=== PATIENT | male | born 1960 | race Caucasian/White ===

== ENCOUNTER 2020-02-26 01:21 | Emergency (ER) | payer OTHER, BC, SELFPAY ==
[2020-02-26 01:23] VITALS: BP 140/84; PULSE 70; RESP 16; TEMP 36.3; O2SAT 95; BMI 31.5
--- NOTE | 2020-02-26 01:26 | ED.RN ---
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
--- NOTE | 2020-02-26 01:33 | ED.DCSUM_ITS ---
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 This is sharp pain. He felt across the whole back. Hurts to bend and twist and stand up and walk. No radiation of pain into his legs. No loss of bowel or bladder function. No chronic medical problems. No home treatment. Came in for further evaluation as this is a workers comp claim. Current severity is mild. Past Medical History - Allergies and Home Meds Allergies/Adverse Reactions: Allergies No Known Allergies Allergy (Verified 02/26/20 01:26) Primary Care Physician: NOT,DEFINED [Primary Care Provider] - Prior records reviewed: Yes Past Medical History: - - Reviewed Surgical History: noncontributory Lives: With Family Smoking Status: Heavy Smoker (>10/day) Alcohol: None Drugs: None Review of Systems General: Denies: Chills, Fever, Sweats Eyes: Denies: Visual changes - bilaterally, Diplopia ENT: Denies: Rhinorrhea, Sore throat Cardiovascular: Denies: Chest pain, Palpitations Respiratory: Denies: Dyspnea, Cough, Dyspnea on exertion Gastrointestinal: Denies: Abdominal pain, Nausea, Vomiting, Diarrhea, Melena, Hematochezia Genitourinary: Denies: Dysuria, Hematuria, Frequency Musculoskeletal: Reports: Back pain. Denies: Extremity Pain Skin: Denies: Rash, Wounds Neurological: Denies: Headache, Weakness, Numbness Physical Exam Vital Signs/Narrative: Vital Signs Temp Pulse Resp BP Pulse Ox 02/26/20 01:23 97.3 F L 70 16 140/84 H 95 General: Well nourished, Well developed, No Acute Distress Head: Normocephalic, Atraumatic Eyes: Perrl, EOMI ENT: Moist mucous membranes, No rhinorrhea Neck: Supple, Nontender Cardiovascular: Regular rate, Regular rhythm, No murmurs Respiratory: No distress, CTA bilaterally, Chest nontender Abdomen: Soft, Nontender, Nondistended, Normal bowel sounds Back: Normal Inspection, - - Numbness in the right and left-sided paraspinal muscles. No midline tenderness. No swelling or deformity or bony step-off. Mild decreased range of motion secondary to pain. Extremities: Nontender, No edema Skin: Normal color, No rash Neurological: Alert, Oriented x3, Cranial nerves II-XII grossly intact, Normal Strength, Normal Sensation Psychological: Normal affect, Normal Mood Diagnostic/Tx/Re-eval - Medical Decision Making Patient given injection of Toradol. I do not feel he needs imaging. 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 Will rest and ice use anti-inflammatories and follow-up as an outpatient ED Disposition - Plan for ED Patient: Disposition: Home or Assisted Living Diagnosis: Low back strain Instructions: ED LUMBAR SPRAIN/STRAIN Referrals: [facility] [GROUP OF PHYSICIANS] -
[2020-02-26] MEDS: Ketorolac 30 MG/ML Syringe IM (01:38)
[2020-02-26 01:39] VITALS: RESP 16
--- NOTE | 2020-02-26 01:59 | ED.RN ---
PT WAS OBSERVED FOR GREATER THAN 15 MINUTES BY THIS RN, NO REACTION NOTED. PT D/C.
== END 2020-02-26 02:00 | disposition home or self-care (01) ==
LOC: ED 01:48
PROVIDERS: Emergency Provider Emergency Medicine
DX: S39.012A Strain of muscle, fascia and tendon of lower back, initial encounter (principal); X50.1XXA Overexertion from prolonged static or awkward postures, initial encounter; Y93.89 Activity, other specified; Y92.9 Unspecified place or not applicable; Y99.0 Civilian activity done for income or pay; F17.200 Nicotine dependence, unspecified, uncomplicated
CPT/HCPCS: 96372; 99282

== ENCOUNTER → 2020-02-27 13:25 | Outpatient (CLI) | payer OTHER, SELFPAY ==
[2020-02-27 13:16] VITALS: BMI 31.5
--- NOTE | 2020-02-27 13:26 | RAD_ITS ---
STUDY: X-RAY - LUMBAR SPINE REASON FOR EXAM: Male, 59 years old. Work injury, low back pain into the left leg TECHNIQUE: 5 view(s) of the lumbar spine were obtained. COMPARISON: None FINDINGS: Normal lumbar lordosis. There is no substantial scoliosis. There is a normal alignment of the vertebrae. Normal vertebral bodies and endplates. There is multi-level degenerative disc disease with multi-level disc space narrowing. There is no demonstrated fracture. There is atherosclerotic calcification of the abdominal aorta without a demonstrated aneurysm. RAD/L/S Spine Min 4 Views IMPRESSION: Degenerative changes of the spine, as detailed above. Electronically Signed: Titus Bliss MD at 13:52 EDT , Service support ,
== END ==
PROVIDERS: Referring Provider Physician Assistant Surgical; Visit Provider Physician Assistant Surgical
DX: S39.012A Strain of muscle, fascia and tendon of lower back, initial encounter (principal); X58.XXXA Exposure to other specified factors, initial encounter; Y99.0 Civilian activity done for income or pay
CPT/HCPCS: 72110

== ENCOUNTER 2021-09-15 14:11 | Outpatient (CLI) | payer BC, SELFPAY ==
--- NOTE | 2021-09-15 14:14 | RAD_ITS ---
INDICATION: PAIN EXAMINATION/TECHNIQUE: X-RAY - XR Spine Thoracic 2 Views COMPARISON: None FINDINGS: VERTEBRAE: Preserved vertebral body height. No fracture. No spondylolisthesis. Preservation of the normal thoracic kyphosis. Mild multilevel facet arthropathy. DISCS: Mild multilevel degenerative disc disease and spondylosis. INCLUDED CHEST/ABDOMEN: No acute abnormalities. RAD/Thoracic Spine 2 Views IMPRESSION: No evidence of thoracic spinal fracture or spondylolisthesis. Mild multilevel degenerative disc disease and spondylosis. Electronically Signed: Morro Ross MD at 16:56 EST ,
--- NOTE | 2021-09-15 14:14 | RAD_ITS ---
EXAM: XR BILATERAL RIBS, 3 VIEWS : 1960 CLINICAL INDICATION: PAIN TECHNIQUE: Frontal and oblique views of the bilateral ribs. This report was created using Sez[employer] report generation technology. COMPARISON: None. FINDINGS: LUNGS AND PLEURAL SPACES: There are minimal bibasilar interstitial opacities which may represent scar. No pneumothorax. No effusion. BONES/JOINTS: Unremarkable. No displaced fracture. No sclerotic or destructive changes observed. SOFT TISSUES: Unremarkable. No soft tissue swelling or gas. RAD/Ribs Bilat 3V No CXR IMPRESSION: Minimal bibasilar scarring. There are no abnormalities of the ribs. at 0209 Reported and signed by: Imtiaz Zhou MD Electronically Signed: Imtiaz Zhou MD at 2:08 EST ,
== END 2021-09-15 23:59 | disposition home or self-care (01) ==
PROVIDERS: Referring Provider Family Medicine; Visit Provider Family Medicine
DX: R07.81 Pleurodynia (principal); M51.34 Other intervertebral disc degeneration, thoracic region; M47.814 Spondylosis without myelopathy or radiculopathy, thoracic region
CPT/HCPCS: 71110; 72070

== ENCOUNTER 2021-10-16 07:44 | Outpatient (RCR) | payer BC, SELFPAY ==
--- NOTE | 2021-10-22 09:44 | HP.OTFCE_ITS ---
Floor (Occasional 1-33% of Day): 20# Floor (Frequent 34-66% of Day): 10# Floor (Constant 67-100% of Day): NA Floor PDL: Light Knee (Occasional 1-33% of Day): 20# Knee (Frequent 34-66% of Day): 10# Knee (Constant 67-100% of Day): NA Knee PDL: Light Waist (Occasional 1-33% of Day): 15# Waist (Frequent 34-66% of Day): 8# Waist (Constant 67-100% of Day): NA Waist PDL: Sedentary-Light Shoulder (Occasional 1-33% of Day): 15# Shoulder (Frequent 34-66% of Day): 8# Shoulder (Constant 67-100% of Day): NA Shoulder PDL: Sedentary-Light Overhead (Occasional 1-33% of Day): NA Overhead (Frequent 34-66% of Day): NA Overhead (Constant 67-100% of Day): NA Overhead PDL: No Ability Comments: pts pain is limiting factor with lifting. Bending: Occasional Ability (1-33% of day) Comments: with external support Squatting: Occasional Ability (1-33% of day) Comments: with external support Kneeling: Occasional Ability (1-33% of day) Comments: with external support Reaching out: Occasional Ability (1-33% of day) Reaching up: Occasional Ability (1-33% of day) Sitting: Occasional Ability (1-33% of day) Walking: Occasional Ability (1-33% of day) Standing: Occasional Ability (1-33% of day) Duration Sedentary Sedentary Light Light Light Medium Medium Medium Heavy Very Heavy Heavy Occasional (0-33% of day) Frequent (34-66% of day) Constant (67-100% of day) 10 # Negligible Negligible 15 # 8 # Negligible 20 # 10# Negli. 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 pt states he also struggles with thoracic back pain. Pt has been through physical therapy- pt states he had about 7-8 visit and it has reached a point where he was about 60% better. pt states he does not exercise on a regular basis. pt states he is doing a home program for shoulders and back -he was given from physical therapy states he is doing 3x a day Diagnoses: Back Pain. Right shoulder pain Symptoms: Back pain. right shoulder pain Pain: pt states his right back pain 01/16- pt did take tylenol this am around midnight and has not taken anything since. Venu pain questionnaire total po int . Interpretation: ? minimum pain score: 0 (would not be seen in a person with true pain). ? maximum pain score: 78. ? The higher the pain score the greater the pain. References: Sumi Romano. The Venu Pain Questionnaire: Major properties and scoring methods. Pain. 1975;. 1: 277-299. Dillan Phillips. The Greek counterpart to Venu Pain Questionnaire. Pain. 1988; 32: 251-255. Work History: Pt works for [employer] in [employer] for about 4 years. pt states his job requires him to walk,stand, stoop, crawl, reach, pushing/pulling. pt states he is unsure lifting requirement but thinks 35#-50# lift of one individual. pt state they do get help when something is to heavy to lift. pt states he was last at work 2021. Behavioral: pt cooperative and put good effort into tasks that were asked of pt. ADLS: Pt states he lives alone in one story home with two entry steps- pt does have one handrail. pt states he has a tub shower combo and stand for his shower for about 10 min[address] he [address] IND. No adaptive eq. use at this time. pt is doing his own cleaning, cooking, grocery shopping. pt does walk to laundry house to do his laundry Physical Examination: resting heart rate 99. normal kyphosis and lordosis ROM: pt demo with minimal lumbar flex loss lumbar ext min loss of motion. shoulders are rolled at sitting posture. pt demo full ROM of bilateral UE and LE. pt demo with a functional ROM. pain stopping pt with motion. Strength: RIGHT LE: HIP FLEX 4/5, HIP ABD 4/5, HIP ADD 4/5, KNEE EXT 4/5, KNEE FLEX 5/5, ANKLE DORSIFLEXION 5/5. left LE: HIP 4/5, KNEE 5/5, ANKLE DORSIFLEXION 5/5. 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 Strength Average: 51.66 Right Cnc Field Service Engineer Strength Percentile: <4% Left Cnc Field Service Engineer Strength Average: 63.33 Left Cnc Field Service Engineer Strength Percentile: 7.4% Right Lateral Pinch Average: 18.00 Right Lateral Pinch Percentile: 25% Left Lateral Pinch Average: 14.66 Left Lateral Pinch Percentile: 10% Right Tripod Pinch Average: 14.66 Right Tripod Pinch Percentile: 10% Left Tripod Pinch Average: 12.66 Left Tripod Pinch Percentile: 10% Sensation: denies Fine Motor: denies Balance: pt demo good balance during assesment- Bending: pt demo the ability to bend forward 3/3x, 10/10x, 10/10x rapidly. pt forward flexion is limited with pain- pt use external support for task. Pts heart rate 103 following. after completing bending forward rapidly pt heart rate 115. pt can bend forward on occasional ability. pt sat for 2 min after this prior to starting next task of squatting Squatting: pt demo the ability to squat 3/3x with external support. 10/10x with external support. pt reported 6/10 back pain. heart rate 118. pt complted 10/10x rapidly. pt can squat on occasional ability. heart rate 118 Kneeling: pt demo the ability to kneel 3/3x, 10/10x with external support - pt declined 10 x rapidly. pt report 7/10. heart rate 116. heart rate 122 following 10x kneeling. pt can kneel on occasional ability Reaching out/up: pt demo the ability to reach up 3/3x, 10/10x, and 10/10 rapidly. heart rate 113. pt demo the ability to reach out 3/3x, 10/10x and 10/10 rapidly. pt reported back pain 7/10. pts heart rate 120 following. pt can reach up/out on a occasional ability Walking: pt demo short antalgic reciprocal step pattern. 5 min slow pt reported back pain 7/10 during and at end of ambulation. heart rate 123. Pt can ambulate on occasional ability Standing: pt demo limited stand time for 2 min -noted discomfort shifting body weight Sitting: pt demo the ability to sit for 30 min with expressed discomfort with shifting body weight. pt sits-stands with guarded posturing Climbing Stairs: pt ascended and descended 10 steps with a reciprocal step pattern with use of handrail. pt completed safety. heart rate 136 following Floor Lift: pt demo the ability to lift 20# maximally from this level. Pt had good lifting mechanics - pain limiting pts ability. heart rate 132 following. pt reported back pain 7/10 Knee Lift: pt demo the ability to lift 20# maximally from this level. Pt had good lifting mechanics - pain limiting pts ability Waist Lift: pt demo the ability to lift 15# maximally from this level. Pt had good lifting mechanics - pain limiting pts ability Shoulder Lift: pt demo the ability to lift 15# maximally from this level. Pt had good lifting mechanics - pain limiting pts ability Overhead Lift: unable Carrying: pt demo the ability to carry 15# for 6 feet - pt stopped due to pain. pt pain 7/10 Comments: following lifting pt reported back pain 7/10. heart rate ranged form 135-123 during lifting task. No ability to push/pull. back pain limiting pts ability at this time
--- NOTE | 2021-10-22 09:44 | HP.OTFCE.D ---
FCE D/C Summary - Discharge MIGUEL RODRIGEZ was seen for a one time visit for an FCE on 10/16/21 and is discharged.
== END 2021-10-16 19:00 | disposition home or self-care (01) ==
LOC: OT 07:44
PROVIDERS: PCP Family Medicine; Referring Provider Family Medicine; Visit Provider Family Medicine
DX: M54.9 Dorsalgia, unspecified (principal)
CPT/HCPCS: 97750

== ENCOUNTER 2021-10-21 11:30 | Outpatient (RCR) | payer BC, SELFPAY ==
--- NOTE | 2021-09-19 15:46 | HP.PTEVAL_ITS ---
Patient's Visit Information MIGUEL RODRIGEZ is a 61 year old M referred to Physical Therapy by Dr. Bernardo Ruiz MD with a diagnosis of THORACIC PAIN AND DDD. Date of Evaluation: 09/19/21 Physical Therapist: Libra Hernandez PT, Cert MDT - Visit Plan Frequency: 2-3x /Week Duration: 4-6 Weeks Plan: CONSIDER US, E-STIM WITH MH OR CP, POSTURE CORRECTION/STRENGTHENING, INSTRUCTION IN APPROPRIATE BODY MECHANICS AND ACTIVITY MODIFICATIONS. DLS STARTING WITH A NEUTRAL SPINE PROGRESSING ROM TOLERATED. LYN UE AND LE ROM, STRETCHING AND STRENGTHENING. HEP INSTRUCTION. - Subjective Work/Leisure: WORKS IN [place] AT [employer]. 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 CURRENTLY OFF WORK SINCE AUG 13 2021. NO TENTATIVE RETURN TO WORK DATE. Disability: NO. Present symptoms: MID AND LOW BACK PAIN. BACK WEAKNESS. PATIENT DENIES LYN UE AND LE RADIATING PAIN, NUMBNESS OR TINGLING. Present since: APPROX AUG 07 2021. Pain Scale: WORST 9/10, LEAST 2/10. Currently: 10. Commenced as a result of: WASHING LAKE AT WORK WHEN FELT THE PAIN FOR THE FIRST BUT IT WENT AWAY AND CAME BACK. Symptoms at onset: SHARP STABBING PAIN IN BACK. Worse: STANDING UP, TRYING TO LAY DOWN IN BED, TRYING TO TAKE A SHOWER, PUTTING CLOTHES ON, WALKING, BENDING, LIFTING, TWISTING, REACHING. Better: HEATING IT AND COOLING IT. MALOXACAM. Disturbed sleep: YES. 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 WENT TO THE DOCTOR, HAD X-RAYS AND WAS DIAGNOSED WITH ARTHRITIS AND PINCHED NERVE. PAIN DOWN RIGHT LEG TOO AT ONSET. TREATED WITH PHYSICAL THERAPY AT WORK AND THE PROBLEM WENT AWAY. FULL RECOVERY. NO CHIROPRACTIC. NO BACK SURGERY. NO BACK INJECTIONS. Treatment this episode: PREDNISONE. MUSCLE RELAXER. NOW MALOXACAM. Coughing/sneezing/s training: POSITIVE. Deep Breathe: POSITIVE. Gait: ABLE TO WALK NORMAL BUT SLOWER. Difficulty initiating urination: NO. NO BOWEL OR BLADDER DYSFUNCTION. Accidents: NO. Unexplained weight loss: NO. Imaging: RECENT X-RAYS ORDERED BY DR. RUIZ. PATIENT REPORTS THE NURSE TOLD HIM THERE HAS BEEN A CHANGE IN HIS SPINE AND DR. RUIZ WANTS HIM TO DO PT. REPORTS FOLLOW UP SCHEDULED WITH DR. RUIZ PENDING 09/25/21. INDICATION: PAIN. EXAMINATION/TECHNIQUE: X-RAY - XR Spine Thoracic 2 Views. COMPARISON: None. . FINDINGS: VERTEBRAE: Preserved vertebral body height. No fracture. No. spondylolisthesis. Preservation of the normal thoracic kyphosis. Mild. multilevel facet arthropathy. DISCS: Mild multilevel degenerative disc disease and spondylosis. INCLUDED CHEST/ABDOMEN: No acute abnormalities. RAD/Thoracic Spine 2 Views. IMPRESSION: . No evidence of thoracic spinal fracture or spondylolisthesis. . Mild multilevel degenerative disc disease and spondylosis. . Electronically Signed: Morro Ross MD. at 16:56 EST. Reading Location ID and State: [address] [place] [address]. H/Recent major surgery: UNREMARKABLE - Objective Sitting/Standing Posture: NORMAL KYPHOSIS AND LORDOSIS. NO RELEVENT LATERAL SHIFT. Active Correction of posture: WORSE. Other Observations: THIS PATIENT AMBULATES INDEP'LY INTO PT WITH A SLOW ANTALGIC GAIT PATTERN. GAIT AND TRANSFERS ARE GUARDED. PATIENT IS ABLE TO TRANSFER INDEP'LY FROM SIT TO STAND WITHOUT UE ASSIST BUT WITH C/O INCREASED BACK PAIN. Motor deficit: LYN UE STRENGTH IS GROSSLY 5/5 WITH MMT'ING. I PROCEEDED VERY CAREFULLY WITH ALL TESTING TODAY INCLUDING MMT'ING. RIGHT LE: HIP FLEX 3+/5, HIP ABD 4-/5, HIP A DD 3+/5, KNEE EXT 4/5, KNEE FLEX 5/5, ANKLE DORSIFLEX 4/5 AND PATIENT IS UNABLE TO WALK ON HIS TOES. LLE: HIP 4-/5, KNEE 5/5, ANKLE DORSIFLEX 5/5. PATIENT IS ABLE TO WALK ON HIS HEELS. PATIENT C/O SHOOTING BACK PAIN WITH LIGHT TESTING OF RIGHT HIP ADD AND FLEXION. ALSO C/O BACK PAIN PREVENTING HIM FROM WALKING ON HIS TOES. Sensory deficit: LYN UE AND LE LIGHT TOUCH SENSATION GROSSLY INTACT AND SYMMETRICAL. ROM deficit: TIGHT LYN HS'S AND GASTROC-SOLEUS COMPLEX'S. LYN UE ELEVATION WFL AND PATIENT DENIES PAIN WITH TESTING. Reflexes: UNABLE TO ELICIT LYN UE AND LE DTR'S. PATIENT IS VERY GUARDED. Dural Signs: POSITIVE LYN LE'S. Thoracic mvmt loss: R Rot - MOD. L Rot - MOD. Lumbar mvmt loss: flex - MOD. ext - MOD. R SG - MOD. L SG - MIN. PATIENT C/O INCREASED BACK PAIN WITH THORACIC AND LUMBAR ROM TESTING ALL PLANES. Core strength: POOR. Palpation: INCREASED MUSCLE TONE OF LYN THORACIC AND LUMBAR PARASPINALS. PATIENT IS ESPECIALLY TENDER IN APPROX THE T8 - L2 REGIONS AND RIGHT PARASPINALS GREATER THAN LEFT. TREATMENT: NEUROMUSCULAR REEDUCATION - RETRAINING OF MVMT AND POSTURE FOR SITTING, LYING AND STANDING ACTIVITIES. - Balance/Special Test Scores Oswestry Low Back Score: 22 - Goals Goal 1:: DECREASE C/O BACK PAIN Goal Time Frame: 4-6 Weeks Goal 2:: IMPROVE PERSONAL CARE, LIFTING, WALKING, SITTING, STANDING, SLEEP, SOCIAL LIFE, TRAVEL AND WORK/HOMEMAKING FUNCTION. Goal Time Frame: 4-6 Weeks Goal 3:: INSTRUCT IN PROPHYLAXIS Goal Time Frame: 4-6 Weeks - Anticipated Interventions Patient/Client Instruction: Educate patient on: Condition, Plan of Care, Risk Factors For the Purpose of:: To improve self management Therapeutic Exercise to Include: Strength training, Body mechanics, Postural training, Neuromotor development, Dynamic Lumbar Stabilization, Scapular Strength/Stabilization For the Purpose of:: To decrease pain, To improve muscle performance and motor function, To increase tolerance to activity/condition/position, To improve ability of physical actions for home/community/work/leisure TENS: Yes IF ES: Yes Cryotherapy (ice pack, ice massage): Yes Thermo therapy (hot pack): Yes Ultrasound (thermal/non thermal): Yes For the Purpose of:: To decrease pain, To improve nutrient delivery to tissue Thank you for the opportunity to evaluate your patient. For Medicare and Medicare HMO plans, please review the plan of care and approve it. It will need to be FAXED BACK to us at [phone] for Medicare purposes. For Medicare only, by signing this I certify the plan of care. Please let me know if there are questions or concerns regarding this plan of care. Physician Signature: Date:
--- NOTE | 2021-10-21 12:23 | HP.PTDCSUM_ITS ---
It has been my pleasure to treat MIGUEL RODRIGEZ referred by Dr. Bernardo Ruiz MD, with the diagnosis of THORACIC PAIN AND DDD for a total of 9 visit(s). Discharge Date: Please see the following information for a summary of their discharge status. Subjective: PATIENT REPORTS HE WAS ABOUT 60% BETTER UNTIL HE HAD HIS [facility] TEST LAST WEEK. HE REPORTS CANCELLING HIS LAST PT OMID'T DUE TO INCREASED PAIN FROM THE TEST. PATIENT REPORTS THAT PRIOR TO THAT, WHEN HE WOULD LEAVE HIS PT OMID'TS HE COULD SIT LONGER, HE COULD STAND A LITTLE LONGER AND HE WAS GETTING BETTER AT WALKING. PATIENT REPORTS THAT HE FELT LIKE HE WAS HIT WITH A TON OF BRICKS AFTER THE TEST. SINCE THEN, HE REPORTS HE HAS BEEN IN MORE PAIN AND HASN'T BEEN ABLE TO DO MUCH OF ANYTHING. NOT BACK TO WORK. STATES HE AND WORK ARE WAITING FOR FINAL WORK RESTRICTIONS FROM THE DOCTOR. PATIENT REPORTS HE DOES NOT WANT TO CONTINUE PT BECAUSE HE DOES NOT THINK IT WILL DO ANY GOOD. HE REPORTS HE HAS FOLLOW UP WITH DR. RUIZ PENDING 11/04/21. 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 OMID'T WITH DR. EWING AT [facility] PENDING 11/03/21. R BACK PAIN Pain Intensity (Out of 10): 5 L BACK PAIN Pain Intensity (Out of 10): 4 % Improvement: 60 Objective/Function: PATIENT WAS SEEN TODAY FOR RE-ASSESSMENT OF PROGRESS TOWARD THE SET PT GOALS AND THE NEED FOR FURTHER PHYSICAL THERAPY VS READINESS FOR DISCHARGE. PATIENT IS CURRENTLY NOT IMPROVING. UPON EXAM TODAY: Sitting/Standing Posture: NORMAL KYPHOSIS AND LORDOSIS. NO RELEVENT LATERAL SHIFT. Active Correction of posture: WORSE. Other Observations: THIS PATIENT AMBULATES INDEP'LY INTO PT WITH A SLOW ANTALGIC GAIT PATTERN. GAIT AND TRANSFERS ARE GUARDED. PATIENT IS ABLE TO TRANSFER INDEP'LY FROM SIT TO STAND WITHOUT UE ASSIST BUT WITH C/O INCREASED BACK PAIN. Motor deficit: LYN UE STRENGTH IS GROSSLY 5/5 WITH MMT'ING. I PROCEEDED VERY CAREFULLY WITH ALL TESTING TODAY INCLUDING MMT'ING. RIGHT LE: HIP FLEX 4/5, HIP ABD 4/5, HIP ADD 4/5, KNEE EXT 4/5, KNEE FLEX 5/5, ANKLE DORSIFLEX 5/5. LLE: HIP 4/5, KNEE 5/5, ANKLE DORSIFLEX 5/5. PATIENT DEMO'S ABILITY TO WALK ON HIS TOES AND WALK ON HIS HEELS TODAY. Sensory deficit: LYN UE AND LE LIGHT TOUCH SENSATION GROSSLY INTACT AND SYMMETRICAL. ROM deficit: TIGHT LYN HS'S AND GASTROC-SOLEUS COMPLEX 'S. LYN UE ELEVATION WFL AND PATIENT REPORTS PAIN ELEVATING RIGHT UE UNTIL ALL THE WAY UP THEN THE PAIN GOES AWAY. Reflexes: UNABLE TO ELICIT LYN UE AND LE DTR'S. PATIENT IS VERY GUARDED. Dural Signs: POSITIVE LYN LE'S (R >L). Thoracic mvmt loss: R Rot - MOD. L Rot - MOD. Lumbar mvmt loss: flex - NIL. ext - MOD. R SG - MOD. L SG - MIN. PATIENT C/O INCREASED BACK PAIN WITH THORACIC AND LUMBAR ROM TESTING ALL PLANES. Core strength: POOR. Palpation: INCREASED MUSCLE TONE OF LYN THORACIC AND LUMBAR PARASPINALS. PATIENT IS ESPECIALLY TENDER IN APPROX THE T8 - L2 REGIONS AND RIGHT PARASPINALS GREATER THAN LEFT. OTHER: REVIEWED HEP AND PATIENT COMMUNICATED A GOOD UNDERSTANDING OF ALL INSTRUCTIONS AFTER GIVEN. Goal 1:: DECREASE C/O BACK PAIN Goal Progress: Not Progressing Goal 2:: IMPROVE PERSONAL CARE, LIFTING, WALKING, SITTING, STANDING, SLEEP, SOCIAL LIFE, TRAVEL AND WORK/HOMEMAKING FUNCTION. Goal Progress: Not Progressing Goal 3:: INSTRUCT IN PROPHYLAXIS Goal Progress: Not Progressing Plan: D/C TO PHYSICIAN FOLLOW UPS. PATIENT AGREEABLE. If there are questions or concerns regarding this patient's physical therapy, please feel free to call me at [phone]. Thank you for the referral of this patient. Sincerely, Libra Hernandez, PT, Cert MDT Balance/Gait/Functional tests - Balance/Special Test Scores Oswestry Low Back Score: 35
== END 2021-10-21 14:27 | disposition home or self-care (01) ==
LOC: PT 11:30
PROVIDERS: PCP Family Medicine; Referring Provider Family Medicine; Visit Provider Family Medicine
DX: M51.34 Other intervertebral disc degeneration, thoracic region (principal)
CPT/HCPCS: 97014; 97035; 97112; 97162; 97164; 97530; G0283

== ENCOUNTER 2021-10-25 15:26 | Emergency (ER) | payer BC, SELFPAY ==
[2021-10-25 15:26] VITALS: BP 159/91; PULSE 108; RESP 18; TEMP 36.6; O2SAT 95; BMI 25.2
--- NOTE | 2021-10-25 16:38 | ED.VIS.BACK ---
HPI History of Present Illness Chief Complaint: Back Narrative Narrative: 61-year-old male presenting with back pain.He states he had an injury in August and states he had pain since then. Patient states that he has been seen by physical therapy and had his primary care physician see him. Is previously been on prednisone. The prednisone did help but his primary care did not want to continue on prednisone long-term. He did send him to pain management and he has appointment on the of this month but states that he cannot wait because he is in pain. He states that he thinks his primary care physician did not want to put him on narcotics because he would need to give a urinalysis to get into the pain management. He believes this is why his primary care physician did not give him any narcotic pain medication. Patient states he has tried meloxicam as well this is not helped. He has tried aspirin [id number] at home as well. Denies any loss of bladder bowel control. No saddle anesthesia. Denies any new or worsening trauma. He is already had trauma. He is already had imaging. [facility] Medical History Back pain Hernia Right shoulder pain Right shoulder strain Strain of right rotator cuff capsule Home Medications hydrocodone-acetaminophen 1 tab PO Q6H PRN 3 Days #10 tab 10/25/21 [Rx Last Taken Unknown] Allergy/AdvReac Type Severity Reaction Status Date / Time No Known Allergies Allergy Verified 08/14/21 12:39 Social History Smoking Status: Former smoker alcohol intake: never ROS ROS ED Constitutional Constitutional ED: Denies chills or fever(s) Eyes Eyes: Denies blurry vision or change in vision ENT ENT ED: Denies rhinorrhea or sore throat Cardiovascular Cardiovascular: Denies chest pain or palpitations Respiratory/Chest Respiratory/Chest: Denies dyspnea or sputum Gastrointestinal Gastrointestinal: Denies abdominal pain, nausea or vomiting Genitourinary Genitourinary ED: Denies dysuria or hematuria Musculoskeletal Musculoskeletal: Reports back pain Integumentary Denies rash Neurologic Neurologic: Denies headache(s) or weakness EXAM Physical Exam Const Vital Signs: 10/25/21 15:26 Temperature 97.8 F Temperature Source Temporal Pulse Rate 108 H Respiratory Rate 18 Blood Pressure 159/91 H Blood Pressure Mean 113 Pulse Ox 95 Oxygen Delivery Method Room Air Positive well nourished General Appearance ED: NAD HEENT Reports moist mucous membranes Negative for trauma Eyes PERRL and EOMs intact bilaterally Resp normal respiratory effort and clear to auscultation bilaterally Cardio regular rate and regular rhythm Back/Spine Thoracic Spine / Upper Back: paraspinal muscle tenderness right T10, T11 and T12 Neuro oriented x3 and no sensory deficits noted Sensorium / Orientation: alert Psych mental status grossly normal Skin no rashes or lesions noted MDM MDM MDM Narrative Medical decision making narrative: After evaluating patient for his back he states that he has had a mild cough. Is not had a fever or shortness of breath. Lungs are clear. Vital signs are stable and he is afebrile. I do not believe he needs a chest x-ray. He states that his main focus is to control his back pain. I did have a long discussion with him that if the wishes of his primary care were not to give him narcotic pain medication was in fact for the purpose of getting him into pain management with a clean urinalysis and this may hinder his getting into pain management. He acknowledges understanding of this and wants to be treated for his pain. He does not have any red flag signs or symptoms of believe he can be safely discharged without further work-up. Patient was given a prescription for Holman. He is given return precautions. Impression: 1. Thoracic strain 2. Cough Discharge Plan Triage Chief Complaint: Back Other Complaint: Cough ED Provider: Adi Jiang Dx/Rx/DC Orders Instructions: ED Back Pain (Acute or Chronic) Prescriptions: New hydrocodone-acetaminophen 5-325 mg tablet 1 tab PO Q6H PRN (Reason: pain) 3 Days Qty: 10 RF: 0 Primary Care Provider: Bernardo Mensah Referrals: Bernardo Mensah MD [Primary Care Provider] - Disposition Disposition: Home, Self Care Discharge Date/Time: 10/25/21 16:42
== END 2021-10-25 16:42 | disposition home or self-care (01) ==
PROVIDERS: Emergency Provider Student in an Organized Health Care Education/Training Program; PCP Family Medicine; Visit Provider Student in an Organized Health Care Education/Training Program
DX: S29.019A Strain of muscle and tendon of unspecified wall of thorax, initial encounter (principal); X58.XXXA Exposure to other specified factors, initial encounter; R05.9 Cough, unspecified; Z87.891 Personal history of nicotine dependence
CPT/HCPCS: 99282

== ENCOUNTER 2021-10-31 08:42 | Outpatient (CLI) | payer BC, SELFPAY ==
--- NOTE | 2021-10-31 08:45 | RAD_ITS ---
STUDY: X-RAY CHEST REASON FOR EXAM: Male, 61 years old. BRONCHITIS TECHNIQUE: PA and lateral views of the chest. COMPARISON: None. FINDINGS: Blunting of the left constrained angle suggestive of a small left pleural effusion. Increased linear markings in the left perihilar region suggestive of underlying atelectasis and/or scarring. Mild increased markings at the left lung base. Normal size heart. Normal mediastinum and umm. Normal visualized pulmonary arteries. There is atherosclerotic tortuosity of the aortic arch and descending thoracic aorta. There are diffuse degenerative changes of the visualized thoracic spine. Loss of height of mid dorsal vertebrae. Normal visualized ribs, clavicles, and shoulders. There is no demonstrated abnormality of the visualized soft tissue structures of the upper abdomen. RAD/Chest PA and Lateral IMPRESSION: Small left pleural effusion with increased markings at the left lung base suggestive of atelectasis and/or early infiltrate. Increased linear markings in the right perihilar region suggestive of a scar. Electronically Signed: Alexx Fairbanks MD at 9:47 EDT ,
== END 2021-10-31 23:59 | disposition home or self-care (01) ==
LOC: MTRAD 08:44
PROVIDERS: PCP Family Medicine; Referring Provider Family Medicine; Visit Provider Family Medicine
DX: J20.9 Acute bronchitis, unspecified (principal)
CPT/HCPCS: 71046

== ENCOUNTER 2021-11-02 21:56 | Emergency (ER) | payer BC, SELFPAY ==
[2021-11-02 21:56] VITALS: BP 148/97; PULSE 105; RESP 16; TEMP 35.8; O2SAT 96; BMI 29.0
--- NOTE | 2021-11-02 22:12 | CT_ITS ---
EXAM: CT ANGIOGRAPHY CHEST, ABDOMEN AND PELVIS WITH INTRAVENOUS CONTRAST CLINICAL INDICATION: back and abd pain, leg weakness, check aorta TECHNIQUE: Helically acquired angiography images were obtained of the chest, abdomen and pelvis with intravenous contrast. This CT exam was performed using one or more of the following dose reduction techniques: automated exposure control, adjustment of the mA and/or kV according to patient size, and/or use of iterative reconstruction technique. This report was created using Smart Voicemail report generation technology. MIP reconstructed images were created and reviewed. CONTRAST: IV 100mL [id number]-[id number] COMPARISON: None. FINDINGS: VASCULATURE: AORTA: No acute findings. Normal in caliber. No dissection. PULMONARY ARTERIES: Unremarkable. Normal in caliber. No obvious central pulmonary embolism although this study was not performed with the pulmonary embolism protocol. GREAT VESSELS OF AORTIC ARCH: Unremarkable. Normal in caliber. No dissection. CELIAC TRUNK AND MESENTERIC ARTERIES: No acute findings. No occlusion or significant stenosis. No dissection. RENAL ARTERIES: No acute findings. No occlusion or significant stenosis. No dissection. ILIAC ARTERIES: No acute findings. No occlusion or significant stenosis. No dissection. CHEST: LUNGS AND PLEURAL SPACES: Unremarkable. No mass. No consolidation or edema. No pleural effusion or thickening. No pneumothorax. HEART: Unremarkable. Heart size is normal. No pericardial effusion. MEDIASTINUM: See below. THYROID: Unremarkable. No thyroid lesions. ABDOMEN: LIVER: Unremarkable. Homogeneous. No focal mass. GALLBLADDER AND BILE DUCTS: Unremarkable. No calcified gallstones. No gallbladder distention or wall edema. No intra- or extrahepatic biliary ductal dilation. PANCREAS: Unremarkable. No focal cystic or solid mass. SPLEEN: Unremarkable. Normal size without focal cystic or solid mass. ADRENALS: Unremarkable. No nodules. KIDNEYS AND URETERS: Unremarkable. Normal renal size and position. No hydronephrosis. STOMACH AND BOWEL: Mild wall thickening of the colon from the splenic flexure through the sigmoid colon suspicious for infectious or inflammatory colitis. No stomach or bowel distention. PELVIS: APPENDIX: No evidence of acute appendicitis. BLADDER: Unremarkable. REPRODUCTIVE: Unremarkable as visualized. No mass. CHEST, ABDOMEN and PELVIS: INTRAPERITONEAL SPACE: Unremarkable. No ascites or other fluid collection. No free air. BONES/JOINTS: Lucency in the T8 and T9 vertebral bodies with endplate destruction. Disc space narrowing. There is pathologic compression of the T9 vertebral body with approximately 50% loss of vertebral body height. There is abnormal pre- and paravertebral soft tissue at the T8 and T9 levels. Findings are suspicious for discitis/osteomyelitis with paravertebral abscess. SOFT TISSUES: Small fat-containing umbilical hernia. LYMPH NODES: Mild mediastinal adenopathy. Subcarinal node measures 1.7 cm in short axis. Left paratracheal node measures 1.[address] in [address] axis[address] CT/CTA Chst, Abd, Pel W and/or WO IMPRESSION: Findings suspicious for T8-9 discitis/osteomyelitis with paravertebral abscess. Consider contrast enhanced MRI of the thoracic spine, particularly to evaluate the spinal canal and exclude epidural abscess. Mild mediastinal adenopathy. N.B. : The above Results were Read Back by Sonia Antoine MD to Lencho Coffman MD, and understanding confirmed on 11/02/2021 23:53:45 (ET). Electronically Signed: Sonia Antoine MD at 23:56 EDT Reading Location ID and State: [id number] / Tel , Service support ,
[2021-11-02] MEDS: HYDROmorphone 1 MG/ML Syringe IV (22:23)
[2021-11-02] MEDS: Ondansetron 4 MG/2 ML Vial IV (22:23)
[2021-11-02 22:31] LABS: Absolute Lymphocyte Count 1.49 X10^3/uL (0.83-4.51); Absolute Neutrophil Count 8.9 X10^3/uL (2.0-7.7); Basophil# 0.02 X10^3/uL; Basophil% 0.2 % (0-1); Eosinophil# 0.03 X10^3/uL; Eosinophils% 0.3 % (0-5); Hematocrit 34.4 % (40-54); Hemoglobin 11.9 g/dL (13.0-16.5); Lymphocyte # 1.49 X10^3/ul (0.83-4.51); Mean Corp Hgb Conc 34.6 g/dL (32-36); Mean Corpuscular Hgb 27.5 pg (27.0-32.0); Mean Corpuscular Volume 79.6 fL (80-94); Mean Platelet Vol. 8.7 fl (6.2-12.0); Monocyte# 0.99 X10^3/uL; Monocyte% 8.6 % (0-10); NRBC Flagged by Analyzer 0 % (0-5); Neutrophil # 8.85 X10^3/uL (2.7-7.7); Neutrophil % 76.9 % (47-70); Platelet Count 538 K/mm3 (150-450); RBC Distribution Width CV 13.5 % (11.6-14.6); RBC Distribution Width SD 39.3 fl (35.1-43.9); Red Blood Count 4.32 M/mm3 (4.6-6.2); White Blood Count 11.5 K/mm3 (4.4-11.0)
[2021-11-02 22:54] LABS: Anion Gap 11 (5-15); BUN 25 mg/dL (7-18); BUN/Creat Ratio 30.1 RATIO (10-20); Calcium,Total 9.7 mg/dL (8.5-10.1); Chloride 92 mmol/L (98-107); Creatinine, Serum 0.83 mg/dL (0.70-1.30); EST Glomerular Filtration Rate 101 mL/min (>60); Est Glom Filt Rate - Afr Amer 122 mL/min (>60); Estimated Creatinine Clearance 89.59 ml/min; Glucose 524 mg/dL (74-106); Potassium 4.2 mmol/L (3.5-5.1); Sodium Level 128 mmol/L (136-145)
--- NOTE | 2021-11-02 22:54 | ED.RN ---
glucose of 524 received from lab aware.
[2021-11-02] MEDS: 0.9% Normal Saline 1,000 ML 1000 ML IV (23:38)
[2021-11-02 23:56] VITALS: BP 148/85; PULSE 81; RESP 15; O2SAT 97
--- NOTE | 2021-11-03 00:22 | EX.ED.DYSGE1 ---
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 He has had x-rays of his shoulder and thoracic spine and was referred to physical therapy and pain management. He presents today because he is having increasing pain. He is also having abdominal pain and he is having numbness down his legs bilaterally. These are new symptoms today. He never had these symptoms before. Prior similar symptoms: No Recent Illness/Hospitalization: No PFSH [facility] Medical History Back pain Hernia Right shoulder pain Right shoulder strain Strain of right rotator cuff capsule Home Medications hydrocodone-acetaminophen 1 tab PO Q6H PRN 3 Days #10 tab 10/25/21 [Rx Last Taken Unknown] albuterol sulfate 2 inh INHALATION Q4H PRN PRN 11/02/21 [History Last Taken Unknown] prednisone 40 mg PO DAILY 11/02/21 [History Last Taken Unknown] Allergy/AdvReac Type Severity Reaction Status Date / Time No Known Allergies Allergy Verified 11/02/21 22:00 Social History Smoking Status: Former smoker alcohol intake: never ROS ROS ED Constitutional Constitutional ED: Denies chills or fever(s) Eyes Eyes: Denies change in vision ENT ENT ED: Denies ear pain Cardiovascular Cardiovascular: Denies chest pain Respiratory/Chest Respiratory/Chest: Denies dyspnea Gastrointestinal Gastrointestinal: Reports abdominal pain Genitourinary Genitourinary ED: Denies dysuria Musculoskeletal Musculoskeletal: Reports back pain Integumentary Denies rash Neurologic Neurologic: Reports paresthesias and weakness; Denies headache(s) Psychiatric Psychiatric: Denies depression Endocrine Endocrinology: Denies polyuria Allergic/Immunologic Allergic/Immunologic ED: Denies urticaria EXAM Physical Exam Const Vital Signs: 11/02/21 21:56 11/02/21 22:05 Temperature 96.5 F L Temperature Source Temporal Pulse Rate 105 H Respiratory Rate 16 Respiratory Effort Normal Non-Labored Respiratory Pattern Normal Blood Pressure 148/97 H Blood Pressure Mean 114 Pulse Ox 96 Oxygen Delivery Method Room Air Positive well nourished and well developed General Appearance ED: well developed HEENT Negative for trauma Eyes EOMs intact bilaterally Neck supple Resp normal respiratory effort Cardio regular rate GI normal to inspection, nondistended, normoactive bowel sounds Back/Spine Thoracic Spine / Upper Back: thoracic spinal tenderness Extremity normal to inspection General Extremety ED: Negative for edema or tenderness General Extremity: Negative for edema Neuro oriented x3 Neuro Narrative: Subjective lower extremity decreased sensation, symmetric. Motor 5 out of 5 in all groups. Sensorium / Orientation: alert Psych mental status grossly normal Skin no rashes or lesions noted MDM MDM MDM Narrative Medical decision making narrative: Patient presents with thoracic pain. The pain is getting worse since a mild injury in August. It did not make sense clinically. He said he is also having abdominal pain and neurologic symptoms. I was concerned for some other etiology of his thoracic pain like aortic disease. I ordered some basic labs. His white count was 11.5. Glucose 524. Sodium is 128, secondary to his hyperglycemia. Anion gap was normal. He was treated with IV fluids. He said he has no history of diabetes but has been on prednisone. Patient required multiple doses of pain medication. His CT came back. His aorta was okay but he had osteomyelitis of T8 and T9 with paravertebral edema concerning for an early abscess. He will need MRIs and spinal surgery consultation. I added on cultures as well as vancomycin and Rocephin. I contacted [facility] for transfer. Impression #1 T8 and T9 osteomyelitis Impression #2 thoracic paravertebral abscess suspected Impression #3 hyperglycemia Disposition will be transfer. Lab Data Attestation: I reviewed the patient's lab results. Labs: Laboratory Results - last 24 hr 11/02/21 11/02/21 22:08 22:08 WBC 11.5 H RBC 4.32 L Hgb 11.9 L Hct 34.4 L MCV 79.6 L MCH 27.5 MCHC 34.6 RDW Std Deviation 39.3 RDW Coeff of Tre 13.5 Plt Count 538 H MPV 8.7 Immature Gran % (Auto) 1.000 H Neut % (Auto) 76.9 H Lymph % (Auto) 13.0 L Cook % (Auto) 8.6 Eos % (Auto) 0.3 Baso % (Auto) 0.2 Absolute Neuts (auto) 8.9 H Absolute Lymphs (auto) 1.49 Nucleated RBC % 0 Sodium 128 L Potassium 4.2 Chloride 92 L Carbon Dioxide 25.0 Anion Gap 11 BUN 25 H Creatinine 0.83 Estim Creat Clear Calc 89.59 Est GFR (MDRD) Af Amer 122 Est GFR (MDRD) Non-Af 101 BUN/Creatinine Ratio 30.1 H Glucose 524 H* Calcium 9.7 Radiography Diagnostic Testing: Clinical Impression(s) from Imaging Studies Chest/Abdomen/Pelvis CTA 11/02/21 22:12 IMPRESSION: Findings suspicious for T8-9 discitis/osteomyelitis with paravertebral abscess. Consider contrast enhanced MRI of the thoracic spine, particularly to evaluate the spinal canal and exclude epidural abscess. Mild mediastinal adenopathy. N.B. : The above Results were Read Back by Sonia Antoine MD to Lencho Coffman MD, and understanding confirmed on 11/02/2021 23:53:45 (ET). Electronically Signed: Sonia Antoine MD at 23:56 EDT Reading Location ID and State: [id number] / Tel , Service support , ADDENDUM: 11/03/21 0003 IMPRESSION: Findings suspicious for T8-9 discitis/osteomyelitis with paravertebral abscess. Consider contrast enhanced MRI of the thoracic spine, particularly to evaluate the spinal canal and exclude epidural abscess. Mild mediastinal adenopathy. N.B. : The above Results were Read Back by Sonia Antoine MD to Lencho Coffman MD, and understanding confirmed on 11/02/2021 23:53:45 (ET). Electronically Signed: Sonia Antoine MD at 23:56 EDT Reading Location ID and State: [id number] / Tel , Service support , Discharge Plan Triage Chief Complaint: Other, Pain/Inj ED Provider: Lencho Coffman Dx/Rx/DC Orders Prescriptions: No Action hydrocodone-acetaminophen 5-325 mg tablet 1 tab PO Q6H PRN (Reason: pain) 3 Days Qty: 10 RF: 0 prednisone 20 mg tablet 40 mg PO DAILY RF: 0 albuterol sulfate 90 mcg/actuation HFA aerosol inhaler 2 inh INHALATION Q4H PRN PRN (Reason: sob) RF: 0 Primary Care Provider: Bernardo Mensah
[2021-11-03] MEDS: HYDROmorphone 1 MG/ML Syringe IV ×2 (00:37→03:15)
[2021-11-03] MEDS: 0.9% Normal Saline 1,000 ML 1000 ML IV (00:41)
[2021-11-03] MEDS: Ceftriaxone 1 GM/50 ML BAG IV (00:47)
[2021-11-03 01:00] VITALS: BP 146/87; PULSE 80; RESP 15; O2SAT 97
[2021-11-03 02:57] VITALS: BP 142/79; PULSE 80; RESP 14; O2SAT 99
== END 2021-11-03 03:40 | disposition short-term general hospital (02) ==
PROVIDERS: Emergency Provider Emergency Medicine; PCP Family Medicine; Visit Provider Emergency Medicine
DX: M46.24 Osteomyelitis of vertebra, thoracic region (principal); R73.9 Hyperglycemia, unspecified; Z87.891 Personal history of nicotine dependence
CPT/HCPCS: 71275; 74174; 80048; 85025; 87040; 87811; 96361; 96365; 96367; 96375; 96376; 99285; J7030; J7040; J7050; Q9967; A4216; J2405

== ENCOUNTER 2021-12-27 10:59 | Emergency (ER) | payer BC, SELFPAY ==
[2021-12-27 11:01] VITALS: BP 103/81; PULSE 113; RESP 14; TEMP 36.6; O2SAT 95; BMI 27.1
--- NOTE | 2021-12-27 11:17 | EDS_ITS ---
HPI History of Present Illness Chief Complaint: Lower Extremity Injury Detail of Chief Complaint: Swelling of right leg Informant: patient Narrative Narrative: Patient presents to the emergency department complaint of swelling to his right leg. Patient 2 days ago was diagnosed via ultrasound with DVTs in both legs. Patient was being seen for preadmission testing and they noted that he had swelling in his legs and they sent him over for ultrasound where they noted the DVTs. Patient was ordered Eliquis however pharmacy has not filled it yet because apparently they were backed up. Patient denies chest pain or shortness of breath. He does describe increased swelling in the calf today. Patient had surgery on his back about a month ago. Patient denies any bleeding from his bowels or urine. Patient currently being treated for UTI. Prior similar symptoms: No PFSH PFSH Medical History Back pain Hernia Right shoulder pain Right shoulder strain Strain of right rotator cuff capsule Home Medications hydrocodone-acetaminophen 1 tab PO Q6H PRN 3 Days #10 tab 10/25/21 [Rx Last Taken Unknown] albuterol sulfate 2 inh INHALATION Q4H PRN PRN 11/02/21 [History Last Taken Unknown] prednisone 40 mg PO DAILY 11/02/21 [History Last Taken Unknown] apixaban [Eliquis] 5 mg PO BID #74 tab 12/27/21 [Rx Last Taken Unknown] Allergy/AdvReac Type Severity Reaction Status Date / Time No Known Allergies Allergy Verified 12/27/21 11:04 Social History Smoking Status: Former smoker alcohol intake: never ROS ROS ED Constitutional Constitutional ED: Reports systems reviewed and no addt'l complaints, except as documented; Denies body ache(s), change in weight or chills Eyes Eyes: Denies acute decrease in peripheral vision, change in vision, double vision or loss of vision ENT ENT ED: Reports none; Denies ear pain, lip swelling, loss taste/smell, neck pain, otalgia or sore throat Cardiovascular Cardiovascular: Reports none; Denies abdominal pain, chest pain with activity, leg edema, lightheadedness, palpitations, rapid heart rate or syncope Respiratory/Chest Respiratory/Chest: Reports none; Denies change in mental status, dry cough, dyspnea, hemoptysis, shortness of breath at rest or shortness of breath with exertion Gastrointestinal Gastrointestinal: Reports none; Denies abdominal pain, change in stool character, diarrhea, hematemesis, hematochezia, melena, rectal bleeding or vomiting Genitourinary Genitourinary ED: Reports none; Denies abdominal discomfort, anuria, dysuria, genital pain or polyuria Musculoskeletal Musculoskeletal: Reports none and other Details: Swelling of right leg ; Denies arthralgias, back pain, difficulty walking, extremity pain, muscle weakness or myalgias Integumentary Reports none; Denies abscess or rash Neurologic Neurologic: Reports none; Denies abnormal gait, confusion, focal weakness, fr equent falls, headache(s), loss of vision, numbness, paresthesias, radicular pain, vertigo or weakness Psychiatric Psychiatric: Reports systems reviewed and no addt'l complaints, except as documented and none; Denies behavioral changes, confusion, difficulty concentrating, hallucinations, suicidal ideation, tactile hallucinations or visual hallucinations Endocrine Endocrinology: Denies none, cold intolerance, excessive sweating, fatigue or heat intolerance Hematologic/Lymphatic Hematologic/Lymphatic: Reports none; Denies anemia, easy bleeding or easy bruising Allergic/Immunologic Allergic/Immunologic ED: Denies as per HPI, none, lip swelling, mouth swelling, throat swelling, tongue swelling or hives EXAM Physical Exam Const Vital Signs: 12/27/21 11:01 Temperature 97.8 F Temperature Source Temporal Pulse Rate 113 H Respiratory Rate 14 Blood Pressure 103/81 H Blood Pressure Mean 88 Pulse Ox 95 Oxygen Delivery Method Room Air Positive well nourished and well developed General Appearance ED: well developed and NAD HEENT Reports TM's clear and moist mucous membranes normocephalic and atraumatic; Negative for trauma or tenderness Tympanic Membrane ED: Yes TM's clear Eyes PERRL and EOMs intact bilaterally General Eye ED: Negative for pale conjunctiva or scleral icterus Neck no lymphadenopathy, supple and no JVD General: Negative for tenderness Chest Wall inspection of chest normal and palpation of chest normal Chest: Negative for tenderness Resp normal respiratory effort and clear to auscultation bilaterally Effort and Inspection: Negative for respiratory distress or pain with movement Auscultation: Negative for rhonchi, wheezes or diminished lung sounds Cardio regular rate, regular rhythm, S1 normal heart sound, S2 normal heart sound and no murmurs Peripheral Pulses: pulses 2+ throughout GI normal to inspection, nondistended, normoactive bowel sounds, soft to palpation, non-tender, non-distended and no masses Back/Spine no CVA tenderness and no thoracic nor lumbar tenderness Extremity Extremity Narrative: Patient does have edema of the right calf when compared with left calf it is larger in diameter. No ropes or cords palpated. He has normal pulses. No evidence of phlegmasia cerulea dolens. General Extremety ED: Negative for edema General Extremity: Negative for edema Neuro oriented x3, CN's II-XII intact bilaterally, no sensory deficits noted and gait normal Sensorium / Orientation: awake, alert, oriented to person, oriented to place and oriented to time Motor Exam: strength 5/5 throughout and strength abnormal Psych mental status grossly normal Skin no rashes or lesions noted and no wounds MDM MDM MDM Narrative Medical decision making narrative: Patient will be started on Eliquis and given first dose in the emergency department. Patient advised to return if chest pain, shortness of breath, or condition should worsen anyway. Patient to follow-up with his primary care physician in 3 to 5 days. Discharge Plan Triage Chief Complaint: Lower Extremity Injury ED Provider: Stefania James Dx/Rx/DC Orders Clinical Impression: DVT (deep venous thrombosis) Instructions: ED Deep Vein Thrombosis (DVT) Prescriptions: New Eliquis 5 MG tablet 5 mg PO BID Qty: 74 RF: 0 No Action hydrocodone-acetaminophen 5-325 mg tablet 1 tab PO Q6H PRN (Reason: pain) 3 Days Qty: 10 RF: 0 prednisone 20 mg tablet 40 mg PO DAILY RF: 0 albuterol sulfate 90 mcg/actuation HFA aerosol inhaler 2 inh INHALATION Q4H PRN PRN (Reason: sob) RF: 0 Primary Care Provider: Bernardo Mensah Referrals: Bernardo Mensah MD [Primary Care Provider] - 3-5 Days Disposition Disposition: Home, Self Care
[2021-12-27] MEDS: APIXABAN 5 MG TABLET 10 MG PO (11:33)
== END 2021-12-27 11:40 | disposition home or self-care (01) ==
LOC: ED 11:31
PROVIDERS: Emergency Provider Emergency Medicine; PCP Family Medicine; Visit Provider Emergency Medicine
DX: I82.403 Acute embolism and thrombosis of unspecified deep veins of lower extremity, bilateral (principal); Z79.01 Long term (current) use of anticoagulants; Z87.891 Personal history of nicotine dependence
CPT/HCPCS: 99283

== ENCOUNTER → 2022-01-02 | Outpatient (CLI) | payer BC, SELFPAY ==
[2022-01-02 17:44] LABS: Absolute Neutrophil Count 3.4 X10^3/uL (2.0-7.7); Basophil# 0.07 X10^3/uL; Eosinophil# 0.37 X10^3/uL; Eosinophils% 5.5 % (0-5); Hematocrit 41.3 % (40-54); Hemoglobin 13.2 g/dL (13.0-16.5); Lymphocyte % 31.4 % (19-41); Mean Corpuscular Hgb 26.3 pg (27.0-32.0); Mean Corpuscular Volume 82.4 fL (80-94); Monocyte# 0.69 X10^3/uL; Monocyte% 10.3 % (0-10); NRBC Flagged by Analyzer 0 % (0-5); Neutrophil # 3.43 X10^3/uL (2.7-7.7); Neutrophil % 51.5 % (47-70); Platelet Count 256 K/mm3 (150-450); RBC Distribution Width CV 16.1 % (11.6-14.6); RBC Distribution Width SD 48.4 fl (35.1-43.9); Red Blood Count 5.01 M/mm3 (4.6-6.2); White Blood Count 6.7 K/mm3 (4.4-11.0)
[2022-01-02 18:16] LABS: ALB/GLOB Ratio 0.7 RATIO (0.9-2.4); AST(SGOT) 14 U/L (15-37); Alanine Aminotransfer ALT/SGPT 16 U/L (16-61); Albumin, Serum 3.4 g/dL (3.2-5.0); Alkaline Phosphatase 83 U/L (45-117); Anion Gap 6 (5-15); BUN 21 mg/dL (7-18); BUN/Creat Ratio 29.9 RATIO (10-20); Calcium,Total 9.3 mg/dL (8.5-10.1); Chloride 102 mmol/L (98-107); Cholesterol 166 mg/dL (200); EST Glomerular Filtration Rate 122 mL/min (>60); Est Glom Filt Rate - Afr Amer 148 mL/min (>60); Globulin 4.8 g/dL (2.2-4.2); Glucose 188 mg/dL (74-106); Hemoglobin A1c 7.3 % (3.8-5.6); High Density Lipoprotein 39 mg/dL; Potassium 4.4 mmol/L (3.5-5.1); Protein, Total 8.2 g/dL (6.4-8.2); Sodium Level 134 mmol/L (136-145); Triglycerides 173 mg/dL; Very Low Density Lipoprotein 35 mg/dL (5-40)
== END | disposition home or self-care (01) ==
LOC: MFPLAB 16:05
PROVIDERS: PCP Family Medicine; Referring Provider Family Medicine; Visit Provider Family Medicine
DX: E11.9 Type 2 diabetes mellitus without complications (principal)
CPT/HCPCS: 36415; 80053; 80061; 83036; 84443; 85025

== ENCOUNTER 2022-02-14 13:45 | Emergency (ER) | payer BC, SELFPAY ==
[2022-02-14 13:46] VITALS: BP 146/97; PULSE 110; RESP 18; TEMP 36.5; O2SAT 98; BMI 29.7
--- NOTE | 2022-02-14 13:56 | EDS_ITS ---
HPI <ADRIEL Richards - Last Filed: 02/14/22 14:15> History of Present Illness Chief Complaint: Villasenor C/O Narrative Narrative: 61-year-old male said he changed his leg bag yesterday and then today his Villasenor seem clogging was draining less and last throughout the day. Is supposed to be replaced every 30 days but was last changed 60 days ago. He has abnormal growths on his penis that they are concerned of cancer and have plans to biopsy. This was delayed because he had back surgery and recently developed DVTs and had to start blood thinners. [facility] <ADRIEL Richards - Last Filed: 02/14/22 14:15> [facility] Medical History (Updated 02/14/22 @ 14:12 by ADRIEL Richards) Back pain Genital warts Hernia Right shoulder pain Right shoulder strain Strain of right rotator cuff capsule Home Medications hydrocodone-acetaminophen 5-325mg 5mg-325mg 1 tab PO Q6H PRN pain 3 days #10 tabs 10/25/21 [Rx Last Taken Unknown] albuterol sulfate 90 mcg/actuation aerosol inhaler 2 inh inhalation Q4H PRN PRN sob 11/02/21 [History Last Taken Unknown] prednisone 20 mg tablet 40 mg PO DAILY 11/02/21 [History Last Taken Unknown] apixaban 5 mg tablet (Eliquis) 5 mg PO BID #74 tabs 12/27/21 [Rx Last Taken Unknown] Allergy/AdvReac Type Severity Reaction Status Date / Time No Known Allergies Allergy Verified 12/27/21 11:04 Social History Smoking Status: Former smoker alcohol intake: never ROS <ADRIEL Richards - Last Filed: 02/14/22 14:15> ROS ED ROS Narrative CONST: Patient sitting in no acute distress. EYES: Normal inspection. ENT: Normal inspection, moist mucous membranes. NECK: Normal inspection. RESP: No respiratory distress, CTAB. CVS: Regular rate and rhythm, no murmur, no gallop. ABD: Soft with suprapubic distention and tenderness, no guarding or rebound. : Penis has large fungating mass on the shaft, normal meatus. SKIN: Color normal, no rash, warm, dry, intact. EXTREMITIES: Normal appearance, no pedal edema. NEURO: Oriented x4. PSYCH: Normal affect. EXAM <ADRIEL Richards - Last Filed: 02/14/22 14:15> Physical Exam Narrative Exam Narrative: CONST: Patient sitting in no acute distress. EYES: Normal inspection. ENT: Normal inspection, moist mucous membranes. NECK: Normal inspection. RESP: No respiratory distress, CTAB. CVS: Regular rate and rhythm, no murmur, no gallop. ABD: Soft with mild suprapubic distention and tenderness, no guarding or rebound. : Shaft of penis has large fungating mass, normal external meatus. SKIN: Color normal, no rash, warm, dry, intact. EXTREMITIES: Normal appearance, no pedal edema. NEURO: Oriented x4. PSYCH: Normal affect. Const Vital Signs: 02/14/22 13:46 02/14/22 14:16 Temperature 97.7 F L 98.9 F Temperature Source Oral Pulse Rate 110 H 91 Respiratory Rate 18 16 Blood Pressure 146/97 H 136/84 H Blood Pressure Mean 113 Pulse Ox 98 99 Oxygen Delivery Method Room Air <Dr. Lencho Oshea DO - Last Filed: 02/14/22 14:18> Physical Exam Const Vital Signs: 02/14/22 13:46 02/14/22 14:16 Temperature 97.7 F L 98.9 F Temperature Source Oral Pulse Rate 110 H 91 Respiratory Rate 18 16 Blood Pressure 146/97 H 136/84 H Blood Pressure Mean 113 Pulse Ox 98 99 Oxygen Delivery Method Room Air MDM <ADRIEL Richards - Last Filed: 02/14/22 14:15> [facility] Narrative Medical decision making narrative: Patient presents with a clogged Villasenor. He has some type of fungating mass on the shaft of his penis which heis supposed to get biopsed because they are c oncerned it is cancer. We attempted to flush the Villasenor but there was significant resistance. It was removed and replaced with a 16 [place] and patient tolerated the procedure well. Over 800 cc drained and patient was given a leg bag and Villasenor care instructions. He will follow-up with his urologist and was discharged in stable condition. Diagnosis 1. Villasenor catheter replacement <Dr. Lencho Oshea DO - Last Filed: 02/14/22 14:18> MDM MDM Narrative Medical decision making narrative: Patient presents with a clogged Villasenor. He has some type of fungating mass on the shaft of his penis which heis supposed to get biopsed because they are concerned it is cancer. We attempted to flush the Villasenor but there was significant resistance. It was removed and replaced with a 16 [place]an and patient tolerated the procedure well. Over 800 cc drained and patient was given a leg bag and Villasenor care instructions. He will follow-up with his urologist and was discharged in stable condition. Diagnosis 1. Villasenor catheter replacement I performed a history and physical examination of the patient and discussed management plan with the physician group fitness assistant department head. I reviewed the physician group fitness assistant department head's note and agree with the documented findings and plan of care. Patient with chronic indwelling Villasenor catheter notes that its not draining today. He sees urology at [facility]. He was supposed to have surgery to remove cancerous warts but he developed DVTs and so that has been put on hold. He states his catheter has been in for 60 days approximately. Catheter was changed. He was encouraged to follow-up with his urologist. Lencho Oshea DO [place] Discharge Plan Triage Chief Complaint: Villasenor C/O ED Midlevel Provider: Shweta Encinas ED Provider: Lencho Oshea Dx/Rx/DC Orders Clinical Impression: Encounter for Villasenor catheter replacement Instructions: Discharge Instructions Caring ... Prescriptions: No Action hydrocodone-acetaminophen 5-325 mg tablet 1 tab PO Q6H PRN (Reason: pain) 3 Days Qty: 10 0RF prednisone 20 mg tablet 40 mg PO DAILY Label Comments: TAKE 2 TABLETS BY MOUTH DAILY albuterol sulfate 90 mcg/actuation HFA aerosol inhaler 2 inh INHALATION Q4H PRN PRN (Reason: sob) Label Comments: 2 (TWO) PUFF(S) EVERY 4 HOURS NEEDED FOR COUGH OR WHEEZING Eliquis 5 MG tablet 5 mg PO BID Qty: 74 0RF Rx Instructions: 10 mg twice a day for the first week. Then 5 mg twice a day. Primary Care Provider: Bernardo Mensah Referrals: Bernardo Mensah MD [Primary Care Provider] - Activity Restrictions/Additional Instructions: Please follow-up with your urologist or if any further issues develop you can come back to the emergency room. Disposition Disposition: Home, Self Care
--- NOTE | 2022-02-14 14:12 | ED.RN ---
pt. states he has had melvin in for 60+ days. this am started to burn and felt distended. penis/genital area swollen with large wart masses. bladder scanned 650 in bladder. will mandel states change melvin, inserted aseptic tech. cath secure placed. melvin intact and draining 800ml out.
[2022-02-14 14:16] VITALS: BP 136/84; PULSE 91; RESP 16; TEMP 37.2; O2SAT 99
== END 2022-02-14 14:29 | disposition home or self-care (01) ==
LOC: ED 14:25
PROVIDERS: Emergency Provider Emergency Medicine; PCP Family Medicine; Visit Provider Emergency Medicine
DX: Z46.6 Encounter for fitting and adjustment of urinary device (principal); I82.409 Acute embolism and thrombosis of unspecified deep veins of unspecified lower extremity; Z87.891 Personal history of nicotine dependence; Z79.01 Long term (current) use of anticoagulants
CPT/HCPCS: 51702; 99284

== ENCOUNTER 2022-02-21 08:54 | Emergency (ER) | payer BC, SELFPAY ==
[2022-02-21 08:54] VITALS: BP 135/88; PULSE 99; RESP 16; TEMP 36.3; O2SAT 99; BMI 26.6
--- NOTE | 2022-02-21 09:03 | EDS_ITS ---
HPI <ADRIEL Richards - Last Filed: 02/21/22 10:01> History of Present Illness Chief Complaint: Melvin C/O Narrative Narrative: Patient was here 1 week ago and had his indwelling Melvin replaced. He states it was fine until this morning when he woke up it has not been draining. He has suprapubic fullness. No other complaints. He has a cancerous growth on his penis that is supposed to be surgically removed but has been delayed because he developed blood clots and is on thinners. His urologist is in [place]. PFSH <ADRIEL Richards - Last Filed: 02/21/22 10:01> [facility] Medical History Back pain Genital warts Hernia Right shoulder pain Right shoulder strain Strain of right rotator cuff capsule Home Medications albuterol sulfate 90 mcg/actuation aerosol inhaler 2 inh inhalation Q4H PRN PRN sob 11/02/21 [History Last Taken Unknown] amoxicillin 500 mg capsule 1 cap PO TID 02/21/22 [History Last Taken Unknown] insulin glargine-yfgn 100 unit/mL (3 mL) subcutaneous pen (Semglee (insulin glargine-yfgn) Pen) 35 ea subcut QHS 02/21/22 [History Last Taken Unknown] insulin lispro 100 unit/mL subcutaneous pen (Humalog KwikPen (U-100) Insulin) 9 ea subcut 3XD 02/21/22 [History Last Taken Unknown] rivaroxaban 20 mg tablet (Xarelto) 1 tab PO DAILY 02/21/22 [History Last Taken Unknown] Allergy/AdvReac Type Severity Reaction Status Date / Time No Known Allergies Allergy Verified 02/21/22 08:55 Social History Smoking Status: Former smoker alcohol intake: never ROS <ADRIEL Richards - Last Filed: 02/21/22 10:01> ROS ED ROS Narrative Constitutional: Negative for fever, chills, malaise. Eyes: Negative for visual change. ENT: Negative for sore throat, rhinorrhea. CVS: Negative for palpitations, chest pain. Respiratory: Negative for shortness of breath, cough. GI: Negative for abdominal pain, nausea, vomiting. : Negative for dysuria, hematuria or frequency. Neuro: Negative for headache, motor/sensory dysfunction. Skin: Negative for rash, abscess, or wound. Musc: Negative for joint pain, swelling, trauma. Heme: Negative for easy bruising, bleeding, lymphadenopathy. EXAM <ADRIEL Richards - Last Filed: 02/21/22 10:01> Physical Exam Narrative Exam Narrative: CONST: Patient sitting in no acute distress. EYES: Normal inspection. ENT: Normal inspection, moist mucous membranes. NECK: Normal inspection. RESP: No respiratory distress, CTAB. CVS: Regular rate and rhythm, no murmur, no gallop. ABD: Soft and nontender, no guarding or rebound, nondistended. : Chronic large cancerous mass on penile shaft, normal meatus, leg bag attached with clear yellow urine. SKIN: Color normal, no rash, warm, dry, intact. EXTREMITIES: Normal appearance, no pedal edema. NEURO: Oriented x4. PSYCH: Normal affect. Const Vital Signs: 02/21/22 08:54 02/21/22 10:25 Temperature 97.3 F L 98 F Temperature Source Temporal Pulse Rate 99 83 Respiratory Rate 16 16 Blood Pressure 135/88 H 126/96 H Blood Pressure Mean 103 Pulse Ox 99 97 Oxygen Delivery Method Room Air <Dr. Adi Jiang DO - Last Filed: 02/21/22 15:24> Physical Exam Const Vital Signs: 02/21/22 08:54 02/21/22 10:25 Temperature 97.3 F L 98 F Temperature Source Temporal Pulse Rate 99 83 Respiratory Rate 16 16 Blood Pressure 135/88 H 126/96 H Blood Pressure Mean 103 Pulse Ox 99 97 Oxygen Delivery Method Room Air MDM <ADRIEL Richards - Last Filed: 02/21/22 10:01> [facility] Narrative Medical decision making narrative: Patient indwelling Melvin stopped draining this morning. He appears well and nontoxic. Afebrile and vital signs within normal limits. Abdomen is soft, nontender with no significant distention. The Melvin is not draining but the urine in his leg bag appears normal clear yellow. He has had no hematuria or clots and no pain. Nursing staff was unable to irrigate so it was replaced with a larger 18 Romanian Melvin and he had over 800 cc output. I advised him to call his urologist for follow-up and he was discharged in stable condition. 1. Clogged indwelling Melvin?replaced <Dr. Adi Jiang, DO - Last Filed: 02/21/22 15:24> [facility] MDM Narrative Medical decision making narrative: This patient was seen with a PA/MOLD REPAIR TECHNICIAN Individually assessed they patient including history and physical. I have reviewed everything on the chart that is available and agree with the documentation provided by the PA/MOLD REPAIR TECHNICIAN including discussion about the assessment, treatment plan, discussion, and return precautions. Patient indwelling Melvin stopped draining this morning. He appears well and nontoxic. Afebrile and vital signs within normal limits. Abdomen is soft, nontender with no significant distention. The Melvin is not draining but the urine in his leg bag appears normal clear yellow. He has had no hematuria or clots and no pain. Nursing staff was unable to irrigate so it was replaced with a larger 18 Romanian Melvin and he had over 800 cc output. I advised him to call his urologist for follow-up and he was discharged in stable condition. 1. Clogged indwelling Melvin?replaced Discharge Plan Triage Chief Complaint: Melvin C/O ED Midlevel Provider: Shweta Encinas ED Provider: Dima Jiang Dx/Rx/DC Orders Clinical Impression: Encounter for Melvin catheter replacement Instructions: Discharge Instructions Caring ... Prescriptions: No Action albuterol sulfate 90 mcg/actuation HFA aerosol inhaler 2 inh INHALATION Q4H PRN PRN (Reason: sob) Label Comments: 2 (TWO) PUFF(S) EVERY 4 HOURS NEEDED FOR COUGH OR WHEEZING Xarelto 20 mg tablet 1 tab PO DAILY insulin lispro [Humalog KwikPen Insulin] 100 unit/mL insulin pen 9 ea SUBCUT 3XD amoxicillin 500 mg capsule 1 cap PO TID Label Comments: TAKE 1 CAPSULE BY MOUTH THREE TIMES A DAY insulin glargine-yfgn [Semglee(insulin glarg-yfgn)Pen] 100 unit/mL (3 mL) insulin pen 35 ea SUBCUT QHS Primary Care Provider: Bernardo Mensah Referrals: Bernardo Mensah MD [Primary Care Provider] - Activity Restrictions/Additional Instructions: Please call your urologist and tell them you have needed your melvin changed twice recently so you can schedule a follow up appointment. Disposition Disposition: Home, Self Care Discharge Date/Time: 02/21/22 10:31
[2022-02-21 10:25] VITALS: BP 126/96; PULSE 83; RESP 16; TEMP 36.6; O2SAT 97
== END 2022-02-21 10:31 | disposition home or self-care (01) ==
LOC: ED 09:51
PROVIDERS: Emergency Provider Student in an Organized Health Care Education/Training Program; PCP Family Medicine; Visit Provider Student in an Organized Health Care Education/Training Program
DX: T83.091A Other mechanical complication of indwelling urethral catheter, initial encounter (principal); X58.XXXA Exposure to other specified factors, initial encounter; Z87.891 Personal history of nicotine dependence
CPT/HCPCS: 51702; 99283

== ENCOUNTER 2022-03-02 21:08 | Emergency (ER) | payer BC, SELFPAY ==
[2022-03-02 21:09] VITALS: BP 138/92; PULSE 98; RESP 16; TEMP 35.8; O2SAT 97; BMI 26.7
--- NOTE | 2022-03-02 21:58 | EDS_ITS ---
HPI History of Present Illness Chief Complaint: Villasenor C/O Informant: patient Narrative Narrative: 61-year-old male with a chronic indwelling Villasenor presents to the emergency room stating that his Villasenor catheter is not draining. Patient is following with urology at [facility] and supposed to have surgery but cannot because he had developed DVTs and is on Xarelto. Patient had his Villasenor catheter replaced about a week ago. He notes that the urine appears very cloudy. No fevers. He takes amoxicillin 3 times daily. PFSH PFSH Medical History Back pain Genital warts Hernia Right shoulder pain Right shoulder strain Strain of right rotator cuff capsule Home Medications amoxicillin 500 mg capsule 1 cap PO TID 02/21/22 [History Last Taken Unknown] insulin glargine-yfgn 100 unit/mL (3 mL) subcutaneous pen (Semglee (insulin glargine-yfgn) Pen) 35 ea subcut QHS 02/21/22 [History Last Taken Unknown] insulin lispro 100 unit/mL subcutaneous pen (Humalog KwikPen (U-100) Insulin) 9 ea subcut 3XD 02/21/22 [History Last Taken Unknown] rivaroxaban 20 mg tablet (Xarelto) 1 tab PO DAILY 02/21/22 [History Last Taken Unknown] Allergy/AdvReac Type Severity Reaction Status Date / Time No Known Allergies Allergy Verified 03/02/22 21:10 Social History Smoking Status: Former smoker alcohol intake: never ROS ROS ED Constitutional Constitutional ED: Denies chills or weight loss Eyes Eyes: Denies change in vision or diplopia ENT ENT ED: Denies ear pain, rhinorrhea or sore throat Cardiovascular Cardiovascular: Denies chest pain, orthopnea, palpitations or racing heartbeat Respiratory/Chest Respiratory/Chest: Denies cough, dyspnea or orthopnea Gastrointestinal Gastrointestinal: Denies abdominal pain, diarrhea, nausea or vomiting Genitourinary Genitourinary ED: Reports other Details: See HPI ; Denies dysuria, hematuria or urinary frequency Musculoskeletal Musculoskeletal: Denies arthralgias or myalgias Integumentary Denies abscess or rash Neurologic Neurologic: Denies headache(s) or weakness Psychiatric Psychiatric: Denies anxiety, depression, suicidal ideation or suicidal thoughts Endocrine Endocrinology: Denies polydipsia, polyphagia or polyuria Allergic/Immunologic Allergic/Immunologic ED: Denies mouth swelling, tongue swelling or urticaria EXAM Physical Exam Const Vital Signs: 03/02/22 21:09 Temperature 96.5 F L Temperature Source Temporal Pulse Rate 98 Respiratory Rate 16 Blood Pressure 138/92 H Blood Pressure Mean 107 Pulse Ox 97 Oxygen Delivery Method Room Air Positive well nourished and well developed General Appearance ED: well developed HEENT Reports normocephalic, head/scalp atraumatic and moist mucous membranes Eyes PERRL and EOMs intact bilaterally Neck no lymphadenopathy, supple and no JVD Resp normal respiratory effort and clear to auscultation bilaterally Cardio regular rate, regular rhythm and no murmurs GI normal to inspection, nondistended, normoactive bowel sounds and non-tender Palpation: soft Narrative: There is some extremely cloudy but small amount of urine in the bag. Back/Spine no CVA tenderness and normal ROM Extremity normal to inspection General Extremety ED: Negative for edema General Extremity: Negative for edema Neuro oriented x3 and CN's II-XII intact bilaterally Sensorium / Orientation: alert Motor Exam: strength 5/5 throughout Psych mental status grossly normal Mood & Affect: Negative for depressed or tearful Skin no rashes or lesions noted and no wounds MDM MDM MDM Narrative Medical decision making narrative: Villasenor catheter was changed. Urinalysis shows 50-100 white cells 25-50 red blood cells 4+ bacteria and nitrate positive. This will be sent for culture. We will place him on Bactrim. He can hold his amoxicillin. Follow-up with urology Lab Data Attestation: I reviewed the patient's lab results. Labs: Laboratory Results - last 24 hr 03/02/22 22:20 Urine Color Yellow Urine Clarity Cloudy Urine pH 8.0 Ur Specific [place] 1.015 Urine Protein 100 H Urine Glucose (UA) 250 H Urine Ketones Negative Urine Occult Blood 250 H Urine Nitrite Positive H Urine Bilirubin Negative Urine Urobilinogen Normal Ur Leukocyte Esterase 500 H Urine RBC 25-50 SEEN Urine WBC 50-100 SEEN Ur Squamous Epith Cells 0-5 SEEN Triple Phos Crystals 3+ Urine Bacteria 4+ Urine Mucus 0 SEEN Discharge Plan Triage Chief Complaint: Villasenor C/O ED Provider: Lencho Oshea Dx/Rx/DC Orders Clinical Impression: Encounter for Villasenor catheter replacement Prescriptions: No Action Xarelto 20 mg tablet 1 tab PO DAILY insulin lispro [Humalog KwikPen Insulin] 100 unit/mL insulin pen 9 ea SUBCUT 3XD amoxicillin 500 mg capsule 1 cap PO TID Label Comments: TAKE 1 CAPSULE BY MOUTH THREE TIMES A DAY insulin glargine-yfgn [Semglee(insulin glarg-yfgn)Pen] 100 unit/mL (3 mL) insulin pen 35 ea SUBCUT QHS Primary Care Provider: Bernardo Mensah Referrals: Bernardo Mensah MD [Primary Care Provider] - As Needed Activity Restrictions/Additional Instructions: Please follow-up with your urologist. Disposition Disposition: Home, Self Care
[2022-03-02 22:31] LABS: Mucous, Urine 0 SEEN /hpf (<or=2+)
[2022-03-02 22:35] LABS: Color, Urine Yellow (Yellow); Glucose, Dipstick 250 mg/dl (Normal); Ketone-Dipstick Negative (Negative); Leukocyte Esterase-Dipstick 500 /ul (Negative); Nitrite-Dipstick Positive (Negative); Occult Blood-Urine 250 /ul (Negative); Protein-Dipstick 100 mg/dl (Negative); Specific Gravity, Urine 1.015 (1.002-1.030); Urine Bilirubin Dipstick Negative (Negative); Urine Clarity Cloudy (Clear); Urine Urobilinogen Normal (Normal)
[2022-03-02 22:50] LABS: Bacteria 4+ /hpf (None Seen); Red Blood Cells-Urine 25-50 SEEN /hpf (0-5); Squamous Epithelial Cells - UA 0-5 SEEN /hpf (0-5); White Blood Cells 50-100 SEEN /hpf (0-5)
[2022-03-02 22:51] LABS: Triple Phosphate Crystals Ur 3+ /hpf (<or=1+)
[2022-03-02] MEDS: Smz/Tmp Ds Tablet 1 TABLET PO (23:05)
== END 2022-03-02 23:11 | disposition home or self-care (01) ==
LOC: ED 22:38
PROVIDERS: Emergency Provider Emergency Medicine; PCP Family Medicine; Visit Provider Emergency Medicine
DX: T83.091A Other mechanical complication of indwelling urethral catheter, initial encounter (principal); I82.409 Acute embolism and thrombosis of unspecified deep veins of unspecified lower extremity; X58.XXXA Exposure to other specified factors, initial encounter; Z79.01 Long term (current) use of anticoagulants; Z87.891 Personal history of nicotine dependence
CPT/HCPCS: 51702; 81001; 87077; 87086; 87088; 87186; 99284

== ENCOUNTER → 2022-03-02 | Outpatient (CLI) | payer BC, SELFPAY ==
[2022-03-02 15:17] LABS: Absolute Lymphocyte Count 2.11 X10^3/uL (0.83-4.51); Absolute Neutrophil Count 4.7 X10^3/uL (2.0-7.7); Basophil# 0.06 X10^3/uL; Basophil% 0.8 % (0-1); Eosinophil# 0.27 X10^3/uL; Eosinophils% 3.5 % (0-5); Hemoglobin 14.7 g/dL (13.0-16.5); Lymphocyte # 2.11 X10^3/ul (0.83-4.51); Lymphocyte % 27.1 % (19-41); Mean Corp Hgb Conc 33.4 g/dL (32-36); Mean Corpuscular Hgb 27.9 pg (27.0-32.0); Mean Corpuscular Volume 83.5 fL (80-94); Mean Platelet Vol. 8.8 fl (6.2-12.0); Monocyte# 0.63 X10^3/uL; Monocyte% 8.1 % (0-10); NRBC Flagged by Analyzer 0 % (0-5); Neutrophil # 4.69 X10^3/uL (2.7-7.7); Neutrophil % 60.1 % (47-70); Platelet Count 305 K/mm3 (150-450); RBC Distribution Width CV 15.1 % (11.6-14.6); RBC Distribution Width SD 44.7 fl (35.1-43.9); Red Blood Count 5.27 M/mm3 (4.6-6.2); White Blood Count 7.8 K/mm3 (4.4-11.0)
[2022-03-02 15:37] LABS: Vitamin B12 473 pg/mL (211-911)
[2022-03-02 15:46] LABS: ALB/GLOB Ratio 0.8 RATIO (0.9-2.4); AST(SGOT) 14 U/L (15-37); Alanine Aminotransfer ALT/SGPT 15 U/L (16-61); Albumin, Serum 3.6 g/dL (3.2-5.0); Alkaline Phosphatase 72 U/L (45-117); Anion Gap 6 (5-15); BUN 21 mg/dL (7-18); BUN/Creat Ratio 27.3 RATIO (10-20); Calcium,Total 9.9 mg/dL (8.5-10.1); Chloride 101 mmol/L (98-107); Cholesterol 147 mg/dL (200); Creatinine, Serum 0.77 mg/dL (0.70-1.30); EST Glomerular Filtration Rate 110 mL/min (>60); Est Glom Filt Rate - Afr Amer 133 mL/min (>60); Globulin 4.7 g/dL (2.2-4.2); Glucose 147 mg/dL (74-106); Hemoglobin A1c 8.6 % (3.8-5.6); High Density Lipoprotein 45 mg/dL; Potassium 4.2 mmol/L (3.5-5.1); Protein, Total 8.3 g/dL (6.4-8.2); Sodium Level 136 mmol/L (136-145); Triglycerides 151 mg/dL; Very Low Density Lipoprotein 30 mg/dL (5-40)
[2022-03-06 19:51] LABS: VITAMIN B6 6.1 ug/L (3.4-65.2); Vitamin B1, Thiamine 164.3 nmol/L (66.5-200.0)
== END | disposition home or self-care (01) ==
PROVIDERS: PCP Family Medicine; Referring Provider Family Medicine; Visit Provider Family Medicine
DX: E11.40 Type 2 diabetes mellitus with diabetic neuropathy, unspecified (principal); I82.409 Acute embolism and thrombosis of unspecified deep veins of unspecified lower extremity
CPT/HCPCS: 36415; 80053; 80061; 82607; 83036; 84207; 84425; 85025

== ENCOUNTER → 2022-04-14 | Outpatient (CLI) | payer BC, SELFPAY ==
[2022-04-14 15:04] LABS: Absolute Neutrophil Count 6.1 X10^3/uL (2.0-7.7); Basophil# 0.07 X10^3/uL; Basophil% 0.7 % (0-1); Eosinophil# 0.27 X10^3/uL; Eosinophils% 2.8 % (0-5); Hematocrit 43.2 % (40-54); Hemoglobin 14.9 g/dL (13.0-16.5); Lymphocyte % 23.2 % (19-41); Mean Corp Hgb Conc 34.5 g/dL (32-36); Mean Corpuscular Hgb 29.4 pg (27.0-32.0); Mean Corpuscular Volume 85.2 fL (80-94); Mean Platelet Vol. 9.1 fl (6.2-12.0); Monocyte# 0.82 X10^3/uL; Monocyte% 8.6 % (0-10); NRBC Flagged by Analyzer 0 % (0-5); Neutrophil # 6.12 X10^3/uL (2.7-7.7); Neutrophil % 64.5 % (47-70); Platelet Count 276 K/mm3 (150-450); RBC Distribution Width CV 13.4 % (11.6-14.6); RBC Distribution Width SD 41.2 fl (35.1-43.9); Red Blood Count 5.07 M/mm3 (4.6-6.2); White Blood Count 9.5 K/mm3 (4.4-11.0)
[2022-04-14 15:16] LABS: ALB/GLOB Ratio 0.8 RATIO (0.9-2.4); AST(SGOT) 13 U/L (15-37); Alanine Aminotransfer ALT/SGPT 16 U/L (16-61); Albumin, Serum 3.7 g/dL (3.2-5.0); Alkaline Phosphatase 96 U/L (45-117); Anion Gap 7 (5-15); BUN 14 mg/dL (7-18); BUN/Creat Ratio 14.6 RATIO (10-20); Calcium,Total 10.4 mg/dL (8.5-10.1); Chloride 98 mmol/L (98-107); Creatinine, Serum 0.96 mg/dL (0.70-1.30); EST Glomerular Filtration Rate 85 mL/min (>60); Est Glom Filt Rate - Afr Amer 103 mL/min (>60); Globulin 4.5 g/dL (2.2-4.2); Glucose 168 mg/dL (74-106); Potassium 4.1 mmol/L (3.5-5.1); Protein, Total 8.2 g/dL (6.4-8.2); Sodium Level 135 mmol/L (136-145)
[2022-04-14 15:21] LABS: Hemoglobin A1c 8.8 % (3.8-5.6)
== END | disposition home or self-care (01) ==
LOC: MFPLAB 12:06
PROVIDERS: PCP Family Medicine; Visit Provider Family Medicine
DX: E83.52 Hypercalcemia (principal); E11.9 Type 2 diabetes mellitus without complications
CPT/HCPCS: 36415; 80053; 83036; 83970; 85025

== ENCOUNTER 2022-04-26 13:47 | Emergency (ER) | payer BC, SELFPAY ==
[2022-04-26 13:48] VITALS: BP 154/97; PULSE 68; RESP 16; TEMP 36.6; O2SAT 98; BMI 27.3
--- NOTE | 2022-04-26 15:15 | EX.ED.DYSGE1 ---
HPI <ADRIEL Richards - Last Filed: 04/26/22 16:38> History of Present Illness Chief Complaint: Complaint Narrative Narrative: Patient has a chronic indwelling Melvin due to genital warts. He states he supposed to get a biopsy to see if it is cancerous and is having surgery on May 22. The Melvin stopped draining this morning and he has suprapubic fullness. Its been in since March 02. No other complaints. PFS <ADRIEL Richards - Last Filed: 04/26/22 16:38> [facility] Medical History (Updated 04/26/22 @ 15:35 by ADRIEL Richards) Back pain Genital warts Hernia Right shoulder pain Right shoulder strain Strain of right rotator cuff capsule Urinary catheter in place Home Medications amoxicillin 500 mg capsule 1 cap PO TID 02/21/22 [History Last Taken Unknown] insulin glargine-yfgn 100 unit/mL (3 mL) subcutaneous pen (Semglee (insulin glargine-yfgn) Pen) 35 ea subcut QHS 02/21/22 [History Last Taken Unknown] insulin lispro 100 unit/mL subcutaneous pen (Humalog KwikPen (U-100) Insulin) 9 ea subcut 3XD 02/21/22 [History Last Taken Unknown] rivaroxaban 20 mg tablet (Xarelto) 1 tab PO DAILY 02/21/22 [History Last Taken Unknown] sulfamethoxazole 800 mg-trimethoprim 160 mg tablet 1 tab PO BID #20 TABLETS 03/02/22 [Rx Last Taken Unknown] Allergy/AdvReac Type Severity Reaction Status Date / Time No Known Allergies Allergy Verified 04/26/22 13:50 Social History Smoking Status: Former smoker alcohol intake: never ROS <ADRIEL Richards - Last Filed: 04/26/22 16:38> ROS ED ROS Narrative Constitutional: Negative for fever, chills, malaise. Eyes: Negative for visual change. ENT: Negative for sore throat, ear pain, rhinorrhea. CVS: Negative for palpitations, chest pain, syncope. Respiratory: Negative for shortness of breath, cough, orthopnea. GI: Negative for abdominal pain, nausea, vomiting. : Negative for hematuria. Neuro: Negative for headache, motor/sensory dysfunction. Skin: Negative for rash, abscess, or wound. Musc: Negative for joint pain, swelling, trauma. Heme: Negative for easy bruising, bleeding, lymphadenopathy. EXAM <ADRIEL Richards - Last Filed: 04/26/22 16:38> Physical Exam Narrative Exam Narrative: CONST: Patient sitting in no acute distress. EYES: Normal inspection. NECK: Normal inspection. RESP: No respiratory distress, CTAB. CVS: Regular rate and rhythm, no murmur, no gallop. ABD: Soft with suprapubic fullness and mild distention, no guarding or rebound. : Penile shaft has what appears to be a large cancerous mass, normal meatus. Indwelling Melvin is not draining. SKIN: Color normal, no rash, warm, dry, intact. EXTREMITIES: Normal appearance, no pedal edema. NEURO: Oriented x4. PSYCH: Normal affect. Const Vital Signs: 04/26/22 13:48 Temperature 97.8 F Temperature Source Temporal Pulse Rate 68 Respiratory Rate 16 Blood Pressure 154/97 H Blood Pressure Mean 116 Pulse Ox 98 Oxygen Delivery Method Room Air <Dr. Mike Stinson, - Last Filed: 04/26/22 16:37> Physical Exam Const Vital Signs: 04/26/22 13:48 Temperature 97.8 F Temperature Source Temporal Pulse Rate 68 Respiratory Rate 16 Blood Pressure 154/97 H Blood Pressure Mean 116 Pulse Ox 98 Oxygen Delivery Method Room Air MDM <ADRIEL Richards - Last Filed: 04/26/22 16:38> [facility] Narrative Medical decision making narrative: Patient's Melvin catheter has been blocked since this morning. It has not been changed in 6+ weeks so I elected to replace it. Nursing staff replaced without complication and at around 700 cc output of clear yellow urine. Patient will follow-up with his urologic surgeon as scheduled and return for new or worsening issues. <Dr. Mike Stinson, - Last Filed: 04/26/22 16:37> [facility] Treatment and Re-Evaluation Narrative: I have personally performed a face to face assessment of the patient and have reviewed the OMID Note. I performed a substantive portion of the visit including all aspects of the following. My urrutia findings include: History: Patient is a 61-year-old male with a history of chronic indwelling catheter. Patient states that his catheter became blocked today. Patient states that he has not had any urine output through his catheter visit today. Patient denies any fevers or chills. Patient denies any nausea or vomiting. Patient denies any back pain. Patient denies any other symptoms. Exam: Vital signs are stable. Patient is afebrile. Patient is in no acute distress. Oral mucosa is pink and moist. Neck is supple. Trachea is midline. There is no JVD. Heart was regular rate and rhythm. Lungs are clear and equal bilateral. Abdomen is soft. Bowel sounds are normal. There is some mild suprapubic tenderness. There is no rebound or guarding noted. Cranial nerves II through XII are intact. There are no focal motor or sensory deficits. Medical Decision Making: The Melvin catheter was changed. Patient feels better on reevaluation. Patient is currently on amoxicillin. Patient was instructed to continue this. Patient was instructed to follow-up with his primary care physician in 5 to 7 days. Patient understood and was agreeable with the plan. All questions were answered. Discharge Plan Triage Chief Complaint: Complaint ED Midlevel Provider: Shweta Encinas ED Provider: Mike Stinson Dx/Rx/DC Orders Clinical Impression: Complication, blocked Melvin catheter Instructions: ED Melvin Catheter, Care Prescriptions: No Action Xarelto 20 mg tablet 1 tab PO DAILY insulin lispro [Humalog KwikPen Insulin] 100 unit/mL insulin pen 9 ea SUBCUT 3XD amoxicillin 500 mg capsule 1 cap PO TID Label Comments: TAKE 1 CAPSULE BY MOUTH THREE TIMES A DAY insulin glargine-yfgn [Semglee(insulin glarg-yfgn)Pen] 100 unit/mL (3 mL) insulin pen 35 ea SUBCUT QHS sulfamethoxazole-trimethoprim [sulfamethoxazole-trimethoprim] 1 TABLET tablet 1 tab PO BID Qty: 20 0RF Primary Care Provider: Bernardo Mensah Referrals: Bernardo Mensah MD [Primary Care Provider] - Activity Restrictions/Additional Instructions: Follow up with your urologic surgeon in [place]. If any new issues occur with your melvin draining return to the ER. Disposition Disposition: Home, Self Care
[2022-04-26] MEDS: Lidocaine Jelly 2% 20 ML Syringe (URO-JET) 1 APPLIC TOPICAL (15:25)
== END 2022-04-26 17:01 | disposition home or self-care (01) ==
PROVIDERS: Emergency Provider Emergency Medicine; PCP Family Medicine; Visit Provider Emergency Medicine
DX: T83.091A Other mechanical complication of indwelling urethral catheter, initial encounter (principal); X58.XXXA Exposure to other specified factors, initial encounter; Z87.891 Personal history of nicotine dependence
CPT/HCPCS: 51702; 99283

== ENCOUNTER 2022-05-06 12:34 | Emergency (ER) | payer BC, SELFPAY ==
[2022-05-06 12:35] VITALS: BP 139/95; PULSE 99; RESP 18; TEMP 36.4; O2SAT 97; BMI 27.3
--- NOTE | 2022-05-06 12:54 | EX.ED.DYSGE1 ---
HPI History of Present Illness Chief Complaint: Villasenor C/O Informant: patient Onset/Context/Timing Onset: Days (10) Context: Gradual Onset Timing: Continuous Worsened by: Nothing Relieved by: Nothing Narrative Narrative: Patient presents with sediment in his Villasenor catheter tube. Patient states that he has had decreased urine output since yesterday. Patient states he has been getting more sediment in his Villasenor catheter tube. Patient denies any fevers or chills. Patient denies any nausea or vomiting. Patient denies any burning with urination. Patient admits to upper back pain but denies any lower back pain. Patient states he is on amoxicillin for possible urinary tract infection due to the Villasenor catheter. [facility] Medical History (Updated 05/06/22 @ 14:[address] Mike Stinson DO) Back pain Genital warts Hernia Right shoulder pain Right shoulder strain Strain of right rotator cuff capsule Urinary catheter in place Home Medications amoxicillin 500 mg capsule 1 cap PO TID 02/21/22 [History Last Taken Unknown] insulin glargine-yfgn 100 unit/mL (3 mL) subcutaneous pen (Semglee (insulin glargine-yfgn) Pen) 35 ea subcut QHS 02/21/22 [History Last Taken Unknown] insulin lispro 100 unit/mL subcutaneous pen (Humalog KwikPen (U-100) Insulin) 9 ea subcut 3XD 02/21/22 [History Last Taken Unknown] rivaroxaban 20 mg tablet (Xarelto) 1 tab PO DAILY 02/21/22 [History Last Taken Unknown] sulfamethoxazole 800 mg-trimethoprim 160 mg tablet 1 tab PO BID #20 TABLETS 03/02/22 [Rx Last Taken Unknown] Allergy/AdvReac Type Severity Reaction Status Date / Time No Known Allergies Allergy Verified 05/06/22 12:34 Surgical History History of fusion of thoracic spine Social History Smoking Status: Former smoker alcohol intake: never ROS ROS ED Constitutional Constitutional ED: Denies chills or fever(s) Eyes Eyes: Denies blurry vision or change in vision ENT ENT ED: Denies rhinorrhea or sore throat Cardiovascular Cardiovascular: Denies chest pain or palpitations Respiratory/Chest Respiratory/Chest: Denies cough or dyspnea Gastrointestinal Gastrointestinal: Reports constipation; Denies nausea or vomiting Genitourinary Genitourinary ED: Denies dysuria or hematuria Musculoskeletal Musculoskeletal: Reports back pain; Denies neck pain Integumentary Denies abscess or rash Neurologic Neurologic: Denies headache(s) or weakness Allergic/Immunologic Allergic/Immunologic ED: Denies mouth swelling or urticaria EXAM Physical Exam Const Vital Signs: 05/06/22 12:35 Temperature 97.5 F L Temperature Source Temporal Pulse Rate 99 Respiratory Rate 18 Blood Pressure 139/95 H Blood Pressure Mean 109 Pulse Ox 97 Oxygen Delivery Method Room Air Positive well nourished and well developed General Appearance ED: well developed and NAD HEENT Reports moist mucous membranes Neck supple and no JVD Resp normal respiratory effort and clear to auscultation bilaterally Cardio regular rate, regular rhythm and no murmurs GI normal to inspection, nondistended, normoactive bowel sounds Palpation: soft and tender suprapubic (Mild) Extremity normal to inspection General Extremety ED: Negative for edema or tenderness General Extremity: Negative for edema Neuro oriented x3, CN's II-XII intact bilaterally and no sensory deficits noted Sensorium / Orientation: alert Motor Exam: strength 5/5 throughout Psych mental status grossly normal Skin no rashes or lesions noted MDM MDM MDM Narrative Medical decision making narrative: The Villasenor catheter was replaced. Clear yellow urine was returned. Urinalysis shows a leukocyte esterases of 500 but there were only 5-10 white blood cells and no bacteria. Patient was instructed to continue his amoxicillin as prescribed. Patient was instructed to follow-up with urology in 5 to 7 days. Patient understood and was agreeable with the plan. All questions were answered. Lab Data Attestation: I reviewed the patient's lab results. Labs: Laboratory Results - last 24 hr 05/06/22 13:15 Urine Color Yellow Urine Clarity Clear Urine pH 6.0 Ur Specific [place] 1.020 Urine Protein 15 H Urine Glucose (UA) 100 H Urine Ketones Negative Urine Occult Blood 25 H Urine Nitrite Negative Urine Bilirubin Negative Urine Urobilinogen Normal Ur Leukocyte Esterase 500 H Urine RBC 0-5 SEEN Urine WBC 5-10 SEEN Ur Squamous Epith Cells 0 SEEN Urine Bacteria 0 SEEN Urine Mucus 0 SEEN Discharge Plan Triage Chief Complaint: Villasenor C/O ED Provider: Mike Stinson Dx/Rx/DC Orders Clinical Impression: Acute urinary retention Instructions: ED Villasenor Catheter, Care, ED Urinary Retention, Male Prescriptions: No Action Xarelto 20 mg tablet 1 tab PO DAILY insulin lispro [Humalog KwikPen Insulin] 100 unit/mL insulin pen 9 ea SUBCUT 3XD amoxicillin 500 mg capsule 1 cap PO TID Label Comments: TAKE 1 CAPSULE BY MOUTH THREE TIMES A DAY insulin glargine-yfgn [Semglee(insulin glarg-yfgn)Pen] 100 unit/mL (3 mL) insulin pen 35 ea SUBCUT QHS sulfamethoxazole-trimethoprim [sulfamethoxazole-trimethoprim] 1 TABLET tablet 1 tab PO BID Qty: 20 0RF Primary Care Provider: Bernardo Mensah Referrals: Mejia Farmer MD [Med Staff - Active Staff] - 5-7 Days Bernardo Mensah MD [Primary Care Provider] - 5-7 Days Disposition Disposition: Home, Self Care
[2022-05-06 13:23] LABS: Bacteria 0 SEEN /hpf (None Seen); Mucous, Urine 0 SEEN /hpf (<or=2+); Squamous Epithelial Cells - UA 0 SEEN /hpf (0-5)
[2022-05-06 13:27] LABS: Color, Urine Yellow (Yellow); Glucose, Dipstick 100 mg/dl (Normal); Ketone-Dipstick Negative (Negative); Leukocyte Esterase-Dipstick 500 /ul (Negative); Nitrite-Dipstick Negative (Negative); Occult Blood-Urine 25 /ul (Negative); Protein-Dipstick 15 mg/dl (Negative); Urine Bilirubin Dipstick Negative (Negative); Urine Clarity Clear (Clear); Urine Urobilinogen Normal (Normal)
[2022-05-06 13:36] LABS: White Blood Cells 5-10 SEEN /hpf (0-5)
[2022-05-06 13:37] LABS: Red Blood Cells-Urine 0-5 SEEN /hpf (0-5)
[2022-05-06 14:37] VITALS: BP 138/79; PULSE 82; RESP 15; O2SAT 97
== END 2022-05-06 14:38 | disposition home or self-care (01) ==
PROVIDERS: Emergency Provider Emergency Medicine; PCP Family Medicine; Visit Provider Emergency Medicine
DX: R33.9 Retention of urine, unspecified (principal); Z87.891 Personal history of nicotine dependence
CPT/HCPCS: 51702; 81001; 99283

== ENCOUNTER 2022-07-17 09:27 | Inpatient (IN) | payer MEDICAID, SELFPAY ==
[2022-07-17] VITALS (10 sets, daily range): BP systolic 105–137; BP diastolic 76–90; PULSE 87–100; RESP 16–22; TEMP 36.2–36.7; O2SAT 95–98; BMI 28.1; BMI 34.4
--- NOTE | 2022-07-17 09:53 | RAD_ITS ---
STUDY: X-RAY - ABDOMEN/PELVIS REASON FOR EXAM: Male, 61 years old. CONSTIPATION TECHNIQUE: AP supine and upright views of the abdomen and pelvis. COMPARISON: None. FINDINGS: Mild degree of basilar atelectasis. There is an abundance of fecal material throughout the colon. There is no demonstrated free abdominal air. The visualized liver, spleen and kidneys are grossly normal in size and morphology. There are calcified phleboliths in the pelvis. A linear catheter is seen overlying the lower pelvis. Normal visualized osseous structures. RAD/Abd Decub and/or Erect(Portabl IMPRESSION: Large amount of fecal material is seen in the colon. Electronically Signed: Alexx Fairbanks MD at 11:06 EST ,
--- NOTE | 2022-07-17 09:53 | RAD_ITS ---
STUDY: X-RAY CHEST REASON FOR EXAM: Male, 61 years old. Shortness of breath on exertion. TECHNIQUE: Single AP portable view of the chest. COMPARISON: Comparison is made with prior study of 10/31/2021. FINDINGS: Mild degree of lumbar increased markings at the lung bases suggestive of mild bibasilar atelectasis. There is no demonstrated pleural abnormality. Normal size heart. Normal mediastinum and umm. Normal visualized pulmonary arteries. Normal visualized aortic arch and descending thoracic aorta. Prior yonis and screw fixation of the thoracic scoliosis. Normal visualized ribs, clavicles, and shoulders. There is no demonstrated abnormality of the visualized soft tissue structures of the upper abdomen. RAD/Chest 1 View (Portable) IMPRESSION: Mild degree of increased markings at the lung bases suggestive of atelectasis. Electronically Signed: Alexx Fairbanks MD at 11:06 EST ,
[2022-07-17 10:03] LABS: Absolute Lymphocyte Count 1.26 X10^3/uL (0.83-4.51); Absolute Neutrophil Count 7.3 X10^3/uL (2.0-7.7); Basophil# 0.04 X10^3/uL; Basophil% 0.4 % (0-1); Eosinophil# 0.13 X10^3/uL; Eosinophils% 1.4 % (0-5); Hematocrit 40.2 % (40-54); Hemoglobin 13.6 g/dL (13.0-16.5); Lymphocyte # 1.26 X10^3/ul (0.83-4.51); Lymphocyte % 13.1 % (19-41); Mean Corp Hgb Conc 33.8 g/dL (32-36); Mean Corpuscular Hgb 27.9 pg (27.0-32.0); Mean Corpuscular Volume 82.5 fL (80-94); Mean Platelet Vol. 9.4 fl (6.2-12.0); Monocyte# 0.85 X10^3/uL; Monocyte% 8.9 % (0-10); NRBC Flagged by Analyzer 0 % (0-5); Neutrophil # 7.29 X10^3/uL (2.7-7.7); Neutrophil % 75.9 % (47-70); POSITIVE COUNT YES; RBC Distribution Width CV 13.8 % (11.6-14.6); RBC Distribution Width SD 41.3 fl (35.1-43.9); Red Blood Count 4.87 M/mm3 (4.6-6.2); White Blood Count 9.6 K/mm3 (4.4-11.0)
--- NOTE | 2022-07-17 10:06 | EX.ED.DYSGE1 ---
HPI History of Present Illness Chief Complaint: Shortness of Breath Informant: patient Narrative Narrative: 61-year-old male presenting to the emergency room with a chief complaint of shortness of breath. Patient states that in the spring of this year he underwent thoracic spinal fusion and developed an infection. He states he has been doing quite well. 2 days ago went to get his mail and when he took a couple steps out of the house he felt like he had this wind knocked out of him. He states that he went back inside and sat down. Feeling good and when he went back outside again the same thing happened. He notes now he has pain just below the right shoulder blade. He states that he has been constipated for about 5 days. He notes that he is having very small hard pieces of stool out but his abdomen feels like there is a belt around it which is making it harder for him to breathe. He denies any fever or cough. Patient had his thoracic back fused at [facility] in November. Postoperatively developed DVT in each leg and was started on Xarelto. He subsequently has taken that for 3 months and now stopped. He states that he was advised not to walk by himself and so he does not get much exercise walking back and forth in the apartment. [facility] Medical History Back pain Genital warts Hernia Right shoulder pain Right shoulder strain Strain of right rotator cuff capsule Urinary catheter in place Home Medications insulin glargine-yfgn 100 unit/mL (3 mL) subcutaneous pen (Semglee (insulin glargine-yfgn) Pen) 35 ea subcut QHS 02/21/22 [History Last Taken Unknown] insulin lispro 100 unit/mL subcutaneous pen (Humalog KwikPen (U-100) Insulin) 9 ea subcut 3XD 02/21/22 [History Last Taken Unknown] baclofen 10 mg tablet 10 mg PO DAILY 07/17/22 [History Last Taken Unknown] Allergy/AdvReac Type Severity Reaction Status Date / Time No Known Allergies Allergy Verified 07/17/22 09:32 Surgical History History of fusion of thoracic spine Social History Smoking Status: Former smoker alcohol intake: never ROS ROS ED Constitutional Constitutional ED: Denies chills, fever(s) or weight loss Eyes Eyes: Denies change in vision or diplopia ENT ENT ED: Denies ear pain, rhinorrhea or sore throat Cardiovascular Cardiovascular: Denies chest pain, orthopnea, palpitations or racing heartbeat Respiratory/Chest Respiratory/Chest: Reports dyspnea and dyspnea on exertion; Denies cough or orthopnea Gastrointestinal Gastrointestinal: Reports abdominal pain and constipation; Denies diarrhea, nausea or vomiting Genitourinary Genitourinary ED: Denies dysuria, hematuria or urinary frequency Musculoskeletal Musculoskeletal: Denies arthralgias or myalgias Integumentary Denies abscess or rash Neurologic Neurologic: Denies headache(s) or weakness Psychiatric Psychiatric: Denies anxiety, depression, suicidal ideation or suicidal thoughts Endocrine Endocrinology: Denies polydipsia, polyphagia or polyuria Allergic/Immunologic Allergic/Immunologic ED: Denies mouth swelling, tongue swelling or urticaria EXAM Physical Exam Const Vital Signs: 07/17/22 09:29 07/17/22 09:31 07/17/22 09:33 Temperature 97.5 F L 97.5 F L Temperature Source Temporal Temporal Pulse Rate 98 98 Respiratory Rate 16 16 Respiratory Effort Normal Non-Labored Respiratory Depth Normal Respiratory Pattern Normal Blood Pressure 125/90 H 125/90 H Blood Pressure Mean 101 101 Pulse Ox 95 95 Oxygen Delivery Method Room Air Room Air Room Air 07/17/22 10:48 07/17/22 11:01 Temperature 97.2 F L 97.2 F L Temperature Source Oral Oral Pulse Rate 94 94 Respiratory Rate 16 22 H Respiratory Effort Respiratory Depth Respiratory Pattern Blood Pressure 121/81 H 125/82 H Blood Pressure Mean 94 96 Pulse Ox 95 96 Oxygen Delivery Method Room Air Room Air Positive well nourished and well developed General Appearance ED: well developed HEENT Reports normocephalic, head/scalp atraumatic and moist mucous membranes Eyes PERRL and EOMs intact bilaterally Neck no lymphadenopathy, supple and no JVD Resp normal respiratory effort and clear to auscultation bilaterally Cardio regular rate, regular rhythm and no murmurs GI normal to inspection, nondistended, normoactive bowel sounds and non-tender Palpation: soft Back/Spine no CVA tenderness and normal ROM Extremity normal to inspection General Extremety ED: Negative for edema General Extremity: Negative for edema Neuro oriented x3 and CN's II-XII intact bilaterally Sensorium / Orientation: alert Motor Exam: strength 5/5 throughout Psych mental status grossly normal Mood & Affect: Negative for depressed or tearful Skin no rashes or lesions noted and no wounds MDM MDM MDM Narrative Medical decision making narrative: Patient has a significantly elevated D-dimer at 7.42. Troponin is also elevated at 893. Prehospital EKG appears no ACS. EKG in the department demonstrates a normal sinus rhythm with a ventricular rate of 93. He has not been requiring any supplemental oxygen. Interpretation of the chest x-ray is no acute process. Acute abdominal x-ray is high read as increased stool. No obstruction. A CTA of the chest was obtained out of concern for pulmonary embolism in demonstrates a large amount of clot burden and a saddle distribution. He has not been requiring any supplemental oxygen but given the evidence of right heart strain and the size of the clots he would be burch to admit. I will start him on a heparin drip. Lab Data Attestation: I reviewed the patient's lab results. Labs: Laboratory Results - last 24 hr 07/17/22 07/17/22 07/17/22 09:51 09:51 09:51 WBC 9.6 RBC 4.87 Hgb 13.6 Hct 40.2 MCV 82.5 MCH 27.9 MCHC 33.8 RDW Std Deviation 41.3 RDW Coeff of Tre 13.8 Plt Count TNP MPV 9.4 Immature Gran % (Auto) 0.300 Neut % (Auto) 75.9 H Lymph % (Auto) 13.1 L Slope % (Auto) 8.9 Eos % (Auto) 1.4 Baso % (Auto) 0.4 Absolute Neuts (auto) 7.3 Absolute Lymphs (auto) 1.26 Nucleated RBC % 0 Platelet Estimate SLT DEC D-Dimer Quant (PE/DVT) 7.42 H* Sodium 134 L Potassium 4.2 Chloride 99 Carbon Dioxide 28.0 Anion Gap 7 BUN 16 Creatinine 0.98 Estim Creat Clear Calc 75.88 Est GFR (MDRD) Af Amer 100 Est GFR (MDRD) Non-Af 83 BUN/Creatinine Ratio 16.3 Glucose 137 H Calcium 9.1 Troponin I High Sens 07/17/22 09:51 WBC RBC Hgb Hct MCV MCH MCHC RDW Std Deviation RDW Coeff of Tre Plt Count MPV Immature Gran % (Auto) Neut % (Auto) Lymph % (Auto) Slope % (Auto) Eos % (Auto) Baso % (Auto) Absolute Neuts (auto) Absolute Lymphs (auto) Nucleated RBC % Platelet Estimate D-Dimer Quant (PE/DVT) Sodium Potassium Chloride Carbon Dioxide Anion Gap BUN Creatinine Estim Creat Clear Calc Est GFR (MDRD) Af Amer Est GFR (MDRD) Non-Af BUN/Creatinine Ratio Glucose Calcium Troponin I High Sens 893 H* Radiography Diagnostic Testing: Clinical Impression(s) from Imaging Studies Abdomen X-Ray 07/17/22 09:53 IMPRESSION: Large amount of fecal material is seen in the colon. Electronically Signed: Alexx Fairbanks MD at 11:06 EST , Chest X-Ray 07/17/22 09:53 IMPRESSION: Mild degree of increased markings at the lung bases suggestive of atelectasis. Electronically Signed: Alexx Fairbanks MD at 11:06 EST , Discharge Plan Dx/Rx/DC Orders Clinical Impression: Acute dyspnea, Acute saddle pulmonary embolism, Elevated troponin Disposition Disposition: Acute Care Hospital [facility]
[2022-07-17 10:14] LABS: Anion Gap 7 (5-15); BUN 16 mg/dL (7-18); BUN/Creat Ratio 16.3 RATIO (10-20); Calcium,Total 9.1 mg/dL (8.5-10.1); Chloride 99 mmol/L (98-107); Creatinine, Serum 0.98 mg/dL (0.70-1.30); EST Glomerular Filtration Rate 83 mL/min (>60); Est Glom Filt Rate - Afr Amer 100 mL/min (>60); Estimated Creatinine Clearance 75.88 ml/min; Glucose 137 mg/dL (74-106); Potassium 4.2 mmol/L (3.5-5.1); Sodium Level 134 mmol/L (136-145)
[2022-07-17 10:28] LABS: Differential Indicated SCAN CRITERIA MET
[2022-07-17 10:29] LABS: Platelet Estimate SLT DEC (ADEQ)
[2022-07-17 10:31] LABS: D-Dimer Quantitative (DVT/PE) 7.42 FEU/ug/m (0.27-0.49)
[2022-07-17 10:35] LABS: Troponin-I HS 893 pg/mL (3.0-78.0)
--- NOTE | 2022-07-17 10:35 | ED.RN ---
troponin 893
--- NOTE | 2022-07-17 10:47 | CT_ITS ---
STUDY: CTA CHEST REASON FOR EXAM: Male, 61 years old. Pulmonary embolism. 2 day history of shortness of breath and back pain. RADIATION DOSAGE (If Supplied By Facility): CTDIvol = ( 29.26 ) mGy, DLP = ( 2689.47 ) mGycm TECHNIQUE: The examination was performed with the intravenous administration of IV 100mL Isovue-370. Post-processing of the angiographic images was performed, with multiplanar reformation and 3D reconstruction. Individualized dose optimization techniques were used for this CT. COMPARISON: None. FINDINGS: Benign appearing bilateral axillary lymph nodes. There is evidence of extensive bilateral pulmonary emboli involving the main right and left pulmonary arteries. Normal thoracic aorta and visualized great vessels. There is no demonstrated aortic dissection. Normal heart and pericardium. Enlarged mediastinal lymph nodes. Normal hilar regions. Normal visualized trachea and bronchi. The lungs are well expanded. Small right pleural effusion with basilar atelectasis. There is a 4.2 mm noncalcified nodule in the anterior aspect of the right middle lobe as seen on axial image #98. Normal chest wall structures. Increased kyphosis. Prior multilevel fusion of the mid dorsal spine with loss of height of mid dorsal vertebrae. Normal visualized upper abdomen. CT/CTA Chest W/WO Contrast IMPRESSION: Extensive bilateral emboli. Small right pleural effusion with right basilar atelectasis. 4.2 mm noncalcified nodule in the anterior aspect of the right middle lobe. N.B. : The above Results were Read Back by Alexx Fairbanks MD to Lencho Oshea MD, and understanding confirmed on 07/17/2022 12:14:29 (ET). Electronically Signed: Alexx Fairbanks MD at 12:17 EST ,
--- NOTE | 2022-07-17 10:47 | EKG12_ITS ---
Test Reason : Blood Pressure : / mmHG Vent. Rate : 093 BPM Atrial Rate : 093 BPM P-R Int : 166 ms QRS Dur : 084 ms QT Int : 350 ms P-R-T Axes : 055 012 022 degrees QTc Int : 435 ms Normal sinus rhythm Normal ECG Confirmed by KAILEE SINGLETON, JULIA ([id number]), photograph editor NISA LARA ([id number]) on 07/21/2022 11:02:20 AM Referred By: CHERY Confirmed By:EDITH DUGAN MD
--- NOTE | 2022-07-17 10:47 | CT_ITS ---
STUDY: CT ABDOMEN AND PELVIS WITH CONTRAST REASON FOR EXAM: Male, 61 years old. Abdominal pain. Constipation. Indwelling catheter. RADIATION DOSAGE (If Supplied By Facility): CTDIvol = ( 29.26 ) mGy, DLP = ( 2689.47 ) mGycm TECHNIQUE: Transaxial images were obtained from the dome of the diaphragm to the symphysis pubis without oral contrast. IV 100mL Isovue-370 was administered. Sagittal and coronal images were reconstructed. Individualized dose optimization techniques were used for this CT. COMPARISON: None. FINDINGS: Mild degree of increased markings at the right lung base with a tiny pleural effusion in keeping with atelectasis. Coronary artery calcification. Normal liver. Normal gallbladder and extrahepatic biliary system. Normal spleen. There is diffuse atrophy of the pancreas. Normal bilateral adrenal glands. Normal right kidney. Normal left kidney. Normal visualized stomach. Normal small intestine. There are scattered colonic diverticula consistent with diverticulosis. The appendix is visualized and appears normal. There is scattered atherosclerotic calcification of the abdominal aorta, without a demonstrated aneurysm. Normal inferior vena cava. There is borderline retroperitoneal lymphadenopathy with enlarged nodes no greater than 10mm in the short axis diameter. A FERNANDES catheter is seen within the urinary bladder. There is diffuse bladder wall thickening. Tiny stones are seen at the base of the bladder. There is a small umbilical hernia containing fat. Small bilateral inguinal hernias containing fat more prominent on the left side. Prior fusion at the T9-T10 level. Loss of height of the superior endplate of the L1 vertebrae. CT/Abdomen/Pelvis W IV Cont ONLY IMPRESSION: Small right pleural effusion with right basilar atelectasis. Atrophy of the pancreas. Umbilical hernia and bilateral inguinal hernias. Diffuse bladder wall thickening with a tiny stones at the base of the bladder. FERNANDES catheter is seen within the urinary bladder. Electronically Signed: Alexx Fairbanks MD at 12:11 EST ,
[2022-07-17] MEDS: Ketorolac 30 MG/ML Syringe IV (10:49)
[2022-07-17 12:05] LABS: Partial Thromboplast Time 24.3 Seconds (24.1-36.2); Prothrombin Time (Protime)PT. 13.2 SECONDS (11.7-14.9)
[2022-07-17] MEDS: Heparin Injection (Vial) 5,000 UNIT/ML VIAL 6000 UNIT IV (12:05)
[2022-07-17] MEDS: HEPARIN/D5w 25,000 UNITS 25,000 UNITS/250 ML IV.SOLN. 12 UNITS CONT INF (12:06)
--- NOTE | 2022-07-17 12:40 | PCM.HP.STD ---
HPI - General General Date of Admission: 07/17/22 Date of Service: 07/17/22 Chief Complaint: Dyspnea on exertion HPI Narrative MIGUEL RODRIGEZ, is a 61 M who presents with acute onset of dyspnea on exertion. Symptoms began 2 days ago when he is going to the mailbox. Just hit him suddenly. Patient has gone to his mailbox without difficulty previously. Patient, in November, had thoracic surgery for what sounds like an epidural abscess. Patient had fusion of T6-T8 and left him with saddle anesthesia, neurogenic bladder and radicular paresthesias in his lower extremities. He did develop DVTs at that time and was on rivaroxaban for 3 months. He had never had any blood clots before then. Patient was taken off after 3 months. So patient was concerned with his complaints as the symptoms were very severe and was found to have saddle embolism on CTA. Patient was started on heparin drip. Patient also had [place] troponins of 893. Patient's vital signs though remained stable. [facility] Medical History Back pain Genital warts Hernia Right shoulder pain Right shoulder strain Strain of right rotator cuff capsule Urinary catheter in place Home Medications insulin glargine-yfgn 100 unit/mL (3 mL) subcutaneous pen (Semglee (insulin glargine-yfgn) Pen) 35 ea subcut QHS 02/21/22 [History Last Taken Unknown] insulin lispro 100 unit/mL subcutaneous pen (Humalog KwikPen (U-100) Insulin) 9 ea subcut 3XD 02/21/22 [History Last Taken Unknown] baclofen 10 mg tablet 10 mg PO DAILY 07/17/22 [History Last Taken Unknown] Allergy/AdvReac Type Severity Reaction Status Date / Time No Known Allergies Allergy Verified 07/17/22 09:32 Surgical History History of fusion of thoracic spine Social History Smoking Status: Former smoker alcohol intake: never ROS ROS Owen Does have lower extremity edema that gets better when he lays down and then worse during the day but that has been ongoing for months. There is been no change with that. Denies any melena, hematochezia or any other bleeding diathesis. All review of systems were negative except as mentioned above in the history of present illness and the other review of systems. Vital Signs Vital Signs Vital Signs: 07/17/22 09:29 07/17/22 09:31 07/17/22 09:33 Temperature 36.4 C L 36.4 C L Temperature Source Temporal Temporal Pulse Rate 98 98 Respiratory Rate 16 16 Respiratory Effort Normal Non-Labored Respiratory Depth Normal Respiratory Pattern Normal Blood Pressure 125/90 H 125/90 H Blood Pressure Mean 101 101 Pulse Ox 95 95 Oxygen Delivery Method Room Air Room Air Room Air 07/17/22 10:48 07/17/22 11:01 07/17/22 12:06 Temperature 36.2 C L 36.2 C L 36.3 C L Temperature Source Oral Oral Oral Pulse Rate 94 94 100 Respiratory Rate 16 22 H 19 H Respiratory Effort Respiratory Depth Respiratory Pattern Blood Pressure 121/81 H 125/82 H 105/76 Blood Pressure Mean 94 96 85 Pulse Ox 95 96 96 Oxygen Delivery Method Room Air Room Air Room Air Weight Weight: 81.647 kg Body Mass Index (BMI) 28.1 Physical Exam Const alert and no apparent distress HEENT normocephalic and head/scalp atraumatic Neck no lymphadenopathy and no JVD Resp normal respiratory effort, no retractions and no use of accessory muscles Cardio regular rate, regular rhythm, S1 normal heart sound and S2 normal heart sound GI normal to inspection, nondistended, normoactive bowel sounds, soft to palpation, non-tender and non-distended Extremity Extremity Narrative: Nonpitting bilateral lower extremity edema. No calf tenderness. No palpable cords Skin Skin Narrative: No rashes or bruises very Neuro moves all extremities Sensorium / Orientation: awake and alert Results Lab / Micro Data Attestation: I reviewed the patient's lab results. Result Diagrams: 07/17/22 09:51 07/17/22 09:51 Labs: Laboratory Results - last 24 hr 07/17/22 09:51: WBC 9.6, RBC 4.87, Hgb 13.6, Hct 40.2, MCV 82.5, MCH 27.9, MCHC 33.8, RDW Std Deviation 41.3, RDW Coeff of Tre 13.8, Plt Count TNP, MPV 9.4, Immature Gran % (Auto) 0.300, Neut % (Auto) 75.9 H, Lymph % (Auto) 13.1 L, [place] % (Auto) 8.9, Eos % (Auto) 1.4, Baso % (Auto) 0.4, Absolute Neuts (auto) 7.3, Absolute Lymphs (auto) 1.26, Nucleated RBC % 0, Platelet Estimate SLT 07/17/22 09:51: D-Dimer Quant (PE/DVT) 7.42 H* 07/17/22 09:51: Sodium 134 L, Potassium 4.2, Chloride 99, Carbon Dioxide 28.0, Anion Gap 7, BUN 16, Creatinine 0.98, Estim Creat Clear Calc 75.88, Est GFR (MDRD) Af Amer 100, Est GFR (MDRD) Non-Af 83, BUN/Creatinine Ratio 16.3, Glucose 137 H, Calcium 9.1 07/17/22 09:51: Troponin I High Sens 893 H* 07/17/22 09:51: PT 13.2, INR 1.0, APTT 24.3 EKG Initial EKG: Attestation: I personally reviewed and interpreted this EKG as follows: Prior EKG tracings: available for review EKG Rhythm Intrepretation: Sinus Rhythm Radiology Impression Abdomen X-Ray 07/17/22 09:53 IMPRESSION: Large amount of fecal material is seen in the colon. Electronically Signed: Alexx Fairbanks MD at 11:06 EST , Chest X-Ray 07/17/22 09:53 IMPRESSION: Mild degree of increased markings at the lung bases suggestive of atelectasis. Electronically Signed: Alexx Fairbanks MD at 11:06 EST , Abdomen/Pelvis CT 07/17/22 10:47 IMPRESSION: Small right pleural effusion with right basilar atelectasis. Atrophy of the pancreas. Umbilical hernia and bilateral inguinal hernias. Diffuse bladder wall thickening with a tiny stones at the base of the bladder. FERNANDES catheter is seen within the urinary bladder. Electronically Signed: Alexx Fairbanks MD at 12:11 EST , Chest CTA 07/17/22 10:47 IMPRESSION: Extensive bilateral emboli. Small right pleural effusion with right basilar atelectasis. 4.2 mm noncalcified nodule in the anterior aspect of the right middle lobe. N.B. : The above Results were Read Back by Alexx Fairbanks MD to Lencho Oshea MD, and understanding confirmed on 07/17/2022 12:14:29 (ET). Electronically Signed: Alexx Fairbanks MD at 12:17 EST , ADDENDUM: 07/17/22 1224 IMPRESSION: Extensive bilateral emboli. Small right pleural effusion with right basilar atelectasis. 4.2 mm noncalcified nodule in the anterior aspect of the right middle lobe. N.B. : The above Results were Read Back by Alexx Fairbanks MD to Lencho Oshea MD, and understanding confirmed on 07/17/2022 12:14:29 (ET). Electronically Signed: Alexx Fairbanks MD at 12:17 EST , Assessment & Plan Assessment/Plan (1) Acute saddle pulmonary embolism: PLAN: Patient has been started on heparin drip and will continue on the floor Check 2D echocardiogram Patient hemodynamically stable and does not require thrombolytics at this time. Discussed with patient that this is likely a lifelong anticoagulation scenario. Patient will need to at least be on anticoagulation for 6 months but most likely lifelong. He may follow-up with hematology as outpatient to see if that could be potentially shortened. Check duplex. If patient can be anticoagulated no need for IVC filter (2) Elevated troponin: PLAN: Due to cardiac strain due to saddle pulmonary embolism Cycle troponins Check 2D echocardiogram PLAN: Plan Diabetes mellitus type 2: Continue with basal insulin and prandial insulin. We will add sliding scale. VTE prophylaxis: Not indicated patient is already anticoagulated. Disposition: To be determined. Patient requires inpatient hospitalization with anticoagulation and further cardiac evaluation because of high risk of . Charges/Coding Visit Charges Inpatient E&M: 05868 Init Hosp L3
--- NOTE | 2022-07-17 12:49 | ECHOCS_ITS ---
Reason For Study: PE Procedure This was a 2D Doppler, Color Flow transthoracic echocardiogram. The study was technically difficult. Contrast injection was performed. Exam performed portable in patient room. Left Ventricle Normal LV size. The estimated ejection fraction is 65 %. No evidence for diastolic dysfunction. No regional wall motion abnormalities noted. Right Ventricle Moderately dilated right ventricle. Normal systolic function. Atria Normal left atrium. Normal right atrium. No doppler evidence for ASD. Bubble contrast study negative for right to left interatrial shunt. Mitral Valve There is no mitral valve stenosis. No mitral valve insufficiency. Tricuspid Valve There is no tricuspid stenosis. Trivial tricuspid valve insufficiency. Unable to estimate RV systolic pressure due to insufficient tricuspid regurgitant envelope. Aortic Valve Trisinus/trileaflet aortic valve. There is no aortic stenosis. No aortic valve insufficiency. Pulmonic Valve There is no pulmonic valvular stenosis. Trivial pulmonic valve insufficiency. Great Vessels Normal aortic root. Pericardium/Pleural No pericardial effusion. Medication Diluted definity 2ml given slow IV push to enhance endocardial definition. Performed a rapid injection of agitated mix of 9 cc saline and 1cc air to assess for atrial septal defect. MMode/2D Measurements & Calculations LVIDd: 4.4 cm IVSd: 1.0 cm Ao root diam: 3.4 cm LVIDs: 2.4 cm LVPWd: 1.2 cm FS: 45.4 % LAV(MOD-sp4): 35.7 ml LVAd ap4: 30.8 cm2 SV(MOD-sp4): 63.8 ml LVLd ap4: 8.3 cm EDV(MOD-sp4): 94.2 ml EDV(sp4-el): 97.1 ml LVAs ap4: 15.3 cm2 LVLs ap4: 6.3 cm ESV(MOD-sp4): 30.3 ml ESV(sp4-el): 31.6 ml EF(MOD-sp4): 67.8 % EF(sp4-el): 67.4 % SV(sp4-el): 65.4 ml LA A4 area: 16.3 cm2 LA dimension(2D): 3.6 cm RA A4 area: 12.9 cm2 Time Measurements MV dec time: 0.16 sec Doppler Measurements & Calculations MV E max gomez: 58.1 cm/sec Lat Peak E' Gomez: 11.9 cm/sec Med Peak E' Gomez: 12.1 cm/sec MV A max gomez: 79.2 cm/sec E/E' lat: 4.9 E/E' med: 4.8 MV E/A: 0.73 MV V2 max: 58.1 cm/sec MV dec slope: 359.4 cm/sec2 Ao V2 max: 147.2 cm/sec MV max P.4 mmHg Ao max P.7 mmHg MV V2 mean: 39.0 cm/sec Ao V2 mean: 92.0 cm/sec MV mean P.67 mmHg Ao mean P.0 mmHg MV V2 VTI: 16.0 cm Ao V2 VTI: 23.1 cm AV (velocity ratio): 0.43 LV V1 max: 95.1 cm/sec PA V2 max: 112.2 cm/sec LV V1 max P.6 mmHg PA max PG (full): 3.1 mmHg LV V1 mean P.6 mmHg PA V2 mean: 81.0 cm/sec LV V1 mean: 57.9 cm/sec LV V1 VTI: 9.9 cm ECHO/Echo Complete W/ Contrast Interpretation Summary The estimated ejection fraction is 65 %. No evidence for diastolic dysfunction. Moderately dilated right ventricle. Ordering Physician: Mike Lang Referring Physician: Bernardo Mensah Performed By: Ivette Amaro RCS
--- NOTE | 2022-07-17 12:49 | VDLE_ITS ---
Reason For Study: Elevated D-dimer RIGHT LEFT GSV is normal. GSV is normal. Minimal pulsatile venous flow noted in the CFV is compressible, spontaneous, competent, CFV. and demonstrates pulsatile venous flow. Acute deep vein thrombosis is noted in the FV is compressible, spontaneous, competent right CFV, FV, PopV, T/P Trunk, and Janet V. and demonstrates pulsatile venous flow. PTV is compressible. POP V is compressible, spontaneous, competent Procedure and demonstrates pulsatile venous flow. This is a venous duplex using B-mode, color T/P Trunk is compressible. flow and spectral Doppler. PTV is compressible. Exam performed portable in patient room. LT PerV is compressible. A preliminary report was called and/or faxed to [facility]. VL/Venous Duplex US - Jose Manuel Extrem Interpretation Summary Acute deep venous thrombosis right common femoral, femoral, popliteal, tibioper valenzuela trunk, and peroneal veins. Visible thrombus easily identified within the right common femo ral vein. Patent and compressible right great saphenous vein No evidence for acute deep venous thrombosis left lower extremity however pulsa tile venous flow was identified consistent with proximal venous hypertension or obstruction. Clinica l correlation would be appropriate. Patent and compressible left great saphenous vein Ordering Physician: Mike Lang Referring Physician: Bernardo Mensah Performed By: Jamia Ozuna RVT
[2022-07-17] MEDS: Insulin Lispro 100 UNIT/ML INSULN.PEN 9 UNIT SC ×2 (14:13→18:02)
[2022-07-17 14:32] LABS: Troponin-I HS 1141 pg/mL (3.0-78.0)
[2022-07-17 14:35] LABS: Bedside Glucose 143 mg/dL (74-106)
--- NOTE | 2022-07-17 14:43 | CHAPLAIN ---
Type of Pastoral Visit _x__ Initial Visit ___ Follow-up Visit ___ On-call Visit ___ General Patient Visit ___ Spiritual Assessment ___ Family Conference ___ Bereavement ___ Rapid Response ___ Code Blue ___ Other (describe below) Pastoral Care Referral From _x__ Patient ___ Family ___ Nurse ___ Physician ___ Equipment Sales Specialist ___ Strike On Machine Operator ___ Other (describe below) Sacrament/Intervention _x__ Active listening ___ Anointing ___ Rastafari ___ Bereavement ___ Communion ___ Mami exploration ___ _x__ Life review _x__ Prayer ___ Reconciliation ___ Sacrament of Sick _x__ Supportive presence ___ Wedding ___ Other (describe below) Pastoral Comments patient has had several hospital admissions this year from different issues; pt states he is handling situation well and some things are just out of our hands; pt did admit that he will need to make some changes to life; offer of support and prayer
[2022-07-17 17:09] LABS: Troponin-I HS 932 pg/mL (3.0-78.0)
[2022-07-17 18:22] LABS: Partial Thromboplast Time 55.8 Seconds (24.1-36.2)
[2022-07-17 18:31] LABS: Bedside Glucose 119 mg/dL (74-106)
[2022-07-17] MEDS: Insulin Glargine-YFGN 100 UNIT/ML Pen 35 UNIT SC (21:43)
[2022-07-17 22:46] LABS: Bedside Glucose 118 mg/dL (74-106)
[2022-07-18] VITALS (14 sets, daily range): BP systolic 99–129; BP diastolic 65–79; PULSE 71–94; RESP 16–20; TEMP 36.2–37.9; O2SAT 89–98
[2022-07-18] MEDS: Heparin Injection (Vial) 5,000 UNIT/ML VIAL IV ×3 (01:05→15:39)
[2022-07-18] MEDS: 0.9% Saline Lock 10 ML Syringe IV ×2 (01:06→15:39)
[2022-07-18] MEDS: oxyCODONE 5 MG Tablet PO ×4 (01:06→21:12)
[2022-07-18 07:13] LABS: Absolute Lymphocyte Count 1.34 X10^3/uL (0.83-4.51); Absolute Neutrophil Count 5.1 X10^3/uL (2.0-7.7); Basophil# 0.03 X10^3/uL; Basophil% 0.4 % (0-1); Eosinophil# 0.16 X10^3/uL; Eosinophils% 2.1 % (0-5); Hematocrit 39.4 % (40-54); Hemoglobin 13.1 g/dL (13.0-16.5); Lymphocyte # 1.34 X10^3/ul (0.83-4.51); Lymphocyte % 17.7 % (19-41); Mean Corp Hgb Conc 33.2 g/dL (32-36); Mean Corpuscular Hgb 27.2 pg (27.0-32.0); Mean Corpuscular Volume 81.9 fL (80-94); Mean Platelet Vol. 9.3 fl (6.2-12.0); Monocyte# 0.93 X10^3/uL; Monocyte% 12.3 % (0-10); NRBC Flagged by Analyzer 0 % (0-5); Neutrophil # 5.07 X10^3/uL (2.7-7.7); Neutrophil % 67.2 % (47-70); Platelet Count 140 K/mm3 (150-450); RBC Distribution Width CV 13.7 % (11.6-14.6); RBC Distribution Width SD 40.7 fl (35.1-43.9); Red Blood Count 4.81 M/mm3 (4.6-6.2); White Blood Count 7.6 K/mm3 (4.4-11.0)
[2022-07-18] MEDS: HEPARIN/D5w 25,000 UNITS 25,000 UNITS/250 ML IV.SOLN. 13 UNITS CONT INF (07:20)
[2022-07-18 07:52] LABS: Anion Gap 5 (5-15); BUN 14 mg/dL (7-18); BUN/Creat Ratio 16.1 RATIO (10-20); Chloride 99 mmol/L (98-107); Creatinine, Serum 0.87 mg/dL (0.70-1.30); EST Glomerular Filtration Rate 95 mL/min (>60); Est Glom Filt Rate - Afr Amer 115 mL/min (>60); Estimated Creatinine Clearance 85.47 ml/min; Glucose 134 mg/dL (74-106); Potassium 3.9 mmol/L (3.5-5.1); Sodium Level 131 mmol/L (136-145)
--- NOTE | 2022-07-18 07:54 | PN.HOSP_ITS ---
Subjective Subjective Dyspnea exertion. Now with chest pain when he takes a deep breath on his right side Objective Data Objective Data Vital Signs: Vital Signs Temp Pulse Resp BP Pulse Ox O2 Del Method O2 Flow Rate 36.7 C 84 16 101/72 96 Nasal Cannula 1 07/18/22 06:30 07/18/22 07:00 07/18/22 06:30 07/18/22 06:30 07/18/22 06:30 07/18/22 06:30 07/18/22 06:30 Oxygen Flow Rate (L/min) 1 Oxygen Delivery Method Nasal Cannula Weight: 99.7 kg Body Mass Index (BMI) 34.4 Intake & Output: Intake and Output for Last 24 Hours 07/16/22 07/17/22 07/18/22 23:59 23:59 23:59 Intake Total 478.8 / 778.8 758.22 / 758.22 Output Total 450 / 1150 1200 / 1200 Balance 28.8 / -371.2 -441.78 / -441.78 Lab / Micro Data Result Diagrams: 07/18/22 07:02 07/18/22 07:02 Labs: Laboratory Results - last 24 hr 07/17/22 09:51: WBC 9.6, RBC 4.87, Hgb 13.6, Hct 40.2, MCV 82.5, MCH 27.9, MCHC 33.8, RDW Std Deviation 41.3, RDW Coeff of Tre 13.8, Plt Count TNP, MPV 9.4, Immature Gran % (Auto) 0.300, Neut % (Auto) 75.9 H, Lymph % (Auto) 13.1 L, [place] % (Auto) 8.9, Eos % (Auto) 1.4, Baso % (Auto) 0.4, Absolute Neuts (auto) 7.3, Absolute Lymphs (auto) 1.26, Nucleated RBC % 0, Platelet Estimate SLT 07/17/22 09:51: D-Dimer Quant (PE/DVT) 7.42 H* 07/17/22 09:51: Sodium 134 L, Potassium 4.2, Chloride 99, Carbon Dioxide 28.0, Anion Gap 7, BUN 16, Creatinine 0.98, Estim Creat Clear Calc 75.88, Est GFR (MDRD) Af Amer 100, Est GFR (MDRD) Non-Af 83, BUN/Creatinine Ratio 16.3, Glucose 137 H, Calcium 9.1 07/17/22 09:51: Troponin I High Sens 893 H* 07/17/22 09:51: PT 13.2, INR 1.0, APTT 24.3 07/17/22 13:30: Troponin I High Sens 1141 H* 07/17/22 14:08: POC Glucose 143 H 07/17/22 16:21: Troponin I High Sens 932 H* 07/17/22 18:00: APTT 55.8 H 07/17/22 18:01: POC Glucose 119 H 07/17/22 21:42: POC Glucose 118 H 07/18/22 00:03: APTT 45.0 H 07/18/22 07:02: WBC 7.6, RBC 4.81, Hgb 13.1, Hct 39.4 L, MCV 81.9, MCH 27.2, MCHC 33.2, RDW Std Deviation 40.7, RDW Coeff of Tre 13.7, Plt Count 140 L, MPV 9.3, Immature Gran % (Auto) 0.300, Neut % (Auto) 67.2, Lymph % (Auto) 17.7 L, [place] % (Auto) 12.3 H, Eos % (Auto) 2.1, Baso % (Auto) 0.4, Absolute Neuts (auto) 5.1, Absolute Lymphs (auto) 1.34, Nucleated RBC % 0 07/18/22 07:02: Sodium 131 L, Potassium 3.9, Chloride 99, Carbon Dioxide 27.0, Anion Gap 5, BUN 14, Creatinine 0.87, Estim Creat Clear Calc 85.47, Est GFR (MDRD) Af Amer 115, Est GFR (MDRD) Non-Af 95, BUN/Creatinine Ratio 16.1, Glucose 134 H, Calcium 9.0 Radiography Diagnostic Testing: Radiology Impression Abdomen X-Ray 07/17/22 09:53 IMPRESSION: Large amount of fecal material is seen in the colon. Electronically Signed: Alexx Fairbanks MD at 11:06 EST , Chest X-Ray 07/17/22 09:53 IMPRESSION: Mild degree of increased markings at the lung bases suggestive of atelectasis. Electronically Signed: Alexx Fairbanks MD at 11:06 EST , Abdomen/Pelvis CT 07/17/22 10:47 IMPRESSION: Small right pleural effusion with right basilar atelectasis. Atrophy of the pancreas. Umbilical hernia and bilateral inguinal hernias. Diffuse bladder wall thickening with a tiny stones at the base of the bladder. FERNANDES catheter is seen within the urinary bladder. Electronically Signed: Alexx Fairbanks MD at 12:11 EST , Chest CTA 07/17/22 10:47 IMPRESSION: Extensive bilateral emboli. Small right pleural effusion with right basilar atelectasis. 4.2 mm noncalcified nodule in the anterior aspect of the right middle lobe. N.B. : The above Results were Read Back by Alexx Fairbanks MD to Lencho Oshea MD, and understanding confirmed on 07/17/2022 12:14:29 (ET). Electronically Signed: Alexx Fairbanks MD at 12:17 EST , ADDENDUM: 07/17/22 1224 IMPRESSION: Extensive bilateral emboli. Small right pleural effusion with right basilar atelectasis. 4.2 mm noncalcified nodule in the anterior aspect of the right middle lobe. N.B. : The above Results were Read Back by Alexx Fairbanks MD to Lencho Oshea MD, and understanding confirmed on 07/17/2022 12:14:29 (ET). Electronically Signed: Alexx Fairbanks MD at 12:17 EST , Echocardiogram 07/17/22 12:49 Interpretation Summary The estimated ejection fraction is 65 %. No evidence for diastolic dysfunction. Moderately dilated right ventricle. Ordering Physician: Mike Lang Referring Physician: Bernardo Mensah Performed By: Ivette Amaro RCS Venous Doppler Study 07/17/22 12:49 Interpretation Summary Acute deep venous thrombosis right common femoral, femoral, popliteal, tibiop eroneal trunk, and peroneal veins. Visible thrombus easily identified within the right common femoral vein. Patent and compressible right great saphenous vein No evidence for acute deep venous thrombosis left lower extremity however pulsatile venous flow was identified consistent with proximal venous hypertension or obstruction. Clinical correlation would be appropriate. Patent and compressible left great saphenous vein Ordering Physician: Mike Lang Referring Physician: Bernardo Mensah Performed By: Jamia Ozuna RVT Physical Exam Const alert and no apparent distress Constitutional Narrative: No respiratory distress. No conversational dyspnea HEENT head/scalp atraumatic and moist oral mucous membranes Resp normal respiratory effort, no retractions, no use of accessory muscles and clear to auscultation bilaterally Cardio regular rate, regular rhythm, S1 normal heart sound and S2 normal heart sound GI normal to inspection, nondistended, normoactive bowel sounds and soft to palpation Extremity normal to inspection Assessment & Plan Assessment/Plan (1) Acute saddle pulmonary embolism: PLAN: Patient has been started on heparin drip and will continue on the floor Patient hemodynamically stable and does not require thrombolytics at this time. Discussed with patient that this is likely a lifelong anticoagulation scenario. Patient will need to at least be on anticoagulation for 6 months but most likely lifelong. He may follow-up with hematology as outpatient to see if that could be potentially shortened. If patient cannot be anticoagulated no need for IVC filter 2D echocardiogram showed EF of 65% with no diastolic dysfunction and moderately dilated right ventricle 07/18: Patient complaining of chest pain today. He did not have that yesterday. States it hurts when he takes a deep breath. Explained him that he may have further embolization of the saddle embolism that he does have that may be bring up going next to his pleura. Told him also could be pulmonary infarcts as well. Treatment will be still the same. He is on oxygen now. Prior to his being discharged, he will need to have an ambulatory pulse ox to see if he would require that upon discharge. (2) Elevated troponin: PLAN: Due to cardiac strain due to saddle pulmonary embolism. Type II non-STEMI secondary to pulmonary embolism. Cycle troponins Check 2D echocardiogram (3) DVT (deep venous thrombosis): QUALIFIERS: DVT location: lower extremity Affected thrombotic vein of extremity: femoral Chronicity: acute Laterality: right Qualified Code(s): I82.411 - Acute embolism and thrombosis of right femoral vein PLAN: Acute DVT in the right common femoral, femoral, popliteal, tibial peroneal trunk and peroneal veins. Patient to continue with anticoagulation and therefore no IVC filter needed at this time. (4) Neurogenic bladder: PLAN: Patient has a chronic Fernandes catheter Patient was concerned about a suture being left in the catheter. Reviewed with the patient that that is just a line on the catheter tubing itself but not an actual suture. Patient did have genital warts surgery around his meatus so we will continue with the Fernandes catheter patient will follow-up with his urologist about removal. Unclear if, given his neurogenic bladder and saddle anesthesia if he would be a candidate for self catheterizations or maintaining Fernandes catheter. Potential issues regards to self catheterizations as potential injury and with his saddle anesthesia he may not recognize at right away. We will defer further management to his urologist. PLAN: Plan Diabetes mellitus type 2: Continue with basal insulin and prandial insulin. We will add sliding scale. VTE prophylaxis: Not indicated patient is already anticoagulated. Disposition: To be determined. Patient requires inpatient hospitalization with anticoagulation and further cardiac evaluation because of high risk of . Explained patient does stable but given his saddle embolism, right heart strain and type II non-STEMI, would recommend stay in the hospital another 24 hours to be monitored to ensure that there is no other further complications. Charges/Coding Visit Charges Inpatient E&M: 76769 Subs Hosp L3
[2022-07-18] MEDS: Baclofen 10 MG Tablet PO (08:07)
[2022-07-18] MEDS: FLU VACC QS2022-23(6MOS UP)/PF 60 MCG/0.5 ML SYRINGE IM (08:07)
[2022-07-18] MEDS: Insulin Lispro 100 UNIT/ML INSULN.PEN 9 UNIT SC (08:10)
[2022-07-18 08:21] LABS: Partial Thromboplast Time 48.6 Seconds (24.1-36.2)
[2022-07-18 08:55] LABS: Bedside Glucose 114 mg/dL (74-106)
[2022-07-18] MEDS: Acetaminophen 325 MG Tablet 650 MG PO ×2 (09:34→17:12)
--- NOTE | 2022-07-18 10:35 | CASEMGMT ---
Addendum entered by Linh Duarte 07/18/22 11:49: Pt chose HHC 1. [facility] 2. [facility] 3. [facility]. Pt chooses [facility] for oxygen if needed. Reviewed homegoing process for this. Referral sent to [facility] via careport. Original Note: TEODORA OMER Assessment: Face to Face with pt for initial transition planning/care coordination assessment. TEODORA OMER introduced self and role at [facility], pt voices understanding and consents to assessment. Pt is A/O x4 and answers all questions appropriately at this time. Pt sitting up in bed with oxygen on in no distress. Care providers, pharmacy, and demographics verified/updated. Admitting Dx: saddle pulmonary embolism, R heart strain PCP:Rodrick Specialists:ignacio Garcia OR; shayy Law Preferred Pharmacy: Insurance: [place] Prescription Benefit: no, pt states he will have coverage on the again. There was a mishap with the insurance. LNOK: Mo Whiting, brother Living Arrangements: Pt lives alone in a ground level apt with 3 steps to enter with a rail. Pt reports he is I in ADL's but the last couple of mos it has been getting more difficult. Pt denies concerns at home. Transportation: Pt does not drive. Pt brother or a friend provides transportation. DME/HHC/SNF: Pt has a FWW and w/c at home as well as a grab bar in the bath tub. Pt has had HHC in the past but does not know the name of the agency. Pt has been to [facility]. Pt states he had back surgery on Nov.07. He states he has had a catheter since the surgery. Pt is interested in HHC SN and PT. Patient was provided a list of HHC providers including quality and resource use data and consistent with the patient?s preferred geographic region, medical needs, and insurance network were provided from the [employer] Guide. Pt was also provided a verbal local in network DME list for oxygen in case pt qualifies. TEODORA OMER to check back on choices. Provided pt with an [employer] savings card after discussing with hospitalist the med he will be dc'd on. Pt states no further concerns/needs. CM to follow. Advised pt to ask CM if any further question/concerns/needs arise, voices understanding. Pt Goal: Home with HHC Plan: Home with HHC, pt will need to see PCP before he will sign for the HHC. Pt aware.
[2022-07-18 12:31] LABS: Bedside Glucose 102 mg/dL (74-106)
[2022-07-18 15:03] LABS: Partial Thromboplast Time 48.2 Seconds (24.1-36.2)
[2022-07-18 17:10] LABS: Bedside Glucose 109 mg/dL (74-106)
[2022-07-18 21:56] LABS: Partial Thromboplast Time 64.8 Seconds (24.1-36.2)
[2022-07-18] MEDS: Insulin Glargine-YFGN 100 UNIT/ML Pen 35 UNIT SC (22:16)
[2022-07-18 23:00] LABS: Bedside Glucose 152 mg/dL (74-106)
[2022-07-19] VITALS (8 sets, daily range): BP systolic 99–122; BP diastolic 65–77; PULSE 72–88; RESP 16–17; TEMP 36.8–36.9; O2SAT 88–94
--- NOTE | 2022-07-19 00:20 | ED.RN ---
Patient put on 2L of O2 d/t desat at 87-88%, resting comfortably at 94%
[2022-07-19] MEDS: HEPARIN/D5w 25,000 UNITS 25,000 UNITS/250 ML IV.SOLN. 15 UNITS CONT INF (00:54)
[2022-07-19] MEDS: Acetaminophen 325 MG Tablet 650 MG PO ×2 (01:05→07:24)
[2022-07-19 03:34] LABS: Absolute Lymphocyte Count 1.08 X10^3/uL (0.83-4.51); Absolute Neutrophil Count 5.7 X10^3/uL (2.0-7.7); Basophil# 0.03 X10^3/uL; Basophil% 0.4 % (0-1); Eosinophil# 0.18 X10^3/uL; Eosinophils% 2.3 % (0-5); Hematocrit 35.2 % (40-54); Hemoglobin 11.5 g/dL (13.0-16.5); Lymphocyte # 1.08 X10^3/ul (0.83-4.51); Lymphocyte % 13.7 % (19-41); Mean Corp Hgb Conc 32.7 g/dL (32-36); Mean Corpuscular Hgb 27.1 pg (27.0-32.0); Mean Corpuscular Volume 82.8 fL (80-94); Mean Platelet Vol. 9.8 fl (6.2-12.0); Monocyte% 11.4 % (0-10); NRBC Flagged by Analyzer 0 % (0-5); Neutrophil # 5.65 X10^3/uL (2.7-7.7); Neutrophil % 71.8 % (47-70); Platelet Count 149 K/mm3 (150-450); RBC Distribution Width CV 13.8 % (11.6-14.6); RBC Distribution Width SD 41.1 fl (35.1-43.9); Red Blood Count 4.25 M/mm3 (4.6-6.2); White Blood Count 7.9 K/mm3 (4.4-11.0)
[2022-07-19 03:56] LABS: Anion Gap 6 (5-15); BUN 16 mg/dL (7-18); BUN/Creat Ratio 18.2 RATIO (10-20); Calcium,Total 8.7 mg/dL (8.5-10.1); Chloride 98 mmol/L (98-107); Creatinine, Serum 0.88 mg/dL (0.70-1.30); EST Glomerular Filtration Rate 94 mL/min (>60); Est Glom Filt Rate - Afr Amer 114 mL/min (>60); Glucose 111 mg/dL (74-106); Sodium Level 130 mmol/L (136-145)
[2022-07-19 04:19] LABS: Partial Thromboplast Time 64.4 Seconds (24.1-36.2)
[2022-07-19] MEDS: oxyCODONE 5 MG Tablet PO (07:24)
--- NOTE | 2022-07-19 07:47 | PCM.PN.HOSP ---
Subjective Subjective Chest pain improved. Was concerned about a low blood sugar of 90 today. Objective Data Objective Data Vital Signs: Vital Signs Temp Pulse Resp BP Pulse Ox O2 Del Method O2 Flow Rate 36.8 C 76 17 122/77 H 94 Nasal Cannula 2 07/19/22 04:49 07/19/22 07:05 07/19/22 04:49 07/19/22 04:49 07/19/22 04:49 07/19/22 04:51 07/19/22 04:51 Oxygen Flow Rate (L/min) 2 Oxygen Delivery Method Nasal Cannula Weight: 99.7 kg Body Mass Index (BMI) 34.4 Intake & Output: Intake and Output for Last 24 Hours 07/17/22 07/18/22 07/19/22 23:59 23:59 23:59 Intake Total 478.8 / 778.8 1623.00 / 1623.00 135.22 / 135.22 Output Total 450 / 1150 2350 / 2350 125 / 125 Balance 28.8 / -371.2 -727.00 / -727.00 05.30 Lab / Micro Data Result Diagrams: 07/19/22 03:20 07/19/22 03:20 Labs: Laboratory Results - last 24 hr 07/18/22 07:02: Sodium 131 L, Potassium 3.9, Chloride 99, Carbon Dioxide 27.0, Anion Gap 5, BUN 14, Creatinine 0.87, Estim Creat Clear Calc 85.47, Est GFR (MDRD) Af Amer 115, Est GFR (MDRD) Non-Af 95, BUN/Creatinine Ratio 16.1, Glucose 134 H, Calcium 9.0 07/18/22 07:02: APTT 48.6 H 07/18/22 08:00: POC Glucose 114 H 07/18/22 12:02: POC Glucose 102 07/18/22 14:45: APTT 48.2 H 07/18/22 16:49: POC Glucose 109 H 07/18/22 21:30: APTT 64.8 H 07/18/22 22:16: POC Glucose 152 H 07/19/22 03:20: WBC 7.9, RBC 4.25 L, Hgb 11.5 L, Hct 35.2 L, MCV 82.8, MCH 27.1, MCHC 32.7, RDW Std Deviation 41.1, RDW Coeff of Tre 13.8, Plt Count 149 L, MPV 9.8, Immature Gran % (Auto) 0.400, Neut % (Auto) 71.8 H, Lymph % (Auto) 13.7 L, [place] % (Auto) 11.4 H, Eos % (Auto) 2.3, Baso % (Auto) 0.4, Absolute Neuts (auto) 5.7, Absolute Lymphs (auto) 1.08, Nucleated RBC % 0 07/19/22 03:20: Sodium 130 L, Potassium 4.0, Chloride 98, Carbon Dioxide 26.0, Anion Gap 6, BUN 16, Creatinine 0.88, Estim Creat Clear Calc 84.50, Est GFR (MDRD) Af Amer 114, Est GFR (MDRD) Non-Af 94, BUN/Creatinine Ratio 18.2, Glucose 111 H, Calcium 8.7 07/19/22 03:20: APTT Cancelled 07/19/22 04:00: APTT 64.4 H Physical Exam Const alert and no apparent distress Resp normal respiratory effort, no retractions, no use of accessory muscles and clear to auscultation bilaterally Cardio regular rate, regular rhythm, S1 normal heart sound and S2 normal heart sound GI normal to inspection, nondistended, normoactive bowel sounds, soft to palpation and non-tender Extremity normal to inspection Neuro oriented x3 and CN's II-XII intact bilaterally Assessment & Plan Assessment/Plan (1) Acute saddle pulmonary embolism: PLAN: Patient has been started on heparin drip and will continue on the floor Patient hemodynamically stable and does not require thrombolytics at this time. Discussed with patient that this is likely a lifelong anticoagulation scenario. Patient will need to at least be on anticoagulation for 6 months but most likely lifelong. He may follow-up with hematology as outpatient to see if that could be potentially shortened. If patient cannot be anticoagulated no need for IVC filter 2D echocardiogram showed EF of 65% with no diastolic dysfunction and moderately dilated right ventricle 07/18: Patient complaining of chest pain today. He did not have that yesterday. States it hurts when he takes a deep breath. Explained him that he may have further embolization of the saddle embolism that he does have that may be bring up going next to his pleura. Told him also could be pulmonary infarcts as well. Treatment will be still the same. He is on oxygen now. Prior to his being discharged, he will need to have an ambulatory pulse ox to see if he would require that upon discharge. 07/19: voice over announcer to Xarelto. Patient to be on it 15 mg twice daily for 3 weeks and then 20 mg daily thereafter. (2) Elevated troponin: PLAN: Due to cardiac strain due to saddle pulmonary embolism. Type II non-STEMI secondary to pulmonary embolism. Cycle troponins Check 2D echocardiogram (3) DVT (deep venous thrombosis): QUALIFIERS: Affected thrombotic vein of extremity: femoral Chronicity: acute DVT location: lower extremity Laterality: right Qualified Code(s): I82.411 - Acute embolism and thrombosis of right femoral vein PLAN: Acute DVT in the right common femoral, femoral, popliteal, tibial peroneal trunk and peroneal veins. Patient to continue with anticoagulation and therefore no IVC filter needed at this time. (4) Neurogenic bladder: PLAN: Patient has a chronic Villasenor catheter Patient was concerned about a suture being left in the catheter. Reviewed with the patient that that is just a line on the catheter tubing itself but not an actual suture. Patient did have genital warts surgery around his meatus so we will continue with the Villasenor catheter patient will follow-up with his urologist about removal. Unclear if, given his neurogenic bladder and saddle anesthesia if he would be a candidate for self catheterizations or maintaining Villasenor catheter. Potential issues regards to self catheterizations as potential injury and with his saddle anesthesia he may not recognize at right away. We will defer further management to his urologist. PLAN: Plan Diabetes mellitus type 2: Continue with basal insulin and prandial insulin. We will add sliding scale. VTE prophylaxis: Not indicated patient is already anticoagulated. Patient requiring 2 L of oxygen with activity.
[2022-07-19] MEDS: Baclofen 10 MG Tablet PO (08:42)
[2022-07-19] MEDS: Insulin Lispro 100 UNIT/ML INSULN.PEN 9 UNIT SC (08:43)
[2022-07-19 09:46] LABS: Bedside Glucose 110 mg/dL (74-106)
[2022-07-19 10:11] LABS: Bedside Glucose 90 mg/dL (74-106)
--- NOTE | 2022-07-19 11:25 | DCINST_ITS ---
Discharge Instructions Diet Discharge Diet: 2000 Calorie Control Diet Dressing / Incision Call your doctor if you observe: Shortness of breath and Chest pain Follow Up Care Test Results: Test results from this visit will be discussed in further detail at your follow- up appointment, if applicable. Discharge Plan Admission Admit Date/Time: 07/17/22 12:37 Primary Reason for Your Visit: Pulmonary embolism Attending Provider: Mike Lang Primary Care Provider: Bernardo Mensah Discharge Orders/Prescriptions Prescriptions: New oxycodone 5 mg Tablet 2.5 - 5 mg PO Q4H PRN PRN (Reason: Pain Score 4-10) 3 Days Qty: 18 0RF rivaroxaban 15 mg (42)- 20 mg (9) tablets,dose pack See Rx Instructions .ROUTE .COMPLEX Qty: 51 0RF Rx Instructions: take one-15 mg tablet twice daily for 21 days, then one-20 mg tablet once daily; must take with meal/food acetaminophen 500 mg capsule 1,000 mg PO Q8H PRN PRN (Reason: fever or pain) Qty: 30 0RF Continued insulin lispro [Humalog KwikPen Insulin] 100 unit/mL insulin pen 9 ea SUBCUT 3XD insulin glargine-yfgn [Semglee(insulin glarg-yfgn)Pen] 100 unit/mL (3 mL) insulin pen 35 ea SUBCUT QHS baclofen 10 mg tablet 10 mg PO DAILY Label Comments: TAKE 1 TABLET BY MOUTH TWICE A DAY Referrals / Follow Up: Bernardo Mensah MD [Primary Care Provider] - Within 2 Weeks Disposition Disposition (needs filled in before D/C Order can be placed): Home, Self Care
[2022-07-19] MEDS: Rivaroxaban 15 MG Tablet PO (11:26)
--- NOTE | 2022-07-19 11:36 | PCM.DC.SUM ---
Providers Date of Admission: 07/17/22 Primary Care Physician: Dr. Bernardo Mensah MD Reason For Visit: SADDLE PULMONARY EMBOLISM RIGHT HEART STRAIN Diagnosis Discharge Diagnosis (1) Acute saddle pulmonary embolism: Status: Acute Code(s): I26.92 - Saddle embolus of pulmonary artery without acute cor pulmonale Plan: Patient has been started on heparin drip and will continue on the floor Patient hemodynamically stable and does not require thrombolytics at this time. Discussed with patient that this is likely a lifelong anticoagulation scenario. Patient will need to at least be on anticoagulation for 6 months but most likely lifelong. He may follow-up with hematology as outpatient to see if that could be potentially shortened. If patient cannot be anticoagulated no need for IVC filter 2D echocardiogram showed EF of 65% with no diastolic dysfunction and moderately dilated right ventricle 07/18: Patient complaining of chest pain today. He did not have that yesterday. States it hurts when he takes a deep breath. Explained him that he may have further embolization of the saddle embolism that he does have that may be bring up going next to his pleura. Told him also could be pulmonary infarcts as well. Treatment will be still the same. He is on oxygen now. Prior to his being discharged, he will need to have an ambulatory pulse ox to see if he would require that upon discharge. 07/19: cover stripper to Xarelto. Patient to be on it 15 mg twice daily for 3 weeks and then 20 mg daily thereafter. (2) Elevated troponin: Status: Acute Code(s): R77.8 - Other specified abnormalities of plasma proteins Plan: Due to cardiac strain due to saddle pulmonary embolism. Type II non-STEMI secondary to pulmonary embolism. Cycle troponins Check 2D echocardiogram (3) DVT (deep venous thrombosis): Status: Acute Code(s): I82.409 - Acute embolism and thrombosis of unspecified deep veins of unspecified lower extremity Qualifiers: DVT location: lower extremity Affected thrombotic vein of extremity: femoral Chronicity: acute Laterality: right Qualified Code(s): I82.411 - Acute embolism and thrombosis of right femoral vein Plan: Acute DVT in the right common femoral, femoral, popliteal, tibial peroneal trunk and peroneal veins. Patient to continue with anticoagulation and therefore no IVC filter needed at this time. (4) Neurogenic bladder: Status: Acute Code(s): N31.9 - Neuromuscular dysfunction of bladder, unspecified Plan: Patient has a chronic Villasenor catheter Patient was concerned about a suture being left in the catheter. Reviewed with the patient that that is just a line on the catheter tubing itself but not an actual suture. Patient did have genital warts surgery around his meatus so we will continue with the Villasenor catheter patient will follow-up with his urologist about removal. Unclear if, given his neurogenic bladder and saddle anesthesia if he would be a candidate for self catheterizations or maintaining Villasenor catheter. Potential issues regards to self catheterizations as potential injury and with his saddle anesthesia he may not recognize at right away. We will defer further management to his urologist. Plan Diabetes mellitus type 2: Continue with basal insulin and prandial insulin. We will add sliding scale. VTE prophylaxis: Not indicated patient is already anticoagulated. Patient requiring 2 L of oxygen with activity. Medications at Discharge Home Medications insulin glargine-yfgn 100 unit/mL (3 mL) subcutaneous pen (Semglee (insulin glargine-yfgn) Pen) 35 ea subcut QHS 02/21/22 insulin lispro 100 unit/mL subcutaneous pen (Humalog KwikPen (U-100) Insulin) 9 ea subcut 3XD 02/21/22 baclofen 10 mg tablet 10 mg PO DAILY 07/17/22 acetaminophen 500 mg capsule 1,000 mg PO Q8H PRN PRN fever or pain #30 caps 07/19/22 oxycodone 5 mg tablet 2.5 - 5 mg PO Q4H PRN PRN Pain Score 4-10 3 days #18 tabs 07/19/22 rivaroxaban 15 mg (42)-20 mg (9) tablets in a starter pack See Rx Instructions PO .COMPLEX #51 tabs 07/19/22 Hospital Course Operations None Procedures 2-D Echocardiogram Summary of Care Provided Minutes Spent on Discharge: 35 Hospital Course: 61-year-old male presents with shortness of breath and chest pain. Patient was found to have a right saddle pulmonary embolism. Patient started on a heparin drip. Patient had evidence of cardiac strain with elevated troponins. 2D echocardiogram showed dilated RV. Patient had no arrhythmias. Patient was checked for oxygen and does require 2 L nasal cannula with activity. Duplex showed a right lower extremity DVT. Patient be transitioned over to rivaroxaban and the plan is for him to continue that lifelong given that this is a second VTE and this was unprovoked and a saddle pulmonary embolism. Patient did follow his primary care physician for further monitoring. Additionally, patient has a chronic catheter due to neurogenic bladder due to prior spine surgery and what sounds like an epidural abscess. Patient may follow-up urology to see if he can keep that out permanently or if he would require straight catheterizations or if he just needs to stay in permanently. Weight / BMI Weight Weight: 99.7 kg Body Mass Index (BMI) 34.4 ABG / Lab / Microbiology Data Result Diagrams: 07/19/22 03:20 07/19/22 03:20 Laboratory: Laboratory Results - last 24 hr 07/18/22 12:02: POC Glucose 102 07/18/22 14:45: APTT 48.2 H 07/18/22 16:49: POC Glucose 109 H 07/18/22 21:30: APTT 64.8 H 07/18/22 22:16: POC Glucose 152 H 07/19/22 03:20: WBC 7.9, RBC 4.25 L, Hgb 11.5 L, Hct 35.2 L, MCV 82.8, MCH 27.1, MCHC 32.7, RDW Std Deviation 41.1, RDW Coeff of Tre 13.8, Plt Count 149 L, MPV 9.8, Immature Gran % (Auto) 0.400, Neut % (Auto) 71.8 H, Lymph % (Auto) 13.7 L, [place] % (Auto) 11.4 H, Eos % (Auto) 2.3, Baso % (Auto) 0.4, Absolute Neuts (auto) 5.7, Absolute Lymphs (auto) 1.08, Nucleated RBC % 0 07/19/22 03:20: Sodium 130 L, Potassium 4.0, Chloride 98, Carbon Dioxide 26.0, Anion Gap 6, BUN 16, Creatinine 0.88, Estim Creat Clear Calc 84.50, Est GFR (MDRD) Af Amer 114, Est GFR (MDRD) Non-Af 94, BUN/Creatinine Ratio 18.2, Glucose 111 H, Calcium 8.7 07/19/22 03:20: APTT Cancelled 07/19/22 04:00: APTT 64.4 H 07/19/22 08:38: POC Glucose 110 H 07/19/22 09:49: POC Glucose 90 D/C Instructions Discharge Diet: 1999 Calorie Control Diet Call your doctor if you observe: Shortness of breath and Chest pain Meaningful Use Info Meaningful Use Diagnoses (Choose all that apply): VTE VTE Anticoag overlap given w/in hospital stay or rx'd at dc?: No Reason overlap not ordered, prescribed, or given for 5 days: Treatment Not Indicated Discharge Plan Admission Admit Date/Time: 07/17/22 12:37 Primary Reason for Your Visit: Pulmonary embolism Attending Provider: Mike Lang Primary Care Provider: Bernardo Mensah Discharge Orders/Prescriptions Prescriptions: New oxycodone 5 mg Tablet 2.5 - 5 mg PO Q4H PRN PRN (Reason: Pain Score 4-10) 3 Days Qty: 18 0RF rivaroxaban 15 mg (42)- 20 mg (9) tablets,dose pack See Rx Instructions .ROUTE .COMPLEX Qty: 51 0RF Rx Instructions: take one-15 mg tablet twice daily for 21 days, then one-20 mg tablet once daily; must take with meal/food acetaminophen 500 mg capsule 1,000 mg PO Q8H PRN PRN (Reason: fever or pain) Qty: 30 0RF Continued insulin lispro [Humalog KwikPen Insulin] 100 unit/mL insulin pen 9 ea SUBCUT 3XD insulin glargine-yfgn [Semglee(insulin glarg-yfgn)Pen] 100 unit/mL (3 mL) insulin pen 35 ea SUBCUT QHS baclofen 10 mg tablet 10 mg PO DAILY Label Comments: TAKE 1 TABLET BY MOUTH TWICE A DAY Referrals / Follow Up: Bernardo Mensah MD [Primary Care Provider] - Within 2 Weeks Disposition Disposition (needs filled in before D/C Order can be placed): Home, Self Care Charges/Coding Visit Charges Inpatient E&M: 32189 Disch Hosp
[2022-07-19 12:45] LABS: Bedside Glucose 92 mg/dL (74-106)
--- NOTE | 2022-07-20 12:51 | CASEMGMT ---
Received notification from Libra at [facility], they are able to accept pt for services after pt has follow up appt with Dr. Mensah. Pt had previously been aware of this.
== END 2022-07-19 13:34 | disposition home or self-care (01) | DRG 175 ==
LOC: ED 11:44 → PCU 12:52
PROVIDERS: Emergency Provider Emergency Medicine; PCP Family Medicine
DX: I26.92 Saddle embolus of pulmonary artery without acute cor pulmonale (principal); I21.A1 Myocardial infarction type 2; I82.411 Acute embolism and thrombosis of right femoral vein; J98.11 Atelectasis; Z79.4 Long term (current) use of insulin; E11.9 Type 2 diabetes mellitus without complications; N31.9 Neuromuscular dysfunction of bladder, unspecified; Z87.891 Personal history of nicotine dependence; Z79.01 Long term (current) use of anticoagulants; R77.8 Other specified abnormalities of plasma proteins
CPT/HCPCS: 36415; 71045; 71275; 74019; 74177; 80048; 82962; 84484; 85025; 85379; 85610; 85730; 93005; 93306; 93970; 97802; 99285; Q9957; Q9967; 90686; A4216; C8929

== ENCOUNTER 2022-09-06 02:19 | Emergency (ER) | payer MEDICAID, SELFPAY ==
[2022-09-06 02:20] VITALS: BP 172/103; PULSE 89; RESP 18; TEMP 36.3; O2SAT 97; BMI 35.3
[2022-09-06 02:28] VITALS: BP 172/103; PULSE 83; RESP 18; TEMP 36.3; O2SAT 97
--- NOTE | 2022-09-06 02:36 | EX.ED.GUMALE ---
HPI History of Present Illness Chief Complaint: Male Pain/Injury Informant: patient and EMS Narrative Narrative: Brought in by EMS from home increasing Villasenor catheter pain an hour prior to arrival. He states Villasenor catheter has been in since genital wart surgery June 15, [address] Rosas urology [facility]. He follow-up 30 days later, he states the plan was for 60 days and plan for bladder functioning testing prior to removal. He states that in 2 days. Denies fevers or back pain. States around 6 PM 8 hours ago may have thought it may have tugged. He states he last emptied the 7 hours ago. He has had a Villasenor catheter in the past from back surgery. However currently on Xarelto for history of PE diagnosed last month. He feels suprapubic discomfort. No back pain. No fevers. No nausea or vomiting. [facility] Medical History Back pain Genital warts Hernia Neurogenic bladder Right shoulder pain Right shoulder strain Strain of right rotator cuff capsule Urinary catheter in place Home Medications insulin glargine-yfgn 100 unit/mL (3 mL) subcutaneous pen (Semglee (insulin glargine-yfgn) Pen) 35 ea subcut QHS 02/21/22 [History Last Taken Unknown] insulin lispro 100 unit/mL subcutaneous pen (Humalog KwikPen (U-100) Insulin) 9 ea subcut 3XD 02/21/22 [History Last Taken Unknown] baclofen 10 mg tablet 10 mg PO DAILY 07/17/22 [History Last Taken Unknown] acetaminophen 500 mg capsule 1,000 mg PO Q8H PRN PRN fever or pain #30 caps 07/19/22 [Rx Last Taken Unknown] oxycodone 5 mg tablet 2.5 - 5 mg PO Q4H PRN PRN Pain Score 4-10 3 days #18 tabs 07/19/22 [Rx Last Taken Unknown] rivaroxaban 15 mg (42)-20 mg (9) tablets in a starter pack See Rx Instructions PO .COMPLEX #51 tabs 07/19/22 [Rx Last Taken Unknown] cefuroxime axetil 500 mg tablet 500 mg PO Q12H #13 tabs 09/06/22 [Rx Last Taken Unknown] phenazopyridine 200 mg tablet (Pyridium) 200 mg PO TID 6 doses #6 tabs 09/06/22 [Rx Last Taken Unknown] Allergy/AdvReac Type Severity Reaction Status Date / Time No Known Allergies Allergy Verified 09/06/22 02:32 Surgical History History of fusion of thoracic spine Social History Smoking Status: Former smoker alcohol intake: never ROS ROS ED Constitutional Constitutional ED: Denies chills, fever(s) or sweats Eyes Eyes: Denies change in vision ENT ENT ED: Denies dysphagia or sore throat Cardiovascular Cardiovascular: Denies chest pain, leg edema, palpitations or racing heartbeat Respiratory/Chest Respiratory/Chest: Denies cough, dyspnea or dyspnea on exertion Gastrointestinal Gastrointestinal: Denies abdominal pain, diarrhea, nausea or vomiting Genitourinary Genitourinary ED: Reports other Details: Villasenor catheter pain. ; Denies dysuria, hematuria or urinary frequency Musculoskeletal Musculoskeletal: Denies back pain, extremity pain or neck pain Integumentary Denies rash or wounds Neurologic Neurologic: Denies headache(s), paresthesias or weakness EXAM Physical Exam Const Vital Signs: 09/06/22 02:20 09/06/22 02:28 09/06/22 04:00 Temperature 97.3 F L 97.3 F L 97.3 F L Temperature Source Oral Oral Oral Pulse Rate 89 83 72 Respiratory Rate 18 18 18 Blood Pressure 172/103 H 172/103 H 128/83 H Blood Pressure Mean 126 126 98 Pulse Ox 97 97 96 Oxygen Delivery Method Room Air Room Air Room Air 09/06/22 04:00 Temperature 97.3 F L Temperature Source Oral Pulse Rate 72 Respiratory Rate 18 Blood Pressure 128/83 H Blood Pressure Mean 98 Pulse Ox 96 Oxygen Delivery Method Room Air Positive well nourished and well developed General Appearance ED: well developed and NAD HEENT Reports moist mucous membranes normocephalic and atraumatic Eyes PERRL, EOMs intact bilaterally and conjunctivae normal General Eye ED: Yes normal appearance of both eyes Neck no lymphadenopathy and supple General: Negative for tenderness Chest Wall Chest: Negative for tenderness Resp normal respiratory effort and normal air movement Effort and Inspection: symmetric chest movement; Negative for respiratory distress Cardio regular rate, regular rhythm and no murmurs Peripheral Pulses: pulses 2+ throughout GI normal to inspection, nondistended, normoactive bowel sounds and non-tender Palpation: Negative for guarding or rebound tenderness present Narrative: Villasenor catheter is intact, there is tenderness with movement Villasenor in his urethra there is no blood no drainage. Villasenor itself had gross sediments throughout the tubing and into the bag. Back/Spine no CVA tenderness and no thoracic nor lumbar tenderness Extremity normal to inspection General Extremety ED: Negative for edema or tenderness General Extremity: Negative for edema Neuro oriented x3 and no sensory deficits noted Sensorium / Orientation: awake and alert Skin no rashes or lesions noted and no wounds MDM MDM MDM Narrative Medical decision making narrative: Villasenor catheter pain. Differential Villasenor catheter dysfunction with obstruction versus breaking due to length of time. Possible UTI or cystitis. Bladder scan was performed myself there is no distended bladder therefore less likely obstruction. We will remove Villasenor catheter and replace due to. History of neurogenic bladder. He had back surgery in the past and confirms this. We will plan on turning urine to rule out infection from the fresh Villasenor catheter. There is no difficulty placing Villasenor by nursing. Symptoms are improved with new Villasenor catheter. Yellow urine nonbloody. Urine sent noted signs of infection with slight blood. Culture sent. He started on antibiotics for 7 days for complicated UTI. He started on Pyridium. He will follow-up with his urologist. All questions were answered. Lab Data Attestation: I reviewed the patient's lab results. Labs: Laboratory Results - last 24 hr 09/06/22 03:15 Urine Color Yellow Urine Clarity Sl. Cloudy Urine pH 5.0 Ur Specific [place] 1.025 Urine Protein 100 H Urine Glucose (UA) 1000 H Urine Ketones Negative Urine Occult Blood 250 H Urine Nitrite Negative Urine Bilirubin Negative Urine Urobilinogen Normal Ur Leukocyte Esterase 500 H Urine RBC 25-50 SEEN Urine WBC >100 SEEN Ur Squamous Epith Cells 0 SEEN Urine Bacteria 3+ Urine Mucus 0 SEEN Discharge Plan Triage Chief Complaint: Male Pain/Injury ED Provider: Eusebio Mcnair Dx/Rx/DC Orders Clinical Impression: Complicated UTI (urinary tract infection), Cystitis, Villasenor catheter problem, Neurogenic bladder, NOS Instructions: Urinary Tract Infections in Men, ED Villasenor Catheter, Care Prescriptions: New cefuroxime axetil 500 mg tablet 500 mg PO Q12H Qty: 13 0RF phenazopyridine [Pyridium] 200 mg tablet 200 mg PO TID Qty: 6 0RF No Action insulin lispro [Humalog KwikPen Insulin] 100 unit/mL insulin pen 9 ea SUBCUT 3XD insulin glargine-yfgn [Semglee(insulin glarg-yfgn)Pen] 100 unit/mL (3 mL) insulin pen 35 ea SUBCUT QHS baclofen 10 mg tablet 10 mg PO DAILY Label Comments: TAKE 1 TABLET BY MOUTH TWICE A DAY oxycodone 5 mg Tablet 2.5 - 5 mg PO Q4H PRN PRN (Reason: Pain Score 4-10) 3 Days Qty: 18 0RF rivaroxaban 15 mg (42)- 20 mg (9) tablets,dose pack See Rx Instructions .ROUTE .COMPLEX Qty: 51 0RF Rx Instructions: take one-15 mg tablet twice daily for 21 days, then one-20 mg tablet once daily; must take with meal/food acetaminophen 500 mg capsule 1,000 mg PO Q8H PRN PRN (Reason: fever or pain) Qty: 30 0RF Primary Care Provider: Bernardo Mensah Referrals: Bernardo Mensah MD [Primary Care Provider] - 1 Week Activity Restrictions/Additional Instructions: Villasenor catheter replaced. Take antibiotic and meds as prescribed. Keep your planned follow-up with urology along with testing as an outpatient. Disposition Disposition: Home, Self Care Discharge Date/Time: 09/06/22 06:35
[2022-09-06] MEDS: Lidocaine Jelly 2% 20 ML Syringe (URO-JET) 1 APPLIC TOPICAL (02:53)
[2022-09-06 03:23] LABS: Mucous, Urine 0 SEEN /hpf (<or=2+); Squamous Epithelial Cells - UA 0 SEEN /hpf (0-5)
[2022-09-06 03:24] LABS: Color, Urine Yellow (Yellow); Glucose, Dipstick 1000 mg/dl (Normal); Ketone-Dipstick Negative (Negative); Leukocyte Esterase-Dipstick 500 /ul (Negative); Nitrite-Dipstick Negative (Negative); Occult Blood-Urine 250 /ul (Negative); Protein-Dipstick 100 mg/dl (Negative); Specific Gravity, Urine 1.025 (1.002-1.030); Urine Bilirubin Dipstick Negative (Negative); Urine Clarity Sl. Cloudy (Clear); Urine Urobilinogen Normal (Normal)
[2022-09-06 03:47] LABS: Bacteria 3+ /hpf (None Seen); Red Blood Cells-Urine 25-50 SEEN /hpf (0-5); White Blood Cells >100 SEEN /hpf (0-5)
[2022-09-06] MEDS: Phenazopyridine 95 MG Tablet 190 MG PO (03:50)
[2022-09-06 04:00] VITALS: BP 128/83; PULSE 72; RESP 18; TEMP 36.3; O2SAT 96
--- NOTE | 2022-09-06 04:13 | NURSING ---
CALLED [facility] FOR TRANSPORT- ETA WAS 2.5-3 HRS- [id number]
== END 2022-09-06 06:35 | disposition home or self-care (01) ==
PROVIDERS: Emergency Provider Emergency Medicine; PCP Family Medicine; Visit Provider Emergency Medicine
DX: N30.90 Cystitis, unspecified without hematuria (principal); T83.84XA Pain due to genitourinary prosthetic devices, implants and grafts, initial encounter; N31.9 Neuromuscular dysfunction of bladder, unspecified; Z79.01 Long term (current) use of anticoagulants; Z86.711 Personal history of pulmonary embolism; Z87.891 Personal history of nicotine dependence; X58.XXXA Exposure to other specified factors, initial encounter
CPT/HCPCS: 51702; 81001; 87077; 87086; 87088; 87186; 99285

== ENCOUNTER → 2022-09-18 | Outpatient (CLI) | payer BC, MEDICAID, SELFPAY ==
[2022-09-18 15:06] LABS: Absolute Lymphocyte Count 1.48 X10^3/uL (0.83-4.51); Absolute Neutrophil Count 4.9 X10^3/uL (2.0-7.7); Basophil# 0.05 X10^3/uL; Basophil% 0.7 % (0-1); Eosinophils% 2.8 % (0-5); Hematocrit 46.3 % (40-54); Hemoglobin 15.4 g/dL (13.0-16.5); Lymphocyte # 1.48 X10^3/ul (0.83-4.51); Lymphocyte % 20.4 % (19-41); Mean Corp Hgb Conc 33.3 g/dL (32-36); Mean Corpuscular Hgb 27.2 pg (27.0-32.0); Mean Corpuscular Volume 81.8 fL (80-94); Mean Platelet Vol. 9.5 fl (6.2-12.0); Monocyte# 0.61 X10^3/uL; Monocyte% 8.4 % (0-10); NRBC Flagged by Analyzer 0 % (0-5); Neutrophil # 4.89 X10^3/uL (2.7-7.7); Neutrophil % 67.4 % (47-70); Platelet Count 247 K/mm3 (150-450); RBC Distribution Width CV 15.5 % (11.6-14.6); RBC Distribution Width SD 45.6 fl (35.1-43.9); Red Blood Count 5.66 M/mm3 (4.6-6.2); White Blood Count 7.3 K/mm3 (4.4-11.0)
[2022-09-18 15:32] LABS: Microalbumin:Creatinine Ratio 97.6 mg/g CRE (<30 mg/g CRE)
[2022-09-18 15:40] LABS: Hemoglobin A1c 8.3 % (3.8-5.6)
[2022-09-18 15:44] LABS: ALB/GLOB Ratio 0.8 RATIO (0.9-2.4); AST(SGOT) 15 U/L (15-37); Alanine Aminotransfer ALT/SGPT 16 U/L (16-61); Albumin, Serum 3.8 g/dL (3.2-5.0); Alkaline Phosphatase 85 U/L (45-117); Anion Gap 7 (5-15); BUN 21 mg/dL (7-18); BUN/Creat Ratio 21.3 RATIO (10-20); Calcium,Total 9.7 mg/dL (8.5-10.1); Chloride 101 mmol/L (98-107); Cholesterol 156 mg/dL (200); Creatinine, Serum 0.98 mg/dL (0.70-1.30); EST Glomerular Filtration Rate 83 mL/min (>60); Est Glom Filt Rate - Afr Amer 100 mL/min (>60); Glucose 186 mg/dL (74-106); High Density Lipoprotein 42 mg/dL; Potassium 4.3 mmol/L (3.5-5.1); Protein, Total 8.8 g/dL (6.4-8.2); Sodium Level 136 mmol/L (136-145); Thyroid Stim Hormone (TSH) 4.48 uIU/mL (0.358-3.74); Triglycerides 171 mg/dL; Very Low Density Lipoprotein 34 mg/dL (5-40)
[2022-09-21 11:58] LABS: T4 Free Direct 1.07 ng/dL (0.76-1.46)
== END | disposition home or self-care (01) ==
LOC: MTLAB 12:45
PROVIDERS: PCP Family Medicine; Referring Provider Family Medicine; Visit Provider Family Medicine
DX: R94.6 Abnormal results of thyroid function studies (principal); E11.9 Type 2 diabetes mellitus without complications
CPT/HCPCS: 36415; 80053; 80061; 82043; 82570; 83036; 84439; 84443; 85025

== ENCOUNTER → 2022-09-29 | Outpatient (CLI) | payer OTHER, MEDICAID, SELFPAY ==
[2022-09-30 20:27] LABS: Thyroid Peroxidase AB 11 IU/mL (0-34)
== END | disposition home or self-care (01) ==
LOC: MTLAB 10:24
PROVIDERS: PCP Family Medicine; Referring Provider Family Medicine; Visit Provider Family Medicine
DX: E11.9 Type 2 diabetes mellitus without complications (principal)
CPT/HCPCS: 36415; 86376

== ENCOUNTER → 2022-11-24 | Outpatient (CLI) | payer OTHER, MEDICAID, SELFPAY ==
[2022-11-24 10:20] LABS: Absolute Lymphocyte Count 1.54 X10^3/uL (0.83-4.51); Basophil# 0.05 X10^3/uL; Basophil% 0.8 % (0-1); Eosinophil# 0.24 X10^3/uL; Eosinophils% 3.6 % (0-5); Hematocrit 44.9 % (40-54); Hemoglobin 15.2 g/dL (13.0-16.5); Lymphocyte # 1.54 X10^3/ul (0.83-4.51); Lymphocyte % 23.3 % (19-41); Mean Corp Hgb Conc 33.9 g/dL (32-36); Mean Corpuscular Hgb 28.7 pg (27.0-32.0); Mean Corpuscular Volume 84.7 fL (80-94); Mean Platelet Vol. 9.8 fl (6.2-12.0); Monocyte% 12.1 % (0-10); NRBC Flagged by Analyzer 0 % (0-5); Neutrophil # 3.98 X10^3/uL (2.7-7.7); Platelet Count 230 K/mm3 (150-450); RBC Distribution Width CV 14.6 % (11.6-14.6); White Blood Count 6.6 K/mm3 (4.4-11.0)
[2022-11-24 10:47] LABS: Vitamin D,25 Hydroxy 16.9 ng/mL
[2022-11-24 10:52] LABS: Hemoglobin A1c 8.1 % (3.8-5.6)
[2022-11-24 11:02] LABS: ALB/GLOB Ratio 0.9 RATIO (0.9-2.4); AST(SGOT) 15 U/L (15-37); Alanine Aminotransfer ALT/SGPT 21 U/L (16-61); Albumin, Serum 3.7 g/dL (3.2-5.0); Alkaline Phosphatase 84 U/L (45-117); Anion Gap 4 (5-15); BUN 14 mg/dL (7-18); BUN/Creat Ratio 14.7 RATIO (10-20); Calcium,Total 9.4 mg/dL (8.5-10.1); Chloride 103 mmol/L (98-107); Cholesterol 140 mg/dL (200); Creatinine, Serum 0.95 mg/dL (0.70-1.30); EST Glomerular Filtration Rate 86 mL/min (>60); Est Glom Filt Rate - Afr Amer 103 mL/min (>60); Globulin 4.2 g/dL (2.2-4.2); Glucose 155 mg/dL (74-106); High Density Lipoprotein 40 mg/dL; Potassium 4.4 mmol/L (3.5-5.1); Protein, Total 7.9 g/dL (6.4-8.2); Sodium Level 135 mmol/L (136-145); T4 Free Direct 1.02 ng/dL (0.76-1.46); Thyroid Stim Hormone (TSH) 4.18 uIU/mL (0.358-3.74); Triglycerides 162 mg/dL; Very Low Density Lipoprotein 32 mg/dL (5-40)
== END | disposition home or self-care (01) ==
LOC: MFPLAB 08:28
PROVIDERS: PCP Family Medicine; Visit Provider Family Medicine
DX: E11.69 Type 2 diabetes mellitus with other specified complication (principal); M86.9 Osteomyelitis, unspecified; R79.89 Other specified abnormal findings of blood chemistry
CPT/HCPCS: 36415; 80053; 80061; 82306; 83036; 84439; 84443; 85025

== ENCOUNTER 2022-12-02 14:41 | Outpatient (RCR) | payer OTHER, SELFPAY ==
--- NOTE | 2022-12-02 15:49 | HP.OTEVAL ---
Patient's Visit Information MIGUEL RODRIGEZ is a 62 year old M, referred to Occupational Therapy by Dr. Bernardo Mensah MD, with a diagnosis of lymphedema. Date of Evaluation: 12/02/22 Occupational Therapist: Hortencia Yost, GERMANIAR/Romy, CHT - Subjective This 62 year old male was seen for OT eval with dx of LE lymphedema. Pt states he was dx with DVT in bilateral LE ( 2 in left LE and 1 in right LE) pt states legs were swelling but not now just read and itchy. pt states right leg has been this way for a long time ( about 2 years and left leg last 6 months). pt states he does use lotion on his leg and this helps with the itching, but he can feel bumps on his legs. pt states he use to wear compression socks 10-20mmHg as the higher compression were to difficulty to get on. ( brand kamille fit (to tight) and another brand) pt states he is glad swelling went down but wants to know what he can do to mtg. - ADLs Comments: pt states he lives alone in his apt. one entry in and out of apt but 3 to get to sidewalk. pt does not drive. pt states he does sit in recliner for about 2 hours at a time. or at computer gamming in his w/c. pt reports he is CARMINE with all ADLs and IADls. gets help for going to apts. and grocery shopping. - Lymphedema (Circumferential Measure) Mid-foot: right 22cm left 22.5cm Ankle: right 24cm left 25cm Lower calf: right 24cm left 24cm Largest calf: right 37cm left 37cm Below knee: right 38cm left 38cm - Lower Limb Functional Index Lower Extremity Functional Score: 39 - Goals Demonstrate adequate knowledge skin care/prec by 2nd week: Yes Demonstrate adequate knowledge therapeutic exercises by d/c: Yes Select approp compression garment w/donning/care/wear by d/c: Yes Voice need to replace compression garment every 4-6mo by dc: Yes - Rehabilitation General Assessment: pt arrives with mild swelling in bilateral LE. 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 pt states he has compression socks but stopped using them about two days ago and feels his swelling is maintained. Pt demo need for skilled OT services to ed. pt on life long mtg of LE lymphedema to assist pt in mtg of his LE swelling. Today therapist ed. pt to get up and walk around every 45 min to increase circulation and lymph stimulation ex. pt demo understanding. Therapist ed. pt on skin care and why compression socks are necessary. pt demo understanding. pt was given information on purchasing medical grade compression socks and sizing. pt demo understanding and agree to buy new medical grade compression socks. pt was instructed in HEP and declined further apts. Rehabilitation Potential: Good - Anticipated Interventions Education re assistive Equipment, Education re Diagnosis, Education re Life-long lymphedema Management, Education re Self-Bandaging Techniques, Education re Skin Care and Precautions, Education re Self Massage Techniques, Education re Correct Donning Tech,Care&Wearing Sched Comp Garments, Caregiver Training, Home Program - Visit Plan General Plan: pt choice of HEP to mtg his LE swelling- pt to call with questions or concerns. TEXT: Thank you for the opportunity to evaluate your patient. For Medicare and Medicare HMO plans, please review the plan of care and approve it. It will need to be FAXED BACK to us at [phone] for Medicare purposes. Please let me know if there are questions or concerns regarding this plan of care. Physician Signature: Date:
--- NOTE | 2023-03-12 09:52 | HP.OTDCNRP_ITS ---
Patient Information Patient Information: MIGUEL RODRIGEZ was seen in my office for initial evaluation on 12/02/22. The following Plan of Care was established for this patient: Anticipated Interventions Anticipated Interventions: Education re assistive Equipment, Education re Diagnosis, Education re Life-long lymphedema Management, Education re Self- Bandaging Techniques, Education re Skin Care and Precautions, Education re Self Massage Techniques, Education re Correct Donning Tech,Care&Wearing Sched Comp Garments, Caregiver Training and Home Program Last Seen Last Seen: This patient was last seen in our office 12/02/22. Pertinent comments regarding their Occupational therapy will appear below: Pt was seen for OT eval only. Pt has not scheduled further apts. and is d/c at this time. At this point I will be discontinuing this patient from occupational therapy. I would be happy to see this patient again in the future if found appropriate by the physician. Thank you! Hortencia Yost, OTR/L, CHT
== END 2022-12-02 19:00 | disposition home or self-care (01) ==
LOC: OT 14:41
PROVIDERS: PCP Family Medicine; Referring Provider Family Medicine; Visit Provider Family Medicine
DX: I89.0 Lymphedema, not elsewhere classified (principal)
CPT/HCPCS: 97166

== ENCOUNTER → 2023-03-15 | Outpatient (CLI) | payer MEDICAID, SELFPAY ==
--- NOTE | 2023-03-15 13:03 | RAD_ITS ---
EXAM: XR LEFT KNEE, 3 VIEWS CLINICAL INDICATION: KNEE,PAIN BILATERAL KNEE,PAIN BILATERAL TECHNIQUE: Three views of the left knee. COMPARISON: No relevant prior studies available. FINDINGS: BONES/JOINTS: There is mild osteophyte formation arising from the patella. No acute fracture. No subluxation. Normal alignment. Preservation of the joint space. No sclerotic or destructive changes observed. SOFT TISSUES: Unremarkable. No soft tissue swelling or gas. No radiopaque foreign body. RAD/Knee 3 Views IMPRESSION: Very mild degenerative changes. No demonstrated fracture, dislocation, or destructive osseous lesion. Electronically Signed: Rikki Michaels MD at 5:31 EDT ,
--- NOTE | 2023-03-15 13:05 | RAD_ITS ---
EXAM: XR RIGHT KNEE, 3 VIEWS CLINICAL INDICATION: PAIN PAIN TECHNIQUE: Three views of the right knee. COMPARISON: X-ray left knee. FINDINGS: BONES/JOINTS: There are small osteophytes arising from the patella. No acute fracture. No subluxation. Normal alignment. Preservation of the joint space. No sclerotic or destructive changes observed. SOFT TISSUES: Unremarkable. No soft tissue swelling or gas. No radiopaque foreign body. RAD/Knee 3 Views IMPRESSION: Very mild degenerative changes. No demonstrated fracture, dislocation, or destructive osseous lesion. Electronically Signed: Rikki Michaels MD at 5:36 EDT ,
--- NOTE | 2023-03-15 13:13 | RAD_ITS ---
EXAM: XR RIGHT SHOULDER COMPLETE, 2 OR MORE VIEWS CLINICAL INDICATION: IMPINGEMENT SYNDROM OF SHOULDER IMPINGEMENT SYNDROM OF SHOULDER TECHNIQUE: Two or more views of the right shoulder. COMPARISON: No relevant prior studies available. FINDINGS: BONES/JOINTS: Unremarkable. No acute fracture. No subluxation. Normal alignment. Preservation of the joint space. No sclerotic or destructive changes observed. SOFT TISSUES: Unremarkable. No soft tissue swelling or gas. No radiopaque foreign body. RAD/Shoulder min 2 Views IMPRESSION: Negative right shoulder x-rays. Electronically Signed: Rikki Michaels MD at 6:31 EDT Reading Location ID and State: [facility] / [place] , Service support ,
== END | disposition home or self-care (01) ==
PROVIDERS: PCP Family Medicine; Referring Provider Family Medicine; Visit Provider Family Medicine
DX: M75.40 Impingement syndrome of unspecified shoulder (principal); M25.561 Pain in right knee; M25.562 Pain in left knee
CPT/HCPCS: 73030; 73562

== ENCOUNTER → 2023-03-30 | Outpatient (CLI) | payer MEDICAID, SELFPAY ==
[2023-03-30 15:20] LABS: Absolute Lymphocyte Count 1.85 X10^3/uL (0.83-4.51); Absolute Neutrophil Count 4.5 X10^3/uL (2.0-7.7); Basophil# 0.05 X10^3/uL; Basophil% 0.7 % (0-1); Eosinophil# 0.18 X10^3/uL; Eosinophils% 2.5 % (0-5); Hematocrit 45.3 % (40-54); Hemoglobin 15.2 g/dL (13.0-16.5); Lymphocyte # 1.85 X10^3/ul (0.83-4.51); Lymphocyte % 25.2 % (19-41); Mean Corp Hgb Conc 33.6 g/dL (32-36); Mean Corpuscular Hgb 28.6 pg (27.0-32.0); Mean Corpuscular Volume 85.3 fL (80-94); Mean Platelet Vol. 10.3 fl (6.2-12.0); Monocyte# 0.73 X10^3/uL; Monocyte% 9.9 % (0-10); NRBC Flagged by Analyzer 0 % (0-5); Neutrophil % 61.3 % (47-70); Platelet Count 220 K/mm3 (150-450); RBC Distribution Width CV 13.9 % (11.6-14.6); RBC Distribution Width SD 43.1 fl (35.1-43.9); Red Blood Count 5.31 M/mm3 (4.6-6.2); White Blood Count 7.3 K/mm3 (4.4-11.0)
[2023-03-30 16:07] LABS: Vitamin D,25 Hydroxy 44.5 ng/mL
[2023-03-30 16:14] LABS: ALB/GLOB Ratio 0.9 RATIO (0.9-2.4); AST(SGOT) 10 U/L (15-37); Alanine Aminotransfer ALT/SGPT 17 U/L (16-61); Albumin, Serum 3.7 g/dL (3.2-5.0); Alkaline Phosphatase 82 U/L (45-117); Anion Gap 7 (5-15); BUN 10 mg/dL (7-18); BUN/Creat Ratio 10.4 RATIO (10-20); Calcium,Total 9.3 mg/dL (8.5-10.1); Chloride 104 mmol/L (98-107); Cholesterol 148 mg/dL (200); Creatinine, Serum 0.96 mg/dL (0.70-1.30); EST Glomerular Filtration Rate 85 mL/min (>60); Est Glom Filt Rate - Afr Amer 103 mL/min (>60); Globulin 4.3 g/dL (2.2-4.2); Glucose 169 mg/dL (74-106); High Density Lipoprotein 45 mg/dL; Sodium Level 137 mmol/L (136-145); T4 Free Direct 0.99 ng/dL (0.76-1.46); Thyroid Stim Hormone (TSH) 3.86 uIU/mL (0.358-3.74); Triglycerides 113 mg/dL; Very Low Density Lipoprotein 23 mg/dL (5-40)
== END | disposition home or self-care (01) ==
LOC: MFPLAB 11:28
PROVIDERS: PCP Family Medicine; Visit Provider Family Medicine
DX: E11.9 Type 2 diabetes mellitus without complications (principal); E03.8 Other specified hypothyroidism; E55.9 Vitamin D deficiency, unspecified
CPT/HCPCS: 36415; 80053; 80061; 82306; 83036; 84439; 84443; 85025

== ENCOUNTER → 2023-06-01 | Outpatient (CLI) | payer MEDICAID, SELFPAY ==
[2023-06-01 17:57] LABS: Absolute Neutrophil Count 4.8 X10^3/uL (2.0-7.7); Basophil# 0.05 X10^3/uL; Basophil% 0.7 % (0-1); Eosinophil# 0.17 X10^3/uL; Eosinophils% 2.3 % (0-5); Hematocrit 47.6 % (40-54); Hemoglobin 15.7 g/dL (13.0-16.5); Lymphocyte % 21.6 % (19-41); Mean Corpuscular Hgb 28.6 pg (27.0-32.0); Mean Corpuscular Volume 86.9 fL (80-94); Mean Platelet Vol. 9.9 fl (6.2-12.0); Monocyte# 0.77 X10^3/uL; Monocyte% 10.4 % (0-10); NRBC Flagged by Analyzer 0 % (0-5); Neutrophil # 4.79 X10^3/uL (2.7-7.7); Neutrophil % 64.7 % (47-70); Platelet Count 241 K/mm3 (150-450); RBC Distribution Width CV 13.6 % (11.6-14.6); RBC Distribution Width SD 43.2 fl (35.1-43.9); Red Blood Count 5.48 M/mm3 (4.6-6.2); White Blood Count 7.4 K/mm3 (4.4-11.0)
[2023-06-01 18:25] LABS: Hemoglobin A1c 6.2 % (3.8-5.6)
[2023-06-01 18:27] LABS: ALB/GLOB Ratio 0.9 RATIO (0.9-2.4); AST(SGOT) 15 U/L (15-37); Alanine Aminotransfer ALT/SGPT 22 U/L (16-61); Albumin, Serum 3.9 g/dL (3.2-5.0); Alkaline Phosphatase 76 U/L (45-117); Anion Gap 5 (5-15); BUN 17 mg/dL (7-18); BUN/Creat Ratio 16.8 RATIO (10-20); Calcium,Total 9.5 mg/dL (8.5-10.1); Chloride 104 mmol/L (98-107); Cholesterol 142 mg/dL (200); Creatinine, Serum 1.01 mg/dL (0.70-1.30); EST Glomerular Filtration Rate 80 mL/min (>60); Est Glom Filt Rate - Afr Amer 97 mL/min (>60); Globulin 4.5 g/dL (2.2-4.2); Glucose 127 mg/dL (74-106); High Density Lipoprotein 45 mg/dL; Potassium 4.1 mmol/L (3.5-5.1); Protein, Total 8.4 g/dL (6.4-8.2); Sodium Level 136 mmol/L (136-145); T4 Free Direct 1.01 ng/dL (0.76-1.46); Thyroid Stim Hormone (TSH) 5.56 uIU/mL (0.358-3.74); Triglycerides 130 mg/dL; Very Low Density Lipoprotein 26 mg/dL (5-40); Vitamin D,25 Hydroxy 48.2 ng/mL
[2023-06-01 18:45] LABS: Microalbumin,Random Urine 21.8 mg/L (NO RANGE EST.); Microalbumin:Creatinine Ratio 15.7 mg/g CRE (<30 mg/g CRE)
== END | disposition home or self-care (01) ==
LOC: MTLAB 14:32
PROVIDERS: PCP Family Medicine; Referring Provider Family Medicine; Visit Provider Family Medicine
DX: E11.9 Type 2 diabetes mellitus without complications (principal); E55.9 Vitamin D deficiency, unspecified; E03.8 Other specified hypothyroidism
CPT/HCPCS: 36415; 80053; 80061; 82043; 82306; 82570; 83036; 84439; 84443; 85025

== ENCOUNTER → 2023-07-07 | Outpatient (CLI) | payer MEDICAID, SELFPAY ==
--- NOTE | 2023-07-07 13:56 | ART_ITS ---
Reason For Study: Decreased Pedal Pulses Procedure A bilateral lower extremity continuous wave Doppler with analog waveform analysis,segmental pressures,and ankle brachial indexes with exercise. Left Segmental Pressures Left brachial= 153mmHg. Left posterior tibial artery = 146mmHg. Left dorsalis pedis artery = 168mmHg. Left digit = 147 mmHg. The left posterior tibial artery waveforms are triphasic. The left dorsalis pedis waveforms are triphasic. Right Segmental Pressures Right brachial= 154mmHg. Right posterior tibial artery = 143mmHg. Right dorsalis pedis artery = 167mmHg. Right digit = 137 mmHg. The right posterior tibial artery waveforms are triphasic. The right dorsalis pedis waveforms are triphasic. Indices The right ankle brachial index by the posterior tibial artery is 0.93.. The right ankle brachial index by the dorsalis pedis is 1.08. The right digital-brachial index is 0.89. The right ankle brachial index by the dorsalis pedis post exercise is 1.02. The left ankle brachial index by the posterior tibial artery is 0.95. The left ankle brachial index by the dorsalis pedis is 1.09. The left digital-brachial index is 0.95. The left dorsalis pedis index post exercise is 1.21. VL/Lower Ext Art Exam w/ Exercise Interpretation Summary Normal right lower extremity posterior tibial and dorsalis pedis ankle-brachial indices of rest at 0.93 and 1.08 respectively with normal right digital brachial index of 0.89. The Doppler waveforms of the posterior tibialis and dorsalis pedis are normal a nd triphasic. With exercise the right NOY goes from 1.08 to after exercise at 1.02 which tech nically is normal Left lower extremity posterior tibialis and dorsalis pedis ankle-brachial indic es at rest are normal at 0.95 and 1.09 with normal left digital brachial index of 0.95. The Doppler waveforms for the left posterior tibialis and dorsalis pedis are no rmal and triphasic With exercise the left ankle-brachial index goes from 1.09 to immediately after exercise at 1.21 which is normal Ordering Physician: Bernardo Mensah Referring Physician: Bernardo Mensah Performed By: Nikunj Sterling RVT
== END | disposition home or self-care (01) ==
LOC: CVS 13:55
PROVIDERS: PCP Family Medicine; Referring Provider Family Medicine; Visit Provider Family Medicine
DX: R09.89 Other specified symptoms and signs involving the circulatory and respiratory systems (principal)
CPT/HCPCS: 93924

== ENCOUNTER → 2023-09-02 | Outpatient (CLI) | payer MEDICAID, SELFPAY ==
--- OUTSIDE RECORDS SUMMARY | 2023-09-02 14:38 | XMS RPT_ITS | CCD ---
Author Name Unknown Address [address] [place] [address] Organization [facility] Care Team Providers Care Land Manager Name Role Phone Roya Ruiz Primary Care Provider RAE POLK MD Admitting Unavailable RAE POLK MD Attending Unavailable RAE POLK MD Primary Care Unavailable Roya Ruiz Christine Primary Care Provider Roya Ruiz Christine Primary Care Provider Roya Ruiz Christine Primary Care Provider YUE MCCOY Referring Unavailable [facility] Primary Care Unavailabl e DARIUS, JAYRAM Referring Unavailable [facility] Primary Care Unavailabl e DARIUS, BRENDONYRAM Attending Unavailable [facility] Primary Care Unavailabl e DARIUS, BRENDONYRAM Attending Unavailable [facility] Referring [facility]availabl [facility] [place] Primary Care Unavailabl e [facility] Primary Care Unavailabl e [facility] [place] Primary Care Unavailabl e [facility] Primary Care Unavailabl e DARIUS, JAYRAM Attending Unavailable DARIUS, BRENDONYRAM Referring Unavailable [facility] Primary Care UnavailMARIA ESTHER Henley Referring Unavailable [facility] Primary Care Unavailabl e DARIUS, JAYRAM Referring Unavailable [facility] Primary Care Unavailabl e [facility] Primary Care Unavailabl e DARIUS, JAYRAM Referring Unavailable [facility] Primary Care UnavailMARIA ESTHER Henley Attending Unavailable MARIA ESTHER FORREST Referring Unavailable [facility] Primary Care Unavailabl e DARIUS, JAYRAM Referring Unavailable SCHINNER, [facility] Unavailashleigh RUIZ, [facility] Referring UnavailMARIA ESTHER Henley Attending Unavailable RODRICK [facility] UnavailMARIA ESTHER Henley Referring Unavailable [facility] Unavailabl e RODRICK, [facility] Referring UnavailMARIA ESTHER Henley Attending Unavailable DARIUS, JAYRAM Referring Unavailable [facility] Unavailabl e DARIUS, JAYRAM Admitting Unavailable DARIUS, JAYRAM Attending Unavailable RODRICK [facility] Unavailabl e DARIUS, JAYRAM Referring Unavailable LALA, CARLEY Referring Unavailable [facility], [facility] Unavailashleigh e FIDELIA ERNST Attending Unavailable Rodrick SINGLETON, Roya [facility] Provider Medications Current Medications Medication Drug Class(es) Dates Sig (Normalized) Sig (Original) acetaminophen 325 mg / oxyCODONE hydrochloride 5 mg oral tablet (20 sources) Opioid Agonist Start: 05-15-2022 End: 05-23-2022 take 1 tablet by mouth every six hours as needed oxyCODONE-acetami nophen (PERCOCET) 5-325 mg tablet Indications: Penile mass Take 1 tablet by mouth every 6 hours as needed for up to 4 days. 16 tablet 0 05/19/2022 05/23/2022 Active Completed/Discontinued Medications Medication Drug Class(es) Dates Sig (Normalized) Sig (Original) acetaminophen 325 mg oral tablet (20 sources) Start: 11-17-2021 End: 11-28-2021 take 2 tablets by mouth every six hours as needed acetaminophen (TYLENOL) 325 mg tablet Take 2 tablets by mouth every 6 hours as needed for pain. 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 (3 sources) Malignant tumor of penis; Translations: [Malignant neoplasm of penis, unspecified] Onset: 06-26-2022 Chronic Diabetes mellitus without complication (5 sources) Type 2 diabetes mellitus without complication; Translations: [Type 2 diabetes mellitus without complications] Onset: 11-18-2021 Chronic Genitourinary symptoms and ill-defined conditions (7 sources) Retention of urine; Translations: [Retention of urine, unspecified] Onset: 05-08-2022 Episodic Infective arthritis and osteomyelitis (except that caused by tuberculosis or sexually transmitted disease) (20 sources) Osteomyelitis of vertebra; Translations: [Osteomyelitis of vertebra, thoracic region] Onset: 11-03-2021 11-03-2021 Chronic Other aftercare (3 sources) Patient encounter status; Translations: [manager terminal (current) use of antibiotics] Episodic Other OUTBOUND SALES SPECIALIST infection and poliomyelitis (13 sources) Abscess in epidural space of thoracic spine; Translations: [Intraspinal abscess and granuloma] Onset: 12-22-2021 Episodic Other connective tissue disease (1 source) Swelling of right lower limb; Translations: [Other specified soft tissue disorders] Episodic Other male genital disorders (2 sources) Mass of penis; Translations: [Other specified disorders of penis] Chronic Other male genital disorders (1 source) Lesion of penis; Translations: [Disorder of penis, unspecified] Chronic Other male genital disorders (2 sources) Other specified disorders of penis; Translations: [Other specified disorders of penis] Onset: 11-18-2021 Chronic Other male genital disorders (1 source) Disorder of penis, unspecified; Translations: [Penile lesion] Onset: 12-25-2021 Chronic Residual codes; unclassified (1 source) History of operative procedure on lumbar spinal structure; Translations: [Other specified postprocedural states] Episodic Spondylosis; intervertebral disc disorders; other back problems (1 source) Thoracic discitis; Translations: [Discitis, unspecified, thoracic region] Chronic Unclassified (1 source) APPOINTMENT CANCELLED Unclassified (1 source) Established Patient Onset: 06-12-2022 Viral infection (6 sources) Penile warts; Translations: [Anogenital (venereal) warts] Onset: 05-08-2022 Episodic Past or Other Problems Problem Classification Problem Date Documented Da te Episodic/Chronic Diabetes mellitus without complication (20 sources) Hyperglycemia; Translations: [Hyperglycemia, unspecified] Onset: 11-03-2021 11-03-2021 Episodic Encephalitis (except that caused by tuberculosis or sexually transmitted disease) (3 sources) Myelitis; Translations: [Myelitis, unspecified] Onset: 12-17-2021 Episodic Fluid and electrolyte disorders (1 source) Hypo-osmolality and hyponatremia; Translations: [Hypo-osmolality and hyponatremia] Onset: 11-18-2021 Episodic Immunizations and screening for infectious disease (1 source) Carrier of other infectious diseases; Translations: [Fungal colonization of urinary tract] Onset: 12-25-2021 Episodic Other aftercare (1 source) Other buttermaker continuous churn (current) drug therapy; Translations: [Other correction (current) drug therapy] Onset: 11-18-2021 Episodic Other aftercare (1 source) manager terminal (current) use of insulin; Translations: [Type 2 diabetes mellitus without complication, with long-term current use of insulin (HCC)] Onset: 05-08-2022 Episodic Other connective tissue disease (1 source) Other specified soft tissue disorders; Translations: [Right leg swelling] Onset: 12-25-2021 Episodic Other fractures (20 sources) Fracture of ninth thoracic vertebra; Translations: [Unspecified fracture of T9-T10 vertebra, initial encounter for closed fracture] Onset: 11-03-2021 11-03-2021 Episodic Other lower respiratory disease (1 source) Hemoptysis; Translations: [Hemoptysis] Onset: 11-18-2021 Episodic Other nervous system disorders (20 sources) Numbness of lower limb ; Translations: [Anesthesia of skin] Onset: 11-03-2021 11-03-2021 Episodic Phlebitis; thrombophlebitis and thromboembolism (4 sources) Thromboembolism of vein; Translations: [Acute embolism and thrombosis of unspecified deep veins of lower extremity, bilateral] Onset: 12-25-2021 Episodic Spondylosis; intervertebral disc disorders; other back problems (20 sources) Thoracic back pain; Translations: [Pain in thoracic spine] Onset: 11-03-2021 11-03-2021 Episodic Results Test Name Value Interpretation Reference Range Facil ity Vital Signs Date Time Vital Sign Value Performing Clinician Faci lit 11-13-2022 10:52-0400 Body height 170.2 cm Maria Esther Forrest MD, PhD Work Phone: [facility] 11-13-2022 10:52-0400 Body weight 101.4 kg Maria Esther Forrest MD, PhD Work Phone: [facility] 11-13-2022 10:52-0400 Diastolic blood pressure 95 mm[Hg] Maria Esther Forrest MD, PhD Work Phone: [facility] 11-13-2022 10:52-0400 Heart rate 69 /min Maria Esther Forrest MD, PhD Work Phone: [facility] 11-13-2022 10:52-0400 SaO2% (BldA) [Mass fraction] 97 % Maria Esther Forrest MD, PhD Work Phone: [facility] 11-13-2022 10:52-0400 Systolic blood pressure 154 mm[Hg] Maria Esther Forrest MD, PhD Work Phone: [facility] 06-12-2022 10:15-0400 Body height 170.2 cm Maria Esther Forrest MD, PhD Work Phone: [facility] 06-12-2022 10:15-0400 Body weight 81.65 kg Maria Esther Forrest MD, PhD Work Phone: [facility] 06-12-2022 10:15-0400 Diastolic blood pressure 84 mm[Hg] Maria Esther Forrest MD, PhD Work Phone: [facility] 06-12-2022 10:15-0400 Heart rate 91 /min Maria Esther Forrest MD, PhD Work Phone: [facility] 06-12-2022 10:15-0400 Respiratory rate 16 /min Maria Esther Forrest MD, PhD Work Phone: [facility] 06-12-2022 10:15-0400 SaO2% (BldA) [Mass fraction] 98 % Maria Esther Forrest MD, PhD Work Phone: [facility] 06-12-2022 10:15-0400 Systolic blood pressure 127 mm[Hg] Maria Esther Forrest MD, PhD Work Phone: [facility] 06-04-2022 14:41-0400 Body height 170.2 cm Yue Mccoy DO Work Phone: [facility] 06-04-2022 14:41-0400 Body weight 81.65 kg Yue Mccoy DO Work Phone: [facility] 12-25-2021 14:21-0400 Body height 170.2 cm Pst 1 [facility] 12-25-2021 14:21-0400 Body temperature 97.9 [degF] Pst 1 [facility] 12-25-2021 14:210400 Body weight 76.2 kg Pst 1 [facility] 12-25-2021 14:21-0400 Diastolic blood pressure 85 mm[Hg] Pst 1 [facility] 12-25-2021 14:21-0400 Heart rate 109 /min Pst 1 [facility] 12-25-2021 14:21-0400 Respiratory rate 16 /min Pst 1 [facility] 12-25-2021 14:21-0400 SaO2% (BldA) [Mass fraction] 97 % Pst 1 [facility] 12-25-2021 14:21-0400 Systolic blood pressure 115 mm[Hg] Pst 1 [facility] 12-22-2021 13:05-0400 Body height 170.2 cm Maria Esther Forrest MD, PhD Work Phone: [facility] 12-22-2021 13:05-0400 Body temperature 97.81 [degF] Maria Esther Forrest MD, PhD Work Phone: [facility] 12-22-2021 13:05-0400 Body weight 76.2 kg Maria Esther Forrest MD, PhD Work Phone: [facility] 12-22-2021 13:05-0400 Diastolic blood pressure 79 mm[Hg] Maria Esther Forrest MD, PhD Work Phone: [facility] 12-22-2021 13:05-0400 Heart rate 90 /min Maria Esther Forrest MD, PhD Work Phone: [facility] 12-22-2021 13:05-0400 SaO2% (BldA) [Mass fraction] 97 % Maria Esther Forrest MD, PhD Work Phone: [facility] 12-22-2021 13:05-0400 Systolic blood pressure 125 mm[Hg] Maria Estehr Forrest MD, PhD Work Phone: [facility] 12-19-2021 09:12-0400 Body temperature 97.5 [degF] Carley Lala RN Work Phone: [facility] 12-19-2021 09:12-0400 Diastolic blood pressure 73 mm[Hg] Carley Lala RN Work Phone: [facility] 12-19-2021 09:12-0400 Heart rate 94 /min Carley Lala RN Work Phone: [facility] 12-19-2021 09:12-0400 Respiratory rate 16 /min Carleytatiana Mendenhallstar RN Work Phone: [facility] 12-19-2021 09:12-0400 SaO2% (BldA) [Mass fraction] 98 % Carley Maldonadoar RN Work Phone: [facility] 12-19-2021 09:12-0400 Systolic blood pressure 108 mm[Hg] Carleytatiana Mendenhallstar RN Work Phone: [facility] 12-04-2021 12:05-0400 Body weight 76.2 kg Yue Mccoy DO Work Phone: [facility] 11-28-2021 13:32-0400 Body height 170.2 cm Maria Esther Forrest MD, PhD Work Phone: [facility] 11-28-2021 13:32-0400 Body weight 77.11 kg Maria Esther Forrest MD, PhD Work Phone: [facility] 11-28-2021 13:32-0400 Diastolic blood pressure 82 mm[Hg] Maria Esther Forrest MD, PhD Work Phone: [facility] 11-28-2021 13:32-0400 Heart rate 98 /min Maria Esther Forrest MD, PhD Work Phone: [facility] 11-28-2021 13:32-0400 Respiratory rate 18 /min Maria Esther Forrest MD, PhD Work Phone: [facility] 11-28-2021 13:32-0400 SaO2% (BldA) [Mass fraction] 98 % Maria Esther Forrest MD, PhD Work Phone: [facility] 11-28-2021 13:32-0400 Systolic blood pressure 118 mm[Hg] Maria Esther Forrest MD, PhD Work Phone: [facility] Encounters Encounter Date Encounter Type Care Provider Facility Start: 11-13-2022 End: 11-13-2022 ambulatory ROYA RUIZ Facility:[facility] Start: 11-13-2022 End: 11-13-2022 Subsequent hospital visit by physician [facility] [employer] [employer] SAL[employer] Procedures Date Procedure Procedure Detail Performing Clinician Start: 11-13-2022 Radex spine thoracic 2 views Maria Esther Forrest MD, PhD Work Phone: Start: 06-26-2022 Ct abdomen & pelvis w/contrast material Jayram Darius DO Work Phone: Start: 06-26-2022 Ct thorax w/contrast material Jesseam Darius DO Work Phone: Start: 06-23-2022 Mri spinal canal thoracic w/o & w/contr matrl Maria Esther Forrest MD, PhD Work Phone: Start: 12-17-2021 Mri spinal canal thoracic w/o & w/contr matrl Carley Reeves APRN.TOLL LINEMAN Work Phone: Start: 11-28-2021 Radex spine thoracic 2 views Shankar Oneail PA-C Work Phone: Plan of Treatment Date Care Activity Detail Author Start: 05-08-2025 DIABETES SCREEN DIABETES SCREEN [facility] Start: 05-08-2025 Diabetes Screening Diabetes Screening [facility] Start: 12-25-2024 DIABETES SCREEN DIABETES SCREEN [facility] Start: 11-18-2024 DIABETES SCREEN DIABETES SCREEN [facility] Start: 11-08-2024 DIABETES SCREEN DIABETES SCREEN [facility] Start: 04-09-2023 Covid-19 Vaccine ( season) Covid-19 Vaccine () [facility] Start: 04-09-2023 Influenza vaccination Influenza Vaccine (#1) [facility] Start: 2022 RSV Vaccine (1 - 1-dose 60+ series) RSV Vaccine (1 - 1-dose 60+ series) [facility] Start: 08-09-2022 DEPRESSION ASSESSMENT DEPRESSION ASSESSMENT [facility] Start: 04-09-2022 Influenza vaccination [facility] Start: 01-02-2022 End: 03-04-2022 C reactive protein [Mass/volume] in Serum or Plasma C-REACTIVE PROTEIN (CRP) Lab Routine Osteomyelitis of thoracic spine (HCC) Spinal abscess (HCC) Encounter for long-term (current) use of antibiotics Expected: 01/02/2022 (Approximate), Expires: 03/04/2022 [facility] Work Phone: Immunizations Immunization Date Immunization Notes Care Provider Fa cili 07-18-2022 influenza virus vacc ine, unspecified formulation Ct (I-Stat) Work Phone: [facility] Payers Date Payer Category Payer Unknown [id number] 2020 Unknown [employer] PPO OOS [id number] 2020-Present [phone] [address] [place] [address] PPO [id number] 2020 Unknown [id number] 2020 Unknown [id number] Social History Date Type Detail Facility Start: 11-03-2021 End: 05-08-2022 Tobacco smoking status NHIS Ex-smoker [facility] Work Phone: End: 08-09-1995 History of tobacco use Current smoker [facility] Work Phone: End: 08-09-1995 History of tobacco use Cigarette Smoker [facility] Work Phone: Start: 11-03-2021 End: 12-26-2021 Cigarettes smoked current (pack per day) - Reported 1 [facility] Start: 11-03-2021 End: 05-08-2022 Tobacco use and exposure Smokeless tobacco non-user [facility] Work Phone: Start: 11-07-2021 End: 06-12-2022 Alcohol intake Ex-drinker (finding) [facility] Start: 11-03-2021 History SDOH Alcohol Comment 1996 quit [facility] Start: 1960 Sex Assigned At Not on file C [facility] Start: 10-24-2021 End: 06-12-2022 Exposure to SARS-CoV-2 (event) Not sure [facility] Start: 12-25-2021 History SDOH Alcohol Comment none since 2004 [facility] Tobacco smoking status No Smokin g Status Entered [facility] Sex Assigned At Male [facility] Start: 12-26-2021 End: 06-12-2022 Tobacco use panel [facility] National Score (1-10 0), lower number is lower risk 73 [facility] Medical Equipment Procedure Code Equipment Code Equipment Origin al Text Equipment Identifier Dates Screw Nannette 3 Serr haja 4.5mm 35mm Bone Polyaxial Nonsterile Spine [id number] Start: 11-07-2021 Screw Nannette 3 Serr haja 4.5mm 40mm Bone Polyaxial Nonsterile Spine [id number] Start: 11-07-2021 Screw Nannette 3 Ailyn nium Set Claude Spine - [id number] Start: 11-07-2021 Dick Nannette 3 6mm 48 0mm Spinal - [id number] Start: 11-07-2021 Screw Nannette 3 Serr haja 5.5mm 40mm Bone Polyaxial Nonsterile Spine - [id number] Start: 11-07-2021 Screw Nannette 3 Serr haja 6.5mm 40mm Bone Polyaxial Nonsterile Spine - [id number] Start: 11-07-2021 Functional Status Date Assessment Result Facility 09-08-2022 Functional Status Standard Safet y Safety level maintained, Non-Slip footwear [facility] Clinical Notes 11-07-2021 to 11-13-2022 Maria Esther Forrest MD, PhD - 11/13/2022 11:00 AM Brian Castillo RN - 09/24/2022 10:49 AM ESTPatient InstructionsTelephone Encounter - Regina Molina RN - 07/20/2022 1:45 PM ESTPatient Instructions Note Date & Type Note Facility 11-13-2022 Note HNO ID: [id number] Author: Maria Esther Forrest MD, PhD Service: ? Author Type: Physician Type: Progress Notes Filed: 11/30/2022 11:54 AM Note Text: NEUROSURGERY FOLLOW UP OFFICE NOTE Maria Esther Forrest MD Date of visit: November 13, 2022 Patient Name: Mr.Gail Norman Rodrigez Date of : 1960 Current Age: [age] year old Sex: male MRN/E# [id number] Last Office Visit: 07/20/2022 Chief Complaint: Patient presents with: Established Patient SUBJECTIVE: Miguel Rodrigez is a 62 year old, right handed male who presents to the office today for a follow up visit, to review xray's for his 1 year post operative date. The patietn was last evaluated in the office on 06/12/2022 for his 6 month post operative visit following a T6-11 posterior instrumented fusion and T8-9 laminectomy for an epidural abscess on 11/07/2021. He noted he had been doing well. He noted minimal back pain at night. He noted spasms that were bothersome. He noted leg stiffness at times. He continued with his walker for assistance. He was prescribed baclofen for his muscle spasms. He was to obtain compression stockings for his swelling. He was to follow up in 1 year with repeat imaging, prompting his visit today. Today he states he has been doing well. He denies any back pain at this time. He notes he is using a can for assistance with ambulation, but has use of a walker at today's visit. He notes the spasms are still present to his bilateral legs, but notes a great improvement. He notes inflammation to his bilateral knees and difficulties with bending his knees at times. He notes he is able to feel his bilateral heels, but continues with numbness to his toes bilaterally. He denies taking baclofen at this time and only taking Tylenol at times. Overall, he feels great and is pleased with his progress. He is here for evaluation and plan of care. Symptoms: leg numbness, and weakness PREVIOUS CONSERVATIVE TREATMENTS: Percocet Tylenol PREVIOUS SURGERY: T6-T11 posterior instrumented arthrodesisT8-9 laminectomy and transpedicular approach to ventral phlegmon- 11/07/2021 PAIN EVALUATION 11/13/2022 1050 Pain Level: 0 PAST MEDICAL HISTORY Diagnosis Date Diabetes mellitus (HCC) DVT (deep venous thrombosis) (HCC) 12/2021 Penile lesion Penile venereal warts PONV (postoperative nausea and vomiting) Vertebral osteomyelitis (HCC) 12/19/2021 thoracic spine PAST SURGICAL HISTORY Procedure Laterality Date BACK SURGERY HX 11/07/2021 T6-11 Laminectomy INGUINAL HERNIA REPAIR HX Left 2017 FAMILY HISTORY Problem Relation Age of Onset other (chf) Mother COPD Sister Diabetes Brother ALLERGIES No Known Allergies Current Outpatient Medications Medication Sig Dispense Refill XARELTO 20 mg tablet TAKE ONE TABLET BY MOUTH ONCE DAILY WITH THE LARGEST MEAL OF THE DAY SEMGLEE,INSULIN GLARG-YFGN,PEN 100 unit/mL (3 mL) insulin pen Inject 35 Units subcutaneously once daily. acetaminophen (TYLENOL) 325 mg tablet Take 650 mg by mouth every 6 hours as needed for pain or fever (specify). insulin lispro (HUMALOG KWIKPEN) 100 unit/mL Inject 12 Units subcutaneously w MEALS. (Patient taking differently: Inject 9 Units subcutaneously w MEALS.) No current facility-administered medications for this visit. REVIEW OF SYSTEMS Review of Systems Constitutional: Negative for diaphoresis, fatigue and fever. HENT: Negative for congestion, sinus pressure and sore throat. Eyes: Negative for discharge and itching. Respiratory: Negative for cough, chest tightness and shortness of breath. Cardiovascular: Negative for chest pain, palpitations and leg swelling. Gastrointestinal: Negative for constipation, diarrhea, nausea and vomiting. Endocrine: Negative for cold intolerance and heat intolerance. Genitourinary: Negative for difficulty urinating, frequency and urgency. Musculoskeletal: Negative for back pain, gait problem, neck pain and neck stiffness. Skin: Negative for rash and wound. Allergic/Immunologic: Negative for environmental allergies and food allergies. Neurological: Positive for weakness and numbness. Negative for dizziness, light-headedness and headaches. Hematological: Does not bruise/bleed easily. Psychiatric/Behavioral: Negative for agitation. The patient is not nervous/anxious. OBJECTIVE: BP 154/95 Pulse 69 Ht 5' 7 (1.70m) Wt 223 lb 8.7 oz (101.4kg) SpO2 97% BMI 35.00 kg/(m2). Physical Exam Eyes: General: Lids are normal. Extraocular Movements: Extraocular movements intact. Pupils: Pupils are equal, round, and reactive to light. Neurological Exam Mental Status Awake, alert and oriented to person, place and time. Cranial Nerves CN II: Visual acuity is normal. Visual elder full to confrontation. CN III, IV, : Extraocular movements intact bilaterally. Normal lids and orbits bilaterally. Pupils equal round and reactive to light bilaterally. CN V: Facial sensation is normal. CN (more content not included)... [facility] 11-13-2022 History of Presen t illness Narrative NEUROSURGERY FOLLOW UP OFFICE NOTE Maria Esther Forrest MD Date of visit: November 13, 2022 Patient Name: Mr.Gail Norman Rodrigez Date of : 1960 Current Age: [age] year old Sex: male MRN/E# [id number] Last Office Visit: 07/20/2022 Chief Complaint: Patient presents with: Established Patient SUBJECTIVE: Miguel Rodrigez is a 62 year old, right handed male who presents to the office today for a follow up visit, to review xray's for his 1 year post operative date. The patietn was last evaluated in the office on 06/12/2022 for his 6 month post operative visit following a T6-11 posterior instrumented fusion and T8-9 laminectomy for an epidural abscess on 11/07/2021. He noted he had been doing well. He noted minimal back pain at night. He noted spasms that were bothersome. He noted leg stiffness at times. He continued with his walker for assistance. He was prescribed baclofen for his muscle spasms. He was to obtain compression stockings for his swelling. He was to follow up in 1 year with repeat imaging, prompting his visit today. Today he states he has been doing well. He denies any back pain at this time. He notes he is using a can for assistance with ambulation, but has use of a walker at today's visit. He notes the spasms are still present to his bilateral legs, but notes a great improvement. He notes inflammation to his bilateral knees and difficulties with bending his knees at times. He notes he is able to feel his bilateral heels, but continues with numbness to his toes bilaterally. He denies taking baclofen at this time and only taking Tylenol at times. Overall, he feels great and is pleased with his progress. He is here for evaluation and plan of care. Symptoms: leg numbness, and weakness PREVIOUS CONSERVATIVE TREATMENTS: Percocet Tylenol PREVIOUS SURGERY: T6-T11 posterior instrumented arthrodesisT8-9 laminectomy and transpedicular approach to ventral phlegmon- 11/07/2021 PAIN EVALUATION 11/13/2022 1050 Pain Level: 0 PAST MEDICAL HISTORY Diagnosis Date Diabetes mellitus (HCC) DVT (deep venous thrombosis) ([facility]) 12/2021 Penile lesion Penile venereal warts PONV (postoperative nausea and vomiting) Vertebral osteomyelitis ([facility]) 12/19/2021 thoracic spine PAST SURGICAL HISTORY Procedure Laterality Date BACK SURGERY HX 11/07/2021 T6-11 Laminectomy INGUINAL HERNIA REPAIR HX Left 2017 FAMILY HISTORY Problem Relation Age of Onset other (chf) Mother COPD Sister Diabetes Brother ALLERGIES No Known Allergies Current Outpatient Medications Medication Sig Dispense Refill XARELTO 20 mg tablet TAKE ONE TABLET BY MOUTH ONCE DAILY WITH THE LARGEST MEAL OF THE DAY SEMGLEE,INSULIN GLARG-YFGN,PEN 100 unit/mL (3 mL) insulin pen Inject 35 Units subcutaneously once daily. acetaminophen (TYLENOL) 325 mg tablet Take 650 mg by mouth every 6 hours as needed for pain or fever (specify). insulin lispro (HUMALOG KWIKPEN) 100 unit/mL Inject 12 Units subcutaneously w MEALS. (Patient taking differently: Inject 9 Units subcutaneously w MEALS.) No current facility-administered medications for this visit. REVIEW OF SYSTEMS Review of Systems Constitutional: Negative for diaphoresis, fatigue and fever. HENT: Negative for congestion, sinus pressure and sore throat. Eyes: Negative for discharge and itching. Respiratory: Negative for cough, chest tightness and shortness of breath. Cardiovascular: Negative for chest pain, palpitations and leg swelling. Gastrointestinal: Negative for constipation, diarrhea, nausea and vomiting. Endocrine: Negative for cold intolerance and heat intolerance. Genitourinary: Negative for difficulty urinating, frequency and urgency. Musculoskeletal: Negative for back pain, gait problem, neck pain and neck stiffness. Skin: Negative for rash and wound. Allergic/Immunologic: Negative for environmental allergies and food allergies. Neurological: Positive for weakness and numbness. Negative for dizziness, light-headedness and headaches. Hematological: Does not bruise/bleed easily. Psychiatric/Behavioral: Negative for agitation. The patient is not nervous/anxious. OBJECTIVE: BP 154/95 Pulse 69 Ht 5' 7 (1.70m) Wt 223 lb 8.7 oz (101.4kg) SpO2 97% BMI 35.00 kg/(m^2). Physical Exam Eyes: General: Lids are normal. Extraocular Movements: Extraocular movements intact. Pupils: Pupils are equal, round, and reactive to light. Neurological Exam Mental Status Awake, alert and oriented to person, place and time. Cranial Nerves CN II: Visual acuity is normal. Visual elder full to confrontation. CN III, IV, : Extraocular movements intact bilaterally. Normal lids and orbits bilaterally. Pupils equal round and reactive to light bilaterally. CN V: Facial sensation is normal. CN VII: Full and symmetric facial movement. CN VIII: Hearing is normal. CN IX, X: Palate elevates symmetrically. Normal gag reflex. CN XI: Shoulder shrug strength is normal. CN XII: Tongue midline without atrophy or fasciculations. Motor Right Left Hip flexion 5 5 Knee flexion 5 5 Knee extension 5 5 Plantarflexion 5 5 Dorsiflexion 5 5 Gait Ambulates with walker without difficulty. Data Review IMAGING STUDIES: Imaging reviewed on November 13, 2022 XR Thoracic 11/13/2022: POSTERIOR FUSION WITH LAMINECTOMY AT T7/T8 LOSS OF DISC SPACES AND VERTEBRAL BODY VOLUME AT T7/T8 VERTEBRAL BODIES UNCHANGED COMPARED TO THE PREVIOUS EXAM. MRI Thoracic Spine 06/23/2022: IMPRESSION: Sequela of prior discitis/osteomyelitis at T7-T8, with improving marrow signal abnormality. No abnormal epidural enhancement. Contour abnormality at the posterior thoracic spinal cord at T7 level raises concern for the presence of an arachnoid adhesion. No acute cord signal abnormality or abnormal intradural enhancement. Interval compression fracture of the superior endplate of L1-2 since 12/17/2021 however appears chronic. Stable superior endplate compression deformity of T12 Personal review of medical records: I reviewed with the patient, history, physical exam, the images and the chart. Assessment & Plan: The patient is now a year following a T6-11 instrumented fusion with T7-8 laminectomy. He continues to improve and is now near symmetric strength. His sensory changes continue to improve. He is overall doing well with minimal back pain. His hardware is intact on x-ray. He may follow up in clinic as necessary. The following portions of the patient's history were reviewed, confirmed, and updated as necessary: allergies, current medications, past family history, past medical history, past social history, past surgical history, problem list, HPI, and ROS obtained by others. Some elements may be copied from a previous office note and have been reviewed/updated where appropriate. All portions reflect current medical decision making from today. The clinical and radiographic findings as well as the risks, benefits and alternatives of treatment have been reviewed in detail with the patient. Advised to call the office if symptoms worsen or new symptoms develop. Patient expressed understanding and is in agreement with plan. Maria Esther Forrest MD, PhD November 30, 2022 documented in this encounter [facility] 10-29-2022 Note HNO ID: [id number] Author: Yue Mccoy, DO Service: ? Author Type: Physician Type: Progress Notes Filed: 10/29/2022 9:49 AM Note Text: [facility] [place] [facility] LOCATION: [address] [place] [address] ESTABLISHED PATIENT PATIENT INFO: Miguel Rodrigez 62 year old Chief Complaint: Penile Cancer HPI S/p excision of large penile lesions on 05/15/[address] well. Melvin in place. Had urodynamics 1-Duration: 2021 2-Location: penis 3-Severity: N/A 4-Quality: Not applicable 5-Context: N/A 6-Timing: N/A 7-Modifying factors: No treatment prior to referral 8-Associated signs AND symptoms: no additional symptoms PATHOLOGY: FINAL DIAGNOSIS A. 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 - The surgical resection margins are uninvolved by carcinoma (closest margin: deep, 4.5 mm). - The tumor invades the dermis. LAB: WBC (k/uL) Date Value 05/08/2022 8.35 RBC (m/uL) Date Value 05/08/2022 5.07 Hemoglobin (g/dL) Date Value 05/08/2022 14.6 Hematocrit (%) Date Value 05/08/2022 42.9 MCV (fL) Date Value 05/08/2022 84.6 MCH (pg) Date Value 05/08/2022 28.8 MCHC (g/dL) Date Value 05/08/2022 34.0 RDW-CV (%) Date Value 05/08/2022 13.0 Platelet Count (k/uL) Date Value 05/08/2022 233 MPV (fL) Date Value 05/08/2022 9.0 Neutrophils % (%) Date Value 12/25/2021 64.8 Lymphocytes % (%) Date Value 12/25/2021 20.7 Monocytes % (%) Date Value 12/25/2021 9.4 Basophils % (%) Date Value 12/25/2021 0.5 Abs Neut (k/uL) Date Value 12/25/2021 4.88 Abs Cannon (k/uL) Date Value 12/25/2021 0.71 Abs Eosin (k/uL) Date Value 12/25/2021 0.35 Abs Baso (k/uL) Date Value 12/25/2021 0.04 Creatinine Date Value Ref Range Status 05/08/2022 0.80 0.73 - 1.22 mg/dL Final 12/25/2021 0.53 (L) 0.67 - 1.17 mg/dL Final 11/15/2021 0.56 (L) 0.73 - 1.22 mg/dL Final 11/14/2021 0.59 (L) 0.73 - 1.22 mg/dL Final No results found for: PSA, PSAPER URINE POC No results found for this basename: uglucpoc,ubilipoc,uketonpoc,usgp oc,uhbpoc,uphpoc,upropoc,uuropoc ,unitpoc,uw bcpoc,ucolpoc,uclarpoc IMAGING: None No imaging to review. ALLERGIES: ALLERGIES No Known Allergies MEDICATIONS: XARELTO 20 mg tablet TAKE ONE TABLET BY MOUTH ONCE DAILY WITH THE LARGEST MEAL OF THE DAY SEMGLEE,INSULIN GLARG-YFGN,PEN 100 unit/mL (3 mL) insulin pen Inject 35 Units subcutaneously once daily. acetaminophen (TYLENOL) 325 mg tablet Take 650 mg by mouth every 6 hours as needed for pain or fever (specify). insulin lispro (HUMALOG KWIKPEN) 100 unit/mL Inject 12 Units subcutaneously w MEALS. (Patient taking differently: Inject 9 Units subcutaneously w MEALS.) Does the patient take any herbal medications?: No HISTORIES PAST MEDICAL HISTORY Diagnosis Date Diabetes mellitus (HCC) DVT (deep venous thrombosis) (HCC) 12/2021 Penile lesion Penile venereal warts PONV (postoperative nausea and vomiting) Vertebral osteomyelitis (HCC) 12/19/2021 thoracic spine Smoking Status Reviewed: Yes REVIEW OF SYSTEMS GENERAL: No fever, chills, weight loss, or fatigue. HEAD AND NECK: No blurred vision or Sjogren's syndrome CARDIOVASCULAR: NO CHEST PAIN, PALPITATIONS, ANKLE EDEMA RESPIRATORY: No chronic cough, wheezing, dyspnea, hemoptysis. MUSCULOSKELETAL: NO CHRONIC BACK PAIN, ARTHRITIS, CHRONIC NECK PAIN SKIN: NO VARICOSE VEINS, RASH, ABNORMAL ITCHING BLOOD/LYMPHATIC: No easy bleeding, easy bruising, transfusion Hx NEUROLOGICAL: NO HEADACHES, NUMBNESS, SEIZURES, STROKE PSYCHIATRIC: No depression or inordinate anxiety The remainder of the ROS was negative. PHYSICAL EXAMINATION Ht 170.2 cm (5' 7 ) Wt 98.4 kg (217 lb) BMI 33.99 kg/m? General appearance: Well appearing, alert, in no acute distress, and well-hydrated, well nourished Skin: Skin color, texture, turgor normal, no suspicious rashes or lesions Head: Normocephalic, no masses, lesions, tenderness or abnormalities Abdomen: Normal abdominal exam, Abdomen soft, non-tender. Bowel sounds normal. No masses, organomegaly Genitourinary: MALE EXAM: healed anterior penile area - no redness. No palpable inguinal adenopathy. Melvin in place. PVR: NA Urodynamic Results Uroflow not interpreted PVR Flow CMG First sensation 61 Max volume 118 Uninhibited bladder contractions yes Leakage no EMG nl Nl compliance UPP not interpreted Leakage MUCP Pressure Flow PVR 5 Flow 21 EMG nl High pressure Summary SAMSON DI Low capacity IMPRESSION/PLAN: Multiple large penile lesions, now c/w penile cancer Margins negative. Original condyloma CT C/A/P- 06/2023 - negative. Needs restaging now. Urodynamics with SAMSON, DI and small capacity. Fill and pull voiding trial done today. He has (more content not included)... [facility] 09-24-2022 Note HNO ID: [id number] Author: Ashtyn Castillo RN Service: ? Author Type: ? Type: Progress Notes Filed: 10/01/2022 2:19 PM Note Text: Miguel Rodrigez [id number] 1960 September 24, 2022 Diagnoses: Urinary Retention UA done: No Procedure Performed: Multichannel urodynamic testing including multichannel cystometrogram, pressure voiding study, and EMG. Was a uroflow done at some point during the study: Yes Was a cystometrogram performed: Yes Was a UPP done: No Was an EMG done: Yes Was an intraabdominal pressure recorded: Yes Where were pressure catheters placed: Bladder and Rectal Procedure: The patient verified medications and allergies. The procedure was explained to the patient. Immediately prior to the test the patient was given Keflex 500 mg #1 by mouth and Lidocaine 2% jelly 11 ml to urethra per order. UNIVERSAL PROTOCOL / SAFETY CHECKLIST A moment to CARE: Completed Procedure to be performed: Urodynamics Sign in Communication: Completed Time Out: Team Confirms the Correct Patient, Correct Procedure, Correct Site and Site Marking, Correct Position (if applicable), Prep and Dry Time (if applicable). Time: 1000 Affirmation of Time Out: YES Sign Out Discussion: Completed Urodynamic Findings: Uroflow : Patient arrived with a melvin catheter- Yes, Specify 16 F coude catheter. 10 ml balloon deflated and catheter removed for test. Cystometrogram: The patient had a cystometrogram EMG: Yes First Sensation 61 ml First desire 82 ml Strong Desire 92 ml Capacity 118 ml The patient did not leak with cough. detrusor contractions beginning at 50 ml Instability associated with urge: Yes Instability associated with leakage: No Pressure-Flow Voiding Study: EMG: Yes Void 6.3 ml + large amount on the floor missed the graduate; Curve: Intermittent Post void residual: 5 ml Maximum detrusor pressure 108.8 Cm H20 Maximum flow rate: 21.8 ml/sec Average flow rate: 0.1 ml/sec UDS notes: Melvin catheter replaced. 10 ml balloon inflated. With first catheter attempt patient c/o pain/pressure inside lower abdomen when filling the balloon. Stopped replacement, and then replaced catheter with another one. Plan: Patient will follow up with provider to discuss plan of care and results. Patient tolerated the procedure well. Home going instructions given. Patient able to repeat back understanding of instructions. Ashtyn Castillo RN cc: Yue Mccoy DO Urodynamic Results Uroflow not interpreted PVR Flow CMG First sensation 61 Max volume 118 Uninhibited bladder contractions yes Leakage no EMG nl Nl compliance UPP not interpreted Leakage MUCP Pressure Flow PVR 5 Flow 21 EMG nl High pressure Summary SAMSON DI Low capacity Luis Hamilton Jr, MD [facility] 09-24-2022 History of Presen t illness Narrative Miguel Rodrigez [id number] 1960 September 24, 2022 Diagnoses: Urinary Retention UA done: No Procedure Performed: Multichannel urodynamic testing including multichannel cystometrogram, pressure voiding study, and EMG. Was a uroflow done at some point during the study: Yes Was a cystometrogram performed: Yes Was a UPP done: No Was an EMG done: Yes Was an intraabdominal pressure recorded: Yes Where were pressure catheters placed: Bladder and Rectal Procedure: The patient verified medications and allergies. The procedure was explained to the patient. Immediately prior to the test the patient was given Keflex 500 mg #1 by mouth and Lidocaine 2% jelly 11 ml to urethra per order. UNIVERSAL PROTOCOL / SAFETY CHECKLIST A moment to CARE: Completed Procedure to be performed: Urodynamics Sign in Communication: Completed Time Out: Team Confirms the Correct Patient, Correct Procedure, Correct Site and Site Marking, Correct Position (if applicable), Prep and Dry Time (if applicable). Time: 1000 Affirmation of Time Out: YES Sign Out Discussion: Completed Urodynamic Findings: Uroflow : Patient arrived with a melvin catheter- Yes, Specify 16 F coude catheter. 10 ml balloon deflated and catheter removed for test. Cystometrogram: The patient had a cystometrogram EMG: Yes First Sensation 61 ml First desire 82 ml Strong Desire 92 ml Capacity 118 ml The patient did not leak with cough. detrusor contractions beginning at 50 ml Instability associated with urge: Yes Instability associated with leakage: No Pressure-Flow Voiding Study: EMG: Yes Void 6.3 ml + large amount on the floor missed the graduate; Curve: Intermittent Post void residual: 5 ml Maximum detrusor pressure 108.8 Cm H20 Maximum flow rate: 21.8 ml/sec Average flow rate: 0.1 ml/sec UDS notes: Melvin catheter replaced. 10 ml balloon inflated. With first catheter attempt patient c/o pain/pressure inside lower abdomen when filling the balloon. Stopped replacement, and then replaced catheter with another one. Plan: Patient will follow up with provider to discuss plan of care and results. Patient tolerated the procedure well. Home going instructions given. Patient able to repeat back understanding of instructions. Ashtyn Castillo RN cc: Yue Mccoy DO documented in this encounter [facility] 09-24-2022 Instructions Ashtyn Castillo RN - 09/24/2022 10:45 AM EST POST PROCEDURE INSTRUCTIONS Miguel Rodrigez September 24, 2022 Increase your fluid intake. WHEN TO CALL THE DOCTOR: If you develop fever (over 101 degrees) or chills. If you cannot urinate or empty your bladder. If you develop symptoms of a urinary tract infection such as burning or pain with urination, increased frequency of urination or foul smelling urine If you have any other questions or problems. Office phone number; [phone] documented in this encounter [facility] 07-20-2022 Miscellaneous Notes Patient called in to update us that he was admitted to [facility] over the weekend was diagnosed with PEs, started on oral anticoagulant. He just wanted to Dr. Forrest to be aware, let him know I would update her. He said he had been doing well overall, he is checking his pulse ox, has not dropped below 92%. Advised him to follow up with his PCP for management of PE. He understands & will call them to schedule a follow up. Regina Molina RN documented in this encounter [facility] 07-01-2022 Miscellaneous Notes Advised patient of message below. Patient verbalize understanding. Elana [place] RN Patient contacted the office back. Instructed on Dr. Mccoy's message below. Patient verbalize understanding. Patient would like to schedule with oncology. Contacted Madelin Vazquez who states she will send a call to [facility] will contact the patient to schedule the appointment. Call was disconnected. Attempted to call back. No answer. Left VM. Elana [place] RN Left message for patient to return call to office. Ana Pearce Cma No cancer seen in Chest Abdomen or Pelvis I still recommend an oncology evaluation Please set up appt with oncology I called and spoke with patient and he just wants to make sure that you got all the cancer. Please Advise. Thanks. Please Advise, and next step. Patient called he is wondering if Dr. Salguero can give him a call and go over his CT scans that he completed on 06/26/[address] [address] chest/abd/pelvis. documented in this encounter [facility] 07-01-2022 Miscellaneous Notes Patient said Jose will re-send over the forms. They had the wrong fax #. Jose fax # [phone]. Regina Arroyo RN Patient called in asking about a request form from jose (?) I let him know I didn't see anything in our documentation. I looked in scanned documents and didn't see anything. I let him know if they can re fax the information to us or I can fax them Dr Oneill last office notes. Regina Arroyo RN documented in this encounter [facility] 06-26-2022 Note HNO ID: [id number] Author: RT Abdullahi(R) Service: ? Author Type: Bow Tacker Type: Progress Notes Filed: 06/26/2022 1:18 PM Note Text: Radiology Service Progress Note DATE OF SERVICE: June 26, 2022 TIME: 1:18 PM PATIENT IDENTITY VERIFICATION COMPLETED USING TWO (2) STANDARD IDENTIFIERS: Name and Date of confirmed by patient verbally. FALL SCREENING: Has the patient had 2 falls in the last year or 1 fall with injury or currently using an Ambulatory Assistive Device (Walker, Cane, Wheelchair, Crutches, etc.)? No PATIENT GENDER DATA: Male PATIENT RELEVANT IMPLANT DATA REVIEWED: Yes ALLERGIES: Reviewed and unchanged CONTRAST ALLERGY: NO. EXAM: CT -CONTRAST INDUCED NEPHROPATHY RISK FACTORS: Not applicable CREATININE: Creatinine Date Value Ref Range Status 05/08/2022 0.80 0.73 - 1.22 mg/dL Final 12/25/2021 0.53 (L) 0.67 - 1.17 mg/dL Final 11/15/2021 0.56 (L) 0.73 - 1.22 mg/dL Final Estimated Glomerular Filtration Rate Date Value Ref Range Status 05/08/2022 102 >=60 mL/min/1.73m? Final Comment: Estimated Glomerular Filtration Rate (eGFR) is calculated using the 2020 CKD-EPI creatinine equation. This equation utilizes serum creatinine, sex, and age as parameters. The creatinine assay has traceable calibration to isotope dilution-mass spectrometry. Refer to KDIGO guidelines for clinical interpretation. In patients with unstable renal function, e.g. those with acute kidney injury, the eGFR may not accurately reflect actual GFR. P.O.C.T. RESULTS: POC done: Yes, See Lab Tab June 26, 2022 TREATMENT: N/A PERIPHERAL IV DATA: Ambulatory: A peripheral IV was started in the Left hand with a Angio cath: 22 gauge. RADIOLOGY DEPARTMENT: CT; Exam(s) Completed: Chest Abdomen Pelvis SIGNATURE: RT Melia(R) PATIENT NAME: Miguel Rodrigez DATE: June 26, 2022 TIME: 1:18 PM [facility] 06-26-2022 History of Presen t illness Narrative Radiology Service Progress Note DATE OF SERVICE: June 26, 2022 TIME: 1:18 PM PATIENT IDENTITY VERIFICATION COMPLETED USING TWO (2) STANDARD IDENTIFIERS: Name and Date of confirmed by patient verbally. FALL SCREENING: Has the patient had 2 falls in the last year or 1 fall with injury or currently using an Ambulatory Assistive Device (Walker, Cane, Wheelchair, Crutches, etc.)? No PATIENT GENDER DATA: Male PATIENT RELEVANT IMPLANT DATA REVIEWED: Yes ALLERGIES: Reviewed and unchanged CONTRAST ALLERGY: NO. EXAM: CT -CONTRAST INDUCED NEPHROPATHY RISK FACTORS: Not applicable CREATININE: Creatinine Date Value Ref Range Status 05/08/2022 0.80 0.73 - 1.22 mg/dL Final 12/25/2021 0.53 (L) 0.67 - 1.17 mg/dL Final 11/15/2021 0.56 (L) 0.73 - 1.22 mg/dL Final Estimated Glomerular Filtration Rate Date Value Ref Range Status 05/08/2022 102 >=60 mL/min/1.73m Final Comment: Estimated Glomerular Filtration Rate (eGFR) is calculated using the 2020 CKD-EPI creatinine equation. This equation utilizes serum creatinine, sex, and age as parameters. The creatinine assay has traceable calibration to isotope dilution-mass spectrometry. Refer to KDIGO guidelines for clinical interpretation. In patients with unstable renal function, e.g. those with acute kidney injury, the eGFR may not accurately reflect actual GFR. P.O.C.T. RESULTS: POC done: Yes, See Lab Tab June 26, 2022 TREATMENT: N/A PERIPHERAL IV DATA: Ambulatory: A peripheral IV was started in the Left hand with a Angio cath: 22 gauge. RADIOLOGY DEPARTMENT: CT; Exam(s) Completed: Chest Abdomen Pelvis SIGNATURE: Izabela RT Geneva(R) PATIENT NAME: Miguel Rodrigez DATE: June 26, 2022 TIME: 1:18 PM documented in this encounter [facility] 06-25-2022 Miscellaneous Notes Spoke with patient & confirmed that he knew about the baclofen three times daily, he was aware. Regina Arroyo RN Left VM returning patients call, left phone # and ext to return call. Regina Arroyo RN documented in this encounter [facility] 06-24-2022 Miscellaneous Notes Called patient per Dr. Forrest's request regarding his MRI results. Patient noted he was still experiencing cramping to his low back, but noted this was much improved. Notified Dr. Forrest and stated we could increase his baclofen. Left voice mail with change of baclofen frequency. Left call back number and extension for further questions. Mendy Patterson RN documented in this encounter [facility] 06-23-2022 Note HNO ID: [id number] Author: RT Fanny(R) Service: ? Author Type: Technologist Type: Progress Notes Filed: 06/23/2022 1:39 PM Note Text: Radiology Service Progress Note DATE OF SERVICE: June 23, 2022 TIME: 1:33 PM PATIENT IDENTITY VERIFICATION COMPLETED USING TWO (2) STANDARD IDENTIFIERS: Name and Date of confirmed by patient verbally. FALL SCREENING: Has the patient had 2 falls in the last year or 1 fall with injury or currently using an Ambulatory Assistive Device (Walker, Cane, Wheelchair, Crutches, etc.)? No PATIENT GENDER DATA: Male PATIENT RELEVANT IMPLANT DATA REVIEWED: Yes ALLERGIES: Reviewed and unchanged CONTRAST ALLERGY: NO. EXAM: MRI - CONTRAST TYPE: GROUP II PERIPHERAL IV DATA: Ambulatory: A peripheral IV was started in the Right antecubital site with a Angio cath: 22 gauge. RADIOLOGY DEPARTMENT: MR; Exam(s) Completed: Spine: Thoracic spine SIGNATURE: RT Fanny(R) PATIENT NAME: Miguel Rodrigez DATE: June 23, 2022 TIME: 1:33 PM [facility] 06-23-2022 Miscellaneous Notes Called and left voicemail with call back number and extension to update him per Dr. Forrest. Mendy Patterson RN documented in this encounter [facility] 06-23-2022 History of Presen t illness Narrative Radiology Service Progress Note DATE OF SERVICE: June 23, 2022 TIME: 1:33 PM PATIENT IDENTITY VERIFICATION COMPLETED USING TWO (2) STANDARD IDENTIFIERS: Name and Date of confirmed by patient verbally. FALL SCREENING: Has the patient had 2 falls in the last year or 1 fall with injury or currently using an Ambulatory Assistive Device (Walker, Cane, Wheelchair, Crutches, etc.)? No PATIENT GENDER DATA: Male PATIENT RELEVANT IMPLANT DATA REVIEWED: Yes ALLERGIES: Reviewed and unchanged CONTRAST ALLERGY: NO. EXAM: MRI - CONTRAST TYPE: GROUP II PERIPHERAL IV DATA: Ambulatory: A peripheral IV was started in the Right antecubital site with a Angio cath: 22 gauge. RADIOLOGY DEPARTMENT: MR; Exam(s) Completed: Spine: Thoracic spine SIGNATURE: RT Fanny(R) PATIENT NAME: Miguel Rodrigez DATE: June 23, 2022 TIME: 1:33 PM documented in this encounter [facility] 06-12-2022 Miscellaneous Notes Called patient and informed him an xray order was placed along with the CT and MRI. Informed him he can go to any [facility] location as a walk in and obtain the xray. He was thankful for the call and stated he would get it done same day as his MRI. No further questions at this time. Veronica Downs RN documented in this encounter [facility] 06-12-2022 Note HNO ID: [id number] Author: Maria Esther Forrest MD, PhD Service: ? Author Type: Physician Type: Progress Notes Filed: 06/12/2022 11:25 AM Note Text: NEUROSURGERY FOLLOW UP OFFICE NOTE Maria Esther Forrest MD Date of visit: June 12, 2022 Patient Name: Mr.Gail Norman Rodrigez Date of : 1960 Current Age: [age] year old Sex: male MRN/E# [id number] Last Office Visit: 05/12/2022 Chief Complaint: Patient presents with: Established Patient SUBJECTIVE: Miguel Rodrigez is a 61 year old, right handed male who presents to the office today for a follow up visit, for his 6 month post operative evaluation. At his last visit on 12/22/2021 he presented for his 7 week post operative visit. He noted improvement from his pre surgical symptoms. He continued with numbness to his spine and sides, but noted improvement. He continued with right lower extremity numbness and heaviness. He also noted numbness to his left leg. He noted he was using a walker and wheelchair for ambulation assistance. Overall, he was pleased with surgery. It was recommended that he follow up in 6 months with repeat MRI thoracic spine, prompting his visit today. Today he states overall he has been doing well since his spine surgery. He notes his back pain is very minimal and if any is present at night. He notes his spasms are still bothersome to him. He denies taking his muscle relaxant at this time. He notes when he does experience spasms, the pain will radiate to his lumbar spine. He notes some leg stiffness at times. He continues with use of walker for assistance, but denies any falls. Overall, he is very pleased with his progress post operatively. He is here for evaluation and plan of care. Symptoms: back pain, leg numbness, and weakness PREVIOUS CONSERVATIVE TREATMENTS: Percocet PREVIOUS SURGERY: T6-T11 posterior instrumented arthrodesisT8-9 laminectomy and transpedicular approach to ventral phlegmon- 11/07/2021 PAIN EVALUATION 06/12/2022 1012 Pain Level: 2 Pain Location: Back Description: Spasm Duration Units: Unknown Frequency: Intermittent Comments: back is improving, but having worsening spasms in edwina legs PAST MEDICAL HISTORY Diagnosis Date Diabetes mellitus (HCC) DVT (deep venous thrombosis) ([facility]) 12/2021 Penile lesion Penile venereal warts PONV (postoperative nausea and vomiting) Vertebral osteomyelitis ([facility]) 12/19/2021 thoracic spine PAST SURGICAL HISTORY Procedure Laterality Date BACK SURGERY HX 11/07/2021 T6-11 Laminectomy INGUINAL HERNIA REPAIR HX Left 2017 FAMILY HISTORY Problem Relation Age of Onset other (chf) Mother COPD Sister Diabetes Brother ALLERGIES No Known Allergies Current Outpatient Medications Medication Sig Dispense Refill SEMGLEE,INSULIN GLARG-YFGN,PEN 100 unit/mL (3 mL) insulin pen Inject 35 Units subcutaneously once daily. acetaminophen (TYLENOL) 325 mg tablet Take 650 mg by mouth every 6 hours as needed for pain or fever (specify). insulin lispro (HUMALOG KWIKPEN) 100 unit/mL Inject 12 Units subcutaneously w MEALS. (Patient taking differently: Inject 9 Units subcutaneously w MEALS.) No current facility-administered medications for this visit. REVIEW OF SYSTEMS Review of Systems Constitutional: Negative for diaphoresis, fatigue and fever. HENT: Negative for congestion, sinus pressure and sore throat. Eyes: Negative for discharge and itching. Respiratory: Negative for cough, chest tightness and shortness of breath. Cardiovascular: Negative for chest pain, palpitations and leg swelling. Gastrointestinal: Negative for constipation, diarrhea, nausea and vomiting. Endocrine: Negative for cold intolerance and heat intolerance. Genitourinary: Negative for difficulty urinating, frequency and urgency. Melvin Musculoskeletal: Positive for gait problem. Negative for back pain, neck pain and neck stiffness. Skin: Negative for rash and wound. Allergic/Immunologic: Negative for environmental allergies and food allergies. Neurological: Positive for weakness. Negative for dizziness, light-headedness, numbness and headaches. Hematological: Does not bruise/bleed easily. Psychiatric/Behavioral: Negative for agitation. The patient is not nervous/anxious. OBJECTIVE: BP 127/84 Pulse 91 Resp 16 Ht 5' 7 (1.70m) Wt 180 lb (81.6kg) SpO2 98% BMI 28.19 kg/(m2). Physical Exam Eyes: General: Lids are normal. Extraocular Movements: Extraocular movements intact. Pupils: Pupils are equal, round, and reactive to light. Musculoskeletal: Comments: Mild swelling in RLE below the knee Neurological Exam Mental Status Awake, alert and oriented to person, place and time. Cranial Nerves CN II: Visual acuity is normal. Visual elder full to confrontation. CN III, IV, : Extraocular movements intact bilaterally. Normal lids and orbits bilaterally. Pupils equal round and reactive to light bilaterally. CN V: Facial sensation is normal. (more content not included)... [facility] 06-12-2022 History of Presen t illness Narrative NEUROSURGERY FOLLOW UP OFFICE NOTE Maria Esther Forrest MD Date of visit: June 12, 2022 Patient Name: Mr.Gail Norman Rodrigez Date of : 1960 Current Age: [age] year old Sex: male MRN/E# [id number] Last Office Visit: 05/12/2022 Chief Complaint: Patient presents with: Established Patient SUBJECTIVE: Miguel Rodrigez is a 61 year old, right handed male who presents to the office today for a follow up visit, for his 6 month post operative evaluation. At his last visit on 12/22/2021 he presented for his 7 week post operative visit. He noted improvement from his pre surgical symptoms. He continued with numbness to his spine and sides, but noted improvement. He continued with right lower extremity numbness and heaviness. He also noted numbness to his left leg. He noted he was using a walker and wheelchair for ambulation assistance. Overall, he was pleased with surgery. It was recommended that he follow up in 6 months with repeat MRI thoracic spine, prompting his visit today. Today he states overall he has been doing well since his spine surgery. He notes his back pain is very minimal and if any is present at night. He notes his spasms are still bothersome to him. He denies taking his muscle relaxant at this time. He notes when he does experience spasms, the pain will radiate to his lumbar spine. He notes some leg stiffness at times. He continues with use of walker for assistance, but denies any falls. Overall, he is very pleased with his progress post operatively. He is here for evaluation and plan of care. Symptoms: back pain, leg numbness, and weakness PREVIOUS CONSERVATIVE TREATMENTS: Percocet PREVIOUS SURGERY: T6-T11 posterior instrumented arthrodesisT8-9 laminectomy and transpedicular approach to ventral phlegmon- 11/07/2021 PAIN EVALUATION 06/12/2022 1012 Pain Level: 2 Pain Location: Back Description: Spasm Duration Units: Unknown Frequency: Intermittent Comments: back is improving, but having worsening spasms in edwina legs PAST MEDICAL HISTORY Diagnosis Date Diabetes mellitus (HCC) DVT (deep venous thrombosis) ([facility]) 12/2021 Penile lesion Penile venereal warts PONV (postoperative nausea and vomiting) Vertebral osteomyelitis ([facility]) 12/19/2021 thoracic spine PAST SURGICAL HISTORY Procedure Laterality Date BACK SURGERY HX 11/07/2021 T6-11 Laminectomy INGUINAL HERNIA REPAIR HX Left 2017 FAMILY HISTORY Problem Relation Age of Onset other (chf) Mother COPD Sister Diabetes Brother ALLERGIES No Known Allergies Current Outpatient Medications Medication Sig Dispense Refill SEMGLEE,INSULIN GLARG-YFGN,PEN 100 unit/mL (3 mL) insulin pen Inject 35 Units subcutaneously once daily. acetaminophen (TYLENOL) 325 mg tablet Take 650 mg by mouth every 6 hours as needed for pain or fever (specify). insulin lispro (HUMALOG KWIKPEN) 100 unit/mL Inject 12 Units subcutaneously w MEALS. (Patient taking differently: Inject 9 Units subcutaneously w MEALS.) No current facility-administered medications for this visit. REVIEW OF SYSTEMS Review of Systems Constitutional: Negative for diaphoresis, fatigue and fever. HENT: Negative for congestion, sinus pressure and sore throat. Eyes: Negative for discharge and itching. Respiratory: Negative for cough, chest tightness and shortness of breath. Cardiovascular: Negative for chest pain, palpitations and leg swelling. Gastrointestinal: Negative for constipation, diarrhea, nausea and vomiting. Endocrine: Negative for cold intolerance and heat intolerance. Genitourinary: Negative for difficulty urinating, frequency and urgency. Melvin Musculoskeletal: Positive for gait problem. Negative for back pain, neck pain and neck stiffness. Skin: Negative for rash and wound. Allergic/Immunologic: Negative for environmental allergies and food allergies. Neurological: Positive for weakness. Negative for dizziness, light-headedness, numbness and headaches. Hematological: Does not bruise/bleed easily. Psychiatric/Behavioral: Negative for agitation. The patient is not nervous/anxious. OBJECTIVE: BP 127/84 Pulse 91 Resp 16 Ht 5' 7 (1.70m) Wt 180 lb (81.6kg) SpO2 98% BMI 28.19 kg/(m^2). Physical Exam Eyes: General: Lids are normal. Extraocular Movements: Extraocular movements intact. Pupils: Pupils are equal, round, and reactive to light. Musculoskeletal: Comments: Mild swelling in RLE below the knee Neurological Exam Mental Status Awake, alert and oriented to person, place and time. Cranial Nerves CN II: Visual acuity is normal. Visual elder full to confrontation. CN III, IV, : Extraocular movements intact bilaterally. Normal lids and orbits bilaterally. Pupils equal round and reactive to light bilaterally. CN V: Facial sensation is normal. CN VII: Full and symmetric facial movement. CN VIII: Hearing is normal. CN IX, X: Palate elevates symmetrically. Normal gag reflex. CN XI: Shoulder shrug strength is normal. CN XII: Tongue midline without atrophy or fasciculations. Motor Right Left Hip flexion 5 5 Knee flexion 5 5 Knee extension 5 5 Plantarflexion 5 5 Dorsiflexion 5 5 Sensory Reduced sensation in bilateral feet. Gait Uses walker for ambulation. Data Review IMAGING STUDIES: Imaging reviewed on June 12, 2022 MRI Thoracic Spine: not obtained today. Will be rescheduled. Personal review of medical records: I reviewed with the patient, history, physical exam, the images and the chart. Assessment & Plan: The patient is now 7 months following a T6-11 posterior instrumented fusion and T8-9 laminectomy for an epidural abscess. He has completed his antibiotic regimen. He is overall doing well. His strength has returned to normal. He continues to have difficulty with muscle spasms and sensation loss in his feet. I have prescribed baclofen 10 mg BID to see if this improves his symptoms. We can increase the dose if necessary. I have also recommended he obtain some compression stockings to see if this improves his swelling. I will plan to see the patient back 1 year after surgery to monitor his progress with repeat films. The following portions of the patient's history were reviewed, confirmed, and updated as necessary: allergies, current medications, past family history, past medical history, past social history, past surgical history, problem list, HPI, and ROS obtained by others. Some elements may be copied from a previous office note and have been reviewed/updated where appropriate. All portions reflect current medical decision making from today. The clinical and radiographic findings as well as the risks, benefits and alternatives of treatment have been reviewed in detail with the patient. Advised to call the office if symptoms worsen or new symptoms develop. Patient expressed understanding and is in agreement with plan. Maria Esther Forrest MD, PhD June 12, 2022 documented in this encounter [facility] 06-04-2022 Note HNO ID: [id number] Author: Jessemarissa Darius, DO Service: ? Author Type: Physician Type: Progress Notes Filed: 06/04/2022 3:14 PM Note Text: [facility] LOCATION: [address] [place] [address] ESTABLISHED PATIENT PATIENT INFO: Miguel Rodrigez 61 year old Chief Complaint: Penile Cancer HPI S/p excision of large penile lesions on 05/15/[address] well[address] Melvin in place. 1-Duration: 2021 2-Location: penis 3-Severity: N/A 4-Quality: Not applicable 5-Context: N/A 6-Timing: N/A 7-Modifying factors: No treatment prior to referral 8-Associated signs AND symptoms: no additional symptoms PATHOLOGY: FINAL DIAGNOSIS A. 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 - The surgical resection margins are uninvolved by carcinoma (closest margin: deep, 4.5 mm). - The tumor invades the dermis. LAB: WBC (k/uL) Date Value 05/08/2022 8.35 RBC (m/uL) Date Value 05/08/2022 5.07 Hemoglobin (g/dL) Date Value 05/08/2022 14.6 Hematocrit (%) Date Value 05/08/2022 42.9 MCV (fL) Date Value 05/08/2022 84.6 MCH (pg) Date Value 05/08/2022 28.8 MCHC (g/dL) Date Value 05/08/2022 34.0 RDW-CV (%) Date Value 05/08/2022 13.0 Platelet Count (k/uL) Date Value 05/08/2022 233 MPV (fL) Date Value 05/08/2022 9.0 Neut% (%) Date Value 12/25/2021 64.8 Lymph% (%) Date Value 12/25/2021 20.7 Cannon% (%) Date Value 12/25/2021 9.4 Baso% (%) Date Value 12/25/2021 0.5 Abs Neut (k/uL) Date Value 12/25/2021 4.88 Abs Cannon (k/uL) Date Value 12/25/2021 0.71 Abs Eosin (k/uL) Date Value 12/25/2021 0.35 Abs Baso (k/uL) Date Value 12/25/2021 0.04 Creatinine Date Value Ref Range Status 05/08/2022 0.80 0.73 - 1.22 mg/dL Final 12/25/2021 0.53 (L) 0.67 - 1.17 mg/dL Final 11/15/2021 0.56 (L) 0.73 - 1.22 mg/dL Final 11/14/2021 0.59 (L) 0.73 - 1.22 mg/dL Final No results found for: PSA, PSAPER URINE POC No results found for this basename: uglucpoc,ubilipoc,uketonpoc,usgp oc,uhbpoc,uphpoc,upropoc,uuropoc ,unitpoc,uw bcpoc,ucolpoc,uclarpoc IMAGING: None No imaging to review. ALLERGIES: ALLERGIES No Known Allergies MEDICATIONS: SEMGLEE,INSULIN GLARG-YFGN,PEN 100 unit/mL (3 mL) insulin pen Inject 35 Units subcutaneously once daily. acetaminophen (TYLENOL) 325 mg tablet Take 650 mg by mouth every 6 hours as needed for pain or fever (specify). insulin lispro (HUMALOG KWIKPEN) 100 unit/mL Inject 12 Units subcutaneously w MEALS. (Patient taking differently: Inject 9 Units subcutaneously w MEALS.) XARELTO 20 mg tablet Take by mouth once daily. (Patient not taking: Reported on 06/04/2022) amoxicillin (POLYMOX, AMOXIL) 500 mg capsule Take 1 capsule by mouth three times daily. (Patient not taking: Reported on 06/04/2022) Does the patient take any herbal medications?: No HISTORIES PAST MEDICAL HISTORY Diagnosis Date Diabetes mellitus (HCC) DVT (deep venous thrombosis) ([facility]) 12/2021 Penile lesion Penile venereal warts PONV (postoperative nausea and vomiting) Vertebral osteomyelitis ([facility]) 12/19/2021 thoracic spine Smoking Status Reviewed: Yes REVIEW OF SYSTEMS GENERAL: No fever, chills, weight loss, or fatigue. HEAD AND NECK: No blurred vision or Sjogren's syndrome CARDIOVASCULAR: NO CHEST PAIN, PALPITATIONS, ANKLE EDEMA RESPIRATORY: No chronic cough, wheezing, dyspnea, hemoptysis. MUSCULOSKELETAL: NO CHRONIC BACK PAIN, ARTHRITIS, CHRONIC NECK PAIN SKIN: NO VARICOSE VEINS, RASH, ABNORMAL ITCHING BLOOD/LYMPHATIC: No easy bleeding, easy bruising, transfusion Hx NEUROLOGICAL: NO HEADACHES, NUMBNESS, SEIZURES, STROKE PSYCHIATRIC: No depression or inordinate anxiety The remainder of the ROS was negative. PHYSICAL EXAMINATION Ht 170.2 cm (5' 7 ) Wt 81.6 kg (180 lb) BMI 28.19 kg/m? General appearance: Well appearing, alert, in no acute distress, and well-hydrated, well nourished Skin: Skin color, texture, turgor normal, no suspicious rashes or lesions Head: Normocephalic, no masses, lesions, tenderness or abnormalities Abdomen: Normal abdominal exam, Abdomen soft, non-tender. Bowel sounds normal. No masses, organomegaly Genitourinary: MALE EXAM: healing penile area - no redness. Melvin in place. PVR: NA IMPRESSION/PLAN: Multiple large penile lesions, now c/w penile cancer Margins negative. Original condyloma Needs CT C/A/P Also needs urodynamics and future voiding trial. May need cysto/TRUS/TURP I spent 30 minutes in the visit, with more than 50% of the total aabg-nl-fuaz time of the visit in counseling / coordination of care. Yue Mccoy DO MBA [facility] 06-04-2022 History of Presen t illness Narrative Images from the original note were not included. [facility] LOCATION: [address] [place] [address] ESTABLISHED PATIENT PATIENT INFO: Miguel Rodrigez 61 year old Chief Complaint: Penile Cancer HPI S/p excision of large penile lesions on 05/15/[address] Doing well. Melvin in place. 1-Duration: 2021 2-Location: penis 3-Severity: N/A 4-Quality: Not applicable 5-Context: N/A 6-Timing: N/A 7-Modifying factors: No treatment prior to referral 8-Associated signs & symptoms: no additional symptoms PATHOLOGY: FINAL DIAGNOSIS A. 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 - The surgical resection margins are uninvolved by carcinoma (closest margin: deep, 4.5 mm). - The tumor invades the dermis. LAB: WBC (k/uL) Date Value 05/08/2022 8.35 RBC (m/uL) Date Value 05/08/2022 5.07 Hemoglobin (g/dL) Date Value 05/08/2022 14.6 Hematocrit (%) Date Value 05/08/2022 42.9 MCV (fL) Date Value 05/08/2022 84.6 MCH (pg) Date Value 05/08/2022 28.8 MCHC (g/dL) Date Value 05/08/2022 34.0 RDW-CV (%) Date Value 05/08/2022 13.0 Platelet Count (k/uL) Date Value 05/08/2022 233 MPV (fL) Date Value 05/08/2022 9.0 Neut% (%) Date Value 12/25/2021 64.8 Lymph% (%) Date Value 12/25/2021 20.7 Cannon% (%) Date Value 12/25/2021 9.4 Baso% (%) Date Value 12/25/2021 0.5 Abs Neut (k/uL) Date Value 12/25/2021 4.88 Abs Cannon (k/uL) Date Value 12/25/2021 0.71 Abs Eosin (k/uL) Date Value 12/25/2021 0.35 Abs Baso (k/uL) Date Value 12/25/2021 0.04 Creatinine Date Value Ref Range Status 05/08/2022 0.80 0.73 - 1.22 mg/dL Final 12/25/2021 0.53 (L) 0.67 - 1.17 mg/dL Final 11/15/2021 0.56 (L) 0.73 - 1.22 mg/dL Final 11/14/2021 0.59 (L) 0.73 - 1.22 mg/dL Final No results found for: PSA, PSAPER URINE POC No results found for this basename: uglucpoc,ubilipoc,uketonpoc,usgp oc,uhbpoc,uphpoc,upropoc,uuropoc ,unitpoc,uwbcpoc,ucolpoc,uclarpo c IMAGING: None No imaging to review. ALLERGIES: ALLERGIES No Known Allergies MEDICATIONS: SEMGLEE,INSULIN GLARG-YFGN,PEN 100 unit/mL (3 mL) insulin pen Inject 35 Units subcutaneously once daily. acetaminophen (TYLENOL) 325 mg tablet Take 650 mg by mouth every 6 hours as needed for pain or fever (specify). insulin lispro (HUMALOG KWIKPEN) 100 unit/mL Inject 12 Units subcutaneously w MEALS. (Patient taking differently: Inject 9 Units subcutaneously w MEALS.) XARELTO 20 mg tablet Take by mouth once daily. (Patient not taking: Reported on 06/04/2022) amoxicillin (POLYMOX, AMOXIL) 500 mg capsule Take 1 capsule by mouth three times daily. (Patient not taking: Reported on 06/04/2022) Does the patient take any herbal medications?: No HISTORIES PAST MEDICAL HISTORY Diagnosis Date Diabetes mellitus ([facility]) DVT (deep venous thrombosis) ([facility]) 12/2021 Penile lesion Penile venereal warts PONV (postoperative nausea and vomiting) Vertebral osteomyelitis ([facility]) 12/19/2021 thoracic spine Smoking Status Reviewed: Yes REVIEW OF SYSTEMS GENERAL: No fever, chills, weight loss, or fatigue. HEAD & NECK: No blurred vision or Sjogren's syndrome CARDIOVASCULAR: NO CHEST PAIN, PALPITATIONS, ANKLE EDEMA RESPIRATORY: No chronic cough, wheezing, dyspnea, hemoptysis. MUSCULOSKELETAL: NO CHRONIC BACK PAIN, ARTHRITIS, CHRONIC NECK PAIN SKIN: NO VARICOSE VEINS, RASH, ABNORMAL ITCHING BLOOD/LYMPHATIC: No easy bleeding, easy bruising, transfusion Hx NEUROLOGICAL: NO HEADACHES, NUMBNESS, SEIZURES, STROKE PSYCHIATRIC: No depression or inordinate anxiety The remainder of the ROS was negative. PHYSICAL EXAMINATION Ht 170.2 cm (5' 7 ) Wt 81.6 kg (180 lb) BMI 28.19 kg/m General appearance: Well appearing, alert, in no acute distress, and well-hydrated, well nourished Skin: Skin color, texture, turgor normal, no suspicious rashes or lesions Head: Normocephalic, no masses, lesions, tenderness or abnormalities Abdomen: Normal abdominal exam, Abdomen soft, non-tender. Bowel sounds normal. No masses, organomegaly Genitourinary: MALE EXAM: healing penile area - no redness. Melvin in place. PVR: NA IMPRESSION/PLAN: Multiple large penile lesions, now c/w penile cancer Margins negative. Original condyloma Needs CT C/A/P Also needs urodynamics and future voiding trial. May need cysto/TRUS/TURP I spent 30 minutes in the visit, with more than 50% of the total kowe-ml-fhmy time of the visit in counseling / coordination of care. Yue Mccoy DO MBA documented in this encounter [facility] 06-01-2022 Miscellaneous Notes Patient gave verbal permission in chart to leave a detailed message on designated line previously in demographics. Gave complete Detailed message to patient on voicemail, and instructed if any questions or concerns with message to call the office back at [phone] and ask for a Nurse. That sounds like a suture - that is ok - I will see it on 06/04 Patient calling as he is seeing a blue string now coming out of the side of the catheter over the last few days. Catheter draining, but he feels that it does burning off and on with urinating. He is stretching the Cipro to get through til OV on 06-04-2022. Is he good to just monitor site? I advised to do the Bacitracin that was sent home with him and to just keep in eye on the string that is there. documented in this encounter [facility] 05-20-2022 Miscellaneous Notes Called patient and left message on his voicemail that no more antibiotics were needed at this time per Dr Mccoy. No more abx needed Patient calls stating he ran out of the bactrim that was prescribed for 7 days. He was wondering if that needed to be refilled. Attempted to contact patient to enquire whether he was having signs of infection and got no answer. Will attempt a call later on in afternoon. documented in this encounter [facility] 05-19-2022 Miscellaneous Notes Patient gave verbal permission in chart to leave a detailed message on designated line previously in demographics. Gave complete Detailed message to patient on voicemail, and instructed if any questions or concerns with message to call the office back at [phone] and ask for a Nurse. Please OA Pool ut patient on for 06-04-2022 at 2 pm for Post Op follow up. Percocet ordered. Ok to see me 06/04 in [place] Patient states that he only has 2 pills left of Percocet. He states that the only people that can drive him are working that day apparently. He states that the dressing doesn't have any blood on it, but was going to remove but a little stuck, and he said he was going to try and soak to remove. I advised to not remove anything right now. Please advise if he can remove, and can he has more Percocet? Roxana, Patient called back and can't make this as he has no ride or car and doesn't drive himself. He's also in a LOT of pain he said and wants to know if anything can be prescribed? Please call him (he's asking if you do, to leave a detailed message). Thanks, Robe Called and left a message with Miguel on the voicemail about 2 pm on 05-21-2022 in [place] for post op follow up. OA pool please add to this spot, thanks. Advised to call back if cannot do this or problems. Post op with me this in [place] documented in this encounter [facility] 05-15-2022 Note HNO ID: [id number] Author: Raina Person RN Service: ? Author Type: Registered Nurse Type: Nursing Progress Note Filed: 05/15/2022 4:46 PM Note Text: Pt states he ihas had chronic catheter and knows how to care for it [facility] 05-15-2022 Note HNO ID: [id number] Author: Carol Cruz APRN.FULL TIME Service: Anesthesiology Author Type: Nurse Line Installer Type: Anesthesia Procedure Notes Filed: 05/15/2022 3:25 PM Note Text: ANESTHESIOLOGY PROCEDURE NOTE Airway General Information Procedure Start Time/Medication Administration: 05/15/2022 2:58 PM Patient location during procedure: OR Staffing FULL TIME: Carol Cruz APRN.FULL TIME Performed by: anesthesiologist Indications and Patient Condition Indications for airway management: anesthesia and airway protection Preoxygenated: yes anesthesia circuit Patient position: sniffing Method: asleep Final Airway Details Final airway type: endotracheal airway Final Endotracheal Airway: ETT Cuffed: yes Successful intubation technique: direct laryngoscopy Endotracheal tube insertion site: oral Blade: Emile Blade size: #4 ETT size (mm): 8.0 Measured from: lips Measurement (cm): 22 Placement verified by: chest auscultation and capnometry Cormack-Lehane Classification: grade I - full view of glottis Number of attempts at approach: 1 Comments Attempt to seat #5 I-gel and #4 cuffed LMA unsuccessful related to air leaks. SIGNATURE: Carol cruz APRN.CRNA PATIENT NAME: Miguel Rodrigez DATE: May 15, 2022 TIME: 3:22 PM CSN: [id number] [facility] 05-12-2022 Miscellaneous Notes Start Bactrim for UTI today documented in this encounter [facility] 05-12-2022 Miscellaneous Notes Patient called asking if there was anything he could do to relieve his leg cramping/spasms that he is experiencing at night. He stated he stopped taking his muscle relaxant because he was becoming constipated. Encouraged patient to try taking the muscle relaxant at night and to purchase over the counter miralax or stool softener with it. Educated him if he starts to experience loose stools to cut back on the miralax. Encouraged him to increased water intake and fiber. Also educated on pumping ankles, stretching or elevating legs. Informed a warm bath may also help relax his muscles. Patient thankful and understanding of this information. Offered him to be evaluated this Wednesday, but he has a scheduled surgery. Encouraged him to update us with any changes as we could arrange a visit with a FRUIT TESTER or PA in out office patient thankful and understanding. Mendy Patterson RN documented in this encounter [facility] 04-28-2022 Miscellaneous Notes Patient calling to see how long he should be off his Eliquis for surgery. Called back and advised that he should discuss with PCP if can be off safely without needing anything else. Also discuss with PAT on Wednesday. Called back if any questions. documented in this encounter [facility] 04-17-[address] Mccoy would you like to see again? Reschedule with clearance? Patient's surgery was cancelled due to finding blood clots in his legs. He wants to reschedule surgery, but this was all back in January of this year. Does Dr. Mccoy need to see him again before surgery or can they go ahead and schedule surgery? Thanks, Robe documented in this encounter [facility] 03-31-2022 Miscellaneous Notes Patient called in stating his muscle spasms in his legs were worsening. He is not within post operative period to be able to prescribe any medications at this time. I offered the patient to schedule an appointment to be re-evaluated and suggested he speak with his PCP regarding medications. He stated he sees them next week and if they would not prescribe something for him he would call us back for a follow up visit. Patient thankful. Encouraged to call with any further questions or concerns. Mendy Gong RN documented in this encounter [facility] 02-27-2022 Note HNO ID: [id number] Author: Shankar Cabello Service: ? Author Type: ? Type: Progress Notes Filed: 02/27/2022 12:31 PM Note Text: Encounter closed per email 02/24/22 [facility] 02-27-2022 History of Presen t illness Narrative Encounter closed per email 02/24/22 documented in this encounter [facility] 01-23-2022 Note HNO ID: [id number] Author: Carley Reeves APRN.CNP Service: ? Author Type: Nurse Practitioner Type: Progress Notes Filed: 01/23/2022 11:12 PM Note Text: Date of Service: 01/23/22 AMBULATORY TELEPHONE VISIT Miguel Rodrigez has consented to this telephone encounter, and acknowledges it's potential limitations (not being able to perform physical exam). Persons Present: patient Some documentation from previous visit of 12/19/21 was copied and pasted, documentation has been reviewed and edited as necessary for today's visit. CHIEF COMPLAINT: Follow up for vertebral osteomyelitis. ASSESSMENT/PLAN: 1. Osteomyelitis of thoracic spine (HCC) 2. Spinal abscess (HCC) 3. Encounter for long-term (current) use of antibiotics Vertebral osteomyelitis w/ epidural phlegmon s/p T6-T11 decompression and fusion on 11/07/21. Tissue culture collected 11/04 and wound culture collected 11/07 both grew Group C beta hemolytic streptococci. Wound culture collected 11/07 also grew Cutibacterium (Propionibacterium) acnes. Clinical Progress: Stable/Improving - denies constitutional symptoms. Pt states he is doing well. Having minimal pain to back just every now and then, goes away quickly. States it is just a pinprick then gone. This is a significant improvement from last OV on 12/19/21 when pain was as high as 8/10. Still has some mild bilateral lower extremity weakness but this is improving. The numbness and tingling he was having to his back and abdomen is much improved and nearly resolved. States the numbness/tingling to his bilateral legs is about the same. Also notes improving swelling to his right leg, stating that it is barely noticeable now, although it is worse toward end of day. States his incision is well healed. Plan developed in collaboration with Dr. Gaitan. Discussed the numbness/tingling to bilateral legs w/ Dr Gaitan, as well as the improving swelling to right leg. This could be r/t the recently diagnosed bilateral leg DVTs. The numbness/tingling could also be r/t the back infection/surgery. Patient seems to be doing well overall though. Will assess CRP, ESR and other labs. -Continue Amoxicillin 500mg orally 3x/day for a total of 6 months (started on 12/21/21). -Probiotic. -Labs on Wednesday at PCP office (previously ordered), then monthly. -Follow up appt w/ me in 2 months -Follow up w/ neurosurgery Dr. Forrest as directed. - amoxicillin (POLYMOX, AMOXIL) 500 mg capsule; Take 1 capsule by mouth three times daily. Dispense: 90 capsule; Refill: 4 4. Leg DVT (deep venous thromboembolism), acute, bilateral (HCC) 12/25/21 - This study is positive for deep venous thrombosis involving the bilateral external iliac veins and left common femoral vein with partial thrombus. ? Partial thrombus in the right popliteal vein. Started on Eliquis. -Continue to take Eliquis as directed. -Patient has follow up appt w/ PCP Dr Ruiz on Wednesday01/26/22 for this. He mentioned to me that he is having trouble getting his insurance to cover Eliquis and I advised him to discuss this w/ Dr Ruiz. Subjective SUBJECTIVE: HPI: Miguel Rodrigez is a 61 year old year old male here today via telephone for ID consult follow up for Vertebral osteomyelitis w/ epidural phlegmon s/p T6-T11 decompression and fusion on 11/07/21. Tissue culture collected 11/04 and wound culture collected 11/07 both grew Group C beta hemolytic streptococci. Wound culture collected 11/07 also grew Cutibacterium (Propionibacterium) acnes. Admitted to [facility] 11/03-11/17/21. Last ID OV was w/ myself on 12/19/21. PMH also significant for Type 2 DM, penile lesion. PCP is Dr. Ruiz. Diagnosis: Vertebral osteomyelitis w/ epidural phlegmon s/p T6-T11 decompression and fusion on 11/07/21. Organism: Group C beta hemolytic streptococci AND Cutibacterium (Propionibacterium) acnes. Antibiotics: Amoxicillin 1gm orally 3x/day x2 weeks. Then Amoxicillin 500mg PO TID x6 months. Was on Ceftriaxone 2gm IV q24h x6 weeks (thru 12/20/21). Labs: 12/25/21 - CBC w/ improving anemia HANDH 12.1/36.6. LFTs unremarkable. Estimated Creatinine Clearance: 140.3 mL/min (A) (based on SCr of 0.53 mg/dL (L)). 12/15/21 - CRP WNL at 0.2. ESR elevated at 85 (was 44 on 12/08). Adverse Effects of Antibiotics: Denies rash. Denies nausea, vomiting, diarrhea, other GI upset. 11/03/21 MRI Thoracic Spine IMPRESSION: 1. Abnormal marrow signal involving T7 and T8 vertebral body extending into bilateral pedicles and posterior elements. ?Extensive abnormal soft tissue finding within paravertebral region bilaterally, right greater than left. ?The right paravertebral soft tissue measures 4.8 x 1.9 cm at T7 vertebral level. Mild vertebral body height loss involving T7 and T8 vertebral bodies. Fluid signal within T7-T8 intervertebral disc. 2. Solidly enhancing epidural lesion extending from inferior aspect of T6 vertebral body down to T9-T10 intervertebral disc space, centered at T7 and T8 (more content not included)... [facility] 01-23-2022 Miscellaneous Notes Sent to [place] pharmacy. Thanks. Carley Reeves APRN, JUANCARLOS-C [facility] due to no [facility]. [facility] [place]? I [facility] to his [facility]. Thank you Maria Del Rosario Alex documented in this encounter [facility] 01-23-2022 Instructions Carley Reeves APRN.NISHA - 01/23/2022 11:04 AM EDT -Continue Amoxicillin 500mg orally 3x/day for a total of 6 months (started on 12/21/21). -Probiotic. -Labs on Wednesday at PCP office (previously ordered), then monthly. -Follow up appt w/ me in 2 months. Patient will call to schedule. -Follow up w/ neurosurgery Dr. Forrest as directed. Bilateral leg DVTs- -Continue to take Eliquis as directed. -Patient has follow up appt w/ PCP Dr Ruiz on Wednesday01/26/22 for this. He mentioned to me that he is having trouble getting his insurance to cover Eliquis and I advised him to discuss this w/ Dr Ruiz. documented in this encounter [facility] 01-23-2022 History of Presen t illness Narrative Date of Service: 01/23/22 AMBULATORY TELEPHONE VISIT Miguel Rodrigez has consented to this telephone encounter, and acknowledges it's potential limitations (not being able to perform physical exam). Persons Present: patient Some documentation from previous visit of 12/19/21 was copied and pasted, documentation has been reviewed and edited as necessary for today's visit. CHIEF COMPLAINT: Follow up for vertebral osteomyelitis. ASSESSMENT/PLAN: 1. Osteomyelitis of thoracic spine (HCC) 2. Spinal abscess (HCC) 3. Encounter for long-term (current) use of antibiotics Vertebral osteomyelitis w/ epidural phlegmon s/p T6-T11 decompression and fusion on 11/07/21. Tissue culture collected 11/04 and wound culture collected 11/07 both grew Group C beta hemolytic streptococci. Wound culture collected 11/07 also grew Cutibacterium (Propionibacterium) acnes. Clinical Progress: Stable/Improving - denies constitutional symptoms. Pt states he is doing well. Having minimal pain to back just every now and then, goes away quickly. States it is just a pinprick then gone. This is a significant improvement from last OV on 12/19/21 when pain was as high as 8/10. Still has some mild bilateral lower extremity weakness but this is improving. The numbness and tingling he was having to his back and abdomen is much improved and nearly resolved. States the numbness/tingling to his bilateral legs is about the same. Also notes improving swelling to his right leg, stating that it is barely noticeable now, although it is worse toward end of day. States his incision is well healed. Plan developed in collaboration with Dr. Gaitan. Discussed the numbness/tingling to bilateral legs w/ Dr Gaitan, as well as the improving swelling to right leg. This could be r/t the recently diagnosed bilateral leg DVTs. The numbness/tingling could also be r/t the back infection/surgery. Patient seems to be doing well overall though. Will assess CRP, ESR and other labs. -Continue Amoxicillin 500mg orally 3x/day for a total of 6 months (started on 12/21/21). -Probiotic. -Labs on Wednesday at PCP office (previously ordered), then monthly. -Follow up appt w/ me in 2 months -Follow up w/ neurosurgery Dr. Forrest as directed. - amoxicillin (POLYMOX, AMOXIL) 500 mg capsule; Take 1 capsule by mouth three times daily. Dispense: 90 capsule; Refill: 4 4. Leg DVT (deep venous thromboembolism), acute, bilateral (HCC) 12/25/21 - This study is positive for deep venous thrombosis involving the bilateral external iliac veins and left common femoral vein with partial thrombus. Partial thrombus in the right popliteal vein. Started on Eliquis. -Continue to take Eliquis as directed. -Patient has follow up appt w/ PCP Dr Ruiz on Wednesday01/26/22 for this. He mentioned to me that he is having trouble getting his insurance to cover Eliquis and I advised him to discuss this w/ Dr Ruiz. Subjective SUBJECTIVE: HPI: Miguel Rodrigez is a 61 year old year old male here today via telephone for ID consult follow up for Vertebral osteomyelitis w/ epidural phlegmon s/p T6-T11 decompression and fusion on 11/07/21. Tissue culture collected 11/04 and wound culture collected 11/07 both grew Group C beta hemolytic streptococci. Wound culture collected 11/07 also grew Cutibacterium (Propionibacterium) acnes. Admitted to [facility] 11/03-11/17/21. Last ID OV was w/ myself on 12/19/21. PMH also significant for Type 2 DM, penile lesion. PCP is Dr. Ruiz. Diagnosis: Vertebral osteomyelitis w/ epidural phlegmon s/p T6-T11 decompression and fusion on 11/07/21. Organism: Group C beta hemolytic streptococci & Cutibacterium (Propionibacterium) acnes. Antibiotics: Amoxicillin 1gm orally 3x/day x2 weeks. Then Amoxicillin 500mg PO TID x6 months. Was on Ceftriaxone 2gm IV q24h x6 weeks (thru 12/20/21). Labs: 12/25/21 - CBC w/ improving anemia H&H 12.1/36.6. LFTs unremarkable. Estimated Creatinine Clearance: 140.3 mL/min (A) (based on SCr of 0.53 mg/dL (L)). 12/15/21 - CRP WNL at 0.2. ESR elevated at 85 (was 44 on 12/08). Adverse Effects of Antibiotics: Denies rash. Denies nausea, vomiting, diarrhea, other GI upset. 11/03/21 MRI Thoracic Spine IMPRESSION: 1. Abnormal marrow signal involving T7 and T8 vertebral body extending into bilateral pedicles and posterior elements. Extensive abnormal soft tissue finding within paravertebral region bilaterally, right greater than left. The right paravertebral soft tissue measures 4.8 x 1.9 cm at T7 vertebral level. Mild vertebral body height loss involving T7 and T8 vertebral bodies. Fluid signal within T7-T8 intervertebral disc. 2. Solidly enhancing epidural lesion extending from inferior aspect of T6 vertebral body down to T9-T10 intervertebral disc space, centered at T7 and T8 vertebral bodies. Spinal cord compression at T7 and T8 vertebral level with abnormal T2 hyperintense spinal cord signal. 3. While above described changes may be secondary to discitis osteomyelitis with extensive phlegmon, possibility of destructive infiltrating mass with epidural extension should be strongly considered given predominantly solid enhancement. Recommend tissue sampling. 4. Edema and enhancement involving inferior endplate of the T6 vertebral body. Edema and enhancement involving the left posterior T9 vertebral body extending into left pedicle and left posterior elements. While this may be reactive or infectious, continued attention follow-up examination is recommended to exclude neoplastic lesion. 12/17/21 - MRI Thoracic Spine IMPRESSION: T7-T8 discitis/osteomyelitis status post decompression and posterior fusion. Focal kyphosis deforms the ventral thoracic cord at T7-T8 level. No definite abnormal cord signal or enhancement. Thecal sac and epidural infectious/inflammatory changes without epidural abscess. Prevertebral infectious/inflammatory changes centered without soft tissue abscess. Anatomic Thoracic/Lumbar Variant: None. L4-5 is considered the level of the iliac crest and assume there are 5 lumbar-type vertebrae. 12/19/21 - Last ID OV w/ myself. Denies constitutional symptoms. Still has pain, his condition overall is significantly improved. Pain from middle of back down, currently 8/10 d/t he was just transported here and that aggravated pain. At rest at [facility], pain is 6-7/10, sometimes lower. Still has bilateral lower extremity weakness but notes that he is definitely getting stronger. Still endorses some numbness, tingling to abdomen, back, bilateral legs (right worse than left). Denies incontinence of urine or stool. States incision is well healed. No open areas, drainage, or redness. Plan-honor COPAT end date; start Amoxicillin 1gm TID x2 wks, then 500mg TID x6 months; probiotic; labs in 2 weeks; follow up in 4 weeks. 12/22/21 - Last OV w/ neurosurgery (Dr Forrest). Pt feels surgery has imprvoed pre-surg symptoms. Note numbness to spine & sides, slightly improved. RLE numb w/ heaviness. Numbness to left leg. Plan-follow up in 6 months w/ repeat MRI thoracic spine. 12/25/21 US DVT Lower Bilat IMPRESSION: This study is positive for deep venous thrombosis involving the bilateral external iliac veins and left common femoral vein with partial thrombus. Partial thrombus in the right popliteal vein. 01/23/22 - Patient states that he is doing well. Having minimal pain to back just every now and then, goes away quickly. States it is just a pinprick then gone. This is a significant improvement from last OV on 12/19/21 when pain was as high as 8/10. Still has some mild bilateral lower extremity weakness but this is improving. He is no longer working w/ PT and is able to ambulate around his home. His PCP advised that he start walking more outside of home as well to gain back his strength. The numbness and tingling he was having to his back and abdomen is much improved and nearly resolved. States the numbness/tingling to his bilateral legs is about the same. Also notes improving swelling to his right leg, stating that it is barely noticeable now, although it is worse toward end of day. States his incision is well healed. Still has melvin catheter. He asked me who needs to change it, as it has been in for approx 40 days now. I advised him to contact urologist office to ask them. He denies incontinence of stool. Recently diagnosed on 12/25/21 w/ Bilateral lower extremity DVT-on Eliquis. They also treated him for yeast in his urine w/ Fluconazole x14 days (thru 01/08/22). 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 PAST SURGICAL HISTORY Procedure Laterality Date BACK SURGERY HX 11/07/2021 T6-11 Laminectomy INGUINAL HERNIA REPAIR HX Left 2017 Social History Tobacco Use Smoking status: Former Smoker Packs/day: 1.00 Years: 25.00 Pack years: 25.00 Types: Cigarettes Quit date: 1995 Years since quittin.4 Smokeless tobacco: Never Used Substance Use Topics Alcohol use: Not Currently Comment: none since 2004 Drug use: Not Currently FAMILY HISTORY Problem Relation Age of Onset other (chf) Mother COPD Sister Diabetes Brother There are no active hospital problems to display for this patient. ALLERGIES No Known Allergies Current Outpatient Medications Medication Sig apixaban (ELIQUIS DVT-PE TREAT 30D START) 5 mg (74 tabs) Take 2 tablets (10 mg) by mouth twice daily for 7 days. Then take 1 tablet (5 mg) by mouth twice daily for 23 days [START ON 01/24/2022] apixaban (ELIQUIS) 5 mg tab(s) Take 1 tablet by mouth twice daily. albuterol HFA (PROVENTIL HFA, VENTOLIN HFA) 90 mcg/actuation inhaler Inhale as instructed. HYDROcodone-acetaminophen (NORCO) 5-325 mg per tablet Take by mouth. predniSONE (DELTASONE) 20 mg tablet Take 40 mg by mouth once daily. acetaminophen (TYLENOL) 325 mg tablet Take 650 mg by mouth every 6 hours as needed for pain or fever (specify). melatonin 3 mg tablet Take 3 mg by mouth once daily as needed for for insomnia. amoxicillin (POLYMOX, AMOXIL) 500 mg capsule Take 2 capsules by mouth three times daily for 14 days, THEN 1 capsule three times daily for 14 days. cyclobenzaprine (FLEXERIL) 10 mg tablet Take 1 tablet by mouth three times daily as needed for muscle spasm. insulin glargine (LANTUS SOLOSTAR, BASAGLAR KWIKPEN) 100 unit/mL (3 mL) Inject 35 Units subcutaneously daily at bedtime. insulin lispro (HUMALOG KWIKPEN) 100 unit/mL Inject 12 Units subcutaneously w MEALS. insulin lispro (HUMALOG KWIKPEN) 100 unit/mL Facility based sliding scale lidocaine (SALONPAS) 4 % patch Apply 1 Patch as directed once daily. oxyCODONE-acetaminophen (PERCOCET) 5-325 mg tablet Take 1 tablet by mouth every 6 hours as needed for pain. senna-docusate (SENNA-S) 8.6-50 mg per tablet Take 1 tablet by mouth twice daily. No current facility-administered medications for this visit. REVIEW OF SYSTEMS: GENERAL: Negative for fatigue, malaise, weakness, fevers, chills, night sweats. Appetite good. RESPIRATORY: Negative for cough, shortness of breath. CARDIOVASCULAR: Negative for chest pain. See HPI re: leg swelling. GI: No nausea, vomiting, or diarrhea MUSCULOSKELETAL: See HPI. SKIN: Negative for lesions, rash. See HPI re: healed incision to thoracic spine. HEMATOLOGY/LYMPHOLOGY: See HPI re: bilateral lower extremity DVT. NEURO: No history of syncope, seizures. See HPI: re: numbness, tingling, weakness. Objective OBJECTIVE: There were no vitals taken for this visit. - d/t this being a telephone visit. PHYSICAL EXAM: - very limited d/t this being a telephone visit. General: Alert and oriented. Answers questions appropriately. Voice is clear and strong. Pleasant affect. Lungs: Patient does not sound as if he is in any apparent distress or short of breath. Able to speak in complete sentences. No cough heard during this phone call. All recent pertinent lab results reviewed, as well as last ID OV note, last OV note from Dr Forrest on 12/22/21, ER note from 12/25 (as well as US DVT results). I spent a total of 28 minutes on the date of the service which included preparing to see the patient, [id number] patient care, completing clinical documentation, obtaining and/or reviewing separately obtained history, performing a medically appropriate examination, counseling and educating the patient/family/caregiver, ordering medications, tests, or procedures, independently interpreting results (not separately reported) and communicating results to the patient/family/caregiver. Carley Reeves, MSN, FORM CARPENTER, MARINE ELECTRICIAN APPRENTICE-C Infectious Disease Respiratory [place] January 23, 2022 documented in this encounter [facility] 01-21-2022 Miscellaneous Notes Telephone visit scheduled for 10am. I attempted to call patient at the number in Linkage x4 (confirmed by Nilsa yesterday as correct number). The final time I called, I was able to leave a VM requesting that the patient call back. Carley Reeves APRN, MARINE ELECTRICIAN APPRENTICE-C documented in this encounter [facility] 12-26-2021 Miscellaneous Notes Hold surgery until cleared by medicine and or hematology to hold eliquis. Usually is 3-6 months December 26, 2021 1:15 PM Will wait to see what Dr. Mccoy advises [place] Pt called states he has a upcoming surgery and was just diagnosed with DVT OF LOWER EXTREMITIES and UTI pt is now on eliquise per ER report documented in this encounter [facility] 12-25-2021 Miscellaneous Notes Returned call & left for patient after receiving his voicemail message about his legs feeling swollen. Upon chart review when I called him he was at [facility] ED. Let him know to call back if needed and let the ED do a workup for the leg swelling. Regina Arroyo RN documented in this encounter [facility] 12-25-2021 Instructions Lucila Ocasio PA-C - 12/25/2021 2:26 PM EDT PATIENT PREOPERATIVE INSTRUCTIONS Yue Mccoy DO has scheduled you for your procedure at this surgery center: [address] [address] Surgery Date: 01-08-2022 Arrival Time: 0800 Surgery Time: 1000AM Please read below carefully for your personalized instructions. Dietary Restrictions: - Nothing to eat or drink after midnight except for a sip of water with approved medications. Medications: Approved medications to take the morning of surgery with a sip of water: Percocet if needed If you start any new medications after today's visit, please contact the surgeon's office. Diabetic Patients: - Check your blood sugar the morning of surgery. - Bring your glucometer on the day of surgery. - Call your PCP or multimedia engineer for insulin instructions for the day before surgery and the day of surgery. -If you are taking the following medications for Type 2 diabetes: Canagliflozin (INVOKANA), dapagliflozin (FARXIGA), and empagliflozin (JARDIANCE) should each be discontinued at least 3 days before scheduled surgery. Ertugliflozin (STEGLATRO) should be discontinued at least four days before scheduled surgery. Blood Thinning Medications: - Stop NSAIDS (Ibuprofen, Advil, Aleve, Motrin, Celebrex, Mobic, Voltaren, Diclofenac, etc.) 7 days before surgery, as directed by your surgeon. You may continue to use your Percocet if needed for pain IF YOU TAKE ANY OF THE FOLLOWING BLOOD THINNERS, PLEASE CONTACT YOUR SURGEON AND THE PHYSICIAN WHO PRESCRIBES IT FOR YOU IN ORDER TO GET PERIOPERATIVE INSTRUCTIONS SOON POSSIBLE. BLOOD THINNERS: Aspirin , Coumadin, Plavix, Eliquis, Pradaxa, Xarelto, Lovenox, Brilinta, Effient, Savaysa, Arixtra, Pletal, etc - Stop Vitamin E, fish oil, multivitamins, Marijuana, CBD oil and other over the counter herbals and dietary supplements 7 days before surgery. Important Reminders: - If you use CPAP/BIPAP, bring the machine with you to the hospital. - If you are prescribed inhalers for breathing, continue using them. - Candy, mints, gum and tobacco products are NOT permitted the morning of surgery. - Hearing aids, dentures and glasses may be worn the morning of surgery. - NO jewelry, body piercings, makeup, hairpins or contacts are to be worn the day of surgery. - If you will require crutches or a walker following your procedure, please bring these items with you on the day of surgery. If you are unsure if you will require walking assistance please call your surgeon's office. - Leave all valuables and money at home or with family members. -If you are undergoing an outpatient procedure you must have someone drive you home and stay with you for 24 hours. Your surgery may be cancelled if you do not have someone to drive you home or take care of you for 24 hours. If you develop symptoms such as a fever, cold, or flu, or have other changes to your health within TWO DAYS of scheduled surgery or the morning of surgery, please contact the surgery center above. Please be aware that emergency situations arise, which may delay or change your surgical time. If this happens, we will notify you as soon as possible and regret any inconvenience. Lucila Ocasio PA-C documented in this encounter [facility] 12-25-2021 History and physical note HISTORY AND PHYSICAL EXAMINATION SERVICE DATE: 12/25/2021 SERVICE TIME: 1:40 PM PRIMARY CARE PHYSICIAN: Roya Ruiz MD REASON FOR VISIT: Miguel Rodrigez is a 61 year old male who is scheduled for Procedure(s): EXCISION MASS PENIS (N/A) CYSTOSCOPY (N/A) AMPUTATION OF PENIS; COMPLETE (N/A) at the request of Dr. Yue Mccoy DO for routine H&P. My final recommendation will be communicated back to the requesting physician by way of shared medical record or letter. Subjective The patient has the following: COVID-19 Immunization Status Overdue - COVID-19 VACCINE (3 - Booster for Pfizer series) Overdue since 06/22/2021 01/20/2021 Imm Admin: COVID-19 vaccine, age 12+ yr (PFIZER-BIONTECH - PURPLE TOP) 12/30/2020 Imm Admin: COVID-19 vaccine, age 12+ yr (PFIZER-BIONTECH - PURPLE TOP) CHIEF COMPLAINT: I am here for surgery HPI: 61 year old male presents to [facility] in preparation for a cytoscopy, excision of penile masses, and amputation of penis. The patient was transferred from [facility] in November after presenting with back and leg pain, and possible T8-9 osteomyelitis. He underwent a laminectomy on 12-03 and while attempting to place a Melvin catheter, he was found to have extensive penile lesion with multiple scattered satellite lesions on the scrotum. Urology was consulted and patient was scheduled for surgical resection. He has discussed the planned surgical procedure with his surgeon and has agree to proceed. REVIEW OF SYSTEMS: General: Negative for: unintentional weight change, malaise and fever. Neurological: Negative for: dementia, headaches, multiple sclerosis, Parkinson's disease, seizures, TIA and strokes. Respiratory: Negative for: asthma, COPD, current cough, dyspnea, pneumonia within 6 weeks and obstructive sleep apnea. Cardiovascular: Negative for: arrhythmia, CAD, chest pain, CHF, DVT/PE, hyperlipidemia, hypertension and murmur/valvular heart disease. GI: Negative for: abdominal pain, dysphagia, GERD, liver disease, nausea and vomiting. : See HPI Endocrine: Patient newly diagnosed with diabetes during recent hospitalization in November; initial A1c on 11-04 was 14.8; patient started on insulin, A1c dropped to 11.5 on 11-18. Positive for: diabetes mellitus. Patient's diabetes mellitus is controlled by insulin. Negative for: hyperthyroidism and hypothyroidism. Hematology: Negative for: anemia, bruises/bleeds easily, factor V Leiden, thrombocytopenia, von Willebrand disease and chronic anti-coagulation/platelet meds. Psych: Negative for: anxiety and depression. Musculoskeletal: Positive for: back pain. Negative for: swelling and rheumatoid arthritis. Skin: Negative for: lesions, itching and rash. 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 PAST SURGICAL HISTORY Procedure Laterality Date BACK SURGERY HX 11/07/2021 T6-11 Laminectomy INGUINAL HERNIA REPAIR HX Left 2017 FAMILY HISTORY Problem Relation Age of Onset other (chf) Mother COPD Sister Diabetes Brother Social History Tobacco Use Smoking status: Former Smoker Packs/day: 1.00 Years: 25.00 Pack years: 25.00 Types: Cigarettes Quit date: 1995 Years since quittin.3 Smokeless tobacco: Never Used Substance Use Topics Alcohol use: Not Currently Comment: none since 2004 Drug use: Not Currently Prior to Admission medications as of 12/25/21 9567 Medication Sig Last Dose Taking amoxicillin (POLYMOX, AMOXIL) 500 mg capsule Take 2 capsules by mouth three times daily for 14 days, THEN 1 capsule three times daily for 14 days. Yes cyclobenzaprine (FLEXERIL) 10 mg tablet Take 1 tablet by mouth three times daily as needed for muscle spasm. Yes insulin glargine (LANTUS SOLOSTAR, BASAGLAR KWIKPEN) 100 unit/mL (3 mL) Inject 35 Units subcutaneously daily at bedtime. Yes insulin lispro (HUMALOG KWIKPEN) 100 unit/mL Inject 12 Units subcutaneously w MEALS. Yes oxyCODONE-acetaminophen (PERCOCET) 5-325 mg tablet Take 1 tablet by mouth every 6 hours as needed for pain. Yes albuterol HFA (PROVENTIL HFA, VENTOLIN HFA) 90 mcg/actuation inhaler Inhale as instructed. HYDROcodone-acetaminophen (NORCO) 5-325 mg per tablet Take by mouth. predniSONE (DELTASONE) 20 mg tablet Take 40 mg by mouth once daily. acetaminophen (TYLENOL) 325 mg tablet Take 650 mg by mouth every 6 hours as needed for pain or fever (specify). melatonin 3 mg tablet Take 3 mg by mouth once daily as needed for for insomnia. enoxaparin (LOVENOX) 40 mg/0.4 mL Inject 0.4 mL subcutaneously q 24 HR. insulin lispro (HUMALOG KWIKPEN) 100 unit/mL Facility based sliding scale lidocaine (SALONPAS) 4 % patch Apply 1 Patch as directed once daily. senna-docusate (SENNA-S) 8.6-50 mg per tablet Take 1 tablet by mouth twice daily. No medication comments found. ALLERGIES No Known Allergies Objective PHYSICAL EXAM: General: alert and oriented and healthy appearance. Pertinent negatives noted - not distressed. Patient arrived in wheelchair, wearing back brace. Skin: normal color, no rash or lesions. HEENT: EOM intact. Pertinent negatives noted - no carotid bruit. Neck supple with FROM, no masses or tenderness, Pharynx clear. Cardiovascular: Tachycardic at 100-110, regular, no murmurs or rubs noted. Respiratory: normal breath sounds, no wheezes or crackles. No chest wall deformity or tenderness. Abdomen: bowel sounds present and soft. Pertinent negatives noted - not tender. Extremities: no deformity, no edema or tenderness, no joint swelling or clubbing. Neurological: normal cognition and motor skills. Patient in wheelchair; gait not assessed. PAIN ASSESSMENT: VITALS: BP 115/85 Pulse 109 Temp (Src) 97.9 (Temporal) Resp 16 Ht 5' 7 (1.70m) Wt 168 lb (76.2kg) SpO2 97% BMI 26.31 kg/(m^2). Diagnostic tests reviewed for today's visit: Lab Value Units Date High Low HB 12.1 g/dL 12/25/2021 17.0 13.0 HCT 36.6 % 12/25/2021 51.0 39.0 WBC 7.54 k/uL 12/25/2021 11.00 3.70 PLT 210 k/uL 12/25/2021 400 150 NA 134 mmol/L 12/25/2021 145 136 K 4.5 mmol/L 12/25/2021 5.1 3.5 GLUC 395 mg/dL 12/25/2021 99 70 BUN 21 mg/dL 12/25/2021 18 7 CREAT 0.53 mg/dL 12/25/2021 1.17 0.67 PTSEC 11.0 sec 11/06/2021 13.0 9.7 INR 1.0 no uni* 11/06/2021 1.3 0.9 APTT 29.3 sec 11/06/2021 32.4 23.0 ALT <5 U/L 11/03/2021 54 10 AST 11 U/L 11/03/2021 40 14 TBILI 0.2 mg/dL 11/03/2021 1.3 0.2 TSH No results within date range. Lab Value Units Date High Low HCGQT No results within date range. UHCG No results within date range. HCG, BODY* No results within date range. Lab Value Units Date High Low ABORHD No results within date range. ABSCREEN No results within date range. Hemoglobin A1C (%) Date Value 11/18/2021 11.5 11/04/2021 14.8 Recent Results (from the past 98685 hour(s)) ECHO Collection Time: 11/05/21 11:48 AM Impression CONCLUSIONS: - Exam indication: Chest Pain - The left ventricle is normal in size. There is no left ventricular hypertrophy. Left ventricular systolic function is normal. EF = 67 5% (2D biplane) Normal left ventricular diastolic function. - The right ventricle is normal in size. Right ventricular systolic function is normal. - No significant valve disease. - The patient has not had a prior CC echocardiographic exam for comparison. * * * Final * * * Assessment METS: Climb a flight of stairs or walk up a hill (5.50 METs) DASI Score: 5.5; Patient denies any chest pain or undue shortness of breath with the above physical activity. ANESTHESIA FINDINGS: Intubation History: No history of difficult intubation Significant Anesthesia Considerations: Airway History: No history of difficult airway I - PHYSICAL EVALUATION II - ANESTHESIA PLAN Anesthetic Plan: general Prepared for Surgery: CONSULTS: The Following Tests/Procedures Have Been Initiated: No orders of the defined types were placed in this encounter. Planned Anesthetic: general ANESTHESIA FINDINGS: FAMILY HIISTORY OF ANESTHESIA: No known issues Implantable Devices: hardware in back CONSULTS: Patient does not require consults for optimization at this time. The Following Tests/Procedures Have Been Initiated: Urine culture, BMP, and CBC; urine sample sent to ED with patient; labs not drawn in PST, but were drawn in the ED Patient has the following medical conditions: Diabetes - Recent diagnosis; pt currently on insulin; last A1c was 11.5 on 11-18-21, down from 14.8 on 11-04-21; pt will see new PCP on 01-02 to further evaluate diabetic control Melvin issues: Patient came with Melvin catheter in place but with drainage bag wrapped in grocery bags; states bag had been leaking since yesterday, grocery bag filled with urine; requesting new bag; obtained new drainage bag from [facility] and changed bag, urine noted to be very cloudy with increased sediment, no hematuria; pt denies any pain or discomfort, denies fever; urinalysis and culture sent RLE edema: Patient states he began having RLE swelling over the past 3 days, denies any calf pain, no erythema, palpable cords, or tenderness; pt had extensive back surgery in November, states he has been using wheelchair at home along with his walker; pt tachycardic on exam, BP stable, denies SOB, pt does not have PCP at present; pt sent to ED for further evaluation to rule out DVT and UTI Assessment/Plan PLAN Planned Procedure: Procedure(s): EXCISION MASS PENIS (N/A) CYSTOSCOPY (N/A) AMPUTATION OF PENIS; COMPLETE (N/A) Instructions Given to Patient: Instructions located in the after visit summary. Patient given verbal and written preop instructions and voices comprehension and compliance. SIGNATURE: Lucila Ocasio PA-C PATIENT NAME: Miguel Rodrigez DATE: December 11, 2021 TIME: 1:45 PM PAGER/CONTACT #: documented in this encounter [facility] 12-22-2021 Note HNO ID: [id number] Author: Maria Esther Forrest MD, PhD Service: ? Author Type: Physician Type: Progress Notes Filed: 12/22/2021 2:06 PM Note Text: NEUROSURGERY POST-OP NOTE Maria Esther Forrest MD Date of visit: December 22, 2021 Patient Name: Mr.Gail Rodrigez Date of : 1960 Current Age: [age] year old Sex: male MRN/E# [id number] Last Office Visit: 11/28/2021 SURGERY: T6-T11 posterior instrumented arthrodesis T8-9 laminectomy and transpedicular approach to ventral phlegmon Intraoperative use of neuronavigation Intraoperative use of spinal monitoring Pre-Surgical Symptoms: back pain, leg numbness, and weakness Patient is having their 7 week post operative visit. Patient feels that surgery has improved his pre surgical symptoms. He notes he has numbness to his spine and sides, but notes this has slightly improved. He also reports his right lower extremity is numb and he has heaviness. He notes numbness to his left leg. He reports he is walking with a walker,but also uses a wheelchair. He notes taking percocet and flexeril when needed. Overall, he is pleased with surgery. Incision: Healed Current Outpatient Medications Medication Sig Dispense Refill - acetaminophen (TYLENOL) 325 mg tablet Take 650 mg by mouth every 6 hours as needed for pain or fever (specify). - melatonin 3 mg tablet Take 3 mg by mouth once daily as needed for for insomnia. - enoxaparin (LOVENOX) 40 mg/0.4 mL Inject 0.4 mL subcutaneously q 24 HR. - insulin glargine (LANTUS SOLOSTAR, BASAGLAR KWIKPEN) 100 unit/mL (3 mL) Inject 35 Units subcutaneously daily at bedtime. - insulin lispro (HUMALOG KWIKPEN) 100 unit/mL Facility based sliding scale - lidocaine (SALONPAS) 4 % patch Apply 1 Patch as directed once daily. - oxyCODONE-acetaminophen (PERCOCET) 5-325 mg tablet Take 1 tablet by mouth every 6 hours as needed for pain. 3 tablet 0 - senna-docusate (SENNA-S) 8.6-50 mg per tablet Take 1 tablet by mouth twice daily. - amoxicillin (POLYMOX, AMOXIL) 500 mg capsule Take 2 capsules by mouth three times daily for 14 days, THEN 1 capsule three times daily for 14 days. (Patient not taking: Reported on 12/22/2021) 126 capsule 0 - bisacodyl EC (DULCOLAX) 5 mg EC tablet Take 2 tablets by mouth once daily. (Patient not taking: Reported on 12/22/2021 ) - cyclobenzaprine (FLEXERIL) 10 mg tablet Take 1 tablet by mouth three times daily as needed for muscle spasm. (Patient not taking: Reported on 12/22/2021 ) - insulin lispro (HUMALOG KWIKPEN) 100 unit/mL Inject 12 Units subcutaneously w MEALS. (Patient not taking: Reported on 12/22/2021 ) - polyethylene glycol 3350 (MIRALAX, GLYCOLAX) 17 gram packet Take 1 Packet by mouth once daily. Dissolve dose in 4 - 8 ounces of liquid and take as directed. (Patient not taking: Reported on 12/22/2021 ) No current facility-administered medications for this visit. Objective Review of Systems Constitutional: Negative for diaphoresis, fatigue and fever. HENT: Negative for congestion, sinus pressure and sore throat. Eyes: Negative for discharge and itching. Respiratory: Negative for cough, chest tightness and shortness of breath. Cardiovascular: Negative for chest pain, palpitations and leg swelling. Gastrointestinal: Negative for constipation, diarrhea, nausea and vomiting. Endocrine: Negative for cold intolerance and heat intolerance. Genitourinary: Negative for difficulty urinating, frequency and urgency. Chronic melvin Musculoskeletal: Positive for back pain and gait problem. Negative for neck pain and neck stiffness. Skin: Negative for rash and wound. Allergic/Immunologic: Negative for environmental allergies and food allergies. Neurological: Positive for weakness. Negative for dizziness, light-headedness, numbness and headaches. Hematological: Does not bruise/bleed easily. Psychiatric/Behavioral: Negative for agitation. The patient is not nervous/anxious. Neurological Exam Mental Status Awake, alert and oriented to person, place and time. Cranial Nerves CN II: Visual acuity is normal. Visual elder full to confrontation. CN III, IV, : Extraocular movements intact bilaterally. Normal lids and orbits bilaterally. Pupils equal round and reactive to light bilaterally. CN V: Facial sensation is normal. CN VII: Full and symmetric facial movement. CN VIII: Hearing is normal. CN IX, X: Palate elevates symmetrically. Normal gag reflex. CN XI: Shoulder shrug strength is normal. CN XII: Tongue midline without atrophy or fasciculations. Motor Right Left Hip flexion 5 5 Knee flexion 5 5 Knee extension 4+ 5 Plantarflexion 5 5 Dorsiflexion 5 5 Sensory Reduced throughout the left leg from the knee down. WOUND ASSESSMENT: Well approximated incision PAIN EVALUATION 12/22/2021 1301 Pain Level: 4 Pain Location: Back-Lower Description: Numbness Duration Units: Weeks Frequency: Continuous Intervention/Comfort measure: Medication;Therapeuti (more content not included)... [facility] 12-22-2021 History of Presen t illness Narrative NEUROSURGERY POST-OP NOTE Maria Esther Forrest MD Date of visit: December 22, 2021 Patient Name: Mr.Gail Rodrigez Date of : 1960 Current Age: [age] year old Sex: male MRN/E# [id number] Last Office Visit: 11/28/2021 SURGERY: T6-T11 posterior instrumented arthrodesis T8-9 laminectomy and transpedicular approach to ventral phlegmon Intraoperative use of neuronavigation Intraoperative use of spinal monitoring Pre-Surgical Symptoms: back pain, leg numbness, and weakness Patient is having their 7 week post operative visit. Patient feels that surgery has improved his pre surgical symptoms. He notes he has numbness to his spine and sides, but notes this has slightly improved. He also reports his right lower extremity is numb and he has heaviness. He notes numbness to his left leg. He reports he is walking with a walker,but also uses a wheelchair. He notes taking percocet and flexeril when needed. Overall, he is pleased with surgery. Incision: Healed Current Outpatient Medications Medication Sig Dispense Refill acetaminophen (TYLENOL) 325 mg tablet Take 650 mg by mouth every 6 hours as needed for pain or fever (specify). melatonin 3 mg tablet Take 3 mg by mouth once daily as needed for for insomnia. enoxaparin (LOVENOX) 40 mg/0.4 mL Inject 0.4 mL subcutaneously q 24 HR. insulin glargine (LANTUS SOLOSTAR, BASAGLAR KWIKPEN) 100 unit/mL (3 mL) Inject 35 Units subcutaneously daily at bedtime. insulin lispro (HUMALOG KWIKPEN) 100 unit/mL Facility based sliding scale lidocaine (SALONPAS) 4 % patch Apply 1 Patch as directed once daily. oxyCODONE-acetaminophen (PERCOCET) 5-325 mg tablet Take 1 tablet by mouth every 6 hours as needed for pain. 3 tablet 0 senna-docusate (SENNA-S) 8.6-50 mg per tablet Take 1 tablet by mouth twice daily. amoxicillin (POLYMOX, AMOXIL) 500 mg capsule Take 2 capsules by mouth three times daily for 14 days, THEN 1 capsule three times daily for 14 days. (Patient not taking: Reported on 12/22/2021) 126 capsule 0 bisacodyl EC (DULCOLAX) 5 mg EC tablet Take 2 tablets by mouth once daily. (Patient not taking: Reported on 12/22/2021 ) cyclobenzaprine (FLEXERIL) 10 mg tablet Take 1 tablet by mouth three times daily as needed for muscle spasm. (Patient not taking: Reported on 12/22/2021 ) insulin lispro (HUMALOG KWIKPEN) 100 unit/mL Inject 12 Units subcutaneously w MEALS. (Patient not taking: Reported on 12/22/2021 ) polyethylene glycol 3350 (MIRALAX, GLYCOLAX) 17 gram packet Take 1 Packet by mouth once daily. Dissolve dose in 4 - 8 ounces of liquid and take as directed. (Patient not taking: Reported on 12/22/2021 ) No current facility-administered medications for this visit. Objective Review of Systems Constitutional: Negative for diaphoresis, fatigue and fever. HENT: Negative for congestion, sinus pressure and sore throat. Eyes: Negative for discharge and itching. Respiratory: Negative for cough, chest tightness and shortness of breath. Cardiovascular: Negative for chest pain, palpitations and leg swelling. Gastrointestinal: Negative for constipation, diarrhea, nausea and vomiting. Endocrine: Negative for cold intolerance and heat intolerance. Genitourinary: Negative for difficulty urinating, frequency and urgency. Chronic melvin Musculoskeletal: Positive for back pain and gait problem. Negative for neck pain and neck stiffness. Skin: Negative for rash and wound. Allergic/Immunologic: Negative for environmental allergies and food allergies. Neurological: Positive for weakness. Negative for dizziness, light-headedness, numbness and headaches. Hematological: Does not bruise/bleed easily. Psychiatric/Behavioral: Negative for agitation. The patient is not nervous/anxious. Neurological Exam Mental Status Awake, alert and oriented to person, place and time. Cranial Nerves CN II: Visual acuity is normal. Visual elder full to confrontation. CN III, IV, : Extraocular movements intact bilaterally. Normal lids and orbits bilaterally. Pupils equal round and reactive to light bilaterally. CN V: Facial sensation is normal. CN VII: Full and symmetric facial movement. CN VIII: Hearing is normal. CN IX, X: Palate elevates symmetrically. Normal gag reflex. CN XI: Shoulder shrug strength is normal. CN XII: Tongue midline without atrophy or fasciculations. Motor Right Left Hip flexion 5 5 Knee flexion 5 5 Knee extension 4+ 5 Plantarflexion 5 5 Dorsiflexion 5 5 Sensory Reduced throughout the left leg from the knee down. WOUND ASSESSMENT: Well approximated incision PAIN EVALUATION 12/22/2021 1301 Pain Level: 4 Pain Location: Back-Lower Description: Numbness Duration Units: Weeks Frequency: Continuous Intervention/Comfort measure: Medication;Therapeutic techniques-CPRP Assessment & Plan: The patient presents for his 6-week follow up appointment. He had a recent MRI completed without evidence of ongoing cord compression and overall stable alignment of the thoracic spine. He has progressed to using a walker to ambulate at home and feels he is getting stronger. He still struggles with numbness of the right leg. He completed IV antibiotics and is now going to begin oral antiobiotics. He was unaware of the plan so I encouraged him to black pickler the prescription from [facility] to start the medication. I will plan to see the patient back in 6 months with a repeat MRI T spine with and without contrast to monitor his progression. I encouraged him to reach out if he has any worsening symptoms. He has an upcoming surgery with urology for concerns of penile cancer. He had questions concerning the melvin that I communicated would be addressed at his surgery if they will be able to remove the melvin or not. He also relayed he does not have any diabetic testing supplies or syringes for his insulin. I encouraged him to call his PCP today to get the prescription. I will also send a MyChart as well. The following portions of the patient's history were reviewed, confirmed, and updated as necessary: allergies, current medications, past family history, past medical history, past social history, past surgical history, problem list, HPI, and ROS obtained by others. Some elements may be copied from a previous office note and have been reviewed/updated where appropriate. All portions reflect current medical decision making from today. The clinical and radiographic findings as well as the risks, benefits and alternatives of treatment have been reviewed in detail with the patient. Advised to call the office if symptoms worsen or new symptoms develop. Patient expressed understanding and is in agreement with plan. Maria Esther Forrest MD, PhD December 22, 2021 documented in this encounter [facility] 12-19-2021 Miscellaneous Notes Noted. Thanks. Prescription sent to [facility] in [place]. Thanks. Carley Reeves APRN, MARINE ELECTRICIAN APPRENTICE-C Spoke with nurse at [facility] to notify of copat stop date and order to remove PICC after last dose on 12-20-21. Detailed voicemail left for patient regarding plan. Patient did confirm that he uses [facility] in [place] for prescriptions. Thank you, Nilsa Zapata RN Please contact patient to tell him that Dr Gaitan and I reviewed his MRI results and it shows improvement. We are honoring COPAT end date of 12/20. PICC line can be removed by RN at SNF after final dose. He is to start Amoxicillin 1gm 3x/day x14 days (after finishing IV Ceftriaxone). Then 500mg 3x/day, which will likely be for 6 months but we will discuss at his follow up appt. Recommend probiotic. Labs in 2 weeks. Please ask him where he would like me to send the prescription, as he told me he is being discharged from the SNF tomorrow. Thanks. Carley Reeves APRN, MARINE ELECTRICIAN APPRENTICE-C documented in this encounter [facility] 12-19-2021 Note HNO ID: [id number] Author: Carley Reeves APRN.TOLL LINEMAN Service: ? Author Type: Nurse Practitioner Type: Progress Notes Filed: 12/21/2021 10:42 AM Note Text: Date of Service: 12/19/21 CHIEF COMPLAINT: Follow up for vertebral osteomyelitis. ASSESSMENT/PLAN: 1. Osteomyelitis of thoracic spine (HCC) 2. Spinal abscess (HCC) 3. Encounter for long-term (current) use of antibiotics Vertebral osteomyelitis w/ epidural phlegmon s/p T6-T11 decompression and fusion on 11/07/21. Tissue culture collected 11/04 and wound culture collected 11/07 both grew Group C beta hemolytic streptococci. Wound culture collected 11/07 also grew Cutibacterium (Propionibacterium) acnes. Clinical Progress: Stable/Improving - Denies constitutional symptoms. States that although he still has pain, his condition overall is significantly improved. Pain from middle of back down, currently 8/10 d/t he was just transported here and that aggravated pain. At rest at [facility], pain is 6-7/10, sometimes lower. Still has bilateral lower extremity weakness but notes that he is definitely getting stronger. Working w/ PT and notes that he is now able to stand by himself for longer periods of time, ambulating w/ walker, working on stairs w/ PT. Does still endorse some numbness, tingling to abdomen, back, bilateral legs (right worse than left). Denies incontinence of urine or stool. States incision is well healed. No open areas, drainage, or redness. See physical exam as documented below. 12/15/21 - CRP WNL at 0.2. ESR elevated at 85 (was 44 on 12/08). Plan developed in collaboration with Dr. Gaitan. Discussed Thoracic MRI results w/ Dr Gaitan (it resulted after patient OV today). Patient updated on plan of care after OV (see telephone encounter). -[place] COPAT end date for IV Ceftriaxone of 12/20. PICC line can be removed by RN at [facility] after final dose. -Start Amoxicillin 1gm orally 3x/day x2 weeks. Then Amoxicillin 500mg PO TID x6 months. -Probiotic. -Labs in 2 weeks. -Follow up in 4 weeks. -Follow up w/ neurosurgery Dr. Forrest as directed. - amoxicillin (POLYMOX, AMOXIL) 500 mg capsule; Take 2 capsules by mouth three times daily for 14 days, THEN 1 capsule three times daily for 14 days. Dispense: 126 capsule; Refill: 0 - CBC + DIFF; Future - CREATININE BLD; Future - HEPATIC FUNCTION PNL; Future - SED RATE WESTERGREN; Future - C-REACTIVE PROTEIN (CRP); Future Subjective SUBJECTIVE: HPI: Miguel Rodrigez is a 61 year old year old male here today for ID consult post hospital follow up for Vertebral osteomyelitis w/ epidural phlegmon s/p T6-T11 decompression and fusion on 11/07/21. Tissue culture collected 11/04 and wound culture collected 11/07 both grew Group C beta hemolytic streptococci. Wound culture collected 11/07 also grew Cutibacterium (Propionibacterium) acnes. Admitted to [facility] 11/03-11/17/21. PMH also significant for Type 2 DM, penile lesion. PCP is Dr. Ruiz. Diagnosis: Vertebral osteomyelitis w/ epidural phlegmon s/p T6-T11 decompression and fusion on 11/07/21. Organism: Group C beta hemolytic streptococci AND Cutibacterium (Propionibacterium) acnes. Antibiotics: Ceftriaxone 2gm IV q24h x6 weeks (thru 12/20; may extend x8 weeks if indicated). Labs: 12/15/21 - CBC w/ WBC WNL (mono % elevated some at 13.6%, abs mono WNL; eos % elevated some at 10.7%, abs eos WNL); stable anemia w/ HANDH 10.7/32.5; platelets WNL. CRP WNL at 0.2. ESR elevated at 85 (was 44 on 12/08). Creatinine 0.61, estimated CrCl 140ml/min. Adverse Effects of Antibiotics: Denies rash. Denies nausea, vomiting, diarrhea, other GI upset. 11/03/21 MRI Thoracic Spine IMPRESSION: 1. Abnormal marrow signal involving T7 and T8 vertebral body extending into bilateral pedicles and posterior elements. ?Extensive abnormal soft tissue finding within paravertebral region bilaterally, right greater than left. ?The right paravertebral soft tissue measures 4.8 x 1.9 cm at T7 vertebral level. Mild vertebral body height loss involving T7 and T8 vertebral bodies. Fluid signal within T7-T8 intervertebral disc. 2. Solidly enhancing epidural lesion extending from inferior aspect of T6 vertebral body down to T9-T10 intervertebral disc space, centered at T7 and T8 vertebral bodies. ? ?Spinal cord compression at T7 and T8 vertebral level with abnormal T2 hyperintense spinal cord signal. 3. While above described changes may be secondary to discitis osteomyelitis with extensive phlegmon, possibility of destructive infiltrating mass with epidural extension should be strongly considered given predominantly solid enhancement. Recommend tissue sampling. 4. Edema and enhancement involving inferior endplate of the T6 vertebral body. ?Edema and enhancement involving the left posterior T9 vertebral body extending into left pedicle and left posterior elements. ?While this may be reactive or infectious, continued attention follow-up examination is recommended to exclude neopla (more content not included)... [facility] 12-19-2021 Instructions Carley Reeves APRN.CNP - 12/19/2021 9:44 AM EDT -MRI results are still in process. I will have Dr Gaitan call the radiologist to get a reading. -We will let you know later today if we need to extend IV antibiotics. -Follow up appt in 4 weeks. -Follow up w/ neurosurgery Dr. Forrest as directed. documented in this encounter [facility] 12-19-2021 History of Presen t illness Narrative Date of Service: 12/19/21 CHIEF COMPLAINT: Follow up for vertebral osteomyelitis. ASSESSMENT/PLAN: 1. Osteomyelitis of thoracic spine (HCC) 2. Spinal abscess (HCC) 3. Encounter for long-term (current) use of antibiotics Vertebral osteomyelitis w/ epidural phlegmon s/p T6-T11 decompression and fusion on 11/07/21. Tissue culture collected 11/04 and wound culture collected 11/07 both grew Group C beta hemolytic streptococci. Wound culture collected 11/07 also grew Cutibacterium (Propionibacterium) acnes. Clinical Progress: Stable/Improving - Denies constitutional symptoms. States that although he still has pain, his condition overall is significantly improved. Pain from middle of back down, currently 8/10 d/t he was just transported here and that aggravated pain. At rest at [facility], pain is 6-7/10, sometimes lower. Still has bilateral lower extremity weakness but notes that he is definitely getting stronger. Working w/ PT and notes that he is now able to stand by himself for longer periods of time, ambulating w/ walker, working on stairs w/ PT. Does still endorse some numbness, tingling to abdomen, back, bilateral legs (right worse than left). Denies incontinence of urine or stool. States incision is well healed. No open areas, drainage, or redness. See physical exam as documented below. 12/15/21 - CRP WNL at 0.2. ESR elevated at 85 (was 44 on 12/08). Plan developed in collaboration with Dr. Gaitan. Discussed Thoracic MRI results w/ Dr Gaitan (it resulted after patient OV today). Patient updated on plan of care after OV (see telephone encounter). -[place] COPAT end date for IV Ceftriaxone of 12/20. PICC line can be removed by RN at [facility] after final dose. -Start Amoxicillin 1gm orally 3x/day x2 weeks. Then Amoxicillin 500mg PO TID x6 months. -Probiotic. -Labs in 2 weeks. -Follow up in 4 weeks. -Follow up w/ neurosurgery Dr. Forrest as directed. - amoxicillin (POLYMOX, AMOXIL) 500 mg capsule; Take 2 capsules by mouth three times daily for 14 days, THEN 1 capsule three times daily for 14 days. Dispense: 126 capsule; Refill: 0 - CBC + DIFF; Future - CREATININE BLD; Future - HEPATIC FUNCTION PNL; Future - SED RATE WESTERGREN; Future - C-REACTIVE PROTEIN (CRP); Future Subjective SUBJECTIVE: HPI: Miguel Rodrigez is a 61 year old year old male here today for ID consult post hospital follow up for Vertebral osteomyelitis w/ epidural phlegmon s/p T6-T11 decompression and fusion on 11/07/21. Tissue culture collected 11/04 and wound culture collected 11/07 both grew Group C beta hemolytic streptococci. Wound culture collected 11/07 also grew Cutibacterium (Propionibacterium) acnes. Admitted to [facility] 11/03-11/17/21. PMH also significant for Type 2 DM, penile lesion. PCP is Dr. Ruiz. Diagnosis: Vertebral osteomyelitis w/ epidural phlegmon s/p T6-T11 decompression and fusion on 11/07/21. Organism: Group C beta hemolytic streptococci & Cutibacterium (Propionibacterium) acnes. Antibiotics: Ceftriaxone 2gm IV q24h x6 weeks (thru 12/20; may extend x8 weeks if indicated). Labs: 12/15/21 - CBC w/ WBC WNL (mono % elevated some at 13.6%, abs mono WNL; eos % elevated some at 10.7%, abs eos WNL); stable anemia w/ H&H 10.7/32.5; platelets WNL. CRP WNL at 0.2. ESR elevated at 85 (was 44 on 12/08). Creatinine 0.61, estimated CrCl 140ml/min. Adverse Effects of Antibiotics: Denies rash. Denies nausea, vomiting, diarrhea, other GI upset. 11/03/21 MRI Thoracic Spine IMPRESSION: 1. Abnormal marrow signal involving T7 and T8 vertebral body extending into bilateral pedicles and posterior elements. Extensive abnormal soft tissue finding within paravertebral region bilaterally, right greater than left. The right paravertebral soft tissue measures 4.8 x 1.9 cm at T7 vertebral level. Mild vertebral body height loss involving T7 and T8 vertebral bodies. Fluid signal within T7-T8 intervertebral disc. 2. Solidly enhancing epidural lesion extending from inferior aspect of T6 vertebral body down to T9-T10 intervertebral disc space, centered at T7 and T8 vertebral bodies. Spinal cord compression at T7 and T8 vertebral level with abnormal T2 hyperintense spinal cord signal. 3. While above described changes may be secondary to discitis osteomyelitis with extensive phlegmon, possibility of destructive infiltrating mass with epidural extension should be strongly considered given predominantly solid enhancement. Recommend tissue sampling. 4. Edema and enhancement involving inferior endplate of the T6 vertebral body. Edema and enhancement involving the left posterior T9 vertebral body extending into left pedicle and left posterior elements. While this may be reactive or infectious, continued attention follow-up examination is recommended to exclude neoplastic lesion. 11/28/21 - Last OV w/ neurosurgery Dr. Forrest. Pt c/o bilateral lower extremities are still very weak and feels like he has no control over his right lower extremity. He reports numbness and tingling from his knees down bilaterally. He is not ambulating at this time. Reports abdomen and back numbness. PE-incision dry & intact, well-approximated, without redness. Plan-sutures removed; follow up in 4 weeks. 12/17/21 - MRI Thoracic Spine IMPRESSION: T7-T8 discitis/osteomyelitis status post decompression and posterior fusion. Focal kyphosis deforms the ventral thoracic cord at T7-T8 level. No definite abnormal cord signal or enhancement. Thecal sac and epidural infectious/inflammatory changes without epidural abscess. Prevertebral infectious/inflammatory changes centered without soft tissue abscess. Anatomic Thoracic/Lumbar Variant: None. L4-5 is considered the level of the iliac crest and assume there are 5 lumbar-type vertebrae. 12/19/21 - Patient here for OV today accompanied by his niece. He states that although he still has pain, his condition overall is significantly improved. He states that he still has pain from middle of back down, currently 8/10 d/t he was just transported here and that aggravated pain. States that when he is at rest at SNF, pain is 6-7/10, sometimes lower than that. Lying down to rest and pain meds help relieve pain. Still has bilateral lower extremity weakness but notes that he is definitely getting stronger. Working w/ PT and notes that he is now able to stand by himself for longer periods of time, ambulating w/ walker, working on stairs w/ PT. Does still endorse some numbness, tingling to abdomen, back, bilateral legs (right worse than left). Denies incontinence of urine or stool. States incision is well healed. No open areas, drainage, or redness. PAST MEDICAL HISTORY Diagnosis Date Diabetes mellitus (HCC) Penile lesion PONV (postoperative nausea and vomiting) Vertebral osteomyelitis (HCC) 12/19/2021 PAST SURGICAL HISTORY Procedure Laterality Date INGUINAL HERNIA REPAIR HX Left 2017 Social History Tobacco Use Smoking status: Former Smoker Packs/day: 1.00 Years: 25.00 Pack years: 25.00 Types: Cigarettes Quit date: 1995 Years since quittin.3 Smokeless tobacco: Never Used Substance Use Topics Alcohol use: Not Currently Comment: 1995 quit Drug use: Not Currently FAMILY HISTORY Problem Relation Age of Onset other (chf) Mother COPD Sister Diabetes Brother There are no active hospital problems to display for this patient. ALLERGIES No Known Allergies Current Outpatient Medications Medication Sig acetaminophen (TYLENOL) 325 mg tablet Take 650 mg by mouth every 6 hours as needed for pain or fever (specify). melatonin 3 mg tablet Take 3 mg by mouth once daily as needed for for insomnia. bisacodyl EC (DULCOLAX) 5 mg EC tablet Take 2 tablets by mouth once daily. cefTRIAXone (ROCEPHIN) 2 gram/50 mL in dextrose (iso-osmotic) Inject 50 mL intravenously every 24 hours for 33 doses. cyclobenzaprine (FLEXERIL) 10 mg tablet Take 1 tablet by mouth three times daily as needed for muscle spasm. enoxaparin (LOVENOX) 40 mg/0.4 mL Inject 0.4 mL subcutaneously q 24 HR. insulin glargine (LANTUS SOLOSTAR, BASAGLAR KWIKPEN) 100 unit/mL (3 mL) Inject 35 Units subcutaneously daily at bedtime. insulin lispro (HUMALOG KWIKPEN) 100 unit/mL Inject 12 Units subcutaneously w MEALS. insulin lispro (HUMALOG KWIKPEN) 100 unit/mL Facility based sliding scale lidocaine (SALONPAS) 4 % patch Apply 1 Patch as directed once daily. oxyCODONE-acetaminophen (PERCOCET) 5-325 mg tablet Take 1 tablet by mouth every 6 hours as needed for pain. polyethylene glycol 3350 (MIRALAX, GLYCOLAX) 17 gram packet Take 1 Packet by mouth once daily. Dissolve dose in 4 - 8 ounces of liquid and take as directed. senna-docusate (SENNA-S) 8.6-50 mg per tablet Take 1 tablet by mouth twice daily. No current facility-administered medications for this visit. REVIEW OF SYSTEMS: GENERAL: Negative for fatigue, malaise, weakness, fevers, chills, night sweats and weight loss. States he is not sleeping well d/t having trouble getting comfortable some nights. Appetite good. HEENT: Negative for frequent or significant headaches NECK: Negative for lumps, pain or significant neck swelling RESPIRATORY: Negative for cough, shortness of breath. CARDIOVASCULAR: Negative for chest pain, leg swelling. GI: No nausea, vomiting, or diarrhea MUSCULOSKELETAL: See HPI. SKIN: Negative for lesions, rash. See HPI re: healed incision to thoracic spine. HEMATOLOGY/LYMPHOLOGY: Negative for prolonged bleeding, bruising easily NEURO: No history of syncope, seizures. See HPI re: numbness, tingling. Also weakness to legs. Objective OBJECTIVE: BP 108/73 Pulse 94 Temp 97.5 Resp 16 Wt 0 lb (0.0kg) SpO2 98% PHYSICAL EXAM: General appearance: Well appearing, alert, in no acute distress, well-hydrated, well nourished male sitting in wheelchair. Pleasant and answers questions appropriately. Has back brace on. Skin: Skin color, texture, turgor normal, no suspicious rashes or lesions to exposed areas of skin. Well approximated, well healed incision to thoracic spine. No open areas or drainage. No surrounding erythema or edema. Skin is not hot to touch. Head: Normocephalic, no masses, lesions, tenderness or abnormalities Eyes: Anicteric sclera. Oropharynx: Lips, mucosa, and tongue normal, teeth and gums normal, oropharynx normal. No thrush. Neck: Supple Back: No pain on palpation of cervical to lumbosacral spine. Patient does note numbness on palpation of thoracic spine and thoracic paraspinal muscles bilaterally. Lungs: Lungs clear to auscultation. No wheezing, rhonchi, rales. Heart: RRR without murmur, gallop, or rubs. No ectopy Abdomen: Normal abdominal exam, Abdomen soft, non-tender. Bowel sounds normal. No masses, organomegaly Extremities: No pedal edema bilaterally. Neuro: Gait not assessed-in wheelchair. PICC Line present to right upper extremity. Dressing dry and intact. unable to view insertion site d/t it is covered w/ occlusive dressing that is CDI. All recent pertinent lab results reviewed, as well as inpatient ID notes, results of MRI thoracic spine 11/03 and 12/17, last OV note from neurosurgery Dr. Forrest on 11/28. I spent a total of 50 minutes on the date of the service which included preparing to see the patient, [id number] patient care, completing clinical documentation, obtaining and/or reviewing separately obtained history, performing a medically appropriate examination, counseling and educating the patient/family/caregiver, communicating with other HCPs (not separately reported), independently interpreting results (not separately reported) and communicating results to the patient/family/caregiver. Carley Reeves MSN, FORM CARPENTER, MARINE ELECTRICIAN APPRENTICE-C Infectious Disease Respiratory [place] December 19, 2021 documented in this encounter [facility] 12-17-2021 Miscellaneous Notes Cop[place] stop date : 12/20/2021 Ceftriaxone Streptococci Beta Hemolytic groupC Office appt 12/19/2021 [place] stop date? Pull PICC? Thank you Maria Del Rosario Alex documented in this encounter [facility] 12-08-2021 Miscellaneous Notes Thank you so kindly. Liv ARAIZA verbalized understanding of the information. Closing. December 08, 2021 12:37 PM Re faxed surgery information to [facility]. [place] Spoke with Liv she did get the information and then I also gave her Dr. Mccoy's message and faxed that for their order records. Faxed that to [phone], fax confirmation. [place] she states that the [place] to your surgery instructions is really fuzzy and can't read, anyway you can refax the stuff again? Im so sorry. [facility] said they can change melvin Surgery is for the biopsy December 08, 2021 10:16 AM Spoke to [facility], all surgery info given and faxed to [phone] [place] Progress Note that came back with patient states that he needs to have melvin changed prior to December 12 Biopsy appt? Based on these results will then proceed if getting the penile mass removed in January? Liv is his Nurse today #[phone] (Mohit Neumann) [facility] Fax :#[phone]. I don't see anything about December 12, we doing it? documented in this encounter [facility] 12-08-2021 Note HNO ID: [id number] Author: [place] Pham Service: ? Author Type: ? Type: Progress Notes Filed: 12/08/2021 10:18 AM Note Text: December 08, 2021 10:17 AM Patient is scheduled for surgery at [facility] with Dr. Mccoy on 01/08/2022 at 10:00am. PAT in [place] on 12/25/2021 at 1:40 pm. Patient is aware of date, time, location, and pre op instructions. Patient had no further questions at this time. Booklet has been faxed to [facility] at [phone]. Post op on 01/20/2022 at 10:45 am in [place] [facility] 12-05-2021 Note HNO ID: [id number] Author: [place] Pham Service: ? Author Type: ? Type: Progress Notes Filed: 12/05/2021 10:55 AM Note Text: December 05, 2021 10:55 AM Called and left patient a voicemail to call me back to schedule. [place] [facility] 12-04-2021 Note HNO ID: [id number] Author: Yue Mccoy, DO Service: ? Author Type: Physician Type: Progress Notes Filed: 12/04/2021 4:15 PM Note Text: ?? [facility] [place] [facility] LOCATION: [address] [place] [address] NEW CONSULT VISIT PATIENT INFO: Miguel Rodrigez 61 year old PCP: Roya Ruiz MD Consultation requested by Roya Ruiz MD and my final recommendations will be communicated back to the requesting physician by way of shared medical record or letter via US mail. Chief Complaint: Penile lesions and urinary retention HPI Hospital follow up. Here from facility. Hospital notes: The patient is a 61 year old male who presented with T8-T9 osteomyelitis with concern for associated abscess on CT scan. Transferred to [facility] for neurosurgery evaluation. Taken to the OR yesterday for laminectomy. When placing Melvin for surgery, patient was noted to have a penile mass, so Urology was called to inspect it. Patient already asleep, unable to obtain history or ROS at thhis time. ? PAST MEDICAL HISTORY: PAST MEDICAL HISTORY PAST MEDICAL HISTORY Diagnosis Date - PONV (postoperative nausea and vomiting) ? ? ? PAST SURGICAL HISTORY: PAST SURGICAL HISTORY PAST SURGICAL HISTORY Procedure Laterality Date - INGUINAL HERNIA REPAIR HX Left 2017 ? ? ALLERGIES: ALLERGIES ALLERGIES No Known Allergies ? ? HOME MEDICATIONS: Prescriptions Prior to Admission No medications prior to admission. ? ? FAMILY HISTORY: Family History Family History Problem Relation Age of Onset - other (chf) Mother ? - COPD Sister ? - Diabetes Brother ? ? ? Social History: Tobacco Use: 1 packs/day, for 25 years. Quit 08/09/1995. Types: Cigarettes ? Alcohol Use: Not Currently (1995 quit) ? ? ? ROS: Unable to assess - intubated/sedated ? ? PHYSICAL EXAM: ? VITALS: Vitals ? 11/07/21 1830 11/07/21 2004 11/08/21 0033 11/08/21 0446 BP: 162/91 156/93 149/87 137/79 Pulse: 92 98 105 99 Resp: 18 17 18 17 Temp: ? 37 ?C (98.6 ?F) 37 ?C (98.6 ?F) 37 ?C (98.6 ?F) TempSrc: ? Oral Oral Oral SpO2: 94% 96% 97% 96% Weight: ? Height: ? General: Intubated/sedated Head: Normocephalic, atraumatic Neck: supple, trachea is midline, no obvious masses Respiratory: intubated Cardiovascular: regular pulse and no cyanosis Musculoskeletal: Unable to assess at this time Skin: warm and dry Psych: normal mood and affect, oriented Abdomen: s/nt/nd : Large wart-like growth completely covering dorsal aspect of the penile shaft and base, with some satellite lesions on the scrotum. Glans normal. Melvin with yellow urine. Pictures uploaded in Linkage. No evidence of lymphadenopathy ? ? ? DATA: ? LABS: BMP: . Glucose (mg/dL) Date Value 11/05/2021 269 ? Potassium (mmol/L) Date Value 11/05/2021 3.7 ? Sodium (mmol/L) Date Value 11/05/2021 132 ? Chloride (mmol/L) Date Value 11/05/2021 99 ? CO2 (mmol/L) Date Value 11/05/2021 26 ? Creatinine (mg/dL) Date Value 11/05/2021 0.54 ? BUN (mg/dL) Date Value 11/05/2021 17 ? Anion Gap (mmol/L) Date Value 11/05/2021 7 ? Calcium, Total (mg/dL) Date Value 11/05/2021 8.4 ? ? CBC: Hemoglobin (g/dL) Date Value 11/05/2021 11.5 ? Hematocrit (%) Date Value 11/05/2021 34.9 ? WBC (k/uL) Date Value 11/05/2021 6.61 ? Platelet Count (k/uL) Date Value 11/05/2021 366 ? Urinalysis: No results found for: PH, SPGR, UGLUC, UBILI, UKET, UHB, UPROT, UROBIL, NITRITES, UWBC, SSA ? Urine Culture: No results found for: URCUL ? RADIOLOGY: CT scans reviewed ? ? ASSESSMENT/PLAN: ? 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 No inpatient interventions DC Melvin catheter per primary Outpatient follow up with Dr. Mccoy, call placed in [facility] for appointment Urology will sign off, please call on-call resident with questions 1-Duration: 2021 2-Location: penis 3-Severity: N/A 4-Quality: Not applicable 5-Context: N/A 6-Timing: N/A 7-Modifying factors: No treatment prior to referral 8-Associated signs AND symptoms: no additional symptoms No question data found. PATHOLOGY: N/A LAB: WBC (k/uL) Date Value 11/15/2021 5.73 RBC (m/uL) Date Value 11/15/2021 3.23 (L) Hemoglobin (g/dL) Date Value 11/15/2021 8.7 (L) Hematocrit (%) Date Value 11/15/2021 27.0 (L) MCV (fL) Date Value 11/15/2021 83.6 MCH (pg) Date Value 11/15/2021 26.9 MCHC (g/dL) Date Value 11/15/2021 32.2 RDW-CV (%) Date Value 11/15/2021 15.1 (H) Platelet Count (k/uL) Date Value 11/15/2021 268 MPV (fL) Date Value 11/15/2021 8.3 (L) Neut% (%) Date Value 11/15/2021 60.8 Lymph% (%) Date Value 11/15/2021 24.6 Cannon% (%) Date Value 11/15/2021 9.8 Baso% (%) Date V (more content not included)... [facility] 12-04-2021 History of Presen t illness Narrative Images from the original note were not included. [facility] [place] [facility] LOCATION: [address] [place] [address] NEW CONSULT VISIT PATIENT INFO: Miguel Rodrigez 61 year old PCP: Roya Ruiz MD Consultation requested by Roya Ruiz MD and my final recommendations will be communicated back to the requesting physician by way of shared medical record or letter via US mail. Chief Complaint: Penile lesions and urinary retention HPI Hospital follow up. Here from facility. Hospital notes: The patient is a 61 year old male who presented with T8-T9 osteomyelitis with concern for associated abscess on CT scan. Transferred to [facility] for neurosurgery evaluation. Taken to the OR yesterday for laminectomy. When placing Melvin for surgery, patient was noted to have a penile mass, so Urology was called to inspect it. Patient already asleep, unable to obtain history or ROS at his time. PAST MEDICAL HISTORY: PAST MEDICAL HISTORY PAST MEDICAL HISTORY Diagnosis Date PONV (postoperative nausea and vomiting) PAST SURGICAL HISTORY: PAST SURGICAL HISTORY PAST SURGICAL HISTORY Procedure Laterality Date INGUINAL HERNIA REPAIR HX Left 2017 ALLERGIES: ALLERGIES ALLERGIES No Known Allergies HOME MEDICATIONS: Prescriptions Prior to Admission No medications prior to admission. FAMILY HISTORY: Family History Family History Problem Relation Age of Onset other (chf) Mother COPD Sister Diabetes Brother Social History: Tobacco Use: 1 packs/day, for 25 years. Quit 08/09/1995. Types: Cigarettes Alcohol Use: Not Currently (1995 quit) ROS: Unable to assess - intubated/sedated PHYSICAL EXAM: VITALS: Vitals 11/07/21 1830 11/07/21 2004 11/08/21 0033 11/08/21 0446 BP: 162/91 156/93 149/87 137/79 Pulse: 92 98 105 99 Resp: 18 17 18 17 Temp: 37 C (98.6 F) 37 C (98.6 F) 37 C (98.6 F) TempSrc: Oral Oral Oral SpO2: 94% 96% 97% 96% Weight: Height: General: Intubated/sedated Head: Normocephalic, atraumatic Neck: supple, trachea is midline, no obvious masses Respiratory: intubated Cardiovascular: regular pulse and no cyanosis Musculoskeletal: Unable to assess at this time Skin: warm and dry Psych: normal mood and affect, oriented Abdomen: s/nt/nd : Large wart-like growth completely covering dorsal aspect of the penile shaft and base, with some satellite lesions on the scrotum. Glans normal. Melvin with yellow urine. Pictures uploaded in [facility]. No evidence of lymphadenopathy DATA: LABS: BMP: . Glucose (mg/dL) Date Value 11/05/2021 269 Potassium (mmol/L) Date Value 11/05/2021 3.7 Sodium (mmol/L) Date Value 11/05/2021 132 Chloride (mmol/L) Date Value 11/05/2021 99 CO2 (mmol/L) Date Value 11/05/2021 26 Creatinine (mg/dL) Date Value 11/05/2021 0.54 BUN (mg/dL) Date Value 11/05/2021 17 Anion Gap (mmol/L) Date Value 11/05/2021 7 Calcium, Total (mg/dL) Date Value 11/05/2021 8.4 CBC: Hemoglobin (g/dL) Date Value 11/05/2021 11.5 Hematocrit (%) Date Value 11/05/2021 34.9 WBC (k/uL) Date Value 11/05/2021 6.61 Platelet Count (k/uL) Date Value 11/05/2021 366 Urinalysis: No results found for: PH, SPGR, UGLUC, UBILI, UKET, UHB, UPROT, UROBIL, NITRITES, UWBC, SSA Urine Culture: No results found for: URCUL RADIOLOGY: CT scans reviewed ASSESSMENT/PLAN: 61 year old male with 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 Mccoy, call placed in [facility] for appointment Urology will sign off, please call on-call resident with questions 1-Duration: 2021 2-Location: penis 3-Severity: N/A 4-Quality: Not applicable 5-Context: N/A 6-Timing: N/A 7-Modifying factors: No treatment prior to referral 8-Associated signs & symptoms: no additional symptoms No question data found. PATHOLOGY: N/A LAB: WBC (k/uL) Date Value 11/15/2021 5.73 RBC (m/uL) Date Value 11/15/2021 3.23 (L) Hemoglobin (g/dL) Date Value 11/15/2021 8.7 (L) Hematocrit (%) Date Value 11/15/2021 27.0 (L) MCV (fL) Date Value 11/15/2021 83.6 MCH (pg) Date Value 11/15/2021 26.9 MCHC (g/dL) Date Value 11/15/2021 32.2 RDW-CV (%) Date Value 11/15/2021 15.1 (H) Platelet Count (k/uL) Date Value 11/15/2021 268 MPV (fL) Date Value 11/15/2021 8.3 (L) Neut% (%) Date Value 11/15/2021 60.8 Lymph% (%) Date Value 11/15/2021 24.6 Cannon% (%) Date Value 11/15/2021 9.8 Baso% (%) Date Value 11/15/2021 0.3 Abs Neut (k/uL) Date Value 11/15/2021 3.48 Abs Cannon (k/uL) Date Value 11/15/2021 0.56 Abs Eosin (k/uL) Date Value 11/15/2021 0.23 Abs Baso (k/uL) Date Value 11/15/2021 <0.03 Creatinine Date Value Ref Range Status 11/15/2021 0.56 (L) 0.73 - 1.22 mg/dL Final 11/14/2021 0.59 (L) 0.73 - 1.22 mg/dL Final 11/13/2021 0.55 (L) 0.73 - 1.22 mg/dL Final 11/12/2021 0.58 (L) 0.73 - 1.22 mg/dL Final No results found for: PSA, PSAPER URINE POC No results found for this basename: uglucpoc,ubilipoc,uketonpoc,usgp oc,uhbpoc,uphpoc,upropoc,uuropoc ,unitpoc,uwbcpoc,ucolpoc,uclarpo c IMAGING: None No imaging to review. ALLERGIES: ALLERGIES No Known Allergies MEDICATIONS: bisacodyl EC (DULCOLAX) 5 mg EC tablet Take 2 tablets by mouth once daily. cefTRIAXone (ROCEPHIN) 2 gram/50 mL in dextrose (iso-osmotic) Inject 50 mL intravenously every 24 hours for 33 doses. cyclobenzaprine (FLEXERIL) 10 mg tablet Take 1 tablet by mouth three times daily as needed for muscle spasm. enoxaparin (LOVENOX) 40 mg/0.4 mL Inject 0.4 mL subcutaneously q 24 HR. insulin glargine (LANTUS SOLOSTAR, BASAGLAR KWIKPEN) 100 unit/mL (3 mL) Inject 35 Units subcutaneously daily at bedtime. insulin lispro (HUMALOG KWIKPEN) 100 unit/mL Inject 12 Units subcutaneously w MEALS. insulin lispro (HUMALOG KWIKPEN) 100 unit/mL Facility based sliding scale lidocaine (SALONPAS) 4 % patch Apply 1 Patch as directed once daily. oxyCODONE-acetaminophen (PERCOCET) 5-325 mg tablet Take 1 tablet by mouth every 6 hours as needed for pain. polyethylene glycol 3350 (MIRALAX, GLYCOLAX) 17 gram packet Take 1 Packet by mouth once daily. Dissolve dose in 4 - 8 ounces of liquid and take as directed. senna-docusate (SENNA-S) 8.6-50 mg per tablet Take 1 tablet by mouth twice daily. Does the patient take any herbal medications?: No Medication list reviewed and reconciled with patient: Yes HISTORIES PAST MEDICAL HISTORY Diagnosis Date PONV (postoperative nausea and vomiting) PAST SURGICAL HISTORY Procedure Laterality Date INGUINAL HERNIA REPAIR HX Left 2017 FAMILY HISTORY Problem Relation Age of Onset other (chf) Mother COPD Sister Diabetes Brother Negative family history: No SOCIAL HISTORY Social History Tobacco Use Smoking status: Former Smoker Packs/day: 1.00 Years: 25.00 Pack years: 25.00 Types: Cigarettes Quit date: 1995 Years since quittin.3 Smokeless tobacco: Never Used Substance Use Topics Alcohol use: Not Currently Comment: 1995 quit Drug use: Not Currently Smoking Status Reviewed: Yes REVIEW OF SYSTEMS: GENERAL: No fever, chills, weight loss, or fatigue. HEAD & NECK: No blurred vision or Sjogren's syndrome CARDIOVASCULAR: NO CHEST PAIN, PALPITATIONS, ANKLE EDEMA RESPIRATORY: No chronic cough, wheezing, dyspnea, hemoptysis. MUSCULOSKELETAL: NO CHRONIC BACK PAIN, ARTHRITIS, CHRONIC NECK PAIN SKIN: NO VARICOSE VEINS, RASH, ABNORMAL ITCHING BLOOD/LYMPHATIC: No easy bleeding, easy bruising, transfusion Hx NEUROLOGICAL: NO HEADACHES, NUMBNESS, SEIZURES, STROKE PSYCHIATRIC: No depression or inordinate anxiety The remainder of the ROS was negative. PHYSICAL EXAMINATION Wt 76.2 kg (168 lb) BMI 26.31 kg/m General appearance: Well appearing, alert, in no acute distress and well-hydrated, well nourished Skin: Skin color, texture, turgor normal, no suspicious rashes or lesions Head: Normocephalic, no masses, lesions, tenderness or abnormalities Neck: Supple, no adenopathy; thyroid symmetric, normal size, no bruits Lungs: Clear to auscultation no wheezing or rhonchi Heart: RRR without murmur, gallop, or rubs. No ectopy Abdomen: Normal abdominal exam, Abdomen soft, non-tender. Bowel sounds normal. No masses, organomegaly Extremities: Extremities normal. No deformities, edema, or skin discoloration. Good capillary refill. Genitourinary: Exam multiple large warty, papillary tumors on the penis, shaft and scrotum. PVR: NA IMPRESSION/PLAN: Multiple warty penile masses, very high volume. [place] Cecy Tumors or penile cancer. Recent neurosurgery with melvin catheter and urinary retention. He has failed multiple voiding trials. Melvin is in place. He will need surgical removal of penile masses with possible penectomy. We discussed this in detail. He will also need a cystoscopy. He would like to proceed once he is stronger - likely in Early January. Risks, benefits, alternatives and personnel discussed with patient who consents to proceed. I spent 45 minutes in the visit, with more than 50% of the total [id number] time of the visit in counseling / coordination of care. Yue Mccoy DO HARINDER Letter to: Roya Ruiz MD documented in this encounter [facility] 12-01-[address] Blair Gaitan to review. He has taken over CoPAT. Michael Lewis MD Received 12/01/2021 weekly [facility]PAT lab results Placed in folder for review documented in this encounter [facility] 11-28-2021 History of Presen t illness Narrative NEUROSURGERY POST-OP NOTE Maria Esther Forrest MD Date of visit: November 28, 2021 Patient Name: Mr.Gail Rodrigez Date of : 1960 Current Age: [age] year old Sex: male MRN/E# [id number] Last Office Visit: Visit date not found SURGERY: T6-T11 posterior instrumented arthrodesis T8-9 laminectomy and transpedicular approach to ventral phlegmon Intraoperative use of neuronavigation Intraoperative use of spinal monitoring Pre-Surgical Symptoms: back pain, leg numbness, and weakness Patient is having their 2 week post operative visit. Patient feels that he has been doing well since surgery. He notes his bilateral lower extremities are still very weak and feels like he has no control over his right lower extremity. He reports numbness and tingling from his knees down bilaterally. He is not ambulating at this time and is in a wheelchair at today's visit. He notes he is standing and pivoting with therapy. He reports abdomen and back numbness. He continues with antibiotics and rehab. Incision: Dry and intact, without redness. Sutures removed at today's visit. Patient tolerated well. Current Outpatient Medications Medication Sig Dispense Refill bisacodyl EC (DULCOLAX) 5 mg EC tablet Take 2 tablets by mouth once daily. cefTRIAXone (ROCEPHIN) 2 gram/50 mL in dextrose (iso-osmotic) Inject 50 mL intravenously every 24 hours for 33 doses. 1500 mL 1 cyclobenzaprine (FLEXERIL) 10 mg tablet Take 1 tablet by mouth three times daily as needed for muscle spasm. enoxaparin (LOVENOX) 40 mg/0.4 mL Inject 0.4 mL subcutaneously q 24 HR. insulin glargine (LANTUS SOLOSTAR, BASAGLAR KWIKPEN) 100 unit/mL (3 mL) Inject 35 Units subcutaneously daily at bedtime. insulin lispro (HUMALOG KWIKPEN) 100 unit/mL Inject 12 Units subcutaneously w MEALS. insulin lispro (HUMALOG KWIKPEN) 100 unit/mL Facility based sliding scale oxyCODONE-acetaminophen (PERCOCET) 5-325 mg tablet Take 1 tablet by mouth every 6 hours as needed for pain. 3 tablet 0 polyethylene glycol 3350 (MIRALAX, GLYCOLAX) 17 gram packet Take 1 Packet by mouth once daily. Dissolve dose in 4 - 8 ounces of liquid and take as directed. senna-docusate (SENNA-S) 8.6-50 mg per tablet Take 1 tablet by mouth twice daily. lidocaine (SALONPAS) 4 % patch Apply 1 Patch as directed once daily. No current facility-administered medications for this visit. Objective Review of Systems Constitutional: Negative for diaphoresis, fatigue and fever. HENT: Negative for congestion, sinus pressure and sore throat. Eyes: Negative for discharge and itching. Respiratory: Negative for cough, chest tightness and shortness of breath. Cardiovascular: Negative for chest pain, palpitations and leg swelling. Gastrointestinal: Positive for constipation. Negative for diarrhea, nausea and vomiting. Endocrine: Negative for cold intolerance and heat intolerance. Genitourinary: Negative for difficulty urinating, frequency and urgency. Musculoskeletal: Positive for back pain and gait problem. Negative for neck pain and neck stiffness. Skin: Negative for rash and wound. Allergic/Immunologic: Negative for environmental allergies and food allergies. Neurological: Positive for weakness. Negative for dizziness and numbness. Hematological: Does not bruise/bleed easily. Psychiatric/Behavioral: Negative for agitation. The patient is not nervous/anxious. Neurological Exam Mental Status Awake, alert and oriented to person, place and time. Cranial Nerves CN II: Visual acuity is normal. Visual elder full to confrontation. CN III, IV, : Extraocular movements intact bilaterally. Normal lids and orbits bilaterally. Pupils equal round and reactive to light bilaterally. CN V: Facial sensation is normal. CN VII: Full and symmetric facial movement. CN VIII: Hearing is normal. CN IX, X: Palate elevates symmetrically. Normal gag reflex. CN XI: Shoulder shrug strength is normal. CN XII: Tongue midline without atrophy or fasciculations. Motor Right Left Hip flexion 5 5 Knee flexion 5 5 Knee extension 4- 5 Plantarflexion 4+ 5 Dorsiflexion 4+ 5 Sensory Reduced sensation to light touch over abdomen and bilateral legs from knees down. WOUND ASSESSMENT: Incision healing, Well approximated incision PAIN EVALUATION 11/28/2021 1331 Pain Level: 8 Pain Location: Back-Middle Description: Aching;Sore Frequency: Continuous Assessment & Plan: The patient presents approximately 2 weeks after undergoing a T6-11 instrumentation with T8-9 laminectomy for epidural abscess. He has some improvement in his strength in the right lower extremity since his hospitalization. His films were reviewed and all hardware is stable. He has follow up with urology and infectious disease. I will plan to see the patient back in 4 weeks to monitor his progress and review the MRI T-spine that is ordered for the beginning of December. The following portions of the patient's history were reviewed, confirmed, and updated as necessary: allergies, current medications, past family history, past medical history, past social history, past surgical history, problem list, HPI, and ROS obtained by others. Some elements may be copied from a previous office note and have been reviewed/updated where appropriate. All portions reflect current medical decision making from today. The clinical and radiographic findings as well as the risks, benefits and alternatives of treatment have been reviewed in detail with the patient. Advised to call the office if symptoms worsen or new symptoms develop. Patient expressed understanding and is in agreement with plan. Maria Esther Forrest MD, PhD November 28, 2021 documented in this encounter [facility] 11-19-2021 Miscellaneous Notes Noted. Thanks. Carley Reeves APRN, FNP-C MRI is scheduled 12/17/2021 @1200 [address] [facility] has been advised Faxed MRI information to [phone] MRI thoracic spine ordered, to be done around 12/15 so that we have results back prior to follow up appt on 12/19/21. Please schedule. Thanks. Carley Reeves APRN, FNP-C For My Documentation: Estimated Creatinine Clearance: 132.8 mL/min (A) (based on SCr of 0.56 mg/dL (L)). documented in this encounter [facility] 11-11-2021 Miscellaneous Notes Please schedule pt for follow up appt w/ me on 12/19/21. Of note, she is still currently inpatient. I will place orders for repeat Lumbar MRI once patient is discharged and will let you know when to schedule. Thanks. Carley Reeves APRN, FNP-C BRIEF SUMMARY: 61 year old male remote tobacco abuse and prior inguinal hernia repair 2017 presented [facility] 11/[facility]/2021 from [facility] at the recommendation of his PCP. Patient has had worsening back pain which has worsened. Patient has increased numbness and weakness in bilateral lower extremities with difficulty walking. CT/CTA CHEST/abd/PELVIS showed findings concerning for T8-T9 discitis/osteomyelitis with paravertebral abscess. Mild mediastinal adenopathy, and mild wall thickening of the colon from splenic flexure thru sigmoid colon. Blood cultures obtained given vanco and recephin X1 and transferred to [facility] for eval by neruosx. Patient afebrile, WBC count 9.25, glucose 334. 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 By early to mid August that shoulder pain improved and then it was spine pain which became so bad he could not work. At some point he developed numbness in his legs and eventually weakness with difficulty walking. He has not had a bowel movement in 3 days but has not had incontinence and no urinary difficulties. Just leg problems and spine pain. No fevers, chills, myalgias. ID diagnosis: Vertebral OM Microbiology: Streptococci group C Other Melo Results: Bilateral lower ext weakness. Source control Procedures:T6-T11 decompression and fusion 11/07 Antibiotic:ceftriaxone Total duration:6-8 weeks Stop date: December 20 Office visit timin weeks Follow up studies: MRI thoracic spine, CRP, ESR. Check for clinical improvement. documented in this encounter [facility] 11-07-2021 Miscellaneous Notes Received 11/24/2021 weekly [facility] lab results Placed in folder for review documented in this encounter [facility] 11-07-2021 Miscellaneous Notes Spoke with TEODORA [place] at [facility], to request weekly lab results. States she will fax them over documented in this encounter [facility] 11-07-2021 Miscellaneous Notes Received 12/15/2021 weekly [facility] lab results Placed in folder for review documented in this encounter [facility] 11-07-2021 Miscellaneous Notes Penile mass noted during catheter placement for spinal fusion. Pictures in chart. Will need outpatient follow up with Dr. Mccoy. documented in this encounter [facility] Evaluation + Plan note No data available for this section [employer] [facility] Diagnosis Abscess in epidural space of thoracic spine- [facility] Status post lumbar spine operation Other postprocedural status [facility] Penile mass- Primary Unspecified disorder of penis Penile venereal warts Condyloma acuminatum Retention, urine Retention of urine, unspecified [facility] Diagnosis Myelitis (HCC) Unspecified cause of encephalitis, myelitis, and encephalomyelitis Penile mass Unspecified disorder of penis Penile wart Other specified viral warts Urine retention Retention of urine, unspecified [facility] Diagnosis Osteomyelitis of thoracic spine (HCC)- Primary Unspecified osteomyelitis, other specified site Spinal abscess (HCC) Acute osteomyelitis, other specified site Encounter for long-term (current) use of antibiotics Penile mass Unspecified disorder of penis Penile wart Other specified viral warts Urine retention Retention of urine, unspecified [facility] Diagnosis Abscess in epidural space of thoracic spine- Primary Intraspinal abscess and granuloma Intraspinal abscess Penile mass Unspecified disorder of penis Penile wart Other specified viral warts Urine retention Retention of urine, unspecified [facility] Diagnosis Pre-op exam- Primary Preoperative examination, unspecified Right leg swelling Swelling of limb Penile lesion Other specified disorder of penis Type 2 diabetes mellitus without complication, with long-term current use of insulin (HCC) Osteomyelitis of other site, unspecified type (HCC) Penile mass Unspecified disorder of penis Penile wart Other specified viral warts Urine retention Retention of urine, unspecified [facility] Diagnosis Osteomyelitis of thoracic spine (HCC) Unspecified osteomyelitis, other specified site Spinal abscess (HCC) Acute osteomyelitis, other specified site Encounter for long-term (current) use of antibiotics [facility] Diagnosis Osteomyelitis of thoracic spine (HCC)- Primary Unspecified osteomyelitis, other specified site Spinal abscess (HCC) Acute osteomyelitis, other specified site Encounter for long-term (current) use of antibiotics Leg DVT (deep venous thromboembolism), acute, bilateral (HCC) [facility] Diagnosis APPOINTMENT CANCELLED- Primary [facility] Diagnosis Penile mass Unspecified disorder of penis [facility] Diagnosis Retention, urine- Primary Retention of urine, unspecified Penile venereal warts Condyloma acuminatum Penile cancer (HCC) Malignant neoplasm of penis, part unspecified [facility] Diagnosis Epidural abscess- Primary Intracranial and intraspinal abscess of unspecified site [facility] Diagnosis Abscess in epidural space of thoracic spine [facility] Diagnosis Retention, urine- Primary Retention of urine, unspecified [facility] Diagnosis Retention, urine- Primary Retention of urine, unspecified [facility] Diagnosis Epidural abscess Intracranial and intraspinal abscess of unspecified site [facility] Diagnosis Discitis of thoracic region- Primary Other and unspecified disc disorder of thoracic region [facility] Diagnosis Penile venereal warts Condyloma acuminatum Penile cancer (HCC) Malignant neoplasm of penis, part unspecified [facility] Diagnosis 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 abscess and granuloma Intraspinal abscess documented in this encounter [facility] Discharge instructions No data available for this section [facility] Progress note No data available for this section [facility] Reason for referral (narrative)* Diagnostic Procedure Only (Routine) - Closed Specialty Diagnoses / Procedures Referred By Contac t Referred To Contact XR IMAGING Diagnoses Status post lumbar spine operation Procedures XR THORACIC LIMITED 2V AP/LAT RADEX SPINE THORACIC 2 VIEWS Ak Provider Adult [address] [place] [address] Xr Imaging Referral ID Status Reason Start Date Expiration Date V isits Requested Visits Authorized [id number] Closed Auto-Generate d Referral 11/25/2021 12/11/2022 1 1 [facility] for referral (narrative)* Outpatient Procedure (Routine) - Pending Review Specialty Diagnoses / Procedures Referred By Contac t Referred To Contact [facility] Diagnoses Penile venereal warts Penile cancer (HCC) Procedures URODYNAMICS ANA ROSA POST-VOIDING RESIDUAL URINE&/BLADDER CAP Yue Mccoy DO [address] [place] [address] [facility] [address] [place] [address] Referral ID Status Reason Start Date Expiration Date Visits Requested Visits Authorized [id number] Pending Review Auto-Generat ed Referral 2 06/04/2023 1 1 * MRI/CT (Routine) - Additional Clinical Info Needed Specialty Diagnoses / Procedures Referred By Contac t Referred To Contact CT IMAGING Diagnoses Penile venereal warts Penile cancer (HCC) Procedures CT CHEST W IVCON DIAGNOSTIC COMPUTED TOMOGRAPHY THORAX W/CONTRAST Yue Mccoy DO [address] [place] [address] Ct Imaging Referral ID Status Reason Start Date Expiration Date Visits Requested Visits Authorized [id number] Additional Clinical Info Needed Auto-Generat ed Referral 2 07/04/2023 1 1 * MRI/CT (Routine) - Additional Clinical Info Needed Specialty Diagnoses / Procedures Referred By Contac t Referred To Contact CT IMAGING Diagnoses Penile venereal warts Penile cancer (HCC) Procedures CT ABD/PEL W IVCON CT ABD & PELVIS W/CONTRAST Yue Mccoy DO [address] [place] [address] Ct Imaging Referral ID Status Reason Start Date Expiration Date Visits Requested Visits Authorized [id number] Additional Clinical Info Needed Auto-Generat ed Referral 2 07/04/2023 1 1 [facility] for referral (narrative)* Diagnostic Procedure Only (Routine) - Pending Review Specialty Diagnoses / Procedures Referred By Contac t Referred To Contact XR IMAGING Diagnoses Epidural abscess Procedures XR THORACIC LIMITED 2V AP/LAT RADEX SPINE THORACIC 2 VIEWS Maria Esther Forrest MD, PhD [address] [place] [address] Xr Imaging Referral ID Status Reason Start Date Expiration Date Visits Requested Visits Authorized [id number] Pending Review Auto-Generat ed Referral 06/12/2022 07/12/2023 1 1 [facility] for referral (narrative)* Diagnostic Procedure Only (Routine) - Closed Specialty Diagnoses / Procedures Referred By Contac t Referred To Contact XR IMAGING Diagnoses Epidural abscess Procedures XR THORACIC LIMITED 2V AP/LAT RADEX SPINE THORACIC 2 VIEWS Maria Esther Forrest MD, PhD [address] [place] [address] Xr Imaging Referral ID Status Reason Start Date Expiration Date V isits Requested Visits Authorized [id number] Closed Auto-Generate d Referral 06/12/2022 07/12/2023 1 1 [facility] for visit Narrative* Diagnostic Procedure Only (Routine) - Closed Specialty Diagnoses / Procedures Referred By Contac t Referred To Contact XR IMAGING Diagnoses Status post lumbar spine operation Procedures XR THORACIC LIMITED 2V AP/LAT RADEX SPINE THORACIC 2 VIEWS Ak Provider Adult [address] [place] [address] Xr Imaging Referral ID Status Reason Start Date Expiration Date V isits Requested Visits Authorized [id number] Closed Auto-Generate d Referral 11/25/2021 12/11/2022 1 1 [facility] for visit Narrative* Diagnostic Procedure Only (Routine) - Closed Specialty Diagnoses / Procedures Referred By Contac t Referred To Contact XR IMAGING Diagnoses Epidural abscess Procedures XR THORACIC LIMITED 2V AP/LAT RADEX SPINE THORACIC 2 VIEWS Maria Esther Forrest MD, PhD [address] [place] [address] Xr Imaging Referral ID Status Reason Start Date Expiration Date V isits Requested Visits Authorized [id number] Closed Auto-Generate d Referral 06/12/2022 07/12/2023 1 1 [facility] Advance Directives Documents on File Type Date Recorded Patient Drama Therapist Expl anation Advance Directive(s) 11/04/2021 10:27 AM Latest Code Status on File Code Status Date Activated Date Inactivated Comments Full Code 11/03/2021 8:14 AM Full Code Order Discussed With: Patient Documents on File Type Date Recorded Patient Drama Therapist Expl anation Advance Directive(s) 11/04/2021 10:27 AM Latest Code Status on File Code Status Date Activated Date Inactivated Comments Full Code 11/03/2021 8:14 AM 11/17/2021 9:20 PM Latest Code Status on File Code Status Date Activated Date Inactivated Comments Full Code 11/03/2021 8:14 AM 11/17/2021 9:20 PM Documents on File Type Date Recorded Patient Drama Therapist Expl anation Advance Directive(s) 12/25/2021 3:36 PM Advance Directive(s) 11/04/2021 10:27 AM Latest Code Status on File Code Status Date Activated Date Inactivated Comments Full Code 11/03/2021 8:14 AM 11/17/2021 9:20 PM Question Answer Comments Full Code Order Discussed With: Patient Reason for Referral Specialty Diagnoses / Procedures Referred By Contac t Referred To Contact MR IMAGING Diagnoses Myelitis (HCC) Procedures MRI THORACIC SPINE WO/W IVCON MRI SPINAL CANAL THORACIC W/O & W/CONTR MATRL Carley Reeves APRN.TOLL LINEMAN [address] [place] [address] Mr Imaging Referral ID Status Reason Start Date Expiration Date Visits Requested Visits Authorized [id number] Additional Clinical Info Needed Auto-Generat ed Referral 12/15/2021 12/19/2022 1 1 Referral ID Status Reason Start Date Expiration Date V isits Requested Visits Authorized [id number] Closed Auto-Generate d Referral 11/20/2021 12/19/2021 1 1 Specialty Diagnoses / Procedures Referred By Contac t Referred To Contact MR IMAGING Diagnoses 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 abscess and granuloma Procedures MRI THORACIC SPINE WO/W IVCON MRI SPINAL CANAL THORACIC W/O & W/CONTR KYLEL Maria Esther Forrest MD, PhD [address] [place] [address] Mr Imaging Referral ID Status Reason Start Date Expiration Date Visits Requested Visits Authorized [id number] Pending Review Auto-Generat ed Referral 12/22/2021 01/21/2023 1 1 Specialty Diagnoses / Procedures Referred By Contac t Referred To Contact Diagnoses Penile mass DariusYue smith, DO [address] [place] [address] Referral ID Status Reason Start Date Expiration Date Visits Re quested Visits Authorized [id number] Closed 1 1 Specialty Diagnoses / Procedures Referred By Contac t Referred To Contact CT IMAGING Diagnoses Penile venereal warts Penile cancer (HCC) Procedures CT CHEST W IVCON DIAGNOSTIC COMPUTED TOMOGRAPHY THORAX W/CONTRAST DariusYue, [address] [place] [address] [place] [id number] Referral ID Status Reason Start Date Expiration Date V isits Requested Visits Authorized [id number] Closed Auto-Generate d Referral 06/06/2022 07/05/2022 2 2 Specialty Diagnoses / Procedures Referred By Contac t Referred To Contact CT IMAGING Diagnoses Penile venereal warts Penile cancer (HCC) Procedures CT ABD/PEL W IVCON CT ABD & PELVIS W/CONTRAST Yue Mccoy DO [address] [place] [address] Ct Imaging [id number] Referral ID Status Reason Start Date Expiration Date V isits Requested Visits Authorized [id number] Closed Auto-Generate d Referral 06/06/2022 07/05/2022 1 1 Specialty Diagnoses / Procedures Referred By Contac t Referred To Contact MR IMAGING Diagnoses 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 abscess and granuloma Procedures MRI THORACIC SPINE WO/W IVCON MRI SPINAL CANAL THORACIC W/O & W/CONTR Maria Esther Menendez MD, PhD [address] [place] [address] Mr Imaging [place] [id number] Referral ID Status Reason Start Date Expiration Date V isits Requested Visits Authorized [id number] Closed Auto-Generate d Referral 12/22/2021 06/26/2022 1 1 Summary Purpose Family History No Family History Records FoundNo Family History Records FoundNo Family History Records Found Medications Administered Section Inactive Administered Medications - up to 3 most recent administrations Medication Order MAR Action Action Date Dose Rate Site cephALEXin 500 mg cap(s) (KEFLEX) 500 mg, ORAL, ONCE (UP TO 30 DAYS AMB), 1 dose, On Wed08/28/22 at 1630, Please document the antimicrobial indication: Prophylaxis Given 09/24/2022 10:00 AM EST 500 mg lidocaine urojet 2 % 11 mL topical gel (XYLOCAINE, GLYDO) 11 mL, URETHRAL, ONCE (UP TO 30 DAYS AMB), 1 dose, On Wed08/28/22 at 1630, Prior to UDS procedure Given 09/24/2022 10:00 AM EST 11 mL Additional Source Comments Source Comments (unrecognize d section and content) In the event this informatio n is protected by the Federal Confidentiality of Alcohol and Drug Abuse Patient Records regulations: The Federal rules restrict any use of the information to criminally investigate or prosecute any alcohol or drug abuse patient.[facility] the event this information is protected by the Federal Confidentiality of Alcohol and Drug Abuse Patient Records regulations: The Federal rules restrict any use of the information to criminally investigate or prosecute any alcohol or drug abuse patient.[facility]In the event this information is protected by the Federal Confidentiality of Alcohol and Drug Abuse Patient Records regulations: The Federal rules restrict any use of the information to criminally investigate or prosecute any alcohol or drug abuse patient.[facility] SystemIn the event this information is protected by the Federal Confidentiality of Alcohol and Drug Abuse Patient Records regulations: The Federal rules restrict any use of the information to criminally investigate or prosecute any alcohol or drug abuse patient.[facility] SystemIn the event this information is protected by the Federal Confidentiality of Alcohol and Drug Abuse Patient Records regulations: The Federal rules restrict any use of the information to criminally investigate or prosecute any alcohol or drug abuse patient.[facility]In the event this information is protected by the Federal Confidentiality of Alcohol and Drug Abuse Patient Records regulations: The Federal rules restrict any use of the information to criminally investigate or prosecute any alcohol or drug abuse patient.[facility] SystemIn the event this information is protected by the Federal Confidentiality of Alcohol and Drug Abuse Patient Records regulations: The Federal rules restrict any use of the information to criminally investigate or prosecute any alcohol or drug abuse patient.[facility] SystemIn the event this information is protected by the Federal Confidentiality of Alcohol and Drug Abuse Patient Records regulations: The Federal rules restrict any use of the information to criminally investigate or prosecute any alcohol or drug abuse patient.[facility]In the event this information is protected by the Federal Confidentiality of Alcohol and Drug Abuse Patient Records regulations: The Federal rules restrict any use of the information to criminally investigate or prosecute any alcohol or drug abuse patient.[facility] SystemIn the event this information is protected by the Federal Confidentiality of Alcohol and Drug Abuse Patient Records regulations: The Federal rules restrict any use of the information to criminally investigate or prosecute any alcohol or drug abuse patient.[facility]In the event this information is protected by the Federal Confidentiality of Alcohol and Drug Abuse Patient Records regulations: The Federal rules restrict any use of the information to criminally investigate or prosecute any alcohol or drug abuse patient.[facility] SystemIn the event this information is protected by the Federal Confidentiality of Alcohol and Drug Abuse Patient Records regulations: The Federal rules restrict any use of the information to criminally investigate or prosecute any alcohol or drug abuse patient.[facility] SystemIn the event this information is protected by the Federal Confidentiality of Alcohol and Drug Abuse Patient Records regulations: The Federal rules restrict any use of the information to criminally investigate or prosecute any alcohol or drug abuse patient.[facility] SystemIn the event this information is protected by the Federal Confidentiality of Alcohol and Drug Abuse Patient Records regulations: The Federal rules restrict any use of the information to criminally investigate or prosecute any alcohol or drug abuse patient.[facility] SystemIn the event this information is protected by the Federal Confidentiality of Alcohol and Drug Abuse Patient Records regulations: The Federal rules restrict any use of the information to criminally investigate or prosecute any alcohol or drug abuse patient.[facility] SystemIn the event this information is protected by the Federal Confidentiality of Alcohol and Drug Abuse Patient Records regulations: The Federal rules restrict any use of the information to criminally investigate or prosecute any alcohol or drug abuse patient.[facility] SystemIn the event this information is protected by the Federal Confidentiality of Alcohol and Drug Abuse Patient Records regulations: The Federal rules restrict any use of the information to criminally investigate or prosecute any alcohol or drug abuse patient.[facility] SystemIn the event this information is protected by the Federal Confidentiality of Alcohol and Drug Abuse Patient Records regulations: The Federal rules restrict any use of the information to criminally investigate or prosecute any alcohol or drug abuse patient.[facility] SystemIn the event this information is protected by the Federal Confidentiality of Alcohol and Drug Abuse Patient Records regulations: The Federal rules restrict any use of the information to criminally investigate or prosecute any alcohol or drug abuse patient.[facility] SystemIn the event this information is protected by the Federal Confidentiality of Alcohol and Drug Abuse Patient Records regulations: The Federal rules restrict any use of the information to criminally investigate or prosecute any alcohol or drug abuse patient.[facility] SystemIn the event this information is protected by the Federal Confidentiality of Alcohol and Drug Abuse Patient Records regulations: The Federal rules restrict any use of the information to criminally investigate or prosecute any alcohol or drug abuse patient.[facility] SystemIn the event this information is protected by the Federal Confidentiality of Alcohol and Drug Abuse Patient Records regulations: The Federal rules restrict any use of the information to criminally investigate or prosecute any alcohol or drug abuse patient.[facility] SystemIn the event this information is protected by the Federal Confidentiality of Alcohol and Drug Abuse Patient Records regulations: The Federal rules restrict any use of the information to criminally investigate or prosecute any alcohol or drug abuse patient.[facility] SystemIn the event this information is protected by the Federal Confidentiality of Alcohol and Drug Abuse Patient Records regulations: The Federal rules restrict any use of the information to criminally investigate or prosecute any alcohol or drug abuse patient.[facility] SystemIn the event this information is protected by the Federal Confidentiality of Alcohol and Drug Abuse Patient Records regulations: The Federal rules restrict any use of the information to criminally investigate or prosecute any alcohol or drug abuse patient.[facility] SystemIn the event this information is protected by the Federal Confidentiality of Alcohol and Drug Abuse Patient Records regulations: The Federal rules restrict any use of the information to criminally investigate or prosecute any alcohol or drug abuse patient.[facility] SystemIn the event this information is protected by the Federal Confidentiality of Alcohol and Drug Abuse Patient Records regulations: The Federal rules restrict any use of the information to criminally investigate or prosecute any alcohol or drug abuse patient.[facility] SystemIn the event this information is protected by the Federal Confidentiality of Alcohol and Drug Abuse Patient Records regulations: The Federal rules restrict any use of the information to criminally investigate or prosecute any alcohol or drug abuse patient.[facility] SystemIn the event this information is protected by the Federal Confidentiality of Alcohol and Drug Abuse Patient Records regulations: The Federal rules restrict any use of the information to criminally investigate or prosecute any alcohol or drug abuse patient.[facility] SystemIn the event this information is protected by the Federal Confidentiality of Alcohol and Drug Abuse Patient Records regulations: The Federal rules restrict any use of the information to criminally investigate or prosecute any alcohol or drug abuse patient.[facility] SystemIn the event this information is protected by the Federal Confidentiality of Alcohol and Drug Abuse Patient Records regulations: The Federal rules restrict any use of the information to criminally investigate or prosecute any alcohol or drug abuse patient.[facility] SystemIn the event this information is protected by the Federal Confidentiality of Alcohol and Drug Abuse Patient Records regulations: The Federal rules restrict any use of the information to criminally investigate or prosecute any alcohol or drug abuse patient.[facility] SystemIn the event this information is protected by the Federal Confidentiality of Alcohol and Drug Abuse Patient Records regulations: The Federal rules restrict any use of the information to criminally investigate or prosecute any alcohol or drug abuse patient.[facility] SystemIn the event this information is protected by the Federal Confidentiality of Alcohol and Drug Abuse Patient Records regulations: The Federal rules restrict any use of the information to criminally investigate or prosecute any alcohol or drug abuse patient.[facility] SystemIn the event this information is protected by the Federal Confidentiality of Alcohol and Drug Abuse Patient Records regulations: The Federal rules restrict any use of the information to criminally investigate or prosecute any alcohol or drug abuse patient.[facility] SystemIn the event this information is protected by the Federal Confidentiality of Alcohol and Drug Abuse Patient Records regulations: The Federal rules restrict any use of the information to criminally investigate or prosecute any alcohol or drug abuse patient.[facility] SystemIn the event this information is protected by the Federal Confidentiality of Alcohol and Drug Abuse Patient Records regulations: The Federal rules restrict any use of the information to criminally investigate or prosecute any alcohol or drug abuse patient.[facility] SystemIn the event this information is protected by the Federal Confidentiality of Alcohol and Drug Abuse Patient Records regulations: The Federal rules restrict any use of the information to criminally investigate or prosecute any alcohol or drug abuse patient.[facility] SystemIn the event this information is protected by the Federal Confidentiality of Alcohol and Drug Abuse Patient Records regulations: The Federal rules restrict any use of the information to criminally investigate or prosecute any alcohol or drug abuse patient.[facility] SystemIn the event this information is protected by the Federal Confidentiality of Alcohol and Drug Abuse Patient Records regulations: The Federal rules restrict any use of the information to criminally investigate or prosecute any alcohol or drug abuse patient.[facility] SystemIn the event this information is protected by the Federal Confidentiality of Alcohol and Drug Abuse Patient Records regulations: The Federal rules restrict any use of the information to criminally investigate or prosecute any alcohol or drug abuse patient.[facility] SystemIn the event this information is protected by the Federal Confidentiality of Alcohol and Drug Abuse Patient Records regulations: The Federal rules restrict any use of the information to criminally investigate or prosecute any alcohol or drug abuse patient.[facility] SystemIn the event this information is protected by the Federal Confidentiality of Alcohol and Drug Abuse Patient Records regulations: The Federal rules restrict any use of the information to criminally investigate or prosecute any alcohol or drug abuse patient.[facility] SystemIn the event this information is protected by the Federal Confidentiality of Alcohol and Drug Abuse Patient Records regulations: The Federal rules restrict any use of the information to criminally investigate or prosecute any alcohol or drug abuse patient.[facility] SystemIn the event this information is protected by the Federal Confidentiality of Alcohol and Drug Abuse Patient Records regulations: The Federal rules restrict any use of the information to criminally investigate or prosecute any alcohol or drug abuse patient.[facility] SystemIn the event this information is protected by the Federal Confidentiality of Alcohol and Drug Abuse Patient Records regulations: The Federal rules restrict any use of the information to criminally investigate or prosecute any alcohol or drug abuse patient.[facility] SystemIn the event this information is protected by the Federal Confidentiality of Alcohol and Drug Abuse Patient Records regulations: The Federal rules restrict any use of the information to criminally investigate or prosecute any alcohol or drug abuse patient.[facility] SystemIn the event this information is protected by the Federal Confidentiality of Alcohol and Drug Abuse Patient Records regulations: The Federal rules restrict any use of the information to criminally investigate or prosecute any alcohol or drug abuse patient.[facility] Reason for Visit (unrecogniz ed section and content) Reason Comments CoPat Start Reason Onset Date Comments Appointment 11/11/2021 Reason Comments Orders MRI thoracic spine Reason Comments Results, Lab CoPat Management Reason Comments Established Patient Reason Comments Consult Reason Comments Surgery Questions Reason Comments Results CoPat Management Specialty Diagnoses / Procedures Referred By Silvio t Referred To Contact MR IMAGING Diagnoses Myelitis (HCC) Procedures MRI THORACIC SPINE WO/W IVCON MRI SPINAL CANAL THORACIC W/O & W/CONTR Carley Hartley APRN.TOLL LINEMAN [address] [facility] [address] [place] [address] Mr Imaging Referral ID Status Reason Start Date Expiration Date V isits Requested Visits Authorized [id number] Closed Auto-Generate d Referral 11/20/2021 12/19/2021 1 1 Reason Comments Results Reason Comments Infection Follow Up osteomyelitis Reason Comments Post-Op Visit Reason Comments CoPat Management Reason Comments Patient Update Patient Question Reason Comments Patient Update Reason Comments Other Reason Comments Medication Problem Reason Comments Osteomyelitis Reason Comments Appointment Cancelled Reason Comments Patient Question Reason Comments Reschedule Surgery? Surgery Questions Reason Comments Blood thinner question Reason Comments Surgical Followup Reason Comments Post Op Symptom update Reason Comments Post-Op Visit Reason Comments Established Patient Reason Comments Return Call Request Reason Comments Results - Ct Reason Comments Med Change Request Reason Comments Urinary Retention Urodynamics Specialty Diagnoses / Procedures Referred By Silvio t Referred To Contact [facility] Diagnoses Retention, urine Procedures URODYNAMICS ANA ROSA POST-VOIDING RESIDUAL URINE&/BLADDER CAP Darius, Jayram, DO [address] [place] [address] [address] Referral ID Status Reason Start Date Expiration Date Visits Requested Visits Authorized [id number] Pending Review Auto-Genera edward Referral Clearance Not Met - Pt Rescheduled /Cancelled/ Chose Not to Proceed 08/18/2022 08/18/2023 [address] Specialty Diagnoses / Procedures Referred By Contac t Referred To Contact CT IMAGING Diagnoses Penile venereal warts Penile cancer (HCC) Procedures CT CHEST W IVCON DIAGNOSTIC COMPUTED TOMOGRAPHY THORAX W/CONTRAST Yue Mccoy DO [address] [place] [address] Ct Imaging [place] [address] Referral ID Status Reason Start Date Expiration Date V isits Requested Visits Authorized [id number] Closed Auto-Generate d Referral 06/06/2022 07/05/2022 2 2 Specialty Diagnoses / Procedures Referred By Contac t Referred To Contact MR IMAGING Diagnoses 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 abscess and granuloma Procedures MRI THORACIC SPINE WO/W IVCON MRI SPINAL CANAL THORACIC W/O & W/CONTR Maria Esther Menendez MD, PhD [facility] [place] [address] Mr Imaging [place] [address] Referral ID Status Reason Start Date Expiration Date V isits Requested Visits Authorized [id number] Closed Auto-Generate d Referral 12/22/2021 06/26/2022 1 1 Care Teams (unrecognized sec tion and content) Land Manager Relationship Specialty Start Date End Date Roya Ruiz [address] [place], [place] [id number] PCP - General Family Practice 11/06/21 Land Manager Relationship Specialty Start Date End Date Roya Ruiz [address] [place], [place] [id number] PCP - General Family Practice 11/06/21 Land Manager Relationship Specialty Start Date End Date Wadejessicaesha Roya Snell [address] [place] [address] PCP - General Family Practice 11/06/21 Land Manager Relationship Specialty Start Date End Date Wadekristal Roya Snell [address] [place] [address] PCP - General Family Practice 11/06/21 Land Manager Relationship Specialty Start Date End Date Rodrick Roya Snell [address] [place] [address] PCP - General Family Practice 11/06/21 Land Manager Relationship Specialty Start Date End Date Roya Ruiz Ednagi [address] [place] [address] PCP - General Family Practice 11/06/21 Land Manager Relationship Specialty Start Date End Date Rodrick Roya Codynagi [address] [place] [address] PCP - General Family Practice 11/06/21 Land Manager Relationship Specialty Start Date End Date Wadekristal Roya Channing [address] [place] [address] PCP - General Family Practice 11/06/21 Land Manager Relationship Specialty Start Date End Date Roya Ruiz [address] [place] [address] PCP - General Family Practice 11/06/21 Land Manager Relationship Specialty Start Date End Date Roya Ruiz Ednagi [address] [place] [address] PCP - General Family Practice 11/06/21 Land Manager Relationship Specialty Start Date End Date Roya Ruiz [address] [place] [address] PCP - General Family Practice 11/06/21 Land Manager Relationship Specialty Start Date End Date Wadekristal Roya Snell [address] [place] [address] PCP - General Family Practice 11/06/21 Land Manager Relationship Specialty Start Date End Date Roya Ruiz Ednagi [address] [place] [address] PCP - General Family Practice 11/06/21 Land Manager Relationship Specialty Start Date End Date Roya Ruiz [address] [place] [address] PCP - General Family Practice 11/06/21 Land Manager Relationship Specialty Start Date End Date Roya Ruiz [address] [place] [address] PCP - General Family Practice 11/06/21 Land Manager Relationship Specialty Start Date End Date Roya Ruiz [address] [place] [address] PCP - General Family Practice 11/06/21 Land Manager Relationship Specialty Start Date End Date Roya Ruiz [address] [place] [address] PCP - General Family Practice 11/06/21 Land Manager Relationship Specialty Start Date End Date Roya Ruiz [address] [place] [address] PCP - General Family Medicine 11/06/21 Land Manager Relationship Specialty Start Date End Date Roya Ruiz [address] [place] [address] PCP - General Family Medicine 11/06/21 Land Manager Relationship Specialty Start Date End Date Roya Ruiz [address] [place] [address] PCP - General Family Medicine 11/06/21 Land Manager Relationship Specialty Start Date End Date Roya Ruiz [address] [place] [address] PCP - General Family Medicine 11/06/21 Land Manager Relationship Specialty Start Date End Date Roya Ruiz [address] [place] [address] PCP - General Family Medicine 11/06/21 Land Manager Relationship Specialty Start Date End Date Roya Ruiz [address] [place] [address] PCP - General Family Medicine 11/06/21 Land Manager Relationship Specialty Start Date End Date Roya Ruiz [address] [place] [address] PCP - General Family Medicine 11/06/21 Land Manager Relationship Specialty Start Date End Date Roya Ruiz [address] [place] [address] PCP - General Family Medicine 11/06/21 Land Manager Relationship Specialty Start Date End Date Roya Ruiz [address] [place] [address] PCP - General Family Medicine 11/06/21 Land Manager Relationship Specialty Start Date End Date Roya Ruiz [address] [place] [address] PCP - General Family Medicine 11/06/21 Land Manager Relationship Specialty Start Date End Date Wadejessicaesha Roya Snell [address] [place] [address] PCP - General Family Medicine 11/06/21 Land Manager Relationship Specialty Start Date End Date Wadekristal Roya Snell [address] [place] [address] PCP - General Family Medicine 11/06/21 Land Manager Relationship Specialty Start Date End Date Rodrick Roya Snell [address] [place] [address] PCP - General Family Medicine 11/06/21 Land Manager Relationship Specialty Start Date End Date Roya Ruiz Channing [address] [place] [address] PCP - General Family Medicine 11/06/21 Land Manager Relationship Specialty Start Date End Date Roya Ruiz [address] [place] [address] PCP - General Family Medicine 11/06/21 Land Manager Relationship Specialty Start Date End Date Roya Ruiz [address] [place] [address] PCP - General Family Medicine 11/06/21 Land Manager Relationship Specialty Start Date End Date Roya Ruiz MD [address] [place] [address] PCP - General Family Medicine 11/06/21 Land Manager Relationship Specialty Start Date End Date Roya Ruiz MD [address] [place] [address] PCP - General Family Medicine 11/06/21 (unrecognized sect ion and content) No Status Records FoundNo Status Records FoundNo Status Records Found INFORMATION SOURCE (unrecogn ized section and content) DATE CREATED AUTHOR AUTHOR'S CAPRI DAVIS 10/29/2022 [facility] DATE CREATED AUTHOR AUTHOR'S CAPRI ATION 12/01/2022 [facility] FOR RECORDS PERTAINING TO PATIENTS WHO ARE OR HAVE BEEN ENROLLED IN A CHEMICAL DEPENDENCY/SUBSTANCEABUSE PROGRAM, SOME INFORMATION MAY BE OMITTED. This clinical summary was aggregated from multiple sources. Caution should be exercised in using it in the provision of clinical care. This summary normalizes information from multiple sources, and as a consequence, information in this document may materially change the coding, format and clinical context of patient data. In addition, data may be omitted in some cases. CLINICAL DECISIONS SHOULD BE BASED ON THE PRIMARY CLINICAL RECORDS. [facility]. provides no warranty or guarantee of the accuracy or completeness of information in this document.
[2023-09-02 15:31] LABS: Absolute Lymphocyte Count 1.31 X10^3/uL (0.83-4.51); Absolute Neutrophil Count 5.4 X10^3/uL (2.0-7.7); Basophil# 0.04 X10^3/uL; Basophil% 0.5 % (0-1); Eosinophil# 0.15 X10^3/uL; Hematocrit 43.2 % (40-54); Hemoglobin 14.3 g/dL (13.0-16.5); Lymphocyte # 1.31 X10^3/ul (0.83-4.51); Lymphocyte % 17.3 % (19-41); Mean Corp Hgb Conc 33.1 g/dL (32-36); Mean Corpuscular Hgb 28.4 pg (27.0-32.0); Mean Corpuscular Volume 85.7 fL (80-94); Mean Platelet Vol. 9.8 fl (6.2-12.0); Monocyte# 0.64 X10^3/uL; Monocyte% 8.5 % (0-10); NRBC Flagged by Analyzer 0 % (0-5); Neutrophil % 71.3 % (47-70); Platelet Count 226 K/mm3 (150-450); RBC Distribution Width CV 13.5 % (11.6-14.6); RBC Distribution Width SD 42.1 fl (35.1-43.9); Red Blood Count 5.04 M/mm3 (4.6-6.2); White Blood Count 7.6 K/mm3 (4.4-11.0)
[2023-09-02 16:22] LABS: Vitamin D,25 Hydroxy 52.6 ng/mL
[2023-09-02 16:29] LABS: Hemoglobin A1c 6.6 % (3.8-5.6)
[2023-09-02 16:40] LABS: ALB/GLOB Ratio 0.9 RATIO (0.9-2.4); AST(SGOT) 19 U/L (15-37); Alanine Aminotransfer ALT/SGPT 22 U/L (16-61); Albumin, Serum 3.7 g/dL (3.2-5.0); Alkaline Phosphatase 77 U/L (45-117); Anion Gap 4 (5-15); BUN 16 mg/dL (7-18); BUN/Creat Ratio 15.8 RATIO (10-20); Calcium,Total 9.4 mg/dL (8.5-10.1); Chloride 103 mmol/L (98-107); Cholesterol 125 mg/dL (200); Creatinine, Serum 1.01 mg/dL (0.70-1.30); EST Glomerular Filtration Rate 80 mL/min (>60); Est Glom Filt Rate - Afr Amer 97 mL/min (>60); Glucose 150 mg/dL (74-106); High Density Lipoprotein 36 mg/dL; Potassium 4.5 mmol/L (3.5-5.1); Protein, Total 7.7 g/dL (6.4-8.2); Sodium Level 134 mmol/L (136-145); T4 Free Direct 1.08 ng/dL (0.76-1.46); Thyroid Stim Hormone (TSH) 4.62 uIU/mL (0.358-3.74); Triglycerides 176 mg/dL; Very Low Density Lipoprotein 35 mg/dL (5-40)
== END | disposition home or self-care (01) ==
LOC: MFPLAB 14:06
PROVIDERS: PCP Family Medicine; Visit Provider Family Medicine
DX: E11.9 Type 2 diabetes mellitus without complications (principal); E55.9 Vitamin D deficiency, unspecified; E03.8 Other specified hypothyroidism
CPT/HCPCS: 36415; 80053; 80061; 82306; 83036; 84439; 84443; 85025

== ENCOUNTER 2023-10-06 15:57 | Inpatient (IN) | payer MEDICAID, SELFPAY ==
[2023-10-06] VITALS (12 sets, daily range): BP systolic 124–182; BP diastolic 83–103; PULSE 65–86; RESP 10–23; TEMP 36.4–36.6; O2SAT 93–98; BMI 37.0
--- NOTE | 2023-10-06 15:59 | EKG12_ITS ---
Test Reason : chest pain Blood Pressure : / mmHG Vent. Rate : 063 BPM Atrial Rate : 063 BPM P-R Int : 176 ms QRS Dur : 088 ms QT Int : 378 ms P-R-T Axes : 041 009 022 degrees QTc Int : 386 ms Sinus rhythm with occasional Premature ventricular complexes Nonspecific T wave abnormality Abnormal ECG When compared with ECG of 17-JUL-2022 10:54, Premature ventricular complexes are now Present Confirmed by KAILEE SINGLETON, JULIA ([id number]), scientific publications editor NISA LARA ([id number]) on 10/11/2023 2:03:28 PM Referred By: Zeeshan Horan Confirmed By:EDITH DUGAN MD
--- NOTE | 2023-10-06 16:01 | EDS_ITS ---
HPI History of Present Illness Chief Complaint: Chest Pain Informant: patient Onset/Context/Timing Onset: Today Narrative Narrative: Patient presents secondary to anterior chest pain. EMS EKG indicated anterolateral STEMI and STEMI alert was initiated prior to patient arrival. Patient reports onset of pain 1 to 2 hours ago. He describes a burning pain in his upper chest. He does not feel short of breath. He does have a history of DVT and PE and is currently on Xarelto. He is also diabetic. Initial EKG revealed anterior lateral ST elevation. Two further EKGs were sent that showed improvement in his ST changes. [facility] Medical History (Updated 10/06/23 @ 16:[address] Madelin Ivy MD) Acute saddle pulmonary embolism Back pain DVT (deep venous thrombosis) Genital warts Hernia Neurogenic bladder Right shoulder pain Right shoulder strain Strain of right rotator cuff capsule Urinary catheter in place Home Medications insulin glargine-yfgn 100 unit/mL (3 mL) subcutaneous pen (Semglee (insulin glargine-yfgn) Pen) 35 ea subcut QHS 02/21/22 [History Last Taken Unknown] insulin lispro 100 unit/mL subcutaneous pen (Humalog KwikPen (U-100) Insulin) 9 ea subcut 3XD 02/21/22 [History Last Taken Unknown] baclofen 10 mg tablet 10 mg PO DAILY 07/17/22 [History Last Taken Unknown] acetaminophen 500 mg capsule 1,000 mg (2 x 500 mg) PO Q8H PRN PRN fever or pain #30 caps 07/19/22 [Rx Last Taken Unknown] oxycodone 5 mg tablet 2.5 - 5 mg (0.5 - 1 x 5 mg) PO Q4H PRN PRN Pain Score 4-10 3 days #18 tabs 07/19/22 [Rx Last Taken Unknown] rivaroxaban 15 mg (42)-20 mg (9) tablets in a starter pack See Rx Instructions PO .COMPLEX #51 tabs 07/19/22 [Rx Last Taken Unknown] cefuroxime axetil 500 mg tablet 500 mg PO Q12H #13 tabs 09/06/22 [Rx Last Taken Unknown] phenazopyridine 200 mg tablet (Pyridium) 200 mg PO TID 6 doses #6 tabs 09/06/22 [Rx Last Taken Unknown] ciprofloxacin HCl 500 mg tablet (Cipro) 500 mg PO BID #10 tabs 09/08/22 [Rx Last Taken Unknown] Allergy/AdvReac Type Severity Reaction Status Date / Time No Known Allergies Allergy Verified 10/06/23 16:06 Surgical History History of fusion of thoracic spine Social History Smoking Status: Former smoker alcohol intake: never ROS ROS ED Constitutional Constitutional ED: Denies chills or fever(s) Eyes Eyes: Denies change in vision or discharge from eye(s) ENT ENT ED: Denies discharge from eye(s), rhinorrhea or sore throat Cardiovascular Cardiovascular: Reports chest pain; Denies palpitations Respiratory/Chest Respiratory/Chest: Denies cough or dyspnea Gastrointestinal Gastrointestinal: Denies abdominal pain, nausea or vomiting Musculoskeletal Musculoskeletal: Denies back pain or extremity pain Integumentary Denies Abrasions or rash Neurologic Neurologic: Denies headache(s) or weakness Allergic/Immunologic Allergic/Immunologic ED: Denies lip swelling or urticaria EXAM Physical Exam Const Vital Signs: 10/06/23 16:00 10/06/23 16:03 Temperature 98 F Temperature Source Temporal Pulse Rate 86 Respiratory Rate 18 18 Blood Pressure 182/103 H 182/103 H Blood Pressure Mean 129 Pulse Ox 96 Oxygen Delivery Method Room Air Positive well nourished and well developed General Appearance ED: well developed HEENT Reports moist mucous membranes Eyes EOMs intact bilaterally Chest Wall inspection of chest normal and palpation of chest normal Resp normal respiratory effort and clear to auscultation bilaterally Cardio regular rate and regular rhythm GI soft to palpation and non-tender Extremity normal to inspection Neuro oriented x3 Sensorium / Orientation: awake and alert Psych mental status grossly normal Skin no rashes or lesions noted MDM MDM MDM Narrative Medical decision making narrative: STEMI alert initiated prior to patient arrival. Patient remained on EMS cart for interview and a quick exam. Photovoltaic Installation Technician was ready and patient accompanied to the lab by Dr. Mcdonald. I did speak with hospitalist as well. Discharge Plan Triage Chief Complaint: Chest Pain ED Provider: Madelin Ivy Dx/Rx/DC Orders Clinical Impression: ST elevation (STEMI) myocardial infarction Primary Care Provider: Bernardo Mensah Disposition Disposition: Acute Care [facility]
[2023-10-06 16:09] LABS: Absolute Neutrophil Count 4.8 X10^3/uL (2.0-7.7); Basophil# 0.05 X10^3/uL; Basophil% 0.7 % (0-1); Eosinophil# 0.14 X10^3/uL; Eosinophils% 1.9 % (0-5); Hematocrit 44.4 % (40-54); Hemoglobin 15.3 g/dL (13.0-16.5); Lymphocyte % 21.7 % (19-41); Mean Corp Hgb Conc 34.5 g/dL (32-36); Mean Corpuscular Volume 84.3 fL (80-94); Mean Platelet Vol. 9.6 fl (6.2-12.0); Monocyte# 0.73 X10^3/uL; Monocyte% 9.9 % (0-10); NRBC Flagged by Analyzer 0 % (0-5); Neutrophil # 4.84 X10^3/uL (2.7-7.7); Neutrophil % 65.5 % (47-70); Platelet Count 221 K/mm3 (150-450); RBC Distribution Width CV 13.5 % (11.6-14.6); RBC Distribution Width SD 41.3 fl (35.1-43.9); Red Blood Count 5.27 M/mm3 (4.6-6.2); White Blood Count 7.4 K/mm3 (4.4-11.0)
--- NOTE | 2023-10-06 16:16 | ED.RN ---
Pt remained on EMS cart for evaluation in ED. Architecture Drafter and ED MD at bedside at time of arrival. central lab technician staff in ED, report given at bedside. Pt transported to laboratory aide on EMS cot.
[2023-10-06 16:18] LABS: Prothrombin Time (Protime)PT. 13.2 SECONDS (11.7-14.9)
[2023-10-06 16:19] LABS: Partial Thromboplast Time 28.9 Seconds (24.1-36.2)
[2023-10-06 16:42] LABS: Anion Gap 5 (5-15); BUN 16 mg/dL (7-18); BUN/Creat Ratio 13.7 RATIO (10-20); Calcium,Total 9.4 mg/dL (8.5-10.1); Chloride 104 mmol/L (98-107); Creatinine, Serum 1.17 mg/dL (0.70-1.30); EST Glomerular Filtration Rate 67 mL/min (>60); Est Glom Filt Rate - Afr Amer 82 mL/min (>60); Glucose 156 mg/dL (74-106); Potassium 3.8 mmol/L (3.5-5.1); Sodium Level 136 mmol/L (136-145); Troponin-I HS 60 pg/mL (3.0-78.0)
--- NOTE | 2023-10-06 17:00 | EKG12_ITS ---
Test Reason : post stemi Blood Pressure : / mmHG Vent. Rate : 073 BPM Atrial Rate : 073 BPM P-R Int : 176 ms QRS Dur : 086 ms QT Int : 352 ms P-R-T Axes : 074 010 044 degrees QTc Int : 387 ms Normal sinus rhythm Possible Anterior infarct , age undetermined Abnormal ECG When compared with ECG of 17-JUL-2022 10:54, ST elevation now present in Anterior leads Confirmed by KAILEE SINGLETON, JULIA ([id number]), editorial assistant NISA LARA ([id number]) on 10/11/2023 2:07:09 PM Referred By: Zeeshan Horan Confirmed By:EDITH DUGAN MD
--- NOTE | 2023-10-06 17:10 | PCM.CONS.C ---
Assessment & Plan Assessment/Plan (1) ST elevation (STEMI) myocardial infarction: QUALIFIERS: Involved coronary artery: LAD coronary artery Qualified Code(s): I21.02 - ST elevation (STEMI) myocardial infarction involving left anterior descending coronary artery PLAN: Treated with drug-eluting stent to the LAD. Patient is on Xarelto for PE. It appears that he was on Xarelto for 3 months for DVT and then it was stopped and then subsequently he developed PE. He seems to have a lifelong indication for Xarelto or other anticoagulation. Tonight while he is recovering from his right radial access we can hold his Xarelto. He already received aspirin, Brilinta and heparin. He can receive Brilinta 90 mg tonight. Tomorrow morning he should be started on aspirin 81 mg p.o. daily, Brilinta can be DC'd and he can be given Plavix 600 mg x 1. His Xarelto can be started from tomorrow evening and from Wednesday onwards he should be on aspirin 81 mg p.o. daily, Plavix 75 mg p.o. daily and Xarelto. He can be on triple therapy for 1 month after his staged PCI of his RCA and circumflex which will be done in around 3 weeks as long as he does not have bleeding issues. Please start the patient on beta-joellen (carvedilol 6.25 mg p.o. twice daily), lisinopril 2.5 mg p.o. daily, statin. We will also check a 2D echo during his stay here. HPI Consult Data Date of Consult: 10/06/23 HPI Narrative Reason for Consultation: STEMI HPI Narrative: MIGUEL RODRIGEZ, is a 63 M who presents with upper retrosternal burning chest pain that started about 1 hour prior to presentation. EKG done outside hospital revealed anterior ST elevation SC and a STEMI alert was called. Patient was evaluated in the ER and was brought emergently to the cardiac Automatic Pinsetter Adjuster and underwent coronary angiography which revealed 99% stenosis in the mid LAD that was treated with drug-eluting stent placement. Patient's chest pain has improved after the procedure. [facility] Medical History (Updated 10/06/23 @ 17:[address] Larissa Mcdonald MD) Acute saddle pulmonary embolism Back pain DVT (deep venous thrombosis) Genital warts Hernia Neurogenic bladder Right shoulder pain Right shoulder strain Strain of right rotator cuff capsule Urinary catheter in place Home Medications insulin glargine-yfgn 100 unit/mL (3 mL) subcutaneous pen (Semglee (insulin glargine-yfgn) Pen) 35 ea subcut QHS 02/21/22 [History Last Taken Unknown] insulin lispro 100 unit/mL subcutaneous pen (Humalog KwikPen (U-100) Insulin) 9 ea subcut 3XD 02/21/22 [History Last Taken Unknown] baclofen 10 mg tablet 10 mg PO DAILY 07/17/22 [History Last Taken Unknown] acetaminophen 500 mg capsule 1,000 mg (2 x 500 mg) PO Q8H PRN PRN fever or pain #30 caps 07/19/22 [Rx Last Taken Unknown] oxycodone 5 mg tablet 2.5 - 5 mg (0.5 - 1 x 5 mg) PO Q4H PRN PRN Pain Score 4-10 3 days #18 tabs 07/19/22 [Rx Last Taken Unknown] rivaroxaban 15 mg (42)-20 mg (9) tablets in a starter pack See Rx Instructions PO .COMPLEX #51 tabs 07/19/22 [Rx Last Taken Unknown] cefuroxime axetil 500 mg tablet 500 mg PO Q12H #13 tabs 09/06/22 [Rx Last Taken Unknown] phenazopyridine 200 mg tablet (Pyridium) 200 mg PO TID 6 doses #6 tabs 09/06/22 [Rx Last Taken Unknown] ciprofloxacin HCl 500 mg tablet (Cipro) 500 mg PO BID #10 tabs 09/08/22 [Rx Last Taken Unknown] Allergy/AdvReac Type Severity Reaction Status Date / Time No Known Allergies Allergy Verified 10/06/23 16:06 Surgical History History of fusion of thoracic spine Social History Smoking Status: Former smoker alcohol intake: never Physical Exam Const alert and oriented x3 HEENT normocephalic Eyes no scleral icterus Resp normal respiratory effort Cardio regular rate and regular rhythm Risk Stratification Risk Stratification Applicable: No Charges/Coding Visit Charges Inpatient E&M: 04504 Init Hosp L2 Objective Data Vital Signs: Vital Signs Temp Pulse Resp BP Pulse Ox O2 Del Method 98 F 86 18 182/103 H 96 Room Air 10/06/23 16:03 10/06/23 16:03 10/06/23 16:03 10/06/23 16:03 10/06/23 16:03 10/06/23 16:03 Oxygen Delivery Method Room Air Weight: 236 lb 15.951 oz Body Mass Index (BMI) 37.0 Intake & Output: Intake and Output for Last 24 Hours 10/04/23 10/05/23 10/06/23 23:59 23:59 23:59 Intake Total 0 / 0 Balance 0 / 0 Lab / Micro Data 10/06/23 15:45 10/06/23 15:45 Labs: Laboratory Results - last 24 hr 10/06/23 15:45: WBC 7.4, RBC 5.27, Hgb 15.3, Hct 44.4, MCV 84.3, MCH 29.0, MCHC 34.5, RDW Std Deviation 41.3, RDW Coeff of Tre 13.5, Plt Count 221, MPV 9.6, Immature Gran % (Auto) 0.300, Neut % (Auto) 65.5, Lymph % (Auto) 21.7, [place] % (Auto) 9.9, Eos % (Auto) 1.9, Baso % (Auto) 0.7, Absolute Neuts (auto) 4.8, Absolute Lymphs (auto) 1.60, Nucleated RBC % 0, PT 13.2, INR 1.0, APTT 28.9, Sodium 136, Potassium 3.8, Chloride 104, Carbon Dioxide 27.0, Anion Gap 5, BUN 16, Creatinine 1.17, Est GFR (MDRD) Af Amer 82, Est GFR (MDRD) Non-Af 67, BUN/Creatinine Ratio 13.7, Glucose 156 H, Calcium 9.4, Troponin I High Sens 60 Cardiology Labs/Tests 10/06/23 15:45: WBC 7.4, RBC 5.27, Hgb 15.3, Hct 44.4, MCV 84.3, MCH 29.0, MCHC 34.5, Plt Count 221, MPV 9.6, Immature Gran % (Auto) 0.300, Neut % (Auto) 65.5, Lymph % (Auto) 21.7, [place] % (Auto) 9.9, Eos % (Auto) 1.9, Baso % (Auto) 0.7, Absolute Neuts (auto) 4.8, Nucleated RBC % 0, PT 13.2, INR 1.0, APTT 28.9, Sodium 136, Potassium 3.8, Chloride 104, Carbon Dioxide 27.0, Anion Gap 5, BUN 16, Creatinine 1.17, Est GFR (MDRD) Af Amer 82, Est GFR (MDRD) Non-Af 67, BUN/Creatinine Ratio 13.7, Glucose 156 H, Calcium 9.4 Rhythm: EKG: ECHO: Stress Test: Cardiac Cath: PCI: CT Surgery: Holter monitor: EPS: PPM: CXR: Chest CT Scan:
--- NOTE | 2023-10-06 17:15 | CRPHASE1_ITS ---
Patient Communication Patient Information Former Patient:: Phase I and Phase II PHII Cardiac Rehab Discussed with Patient:: Yes Guide to Cardiac Rehab Given to Patient:: Yes Cardiac Rehab Facility Choice List Given to Patient:: Yes Communication to Cardiac Rehab Machine Guide Base Winder:: Larissa Mcdonald Refer Phase II Cardiac Rehab:: Yes Sessions:: 36 sessions - 3 days/wk, 12 weeks Cardiac Rehabilitation Info Program Information Cardiac Rehabilitation Program Information: Cardiac Rehab The cardiac rehab team at [facility] consists of highly skilled exercise physiologists, nurses, respiratory therapists and physicians working together with you. Our purpose is to help you have a full recovery and achieve the goals you set for yourself. Over the years many of our patients have returned to activities they assumed they would never do again! We can help restore your confidence and motivation to make lifestyle changes that can have a significant impact on your health and quality of life! We can help answer questions and concerns you may have about exercise, lifestyle, medications, diet, stress and anxiety which are common following a hospitalization. WE monitor ECG and vital signs during exercise and discuss your progress with you and report to your physician(s). Cardiac Rehab is proven to help reduce readmissions, improve functional capacity and lower recurrence of problems with your heart. Our Cardiac Rehab program is Certified by the [place] [employer]-Vascular [employer] Pulmonary [employer] (AACVPR) and Accredited by the [place] [employer] through our [facility]. You can contact us at . We invite you to call us with your questions or to get started in our program. If you have other questions or concerns be sure to ask your physician/provider during your follow-up visit. WE look forward to seeing you!
--- NOTE | 2023-10-06 17:16 | CRPH1.INST_ITS ---
General Education Discussed with Patient CAD and cardiac anatomy and function:: Patient communicates acknowledgment Explanation of diagnoses and procedures:: Patient communicates acknowledgment Sign/Symptoms of NM:: Patient communicates acknowledgment Antiplatelet therapy: Patient communicates acknowledgment Proper use of NTG-SL: Patient communicates acknowledgment Emergency procedures and activation of EMS: Patient communicates acknowledgment Compliance of all prescribed medications: Patient communicates acknowledgment Smoking Risk Factors Patient Nicotine/Smoking Risk Factors Are:: Cigarettes Recommendations Recommendations Include:: Previous smoker; encourage continued cessation Response Code Nicotine/Smoking Response Code:: Patient communicates acknowledgment Dyslipidemia Recommendations Recommendations Include:: Lipid profile not available Response Code Dyslipidemia Response Code:: Patient communicates acknowledgment Overweight/Obesity Risk Factors Patient Overweight/Obesity Risk Factors Are:: Obesity - > or = 30 Recommendations Recommendations Include:: Weight loss of 5-10%, Reduced calorie diet and Exercise 5-7 times/week Response Code Overweight/Obesity:: Patient communicates acknowledgment Hypertension Recommendations Recommendations Include:: Maintain BP <130/85 Response Code Hypertension:: Patient communicates acknowledgment Heart Disease Risk Factors Patient Heart Disease Risk Factors Are:: Previous cardiac event Recommendations Recommendations Include:: Educated family members of their risk Response Code Heart Disease Response Code:: Patient communicates acknowledgment Diabetes Recommendations Recommendations Include:: Maintain fasting blood sugars 70-110 md/dL, Maintain HgbA1c of 6% or less and Decrease/maintain body weight Response Code Diabetes:: Patient communicates acknowledgment Metabolic Syndrome Recommendations Recommendations Include:: Does not meet criteria Sedentary Risk Factors Patient Sedentary Risk Factors Are:: Lack of regular exercise Recommendations Recommendations Include:: Aerobic exercise 5-7 times/week for 20-30 minutes co ntinuously, Benefits of regular exercise, Discussed home walking program and Monitored Outpatient Cardiac Rehab Response Code Sedentary Response Code:: Patient communicates acknowledgment Stress Recommendations Recommendations Include:: Identification of stressors, and assessment of coping skills and Stress management techniques Response Code Stress Response Code:: Patient communicates acknowledgment
--- NOTE | 2023-10-06 19:30 | PCM.HP.STD ---
HPI - General General Date of Admission: 10/06/23 Date of Service: 10/06/23 Chief Complaint: Chest pain HPI Narrative MIGUEL RODRIGEZ, is a 63 M who presents to the emergency room at [facility] with complaints of substernal chest pain which he described as a burning sensation, he denied any radiation into his neck or down his arm. He had it about 2 hours prior to coming into the ER today. Patient has no history of coronary artery disease EMS EKG indicated anterolateral STEMI and a STEMI alert was initiated prior to the patient's arrival in the emergency room. Labs were drawn and the patient was taken down to the [facility] where coronary angiography revealed a 99% stenosis of the mid LAD, this was treated with a drug-eluting stent, there was also noted to be 80% occlusion of the circumflex and right coronary artery. Patient was admitted to the ICU, he was placed on a beta-joellen, lisinopril, his statin dose was increased and a lipid profile was ordered-patient's last lipid profile was in August of this year which showed an LDL of 54. Patient will have an echocardiogram performed tomorrow, he will be started on Plavix tomorrow morning along with a baby aspirin a day, his Xarelto will be started at dinner tomorrow. [facility] Medical History (Updated 10/06/23 @ 17:[address] Larissa Mcdonald MD) Acute saddle pulmonary embolism Back pain DVT (deep venous thrombosis) Genital warts Hernia Neurogenic bladder Right shoulder pain Right shoulder strain Strain of right rotator cuff capsule Urinary catheter in place Home Medications insulin glargine-yfgn 100 unit/mL (3 mL) subcutaneous pen (Semglee (insulin glargine-yfgn) Pen) 38 ea subcut QHS diabetes 02/21/22 [History Last Taken 10/05/23] insulin lispro 100 unit/mL subcutaneous pen (Humalog KwikPen (U-100) Insulin) 9 ea subcut 3XD diabetes 02/21/22 [History Last Taken 10/06/23] B12 50,000 units PO QWEEK vitamin replace 10/06/23 [History Last Taken 09/30/23] metformin 500 mg tablet 500 mg PO BID Diabetes 10/06/23 [History Last Taken 10/06/23] pravastatin 20 mg tablet 20 mg PO DAILY Blood press 10/06/23 [History Last Taken 10/05/23] rivaroxaban 15 mg (42)-20 mg (9) tablets in a starter pack 20 tab blood 10/06/23 [History Last Taken Unknown] rivaroxaban 20 mg tablet (Xarelto) 20 mg PO Q24H blood clots 10/06/23 [History Last Taken 10/05/23] Allergy/AdvReac Type Severity Reaction Status Date / Time No Known Allergies Allergy Verified 10/06/23 16:06 Surgical History History of fusion of thoracic spine Social History Smoking Status: Former smoker alcohol intake: never ROS Constitutional Constitutional: Denies anorexia, change in weight, fever(s), night sweats or weakness Eyes Eyes: Denies blurry vision, change in vision, discharge from eye(s) or eye pain Cardiovascular Cardiovascular: Reports chest pain; Denies claudication, dyspnea on exertion, edema, lightheadedness or palpitations Respiratory/Chest Respiratory/Chest: Denies cough, dyspnea, hemoptysis, productive cough, shortness of breath at rest or shortness of breath with exertion Gastrointestinal Gastrointestinal: Denies abdominal pain, constipation, diarrhea, hematemesis, hematochezia, melena, nausea or vomiting Genitourinary Genitourinary: Denies dysuria, hematuria, urinary frequency, urinary hesitancy, urinary incontinence or urinary urgency Musculoskeletal Musculoskeletal: Denies back pain, joint pain, joint stiffness, joint swelling, myalgias or neck pain Neurologic Neurologic: Denies abnormal gait, abnormal speech, dizziness, focal weakness, headache(s), loss of vision, numbness, other visual disturbances, paresthesias, syncope or tingling Psychiatric Psychiatric: Denies anxiety, cognitive impairment, depression, irritability, mood swings or suicidal ideation Endocrine Endocrinology: Denies change in body appearance, cold intolerance, excessive sweating, heat intolerance, polydipsia or polyuria Hematologic/Lymphatic Hematologic/Lymphatic: Denies none, anemia, easy bleeding, easy bruising or lymphadenopathy Allergic/Immunologic Allergic/Immunologic: Denies rhinitis, urticaria, eczemia or asthma Vital Signs Vital Signs Vital Signs: 10/06/23 16:00 10/06/23 16:03 10/06/23 16:02 Temperature 98 F Temperature Source Temporal Pulse Rate 86 Respiratory Rate 18 18 Blood Pressure 182/103 H 182/103 H Blood Pressure [BP] Blood Pressure Mean 129 Blood Pressure Mean [BP] Blood Pressure Source Blood Pressure Source [BP] Blood Pressure Position Blood Pressure Position [BP] Blood Pressure Location Blood Pressure Location [BP] Pulse Ox 96 Oxygen Delivery Method Room Air Room Air 10/06/23 16:02 10/06/23 17:00 10/06/23 17:15 Temperature 97.5 F L 97.9 F Temperature Source Temporal Pulse Rate 83 76 74 Respiratory Rate 18 23 H 10 L Blood Pressure 182/103 H 135/88 H 134/83 H Blood Pressure [BP] Blood Pressure Mean 129 103 100 Blood Pressure Mean [BP] Blood Pressure Source Monitor Monitor Blood Pressure Source [BP] Blood Pressure Position Semi-Fowlers Semi-Fowlers Blood Pressure Position [BP] Blood Pressure Location Left Arm Left Arm Blood Pressure Location [BP] Pulse Ox 95 96 97 Oxygen Delivery Method Room Air Room Air 10/06/23 17:30 10/06/23 18:00 10/06/23 19:00 Temperature Temperature Source Pulse Rate 83 71 74 Respiratory Rate 22 H 20 H 18 Blood Pressure 157/83 H Blood Pressure [BP] 149/83 H 145/87 H Blood Pressure Mean 107 Blood Pressure Mean [BP] 105 106 Blood Pressure Source Monitor Blood Pressure Source [BP] Monitor Monitor Blood Pressure Position Semi-Fowlers Blood Pressure Position [BP] Semi-Fowlers Semi-Fowlers Blood Pressure Location Left Arm Blood Pressure Location [BP] Left Arm Left Arm Pulse Ox 93 96 97 Oxygen Delivery Method Room Air Room Air Room Air Weight Weight: 107.5 kg Body Mass Index (BMI) 37.0 Physical Exam Const alert, oriented x3, no apparent distress, average body habitus and healthy appearing General Appearance: cooperative, well kempt and well developed Orientation / Consciousness: awake, oriented to person, oriented to place and oriented to time HEENT normocephalic, head/scalp atraumatic, hearing grossly normal bilaterally and moist oral mucous membranes Eyes PERRL, EOMs intact bilaterally and conjunctivae normal Neck supple, no JVD, thyroid normal and no carotid bruits General: trachea midline Resp normal respiratory effort, no retractions, no use of accessory muscles and clear to auscultation bilaterally Auscultation: Negative for rales, rhonchi or wheezes Cardio regular rate, regular rhythm, S1 normal heart sound, S2 normal heart sound, no murmurs, no rub and no gallops GI normal to inspection, nondistended, normoactive bowel sounds, soft to palpation, non-tender and non-distended Extremity no clubbing, cyanosis or edema Skin no rashes or lesions noted General Skin Exam: no breakdown Neuro oriented x3, CN's II-XII intact bilaterally, no focal motor deficits and no sensory deficits noted Sensorium / Orientation: awake and alert Speech: speech normal Psych affect normal Results Lab / Micro Data 10/06/23 15:45 10/06/23 15:45 Labs: Laboratory Results - last 24 hr 10/06/23 15:45: WBC 7.4, RBC 5.27, Hgb 15.3, Hct 44.4, MCV 84.3, MCH 29.0, MCHC 34.5, RDW Std Deviation 41.3, RDW Coeff of Tre 13.5, Plt Count 221, MPV 9.6, Immature Gran % (Auto) 0.300, Neut % (Auto) 65.5, Lymph % (Auto) 21.7, [place] % (Auto) 9.9, Eos % (Auto) 1.9, Baso % (Auto) 0.7, Absolute Neuts (auto) 4.8, Absolute Lymphs (auto) 1.60, Nucleated RBC % 0, PT 13.2, INR 1.0, APTT 28.9, Sodium 136, Potassium 3.8, Chloride 104, Carbon Dioxide 27.0, Anion Gap 5, BUN 16, Creatinine 1.17, Est GFR (MDRD) Af Amer 82, Est GFR (MDRD) Non-Af 67, BUN/Creatinine Ratio 13.7, Glucose 156 H, Calcium 9.4, Troponin I High Sens 60 Assessment & Plan Assessment/Plan (1) ST elevation (STEMI) myocardial infarction: QUALIFIERS: Involved coronary artery: LAD coronary artery Qualified Code(s): I21.02 - ST elevation (STEMI) myocardial infarction involving left anterior descending coronary artery PLAN: Plan 1. Acute STEMI-anterior wall, LAD distribution, status post MADDIE insertion mid LAD-again patient was admitted to the ICU, his medications will be adjusted, he will have an echocardiogram tomorrow #2 type 2 diabetes-patient's blood sugars will be monitored with fingerstick blood sugars and sliding scale insulin will be administered if needed. #3 hyperlipidemia-again I increased the patient's pravastatin to 40 mg at bedtime, however, his last LDL cholesterol was 54 in August of this year. #4 chronic use of anticoagulants due to past history of 2 VTE's-patient will resume Xarelto tomorrow Total clinical time spent by myself addressing the patient's medical issues, reviewing all of his data, and collaborating with patient's care team: 75 minutes Charges/Coding Visit Charges Inpatient E&M: 54687 Init Hosp L3
[2023-10-06] MEDS: Carvedilol 6.25 MG Tablet PO (21:02)
[2023-10-06] MEDS: Pravastatin 40 MG Tablet PO (21:02)
[2023-10-06] MEDS: Insulin Glargine-YFGN 100 UNIT/ML Pen 30 UNIT SC (21:02)
[2023-10-06] MEDS: Lisinopril 10 MG Tablet PO (21:02)
[2023-10-06] MEDS: Insulin Lispro 100 UNIT/ML INSULN.PEN SC (21:06)
--- NOTE | 2023-10-06 21:16 | NURSING ---
Patient's niece called around 1929 asking for an update on the patient. She was not listed in patient's chart so I let her know that I would give her a call back after speaking with patient. Patient stated that it was okay to update her. She was provided with a brief update on what brought the patient in and how he is doing now. She appreciated the information.
[2023-10-07] VITALS (18 sets, daily range): BP systolic 99–145; BP diastolic 70–96; PULSE 57–64; RESP 11–21; TEMP 36.3–36.6; O2SAT 95–99; BMI 36.3
[2023-10-07] MEDS: Clopidogrel Bisulfate 300 MG Tablet PO ×2 (05:04→08:12)
[2023-10-07 05:53] LABS: Bedside Glucose 177 mg/dL (74-106)
--- NOTE | 2023-10-07 05:55 | ECHOCS_ITS ---
Reason For Study: S/P RI Procedure This was a 2D Doppler, Color Flow transthoracic echocardiogram. The study was technically difficult. Exam performed portable in ICU/CCU. Left Ventricle Normal LV size. The estimated ejection fraction is 55-60 %. No evidence for diastolic dysfunction. [place] : Hypokinetic. Right Ventricle Normal RV size. Normal systolic function. Atria The left and right atria are normal. No doppler evidence for ASD. Mitral Valve There is no mitral valve stenosis. No mitral valve insufficiency. Tricuspid Valve There is no tricuspid stenosis. Unable to estimate RV systolic pressure due to inadequate jet, pulmonary artery pressure probably normal. Aortic Valve Trisinus/trileaflet aortic valve. There is no aortic stenosis. No aortic valve insufficiency. Pulmonic Valve There is no pulmonic valvular stenosis. Trivial pulmonic valve insufficiency. Great Vessels Normal aortic root. Pericardium/Pleural No pericardial effusion. Medication Diluted definity 3ml given slow IV push to enhance endocardial definition. MMode/2D Measurements & Calculations LVIDd: 4.9 cm IVSd: 0.93 cm Ao root diam: 3.4 cm LVIDs: 3.5 cm LVPWd: 1.0 cm RVDd: 3.2 cm FS: 30.1 % LAV(MOD-bp): 37.4 ml LVAd ap4: 29.9 cm2 SV(MOD-sp4): 40.8 ml LAV(MOD-bp) Indexed: 17.4 ml/m2 LVLd ap4: 8.0 cm LAV(MOD-sp2): 37.9 ml EDV(MOD-sp4): 90.0 ml LAV(MOD-sp4): 37.0 ml EDV(sp4-el): 94.2 ml LVAs ap4: 20.9 cm2 LVLs ap4: 7.2 cm ESV(MOD-sp4): 49.3 ml ESV(sp4-el): 51.3 ml EF(MOD-sp4): 45.3 % EF(sp4-el): 45.5 % SV(sp4-el): 42.9 ml LA A4 area: 16.0 cm2 LA dimension(2D): 3.4 cm RA A4 area: 12.0 cm2 TAPSE: 2.5 cm Time Measurements MV dec time: 0.20 sec Doppler Measurements & Calculations MV E max gomez: 62.5 cm/sec Lat Peak E' Gomez: 7.8 cm/sec Med Peak E' Gomez: 7.3 cm/sec MV A max gomez: 78.4 cm/sec E/E' lat: 8.0 E/E' med: 8.5 MV E/A: 0.80 Ao V2 max: 150.8 cm/sec LV V1 max: 125.1 cm/sec PA V2 max: 98.9 cm/sec Ao max P.1 mmHg LV V1 max P.3 mmHg ECHO/Echo Complete W/ Contrast Interpretation Summary The estimated ejection fraction is 55-60 %. No evidence for diastolic dysfunction. [place] : Hypokinetic. Ordering Physician: Zeeshan Horan Referring Physician: ROYA RUIZ Performed By: Margaux Hernandez RDCS
[2023-10-07 06:47] LABS: Hematocrit 37.2 % (40-54); Hemoglobin 12.7 g/dL (13.0-16.5); Mean Corp Hgb Conc 34.1 g/dL (32-36); Mean Corpuscular Hgb 28.5 pg (27.0-32.0); Mean Corpuscular Volume 83.6 fL (80-94); Mean Platelet Vol. 9.5 fl (6.2-12.0); Platelet Count 199 K/mm3 (150-450); RBC Distribution Width CV 13.6 % (11.6-14.6); RBC Distribution Width SD 41.4 fl (35.1-43.9); Red Blood Count 4.45 M/mm3 (4.6-6.2); White Blood Count 7.3 K/mm3 (4.4-11.0)
[2023-10-07] MEDS: 0.9% Saline Lock 10 ML Syringe IV (06:50)
--- NOTE | 2023-10-07 06:54 | PCM.PN.HOSP ---
Reason for Visit Reason for Visit: Chest pain Subjective Subjective Mr. Whiting is a 63-year-old white male who presented to the emergency department at [facility] on 10/06/2023 with acute chest pain that was substernal in nature and he described as a burning sensation. He denied any radiation of his pain. He had symptoms for about 2 hours prior to presenting to the emergency department. In the field EKG indicated anterior lateral STEMI and STEMI alert was initiated. He was given pre-STEMI medications the emergency department and taken directly to the [facility] from the emergency department at which time coronary angiography revealed 99% stenosis at the mid LAD and this was treated with a drug-eluting stent. There is also noted 80% occlusion of the circumflex and right coronary artery. It is noted he will need a staged procedure will need to be performed. Of note he has a history of PE and DVT. 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 His Xarelto has been held post catheterization and per cardiology documentation can be started this evening. The plan is for triple therapy with aspirin, Plavix, and Xarelto for 1 month after his staged procedure of his RCA and circumflex can be performed. That would likely be performed in about 3 weeks. Post catheterization he was started on a beta-joellen, low-dose lisinopril and high intensity dose statin. 2D echo is pending. No issues overnight. No arrhythmias after reperfusion. Patient denies any chest pain or complaints at this time. Does indicate that transportation is an issue for him with regards to cardiac rehab and we did discuss that case management would be in to discuss setting up transportation for him to make these appointments. Objective Data Objective Data Vital Signs: Vital Signs Temp Pulse Resp BP Pulse Ox O2 Del Method 97.8 F 63 16 128/77 H 95 Room Air 10/07/23 04:00 10/07/23 06:00 10/07/23 06:00 10/07/23 06:00 10/07/23 06:00 10/07/23 06:00 Oxygen Delivery Method Room Air Weight: 105.4 kg Body Mass Index (BMI) 36.3 Intake & Output: Intake and Output for Last 24 Hours 10/05/23 10/06/23 10/07/23 23:59 23:59 23:59 Intake Total 0 / 0 400 / 400 Balance 0 / 0 400 / 400 Lab / Micro Data 10/07/23 03:59 10/07/23 03:59 Labs: Laboratory Results - last 24 hr 10/06/23 15:45: WBC 7.4, RBC 5.27, Hgb 15.3, Hct 44.4, MCV 84.3, MCH 29.0, MCHC 34.5, RDW Std Deviation 41.3, RDW Coeff of Tre 13.5, Plt Count 221, MPV 9.6, Immature Gran % (Auto) 0.300, Neut % (Auto) 65.5, Lymph % (Auto) 21.7, [place] % (Auto) 9.9, Eos % (Auto) 1.9, Baso % (Auto) 0.7, Absolute Neuts (auto) 4.8, Absolute Lymphs (auto) 1.60, Nucleated RBC % 0, PT 13.2, INR 1.0, APTT 28.9, Sodium 136, Potassium 3.8, Chloride 104, Carbon Dioxide 27.0, Anion Gap 5, BUN 16, Creatinine 1.17, Est GFR (MDRD) Af Amer 82, Est GFR (MDRD) Non-Af 67, BUN/Creatinine Ratio 13.7, Glucose 156 H, Calcium 9.4, Troponin I High Sens 60 10/06/23 21:01: POC Glucose 177 H 10/07/23 03:59: WBC 7.3, RBC 4.45 L, Hgb 12.7 L, Hct 37.2 L, MCV 83.6, MCH 28.5, MCHC 34.1, RDW Std Deviation 41.4, RDW Coeff of Tre 13.6, Plt Count 199, MPV 9.5 Physical Exam Const alert, oriented x3, no apparent distress and well nourished Constitutional Narrative: Obese, upper middle-aged, white male, appears older than stated age, sitting up in bed, appears comfortable and nontoxic, nursing at bedside HEENT head/scalp atraumatic and moist oral mucous membranes HEENT Narrative: Dentition is poor, Mallampati is 3, no thrush Head and Scalp: normocephalic Resp normal respiratory effort, no retractions, no use of accessory muscles and clear to auscultation bilaterally Auscultation: Negative for rales, rhonchi or wheezes Cardio regular rate, regular rhythm, S1 normal heart sound, S2 normal heart sound, no murmurs, no rub, no gallops and no clicks GI normal to inspection, nondistended, normoactive bowel sounds, soft to palpation and non-tender Extremity no clubbing, cyanosis or edema Neuro oriented x3, moves all extremities and no focal motor deficits Speech: speech normal Psych affect normal Psych Narrative: Very pleasant, interacts appropriately Assessment & Plan Assessment/Plan (1) ST elevation (STEMI) myocardial infarction: QUALIFIERS: Involved coronary artery: LAD coronary artery Qualified Code(s): I21.02 - ST elevation (STEMI) myocardial infarction involving left anterior descending coronary artery (2) Arteriosclerotic cardiovascular disease (ASCVD): (3) Presence of stent in LAD coronary artery: PLAN: Plan Anterior lateral STEMI -PCI with MADDIE to mid LAD -Plavix 600 mg this morning with 75 mg daily to follow -Start aspirin 81 mg next-okay to start Xarelto this evening -Was also found to have 80% lesions in the RCA and circumflex artery which will need PCI in about 3 weeks -Plan is for triple therapy with aspirin, Plavix, Xarelto for 1 month after staged procedures performed -Continue high intensity dose statin for pleiotropic effects as cholesterol is at goal -Continue beta-joellen -Continues lisinopril but increase dose from 10 mg to 20 mg with ongoing elevated blood pressures--> goal blood pressure is less than 130/80 consistently -Cholesterol shows a total cholesterol of 98/LDL 44/HDL 38 -Hemoglobin A1c done on 09/02/2023 was 6.6 -Echocardiogram is pending -Cardiology following-appreciate input History of recurrent VTE -Patient with DVT and was treated for 3 months with recurrent thromboembolic phenomenon in the form of pulmonary embolism -Now requires lifelong anticoagulation -Plan is for triple therapy for 1 month after staged PCI then transition to dual therapy -Restart Xarelto this evening at 1700 DM-2 -Hemoglobin A1c from 09/02/2023 was 6.6 -Restart metformin at discharge -Continue home glargine 38 units at at bedtime -Continue home lispro 9 units 3 times daily -SSI Hyperlipidemia -Will place on high intensity dose statin for pleiotropic effects with 40 mg of atorvastatin due to Ramone trial -Overall cholesterol appears to be well-controlled with an LDL of 44 History of tobacco abuse -Remote -Encourage ongoing cessation DVT prophylaxis -Plan is to restart rivaroxaban tonight CODE STATUS -full code Charges/Coding Visit Charges Inpatient E&M: 14971 Subs Hosp L2
[2023-10-07 07:00] LABS: ALB/GLOB Ratio 0.8 RATIO (0.9-2.4); AST(SGOT) 27 U/L (15-37); Alanine Aminotransfer ALT/SGPT 15 U/L (16-61); Albumin, Serum 2.9 g/dL (3.2-5.0); Alkaline Phosphatase 63 U/L (45-117); Anion Gap 4 (5-15); BUN 11 mg/dL (7-18); BUN/Creat Ratio 12.2 RATIO (10-20); Calcium,Total 8.5 mg/dL (8.5-10.1); Chloride 108 mmol/L (98-107); Cholesterol 98 mg/dL (200); EST Glomerular Filtration Rate 91 mL/min (>60); Est Glom Filt Rate - Afr Amer 110 mL/min (>60); Estimated Creatinine Clearance 99.75 ml/min; Globulin 3.8 g/dL (2.2-4.2); Glucose 158 mg/dL (74-106); High Density Lipoprotein 38 mg/dL; Potassium 3.7 mmol/L (3.5-5.1); Protein, Total 6.7 g/dL (6.4-8.2); Sodium Level 137 mmol/L (136-145); Triglycerides 78 mg/dL; Very Low Density Lipoprotein 16 mg/dL (5-40)
[2023-10-07] MEDS: Insulin Lispro 100 UNIT/ML INSULN.PEN SC ×4 (07:40→21:07)
[2023-10-07] MEDS: Aspirin 81 MG TAB.CHEW PO (07:42)
[2023-10-07] MEDS: Carvedilol 6.25 MG Tablet PO ×2 (07:42→21:02)
[2023-10-07 08:00] LABS: Bedside Glucose 156 mg/dL (74-106)
[2023-10-07] MEDS: Lisinopril 20 MG Tablet PO (08:12)
--- NOTE | 2023-10-07 09:15 | CASEMGMT ---
TEODORA OMER Face to Face with patient for initial transition planning/care coordination assessment. RN CM introduced self and role at [facility]. Patient lying in bed, alert and oriented. Patient willing to participate in assessment and is able to answer all questions appropriately. Care providers, pharmacy, and demographics verified. Patient wishes to discharge home, denies need for home health at this time. Patient states he has no further needs or concerns at this time. CM to follow for discharge planning needs that may arise. PCP: Rodrick Specialists: none Preferred Pharmacy: [facility] Insurance: Prieto BERNARDO Prescription Benefit: yes Living Will/HPOA: none LNOK: brother Living Arrangements: Patient lives alone in a first floor apartment with 3 steps and railing to enter. Patient states he is independent at home. Transportation: brother at times. Transportation resources provided to patient DME/HHC: Patient has shower chair, grab bars, raised toilet, cane, walker, wheelchair, and glucometer at home. Patient has been to [facility] in the past. Patient has had [facility] in the past. Disposition Plan: Patient to discharge home with family support and follow-up plans in place. Jamia TERRY, RN, CM
--- NOTE | 2023-10-07 10:00 | EKG12_ITS ---
Test Reason : am ekg Blood Pressure : / mmHG Vent. Rate : 061 BPM Atrial Rate : 061 BPM P-R Int : 186 ms QRS Dur : 090 ms QT Int : 368 ms P-R-T Axes : 056 015 058 degrees QTc Int : 370 ms Normal sinus rhythm Nonspecific T wave abnormality Abnormal ECG When compared with ECG of 17-JUL-2022 10:54, Vent. rate has decreased BY 32 BPM Nonspecific T wave abnormality no longer evident in Inferior leads Nonspecific T wave abnormality now evident in Lateral leads QT has shortened Confirmed by KAILEE SINGLETON, JULIA ([id number]), greeting card editor HANNAH ERICKSON ([id number]) on 10/11/2023 6:52:06 AM Referred By: Zeeshan Horan Confirmed By:EDITH DUGAN MD
[2023-10-07 11:42] LABS: Bedside Glucose 180 mg/dL (74-106)
--- NOTE | 2023-10-07 13:17 | PN.CARD_ITS ---
Subjective Subjective Patient is doing well. No significant overnight issues. Objective Data Vital Signs: Vital Signs Temp Pulse Resp BP Pulse Ox O2 Del Method 97.9 F 60 16 115/76 96 Room Air 10/07/23 12:00 10/07/23 13:00 10/07/23 13:00 10/07/23 13:00 10/07/23 13:00 10/07/23 13:00 Oxygen Delivery Method Room Air Weight: 232 lb 5.875 oz Body Mass Index (BMI) 36.3 Intake & Output: Intake and Output for Last 24 Hours 10/05/23 10/06/23 10/07/23 23:59 23:59 23:59 Intake Total 0 / 0 400 / 400 Balance 0 / 0 400 / 400 Lab / Micro Data 10/07/23 03:59 10/07/23 03:59 Labs: Laboratory Results - last 24 hr 10/06/23 15:45: WBC 7.4, RBC 5.27, Hgb 15.3, Hct 44.4, MCV 84.3, MCH 29.0, MCHC 34.5, RDW Std Deviation 41.3, RDW Coeff of Tre 13.5, Plt Count 221, MPV 9.6, Immature Gran % (Auto) 0.300, Neut % (Auto) 65.5, Lymph % (Auto) 21.7, [place] % (Auto) 9.9, Eos % (Auto) 1.9, Baso % (Auto) 0.7, Absolute Neuts (auto) 4.8, Absolute Lymphs (auto) 1.60, Nucleated RBC % 0, PT 13.2, INR 1.0, APTT 28.9, Sodium 136, Potassium 3.8, Chloride 104, Carbon Dioxide 27.0, Anion Gap 5, BUN 16, Creatinine 1.17, Est GFR (MDRD) Af Amer 82, Est GFR (MDRD) Non-Af 67, BUN/Creatinine Ratio 13.7, Glucose 156 H, Calcium 9.4, Troponin I High Sens 60 10/06/23 21:01: POC Glucose 177 H 10/07/23 03:59: WBC 7.3, RBC 4.45 L, Hgb 12.7 L, Hct 37.2 L, MCV 83.6, MCH 28.5, MCHC 34.1, RDW Std Deviation 41.4, RDW Coeff of Tre 13.6, Plt Count 199, MPV 9.5, Sodium 137, Potassium 3.7, Chloride 108 H, Carbon Dioxide 25.0, Anion Gap 4 L, BUN 11, Creatinine 0.90, Estim Creat Clear Calc 99.75, Est GFR (MDRD) Af Amer 110, Est GFR (MDRD) Non-Af 91, BUN/Creatinine Ratio 12.2, Glucose 158 H, Calcium 8.5, Total Bilirubin 0.40, AST 27, ALT 15 L, Alkaline Phosphatase 63, Total Prot ein 6.7, Albumin 2.9 L, Globulin 3.8, Albumin/Globulin Ratio 0.8 L, Triglycerides 78, Cholesterol 98, LDL Cholesterol 44, VLDL Cholesterol 16, HDL Cholesterol 38 L 10/07/23 07:39: POC Glucose 156 H 10/07/23 11:21: POC Glucose 180 H Cardiology Labs/Tests 10/06/23 15:45: WBC 7.4, RBC 5.27, Hgb 15.3, Hct 44.4, MCV 84.3, MCH 29.0, MCHC 34.5, Plt Count 221, MPV 9.6, Immature Gran % (Auto) 0.300, Neut % (Auto) 65.5, Lymph % (Auto) 21.7, [place] % (Auto) 9.9, Eos % (Auto) 1.9, Baso % (Auto) 0.7, Absolute Neuts (auto) 4.8, Nucleated RBC % 0, PT 13.2, INR 1.0, APTT 28.9, Sodium 136, Potassium 3.8, Chloride 104, Carbon Dioxide 27.0, Anion Gap 5, BUN 16, Creatinine 1.17, Est GFR (MDRD) Af Amer 82, Est GFR (MDRD) Non-Af 67, BUN/Creatinine Ratio 13.7, Glucose 156 H, Calcium 9.4 10/07/23 03:59: WBC 7.3, RBC 4.45 L, Hgb 12.7 L, Hct 37.2 L, MCV 83.6, MCH 28.5, MCHC 34.1, Plt Count 199, MPV 9.5, Sodium 137, Potassium 3.7, Chloride 108 H, Carbon Dioxide 25.0, Anion Gap 4 L, BUN 11, Creatinine 0.90, Est GFR (MDRD) Af Amer 110, Est GFR (MDRD) Non-Af 91, BUN/Creatinine Ratio 12.2, Glucose 158 H, Calcium 8.5, Total Bilirubin 0.40, Triglycerides 78, Cholesterol 98, LDL Cholesterol 44, VLDL Cholesterol 16, HDL Cholesterol 38 L Rhythm: EKG: ECHO: Stress Test: Cardiac Cath: PCI: CT Surgery: Holter monitor: EPS: PPM: CXR: Chest CT Scan: Radiography Diagnostic Testing: Radiology Impression Echocardiogram 10/07/23 05:55 Interpretation Summary The estimated ejection fraction is 55-60 %. No evidence for diastolic dysfunction. [place] : Hypokinetic. Ordering Physician: Zeeshan Horan Referring Physician: ROYA RUIZ Performed By: Margaux Hernandez RDCS Physical Exam Const alert and oriented x3 HEENT normocephalic Neck no JVD Resp normal respiratory effort Cardio regular rate Assessment & Plan Assessment/Plan (1) ST elevation (STEMI) myocardial infarction: QUALIFIERS: Involved coronary artery: LAD coronary artery Qualif ied Code(s): I21.02 - ST elevation (STEMI) myocardial infarction involving left anterior descending coronary artery PLAN: Treated with drug-eluting stent to the LAD. Continue current medications. Patient can be transferred to PCU. He will need staged PCI of RCA and circumf asad in about 3 weeks. Charges/Coding Visit Charges Inpatient E&M: 50183 Subs Hosp L2
--- NOTE | 2023-10-07 15:19 | CL.I_ITS ---
Patient Name: MIGUEL RODRIGEZ Study Date: 10/06/2023 Performing: Aracelis Mcdonald MD Ht: 67 inches 170.18 cm : 1960 Wt: lbs kg Age: 63 Gender: male BSA: PROCEDURE(S) PERFORMED DC02-(07067)LHC/COR IC16-(96024/C9606)AMI, MADDIE OR PTCA, ARTERY/GRAFT, SINGLE VESSEL CLINICAL PROFILE AND CO-MORBIDITIES Indications: ACS <= 24 hrs Heart Failure: None Stress/Imaging Stress/Image Study Performed: No CAD Presentations: STEMI. Symptom onset Date/Time: 10/06/23 Time Not Available CONCLUSIONS CAD as described.Successful MADDIE to LAD RECOMMENDATIONS Patient should return for staged PCI of the RCA and circumflex in about 3 to 4 weeks DESCRIPTION OF PROCEDURE The patient arrived to the procedure lab. The risks and benefits of the procedure as well as a full description of our services here and lack of surgical backup were fully explained to the patient and/or their significant other prior to the catheterization. The Timeout was completed, verifying the correct patient and procedure. The patient's procedural site was prepped and draped in the usual fashion. Local anesthetic was given subcutaneously to right radial region with Lidocaine 2%. Using a modified Seldinger technique, arterial access was obtained via the right radial artery, a 6Fr sheath was inserted.. Right Coronary Artery selective angiography was then performed in multiple views using a 5 Fr. JR 4 catheter. Left Coronary Artery selective angiography was performed in multiple views using a 5 Fr.The images were reviewed and options discussed. A decision was then made to proceed with an Intervention, IVUS or other adjunct procedure. xb3 Guide catheter was inserted and engaged into the LCA. bmw Guide wire was advanced to the LAD. Balloon catheter was inserted. PTCA balloon inflated at 6 atms for 8 secs. PTCA balloon inflated at 8 atms for 16 secs. PTCA balloon inflated at 10 atms for 12 secs. Angiogram performed post balloon dilatation. sanjeev 2.5 18 Drug Eluting stent was advanced across the lesion in the LAD, mid. Angiogram performed post stent deployment. The arterial sheath was pulled and a TR Band was applied for hemostasis CORONARY ANGIOGRAPHY DOMINANCE: Right Dominant LEFT MAIN: Mild luminal irregularities LEFT ANTERIOR DESCENDING ARTERY: MID LAD: 99 % Stenosis CIRCUMFLEX ARTERY: DISTAL CIRC: 80 % Stenosis RIGHT CORONARY ARTERY: DISTAL RCA: 80 % Stenosis INTERVENTION INFORMATION LESION SITE: LAD (Mid) Lesion Complexity: High/C, chronic total occlusion: No, lesion at bifurcation: No, thrombus present: No, lesion length: 15 mm, culprit lesion: Yes, Previously treated lesion: No Pre Stenosis: 99 % Pre intervention JULIA flow: 2 PROCEDURE: Drug Eluting Stent with pre dilatation. Post Stenosis: 0 % Post intervention JULIA flow: 3 Lesion Devices: Cordis 6 Fr XB3.0 100cm Guide Catheter Juan Sci EMERGE MR 2.00x12 BALLOON Adamson .014 190cm BMW [place] Straight Medtronic 2.50 x 18 SANJEEV FRONTIER MADDIE COMPLICATIONS No Complications PROCEDURE MEDICATIONS Oxygen: 2 L/min via nasal cannula Heparin 3000 unit(s) Ia 10/06/2023 16:24:12 Verapamil 2.5mg, Ntg 100mcgs, given IA 10/06/2023 16:20:27 SUMMARY OF HEMODYNAMIC DATA Time AIR REST ECG 16:11:20 AO 140/75 (103) SA 16:25:53 Signed By Aracelis Mcdonald MD On 10/07/2023 15:18:45 Aracelis Mcdonald MD
[2023-10-07] MEDS: Rivaroxaban 20 MG Tablet PO (15:57)
[2023-10-07 16:16] LABS: Bedside Glucose 220 mg/dL (74-106)
[2023-10-07] MEDS: Atorvastatin Calcium 40 MG Tablet PO (21:03)
[2023-10-07] MEDS: Insulin Glargine-YFGN 100 UNIT/ML Pen 30 UNIT SC (21:06)
[2023-10-07 21:31] LABS: Bedside Glucose 213 mg/dL (74-106)
[2023-10-08 02:00] VITALS: BP 128/70; PULSE 55; RESP 16; TEMP 36.6; O2SAT 98
[2023-10-08 05:25] VITALS: BMI 36.3
[2023-10-08 05:44] LABS: Hematocrit 41.8 % (40-54); Mean Corp Hgb Conc 33.5 g/dL (32-36); Mean Corpuscular Hgb 28.8 pg (27.0-32.0); Mean Platelet Vol. 9.5 fl (6.2-12.0); Platelet Count 206 K/mm3 (150-450); RBC Distribution Width CV 13.8 % (11.6-14.6); RBC Distribution Width SD 42.7 fl (35.1-43.9); Red Blood Count 4.86 M/mm3 (4.6-6.2); White Blood Count 7.2 K/mm3 (4.4-11.0)
[2023-10-08 05:58] LABS: Anion Gap 3 (5-15); BUN 18 mg/dL (7-18); BUN/Creat Ratio 16.8 RATIO (10-20); Calcium,Total 9.2 mg/dL (8.5-10.1); Chloride 104 mmol/L (98-107); Creatinine, Serum 1.07 mg/dL (0.70-1.30); EST Glomerular Filtration Rate 75 mL/min (>60); Est Glom Filt Rate - Afr Amer 90 mL/min (>60); Estimated Creatinine Clearance 83.78 ml/min; Glucose 138 mg/dL (74-106); Sodium Level 136 mmol/L (136-145)
[2023-10-08 08:00] VITALS: BP 146/90; PULSE 59; RESP 18; TEMP 36.6; O2SAT 98
[2023-10-08] MEDS: Lisinopril 20 MG Tablet PO (08:10)
[2023-10-08] MEDS: Carvedilol 6.25 MG Tablet PO (08:10)
[2023-10-08] MEDS: Clopidogrel Bisulfate 75 MG Tablet PO (08:10)
[2023-10-08] MEDS: Aspirin 81 MG TAB.CHEW PO (08:10)
--- NOTE | 2023-10-08 10:00 | EKG12_ITS ---
Test Reason : AM EKG Blood Pressure : / mmHG Vent. Rate : 055 BPM Atrial Rate : 055 BPM P-R Int : 196 ms QRS Dur : 086 ms QT Int : 474 ms P-R-T Axes : 058 022 145 degrees QTc Int : 453 ms Sinus bradycardia Low voltage QRS Cannot rule out Anterior infarct , age undetermined T wave abnormality, consider lateral ischemia Abnormal ECG When compared with ECG of 07-OCT-2023 05:24, MANUAL COMPARISON REQUIRED, DATA IS UNCONFIRMED Confirmed by KAILEE SINGLETON, JULIA ([id number]), index editor NISA LARA ([id number]) on 10/11/2023 2:03:17 PM Referred By: Zeeshan Horan Confirmed By:EDITH DUGAN MD
[2023-10-08 11:28] VITALS: O2SAT 99
[2023-10-08] MEDS: Insulin Lispro 100 UNIT/ML INSULN.PEN SC (11:29)
[2023-10-08 11:53] LABS: Bedside Glucose 233 mg/dL (74-106)
--- NOTE | 2023-10-08 12:26 | PCM.DC.SUM ---
Providers Date of Admission: 10/06/23 Date of Discharge: 10/08/23 Primary Care Physician: Dr. Bernardo Mensah MD Consultations 10/06/23 17:56 Consult: Cardiology Routine Consulting Provider: Larissa Mcdonald Reason for Consult: STEMI EMERGENT Consult: No MD Notified: Yes Date Notified: 10/06/23 Time Notified: 17:52 Method of Notification: Verbal Reason For Visit: stemi Diagnosis Discharge Diagnosis (1) ST elevation (STEMI) myocardial infarction: Status: Acute Code(s): I21.3 - ST elevation (STEMI) myocardial infarction of unspecified site Qualifiers: Involved coronary artery: LAD coronary artery Qualified Code(s): I21.02 - ST elevation (STEMI) myocardial infarction involving left anterior descending coronary artery (2) Arteriosclerotic cardiovascular disease (ASCVD): Status: Acute Code(s): I25.10 - Atherosclerotic heart disease of [place] coronary artery without angina pectoris (3) Presence of stent in LAD coronary artery: Status: Acute Code(s): Z95.5 - Presence of coronary angioplasty implant and graft Medications at Discharge Home Medications insulin glargine-yfgn 100 unit/mL (3 mL) subcutaneous pen (Semglee (insulin glargine-yfgn) Pen) 38 ea subcut QHS diabetes 02/21/22 insulin lispro 100 unit/mL subcutaneous pen (Humalog KwikPen (U-100) Insulin) 9 ea subcut 3XD diabetes 02/21/22 B12 50,000 units PO QWEEK vitamin replace 10/06/23 metformin 500 mg tablet 500 mg PO BID Diabetes 10/06/23 rivaroxaban 20 mg tablet (Xarelto) 20 mg PO Q24H blood clots 10/06/23 aspirin 81 mg chewable tablet 81 mg PO BREAKFAST #0 tabs 10/08/23 atorvastatin 40 mg tablet 40 mg PO QHS #30 tabs 10/08/23 carvedilol 6.25 mg tablet 6.25 mg PO BID #60 tabs 10/08/23 clopidogrel 75 mg tablet 75 mg PO DAILY #30 tabs 10/08/23 lisinopril 20 mg tablet 20 mg PO DAILY #30 tabs 10/08/23 Hospital Course Operations None Procedures 2-D Echocardiogram, Cardiac catheterization, EKG and - (CXR) Summary of Care Provided Minutes Spent on Discharge: 38 Hospital Course: Mr. Whiting is a 63-year-old white male who presented to the emergency department at [facility] on 10/06/2023 with acute chest pain that was substernal in nature and he described as a burning sensation. He denied any radiation of his pain. He had symptoms for about 2 hours prior to presenting to the emergency department. In the field EKG indicated anterior lateral STEMI and STEMI alert was initiated. He was given pre-STEMI medications the emergency department and taken directly to the Corporate Strategy Associate from the emergency department at which time coronary angiography revealed 99% stenosis at the mid LAD and this was treated with a drug-eluting stent. There is also noted 80% occlusion of the circumflex and right coronary artery. It is noted he will need a staged procedure will need to be performed. Of note he has a history of PE and DVT. 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 His Xarelto was held post catheterization for 24 hours and then reinitiated. The plan is for triple therapy with aspirin, Plavix, and Xarelto for 1 month after his staged procedure of his RCA and circumflex can be performed. That would likely be performed in about 3 weeks. Post catheterization he was started on a aspirin, Plavix, beta-claude, low-dose lisinopril and high intensity dose statin. He had a recent hemoglobin A1c on 09/02/2023 so this was not repeated. At that time it was 6.6 indicating good glycemic control. We recommend that he continue this. We obtain his lipid profile and his total cholesterol was 98, LDL 44, HDL 38 and triglycerides were 78. We did transition his statin from pravastatin to atorvastatin for pleiotropic effects and prescriptions for the atorvastatin, Coreg, Plavix, and lisinopril were sent to his local pharmacy and he was instructed to get an outpatient baby aspirin to take daily. He will follow-up as an outpatient with cardiac rehab. He has a follow-up to be seen by cardiology on 10/19/2023 at 10:30 AM at which time they will discuss upcoming staged procedure. Have also asked him to follow-up with his primary care physician within the next 2 weeks. He was discharged home in stable condition on 10/08/2023. Discharge diagnoses: Anterior/lateral STEMI History of recurrent VTE DM-2 Hyperlipidemia Hypertension History of tobacco abuse Physical Exam Const alert, oriented x3, no apparent distress, no limitations, healthy appearing and well nourished Constitutional Narrative: Obese, upper middle-aged, white male, appears older than stated age, sitting up in bed, appears comfortable and nontoxic General Appearance: cooperative, comfortable, well kempt and well developed Orientation / Consciousness: awake, oriented to person, oriented to place and oriented to time Exam Limitations: no limitations Nutritional Appearance: obese HEENT normocephalic, head/scalp atraumatic, hearing grossly normal bilaterally and moist oral mucous membranes HEENT Narrative: Mallampati 2, no thrush Eyes PERRL, EOMs intact bilaterally and conjunctivae normal Neck no lymphadenopathy and supple Neck Narrative: Trachea midline, no thyroid enlargement Resp normal respiratory effort, no retractions, no use of accessory muscles and clear to auscultation bilaterally Auscultation: Negative for rales, rhonchi or wheezes Cardio regular rate, regular rhythm, S1 normal heart sound, S2 normal heart sound, no murmurs, no rub, no gallops and no clicks GI normal to inspection, nondistended, normoactive bowel sounds, soft to palpation, non-tender and non-distended Extremity no clubbing, cyanosis or edema Extremity Narrative: Pedal pulses/radial pulses are 2+ Skin no rashes or lesions noted, skin turgor normal and no jaundice Skin Narrative: Catheterization site is healing well without any ecchymosis or tenderness Neuro oriented x3, moves all extremities and no focal motor deficits Sensorium / Orientation: awake and alert Speech: speech normal Psych affect normal Psych Narrative: Very pleasant, interacts appropriately Weight / BMI Weight Weight: 105.1 kg Body Mass Index (BMI) 36.3 ABG / Lab / Microbiology Data 10/08/23 05:30 10/08/23 05:30 Laboratory: Laboratory Results - last 24 hr 10/07/23 15:55: POC Glucose 220 H 10/07/23 21:05: POC Glucose 213 H 10/08/23 05:30: WBC 7.2, RBC 4.86, Hgb 14.0, Hct 41.8, MCV 86.0, MCH 28.8, MCHC 33.5, RDW Std Deviation 42.7, RDW Coeff of Tre 13.8, Plt Count 206, MPV 9.5, Sodium 136, Potassium 4.0, Chloride 104, Carbon Dioxide 29.0, Anion Gap 3 L, BUN 18, Creatinine 1.07, Estim Creat Clear Calc 83.78, Est GFR (MDRD) Af Amer 90, Est GFR (MDRD) Non-Af 75, BUN/Creatinine Ratio 16.8, Glucose 138 H, Calcium 9.2 10/08/23 11:28: POC Glucose 233 H D/C Instructions Discharge Diet: Low fat / Low cholesterol and 2000 Calorie Control Diet Discharge Activity: Return to Normal Activity (Limit lifting over 15 pounds with the right upper extremity for the next 3 to 5 days), [address] and May Shower Meaningful Use Info Meaningful Use Diagnoses (Choose all that apply): AMI AMI/Post PCI/Angioplasty Aspirin given w/in 24hrs of arrival?: Yes ASA at discharge?: Yes Antiplatelet Therapy at Discharge:: Yes Statins at discharge?: Yes Darwin/ARB at discharge?: Yes Beta Claude at discharge?: Yes Done w/ Acute VA measure.: Yes Documented LVEF (%): 55 Discharge Plan Admission Admit Date/Time: 10/06/23 16:03 Primary Reason for Your Visit: Chest pain Attending Provider: Tamia Moya Primary Care Provider: Bernardo Mensah Consulting Providers: Zeeshan Horan; Larissa Mcdonald Discharge Orders/Prescriptions Prescriptions: New lisinopril 20 mg Tablet 20 mg PO DAILY Qty: 30 1RF clopidogrel 75 mg Tablet 75 mg PO DAILY Qty: 30 11RF carvedilol 6.25 mg Tablet 6.25 mg PO BID Qty: 60 1RF atorvastatin 40 mg Tablet 40 mg PO QHS Qty: 30 1RF aspirin 81 mg Tablet,Chewable 81 mg PO BREAKFAST Qty: 0 0RF Continued insulin lispro [Humalog KwikPen Insulin] 100 unit/mL insulin pen 9 ea SUBCUT 3XD insulin glargine-yfgn [Semglee(insulin glarg-yfgn)Pen] 100 unit/mL (3 mL) insulin pen 38 ea SUBCUT QHS metformin 500 mg tablet 500 mg PO BID Patient Comments: TAKE 1 TABLET BY MOUTH TWICE A DAY WITH FOOD B12 capsule 50,000 units PO QWEEK Xarelto 20 mg tablet 20 mg PO Q24H Patient Comments: TAKE 1 (ONE) TABLET BY MOUTH ONCE A DAY WITH THE LARGEST MEAL OF THE DAY Discontinued pravastatin 20 mg tablet 20 mg PO DAILY Patient Comments: TAKE 1 TABLET BY MOUTH EVERY DAY rivaroxaban 15 mg (42)- 20 mg (9) tablets,dose pack 20 tab Referrals / Follow Up: Bernardo Mensah MD [Primary Care Provider] - Within 2 Weeks Ana Lilia Morgan NP, [employer] [employer] [Non-Staff -Ordering Privileges] - 10/19/23 10:30 am Disposition Disposition (needs filled in before D/C Order can be placed): Home, Self Care Charges/Coding Visit Charges Inpatient E&M: 85858 Disch Hosp >30min
== END 2023-10-08 13:00 | disposition home or self-care (01) | DRG 174 ==
LOC: ED 16:00 → ICU 16:04
PROVIDERS: Specialist; Admitting Provider Internal Medicine; Emergency Provider Emergency Medicine; PCP Family Medicine; Referring Provider Internal Medicine; Visit Provider Internal Medicine
DX: I21.02 ST elevation (STEMI) myocardial infarction involving left anterior descending coronary artery (principal); E11.65 Type 2 diabetes mellitus with hyperglycemia; Z79.4 Long term (current) use of insulin; I10 Essential (primary) hypertension; E78.5 Hyperlipidemia, unspecified; I25.10 Atherosclerotic heart disease of native coronary artery without angina pectoris; Z79.01 Long term (current) use of anticoagulants; Z79.84 Long term (current) use of oral hypoglycemic drugs; Z79.899 Other long term (current) drug therapy; Z86.711 Personal history of pulmonary embolism; Z86.718 Personal history of other venous thrombosis and embolism; Z87.891 Personal history of nicotine dependence
CPT/HCPCS: 80048; 80053; 80061; 82962; 84484; 85025; 85027; 85610; 85730; 92941; 93005; 93306; 93454; 97161; 97802; 99283; J7030; Q9957; A4216; C1725; C1769; C1874; C1887; C1894; C8929; C9606; Q9967

== ENCOUNTER → 2023-11-04 | Outpatient (CLI) | payer MEDICAID, SELFPAY ==
--- NOTE | 2023-11-04 14:35 | RAD_ITS ---
EXAM: XR CHEST, 2 VIEWS CLINICAL INDICATION: Cardiac cath TECHNIQUE: Frontal and lateral views of the chest. COMPARISON: 07/17/2022 FINDINGS: LUNGS AND PLEURAL SPACES: Unremarkable. No consolidation or edema. No pneumothorax. No effusion. HEART: Unremarkable. Cardiac silhouette not enlarged. MEDIASTINUM: Central airways and mediastinal contour are unremarkable. BONES/JOINTS: There is hardware from prior yonis and screw fixation of the thoracic spine. No acute fracture. SOFT TISSUES: Unremarkable. RAD/Chest PA and Lateral IMPRESSION: No acute findings in the chest. Electronically Signed: Imtiaz Zhou MD at 0:01 EDT ,
== END | disposition home or self-care (01) ==
LOC: RAD 14:35
PROVIDERS: PCP Family Medicine; Referring Provider Nurse Practitioner Gerontology; Visit Provider Nurse Practitioner Gerontology
DX: I25.10 Atherosclerotic heart disease of native coronary artery without angina pectoris (principal); Z95.5 Presence of coronary angioplasty implant and graft
CPT/HCPCS: 71046

== ENCOUNTER 2023-11-29 12:32 | Observation (INO) | payer MEDICAID, SELFPAY ==
[2023-11-12 12:28] LABS: Absolute Lymphocyte Count 1.07 X10^3/uL (0.83-4.51); Absolute Neutrophil Count 3.8 X10^3/uL (2.0-7.7); Basophil# 0.03 X10^3/uL; Basophil% 0.5 % (0-1); Eosinophil# 0.14 X10^3/uL; Eosinophils% 2.4 % (0-5); Hematocrit 41.1 % (40-54); Hemoglobin 13.9 g/dL (13.0-16.5); Lymphocyte # 1.07 X10^3/ul (0.83-4.51); Lymphocyte % 18.7 % (19-41); Mean Corp Hgb Conc 33.8 g/dL (32-36); Mean Corpuscular Hgb 28.9 pg (27.0-32.0); Mean Corpuscular Volume 85.4 fL (80-94); Mean Platelet Vol. 9.3 fl (6.2-12.0); Monocyte# 0.66 X10^3/uL; Monocyte% 11.5 % (0-10); NRBC Flagged by Analyzer 0 % (0-5); Neutrophil # 3.82 X10^3/uL (2.7-7.7); Neutrophil % 66.7 % (47-70); Platelet Count 207 K/mm3 (150-450); RBC Distribution Width CV 13.9 % (11.6-14.6); RBC Distribution Width SD 43.2 fl (35.1-43.9); Red Blood Count 4.81 M/mm3 (4.6-6.2); White Blood Count 5.7 K/mm3 (4.4-11.0)
[2023-11-12 13:21] LABS: Anion Gap 2 (5-15); BUN 14 mg/dL (7-18); BUN/Creat Ratio 13.6 RATIO (10-20); Calcium,Total 9.2 mg/dL (8.5-10.1); Chloride 104 mmol/L (98-107); Creatinine, Serum 1.03 mg/dL (0.70-1.30); EST Glomerular Filtration Rate 78 mL/min (>60); Est Glom Filt Rate - Afr Amer 94 mL/min (>60); Glucose 195 mg/dL (74-106); Potassium 4.7 mmol/L (3.5-5.1); Sodium Level 137 mmol/L (136-145)
[2023-11-18 09:11] VITALS: BMI 36.9
[2023-11-29] VITALS (8 sets, daily range): BP systolic 127–148; BP diastolic 71–81; PULSE 57–65; RESP 17–18; TEMP 36.5–36.7; O2SAT 98; BMI 36.0
--- NOTE | 2023-11-29 12:45 | EKG12_ITS ---
Test Reason : POST PCI Blood Pressure : / mmHG Vent. Rate : 061 BPM Atrial Rate : 061 BPM P-R Int : 154 ms QRS Dur : 082 ms QT Int : 388 ms P-R-T Axes : 009 007 046 degrees QTc Int : 390 ms Normal sinus rhythm Normal ECG When compared with ECG of 08-OCT-2023 05:09, T wave inversion no longer evident in Anterolateral leads QT has shortened Confirmed by KAILEE SINGLETON, JULIA ([id number]), website/blog editor NISA LARA ([id number]) on 12/06/2023 1:15:21 PM Referred By: Bernardo Mensah Confirmed By:EDITH DUGAN MD
--- NOTE | 2023-11-29 12:52 | CL.I_ITS ---
Patient Name: MIGUEL RODRIGEZ Study Date: 11/29/2023 Performing: Aracelis Mcdonald MD Ht: 67 inches 170.18 cm : 1960 Wt: 236.3 lbs 107.05 kg Age: 63 Gender: male BSA: 2.17 PROCEDURE(S) PERFORMED IC12-(17667/[id number])MADDIE W/WO PTCA, SINGLE CORONARY ARTERY CLINICAL PROFILE AND CO-MORBIDITIES Heart Failure: None CAD Presentations: Other: Staged PCI of RCA CONCLUSIONS Successful MADDIE to mRCA RECOMMENDATIONS DESCRIPTION OF PROCEDURE The patient arrived to the procedure lab. The risks and benefits of the procedure as well as a full description of our services here and current unavailability of surgical backup were fully explained to the patient and/or their significant other prior to the catheterization. The Timeout was completed, verifying the correct patient and procedure. The patient's procedural site was prepped and draped in the usual fashion. Local anesthetic was given subcutaneously to right radial region with Lidocaine 2%. Using a modified Seldinger technique, arterial access was obtained via the right radial artery, a 6Fr sheath was inserted.. Right Coronary Artery selective angiography was then performed in multiple views using a 5 Fr. JR 4 catheter Angiogram performed pre balloon dilatation. jr 4 Guide catheter was inserted and engaged into the RCA. bmw Guide wire was advanced to the RCA. emerge 2.5 x 20 Balloon catheter was advanced across lesion in the ramus branch, mid. PTCA balloon inflated at 10 atms for 19 secs. PTCA balloon inflated at 10 atms for 14 secs. PTCA balloon inflated at 10 atms for 9 secs. Angiogram performed post balloon dilatation. orsiro 3.0 x 40 Drug Eluting stent was advanced across the lesion in the right coronary, mid. Angiogram performed post stent deployment. The arterial sheath was pulled and a TR Band was applied for hemostasis INTERVENTION INFORMATION LESION SITE: RCA (Mid) Lesion Complexity: High/C, chronic total occlusion: No, lesion at bifurcation: No, thrombus present: No, lesion length: 38 mm, culprit lesion: Yes, Previously treated lesion: No Pre Stenosis: 80 % Pre intervention JULIA flow: 3 PROCEDURE: Drug Eluting Stent with pre dilatation. Post Stenosis: 0 % Post intervention JULIA flow: 3 Lesion Devices: Cordis 6 Fr JR4 100cm Guide Catheter Adamson .014 190cm BMW [place] Straight Juan Sci EMERGE MR 2.50x20 BALLOON Biotronik Orsiro Vidor MR MADDIE 3.0x40 COMPLICATIONS No Complications PROCEDURE MEDICATIONS Versed 1 mg IV Fentanyl 50 mcg IV Oxygen: 2 L/min via nasal cannula Aspirin (325mg) 1 Tabs PO @ 11/29/2023 11:20:13 Heparin given IA 11/29/2023 11:53:17 Heparin 5000 unit(s) IV 11/29/2023 11:53:41 Plavix 75 mg PO 11/29/2023 11:20:04 Verapamil 2.5mg, Ntg 100mcgs, 3000 units of Heparin given IA 11/29/2023 11:53:17 SUMMARY OF HEMODYNAMIC DATA Time AIR REST ECG 11:05:49 AO 115/77 (94) SA 11:57:45 Signed By Aracelis Mcdonald MD On 11/29/2023 12:51:31 Aracelis Mcdonald MD
[2023-11-29] MEDS: 0.9% Normal Saline (1000mL) 1,000 ML 60 ML IV (14:35)
--- NOTE | 2023-11-29 15:02 | CRPHASE1_ITS ---
Patient Communication Patient Information Former Patient:: Phase I and Phase II PHII Cardiac Rehab Discussed with Patient:: Yes Guide to Cardiac Rehab Given to Patient:: Yes Cardiac Rehab Facility Choice List Given to Patient:: Yes Communication to Cardiac Rehab Choice Program [facility] CR PHII:: Communication Given to CR Foundry Laborer Coreroom:: Aracelis Mcdonald Refer Phase II Cardiac Rehab:: Yes Sessions:: 36 sessions - 3 days/wk, 12 weeks Medical/Surgical History Medical History [place]:: Yes Congestive Heart Failure: CVA/TIA: Cardiac Rehabilitation Info Program Information Cardiac Rehabilitation Program Information: Cardiac Rehab The cardiac rehab team at [facility] consists of highly skilled exercise physiologists, nurses, respiratory therapists and physicians working together with you. Our purpose is to help you have a full recovery and achieve the goals you set for yourself. Over the years many of our patients have returned to activities they assumed they would never do again! We can help restore your confidence and motivation to make lifestyle changes that can have a significant impact on your health and quality of life! We can help answer questions and concerns you may have about exercise, lifestyle, medications, diet, stress and anxiety which are common following a hospitalization. WE monitor ECG and vital signs during exercise and discuss your progress with you and report to your physician(s). Cardiac Rehab is proven to help reduce readmissions, improve functional capacity and lower recurrence of problems with your heart. Our Cardiac Rehab program is Certified by the [place] [employer]-V[employer] and Pulmonary [employer] (AACVPR) and Accredited by the [place] [employer] through our [facility]. You can contact us at . We invite you to call us with your questions or to get started in our program. If you have other questions or concerns be sure to ask your physician/provider during your follow-up visit. WE look forward to seeing you!
--- NOTE | 2023-11-29 15:03 | CRPH1.INST_ITS ---
General Education Discussed with Patient CAD and cardiac anatomy and function:: Patient communicates acknowledgment Explanation of diagnoses and procedures:: Patient communicates acknowledgment Sign/Symptoms of ID:: Patient communicates acknowledgment Antiplatelet therapy: Patient communicates acknowledgment Proper use of NTG-SL: Patient communicates acknowledgment Emergency procedures and activation of EMS: Patient communicates acknowledgment Compliance of all prescribed medications: Patient communicates acknowledgment Smoking Risk Factors Patient Nicotine/Smoking Risk Factors Are:: Cigarettes Recommendations Recommendations Include:: Second-hand smoke recommendation and Previous smoker; encourage continued cessation Response Code Nicotine/Smoking Response Code:: Patient communicates acknowledgment Dyslipidemia Recommendations Recommendations Include:: Lipid profile not available Response Code Dyslipidemia Response Code:: Patient communicates acknowledgment Overweight/Obesity Risk Factors Patient Overweight/Obesity Risk Factors Are:: Obesity - > or = 30 Recommendations Recommendations Include:: Weight loss of 5-10%, Reduced calorie diet and E xercise 5-7 times/week Response Code Overweight/Obesity:: Patient communicates acknowledgment Hypertension Recommendations Recommendations Include:: Maintain BP <130/85 Response Code Hypertension:: Patient communicates acknowledgment Heart Disease Risk Factors Patient Heart Disease Risk Factors Are:: Family history of heart disease < 65 years old Recommendations Recommendations Include:: Educated family members of their risk Response Code Heart Disease Response Code:: Patient communicates acknowledgment Diabetes Risk Factors Patient Diabetes Risk Factors Are:: No documented hx of diabetes Metabolic Syndrome Recommendations Recommendations Include:: Does not meet criteria Sedentary Risk Factors Patient Sedentary Risk Factors Are:: Lack of regular exercise Recommendations Recommendations Include:: Aerobic exercise 5-7 times/week for 20-30 minutes continuously, Benefits of regular exercise, Discussed home walking program and Monitored Outpatient Cardiac Rehab Response Code Sedentary Response Code:: Patient communicates acknowledgment Stress Recommendations Recommendations Include:: Identification of stressors, and assessment of coping skills and Stress management techniques Response Code Stress Response Code:: Patient communicates acknowledgment
[2023-11-29] MEDS: Insulin Lispro 100 UNIT/ML INSULN.PEN 9 UNIT SC (16:15)
[2023-11-29 16:45] LABS: Bedside Glucose 216 mg/dL (74-106)
[2023-11-29] MEDS: Insulin Glargine-YFGN 100 UNIT/ML Pen 38 UNIT SC (21:44)
[2023-11-29] MEDS: Carvedilol 6.25 MG Tablet PO (21:47)
[2023-11-29] MEDS: Atorvastatin Calcium 40 MG Tablet PO (21:47)
[2023-11-30 01:22] LABS: Bedside Glucose 203 mg/dL (74-106)
[2023-11-30 03:32] VITALS: BP 130/72; PULSE 55; RESP 18; TEMP 36.7; O2SAT 98
[2023-11-30 08:07] LABS: Bedside Glucose 143 mg/dL (74-106)
[2023-11-30] MEDS: Insulin Lispro 100 UNIT/ML INSULN.PEN 9 UNIT SC (08:26)
[2023-11-30] MEDS: Lisinopril 20 MG Tablet PO (08:28)
[2023-11-30] MEDS: Clopidogrel Bisulfate 75 MG Tablet PO (08:28)
[2023-11-30] MEDS: Carvedilol 6.25 MG Tablet PO (08:28)
[2023-11-30] MEDS: Aspirin E.C. 81 MG Tablet PO (08:28)
[2023-11-30 08:30] VITALS: BP 138/82; PULSE 54; RESP 16; TEMP 36.3; O2SAT 99
[2023-11-30 08:34] LABS: Hemoglobin 12.8 g/dL (13.0-16.5); Mean Corp Hgb Conc 33.7 g/dL (32-36); Mean Corpuscular Hgb 28.8 pg (27.0-32.0); Mean Corpuscular Volume 85.4 fL (80-94); Platelet Count 201 K/mm3 (150-450); RBC Distribution Width CV 13.7 % (11.6-14.6); RBC Distribution Width SD 42.5 fl (35.1-43.9); Red Blood Count 4.45 M/mm3 (4.6-6.2); White Blood Count 5.3 K/mm3 (4.4-11.0)
[2023-11-30 08:36] VITALS: O2SAT 96
[2023-11-30 08:53] LABS: ALB/GLOB Ratio 0.8 RATIO (0.9-2.4); AST(SGOT) 13 U/L (15-37); Alanine Aminotransfer ALT/SGPT 18 U/L (16-61); Albumin, Serum 3.2 g/dL (3.2-5.0); Alkaline Phosphatase 63 U/L (45-117); Anion Gap 3 (5-15); BUN 13 mg/dL (7-18); BUN/Creat Ratio 15.1 RATIO (10-20); Calcium,Total 8.6 mg/dL (8.5-10.1); Chloride 104 mmol/L (98-107); Creatinine, Serum 0.86 mg/dL (0.70-1.30); EST Glomerular Filtration Rate 96 mL/min (>60); Est Glom Filt Rate - Afr Amer 116 mL/min (>60); Estimated Creatinine Clearance 103.84 ml/min; Globulin 3.9 g/dL (2.2-4.2); Glucose 140 mg/dL (74-106); Protein, Total 7.1 g/dL (6.4-8.2); Sodium Level 136 mmol/L (136-145)
[2023-11-30 09:18] VITALS: O2SAT 99
--- NOTE | 2023-11-30 10:00 | EKG12_ITS ---
Test Reason : POST PCI Blood Pressure : / mmHG Vent. Rate : 054 BPM Atrial Rate : 054 BPM P-R Int : 186 ms QRS Dur : 088 ms QT Int : 412 ms P-R-T Axes : 067 007 057 degrees QTc Int : 390 ms Sinus bradycardia Nonspecific T wave abnormality Abnormal ECG When compared with ECG of 29-NOV-2023 14:07, MANUAL COMPARISON REQUIRED, DATA IS UNCONFIRMED Confirmed by KAILEE SINGLETON, JULIA ([id number]), loan expeditor HANNAH ERICKSON ([id number]) on 12/06/2023 10:14:46 AM Referred By: Bernardo Mensah Confirmed By:EDITH DUGAN MD
[2023-11-30 11:42] LABS: Bedside Glucose 188 mg/dL (74-106)
[2023-11-30 13:48] VITALS: BP 126/78; PULSE 55; RESP 14; TEMP 36.9; O2SAT 98
[2023-11-30 15:04] VITALS: BP 126/78; PULSE 55; RESP 14; TEMP 36.9; O2SAT 97
--- NOTE | 2023-11-30 15:05 | PCM.DC.SUM ---
Providers Date of Admission: 11/29/23 Primary Care Physician: Dr. Bernardo Mensah MD Reason For Visit: right pci Diagnosis Discharge Diagnosis (1) Arteriosclerotic cardiovascular disease (ASCVD): Status: Acute Code(s): I25.10 - Atherosclerotic heart disease of [place] coronary artery without angina pectoris (2) Stented coronary artery: Status: Acute Code(s): Z95.5 - Presence of coronary angioplasty implant and graft Medications at Discharge Home Medications insulin glargine-yfgn 100 unit/mL (3 mL) subcutaneous pen (Semglee (insulin glargine-yfgn) Pen) 38 ea subcut QHS diabetes 02/21/22 insulin lispro 100 unit/mL subcutaneous pen (Humalog KwikPen (U-100) Insulin) 9 ea subcut 3XD diabetes 02/21/22 B12 50,000 units PO QWEEK vitamin replace 10/06/23 metformin 500 mg tablet 500 mg PO BID Diabetes 10/06/23 rivaroxaban 20 mg tablet (Xarelto) 20 mg PO Q24H blood clots 10/06/23 atorvastatin 40 mg tablet 40 mg PO QHS #90 tabs 11/04/23 blood pressure test kit-medium #1 ea 11/04/23 carvedilol 6.25 mg tablet 6.25 mg PO BID #180 tabs 11/04/23 clopidogrel 75 mg tablet 75 mg PO DAILY #90 tabs 11/04/23 lisinopril 20 mg tablet 20 mg PO DAILY #90 tabs 11/04/23 Physical Exam Narrative Pt. went underwent PCI of RCA without any complications. He had an uneventful hospital course and is being discharged home in a stable condition. He will follow up with his Retail Product Advisor as an outpatient. He was advised to be on ASA 81mg, Plavix and Xarelto for 1 month and then stop ASA. He should hold his Metformin for another day and resume from 12/02/23. Const alert and oriented x3 General Appearance: cooperative Weight / BMI Weight Weight: 230 lb Body Mass Index (BMI) 36.0 ABG / Lab / Microbiology Data 11/30/23 07:45 11/30/23 07:45 Laboratory: Laboratory Results - last 24 hr 11/29/23 16:15: POC Glucose 216 H 11/29/23 21:44: POC Glucose 203 H 11/30/23 07:45: WBC 5.3, RBC 4.45 L, Hgb 12.8 L, Hct 38.0 L, MCV 85.4, MCH 28.8, MCHC 33.7, RDW Std Deviation 42.5, RDW Coeff of Tre 13.7, Plt Count 201, MPV 9.0, Sodium 136, Potassium 4.0, Chloride 104, Carbon Dioxide 29.0, Anion Gap 3 L, BUN 13, Creatinine 0.86, Estim Creat Clear Calc 103.84, Est GFR (MDRD) Af Amer 116, Est GFR (MDRD) Non-Af 96, BUN/Creatinine Ratio 15.1, Glucose 140 H, Calcium 8.6, Total Bilirubin 0.70, AST 13 L, ALT 18, Alkaline Phosphatase 63, Total Protein 7.1, Albumin 3.2, Globulin 3.9, Albumin/Globulin Ratio 0.8 L 11/30/23 07:48: POC Glucose 143 H 11/30/23 11:15: POC Glucose 188 H Meaningful Use Info Meaningful Use Meaningful Use Diagnoses (Choose all that apply): None applicable Ischemic Stroke Statin Dosing Therapy Reference: STATIN DOSE THERAPY REFERENCE: * Patients > 75 years receive moderate or high dose statin therapy. * Patients 75 years or YOUNGER should receive HIGH intensity statin dose unless contraindicated. You will be required to document reason for non-treatment if statin daily dose does not meet guidelines. HIGH DOSE STATIN THERAPY DAILY Atorvastatin > than or = to 40 mg Rosuvastatin > than or = to 20 mg Amlodipine + Atorvastatin > than or = to 2.5/40 mg Ezetimibe + Simvastatin 10/80 mg Simvastatin 80mg Discharge Plan Admission Admit Date/Time: 11/29/23 12:32 Primary Reason for Your Visit: Staged PCI of RCA Attending Provider: Larissa Mcdonald Primary Care Provider: Bernardo Mensah Discharge Orders/Prescriptions Prescriptions: No Action atorvastatin 40 mg tablet 40 mg PO QHS Qty: 90 3RF carvedilol 6.25 mg tablet 6.25 mg PO BID Qty: 180 3RF clopidogrel 75 mg tablet 75 mg PO DAILY Qty: 90 3RF lisinopril 20 mg tablet 20 mg PO DAILY Qty: 90 3RF (DME) blood pressure test kit-medium Kit See Rx Instructions .Route Qty: 1 0RF Rx Instructions: As directed insulin lispro [Humalog KwikPen Insulin] 100 unit/mL insulin pen 9 ea SUBCUT 3XD insulin glargine-yfgn [Semglee(insulin glarg-yfgn)Pen] 100 unit/mL (3 mL) insulin pen 38 ea SUBCUT QHS metformin 500 mg tablet 500 mg PO BID Patient Comments: TAKE 1 TABLET BY MOUTH TWICE A DAY WITH FOOD B12 capsule 50,000 units PO QWEEK Xarelto 20 mg tablet 20 mg PO Q24H Patient Comments: TAKE 1 (ONE) TABLET BY MOUTH ONCE A DAY WITH THE LARGEST MEAL OF THE DAY Referrals / Follow Up: Bernardo Mensah MD [Primary Care Provider] - Disposition Disposition (needs filled in before D/C Order can be placed): Home, Self Care Charges/Coding Visit Charges Inpatient E&M: 65358 Disch Hosp
--- NOTE | 2023-11-30 15:15 | CASEMGMT ---
Patient has order for discharge. RN CM in to discuss needs at discharge. Patient denies needs or help at discharge. Patient had no further questions or concerns.
== END 2023-11-30 15:04 | disposition home or self-care (01) ==
LOC: PCU 12:40
PROVIDERS: Nurse Practitioner Gerontology; Admitting Provider Specialist; PCP Family Medicine; Referring Provider Family Medicine; Visit Provider Specialist
DX: I25.10 Atherosclerotic heart disease of native coronary artery without angina pectoris (principal); Z95.5 Presence of coronary angioplasty implant and graft; I25.2 Old myocardial infarction; Z87.891 Personal history of nicotine dependence; Z79.899 Other long term (current) drug therapy; Z79.01 Long term (current) use of anticoagulants; Z79.02 Long term (current) use of antithrombotics/antiplatelets; Z79.84 Long term (current) use of oral hypoglycemic drugs; Z86.718 Personal history of other venous thrombosis and embolism; Z86.711 Personal history of pulmonary embolism
CPT/HCPCS: C1725; C1769 ×3; C1887; C1894; 36415; 80048; 80053; 82962; 85025; 85027; 92928; 93005; 99152; 99153; 99221; C1874; J7030; J7040; Q9967; C9600; G0378

== ENCOUNTER → 2023-12-29 | Outpatient (CLI) | payer MEDICAID, SELFPAY ==
[2023-12-29 18:02] LABS: PSA,Total - Annual Screen 0.52 ng/mL (0.00-4.00)
== END | disposition home or self-care (01) ==
LOC: MFPLAB 15:57
PROVIDERS: PCP Family Medicine; Visit Provider Family Medicine
DX: Z12.5 Encounter for screening for malignant neoplasm of prostate (principal)
CPT/HCPCS: 84153; 36415; G0103

== ENCOUNTER → 2024-02-08 | Outpatient (CLI) | payer MEDICARE, SELFPAY ==
[2024-02-08 15:43] LABS: Absolute Lymphocyte Count 1.25 X10^3/uL (0.83-4.51); Absolute Neutrophil Count 4.2 X10^3/uL (2.0-7.7); Basophil# 0.06 X10^3/uL; Basophil% 0.9 % (0-1); Eosinophil# 0.17 X10^3/uL; Eosinophils% 2.7 % (0-5); Hematocrit 43.4 % (40-54); Hemoglobin 14.2 g/dL (13.0-16.5); Lymphocyte # 1.25 X10^3/ul (0.83-4.51); Lymphocyte % 19.6 % (19-41); Mean Corp Hgb Conc 32.7 g/dL (32-36); Mean Corpuscular Hgb 28.5 pg (27.0-32.0); Mean Corpuscular Volume 87.1 fL (80-94); Mean Platelet Vol. 9.7 fl (6.2-12.0); Monocyte# 0.66 X10^3/uL; Monocyte% 10.4 % (0-10); NRBC Flagged by Analyzer 0 % (0-5); Neutrophil # 4.22 X10^3/uL (2.7-7.7); Neutrophil % 66.2 % (47-70); Platelet Count 218 K/mm3 (150-450); RBC Distribution Width CV 14.3 % (11.6-14.6); Red Blood Count 4.98 M/mm3 (4.6-6.2); White Blood Count 6.4 K/mm3 (4.4-11.0)
[2024-02-08 16:01] LABS: ALB/GLOB Ratio 0.9 RATIO (0.9-2.4); AST(SGOT) 11 U/L (15-37); Alanine Aminotransfer ALT/SGPT 20 U/L (16-61); Albumin, Serum 3.7 g/dL (3.2-5.0); Alkaline Phosphatase 71 U/L (45-117); Anion Gap 5 (5-15); BUN 14 mg/dL (7-18); BUN/Creat Ratio 13.7 RATIO (10-20); Calcium,Total 9.4 mg/dL (8.5-10.1); Chloride 102 mmol/L (98-107); Cholesterol 82 mg/dL (200); Creatinine, Serum 1.02 mg/dL (0.70-1.30); EST Glomerular Filtration Rate 79 mL/min (>60); Est Glom Filt Rate - Afr Amer 95 mL/min (>60); Globulin 4.2 g/dL (2.2-4.2); Glucose 143 mg/dL (74-106); High Density Lipoprotein 36 mg/dL; Potassium 5.1 mmol/L (3.5-5.1); Protein, Total 7.9 g/dL (6.4-8.2); Sodium Level 137 mmol/L (136-145); T4 Free Direct 1.11 ng/dL (0.76-1.46); Thyroid Stim Hormone (TSH) 5.99 uIU/mL (0.358-3.74); Triglycerides 100 mg/dL; Very Low Density Lipoprotein 20 mg/dL (5-40)
[2024-02-08 16:06] LABS: Hemoglobin A1c 6.4 % (3.8-5.6)
[2024-02-10 13:53] LABS: Vitamin D,25 Hydroxy 61.1 ng/mL
== END | disposition home or self-care (01) ==
LOC: MFPLAB 10:43
PROVIDERS: PCP Family Medicine; Visit Provider Family Medicine
DX: E11.8 Type 2 diabetes mellitus with unspecified complications (principal); E55.9 Vitamin D deficiency, unspecified; E03.8 Other specified hypothyroidism
CPT/HCPCS: 36415; 80053; 80061; 82306; 83036; 84439; 84443; 85025

== ENCOUNTER → 2024-06-14 | Outpatient (CLI) | payer MEDICARE, SELFPAY ==
[2024-06-14 12:16] LABS: Absolute Lymphocyte Count 1.04 X10^3/uL (0.83-4.51); Absolute Neutrophil Count 3.7 X10^3/uL (2.0-7.7); Basophil# 0.04 X10^3/uL; Basophil% 0.7 % (0-1); Eosinophil# 0.18 X10^3/uL; Eosinophils% 3.3 % (0-5); Hematocrit 41.7 % (40-54); Hemoglobin 14.1 g/dL (13.0-16.5); Lymphocyte # 1.04 X10^3/ul (0.83-4.51); Lymphocyte % 18.8 % (19-41); Mean Corp Hgb Conc 33.8 g/dL (32-36); Mean Corpuscular Hgb 29.7 pg (27.0-32.0); Mean Platelet Vol. 10.2 fl (6.2-12.0); Monocyte# 0.57 X10^3/uL; Monocyte% 10.3 % (0-10); NRBC Flagged by Analyzer 0 % (0-5); Neutrophil # 3.68 X10^3/uL (2.7-7.7); Neutrophil % 66.5 % (47-70); Platelet Count 182 K/mm3 (150-450); RBC Distribution Width CV 14.1 % (11.6-14.6); Red Blood Count 4.74 M/mm3 (4.6-6.2); White Blood Count 5.5 K/mm3 (4.4-11.0)
[2024-06-14 13:15] LABS: ALB/GLOB Ratio 0.9 RATIO (0.9-2.4); AST(SGOT) 10 U/L (15-37); Alanine Aminotransfer ALT/SGPT 17 U/L (16-61); Albumin, Serum 3.6 g/dL (3.2-5.0); Alkaline Phosphatase 69 U/L (45-117); Anion Gap 5 (5-15); BUN 17 mg/dL (7-18); Calcium,Total 9.4 mg/dL (8.5-10.1); Chloride 106 mmol/L (98-107); Cholesterol 96 mg/dL (200); Creatinine, Serum 1.06 mg/dL (0.70-1.30); EST Glomerular Filtration Rate 75 mL/min (>60); Est Glom Filt Rate - Afr Amer 91 mL/min (>60); Globulin 3.8 g/dL (2.2-4.2); Glucose 221 mg/dL (74-106); High Density Lipoprotein 36 mg/dL; Potassium 4.3 mmol/L (3.5-5.1); Protein, Total 7.4 g/dL (6.4-8.2); Sodium Level 138 mmol/L (136-145); T4 Free Direct 1.05 ng/dL (0.76-1.46); Triglycerides 131 mg/dL; Very Low Density Lipoprotein 26 mg/dL (5-40)
[2024-06-14 14:46] LABS: Vitamin D,25 Hydroxy 44.2 ng/mL
== END | disposition home or self-care (01) ==
LOC: MFPLAB 10:34
PROVIDERS: PCP Family Medicine; Referring Provider Family Medicine; Visit Provider Family Medicine
DX: E11.8 Type 2 diabetes mellitus with unspecified complications (principal); E55.9 Vitamin D deficiency, unspecified; E03.8 Other specified hypothyroidism
CPT/HCPCS: 36415; 80053; 80061; 82306; 83036; 84439; 84443; 85025

== ENCOUNTER → 2024-10-12 | Outpatient (CLI) | payer MEDICARE, SELFPAY ==
[2024-10-12 12:34] LABS: Absolute Lymphocyte Count 1.12 X10^3/uL (0.83-4.51); Absolute Neutrophil Count 4.3 X10^3/uL (2.0-7.7); Basophil# 0.05 X10^3/uL; Basophil% 0.8 % (0-1); Eosinophil# 0.15 X10^3/uL; Eosinophils% 2.4 % (0-5); Hematocrit 41.5 % (40-54); Hemoglobin 13.9 g/dL (13.0-16.5); Lymphocyte # 1.12 X10^3/ul (0.83-4.51); Lymphocyte % 17.9 % (19-41); Mean Corp Hgb Conc 33.5 g/dL (32-36); Mean Corpuscular Volume 89.6 fL (80-94); Mean Platelet Vol. 10.2 fl (6.2-12.0); Monocyte# 0.61 X10^3/uL; Monocyte% 9.8 % (0-10); NRBC Flagged by Analyzer 0 % (0-5); Neutrophil # 4.31 X10^3/uL (2.7-7.7); Neutrophil % 68.9 % (47-70); Platelet Count 192 K/mm3 (150-450); RBC Distribution Width CV 13.7 % (11.6-14.6); RBC Distribution Width SD 44.5 fl (35.1-43.9); Red Blood Count 4.63 M/mm3 (4.6-6.2); White Blood Count 6.3 K/mm3 (4.4-11.0)
[2024-10-12 13:28] LABS: ALB/GLOB Ratio 1.3 RATIO (0.9-2.4); AST(SGOT) 17 U/L (<=37); Alanine Aminotransfer ALT/SGPT 9 U/L (<=46); Albumin, Serum 4.1 g/dL (3.4-4.8); Alkaline Phosphatase 61 U/L (40-129); Anion Gap 12 (5-15); BUN 15 mg/dL (4-19); BUN/Creat Ratio 15.8 RATIO (10-20); Calcium,Total 9.6 mg/dL (7.6-11.0); Carbon Dioxide 25.1 mmol/L (21.0-32.0); Chloride 104 mmol/L (98-108); Cholesterol 78 mg/dL (<=200); Creatinine, Serum 0.94 mg/dL (0.70-1.20); EST Glomerular Filtration Rate 92 (>60); Glucose 147 mg/dL (70-99); High Density Lipoprotein 35 mg/dL; Low Density Lipoprotein Calc. 27 mg/dL; Potassium 4.7 mmol/L (3.3-5.1); Protein, Total 7.1 g/dL (5.9-8.4); Sodium Level 141 mmol/L (133-145); Total Bilirubin 0.54 mg/dL (0.00-1.30); Triglycerides 78 mg/dL; Very Low Density Lipoprotein 16 mg/dL (5-40); cholesterol:hdl ratio screen 2.22
[2024-10-12 13:41] LABS: Vitamin D,25 Hydroxy 30.2 ng/mL (30-100)
== END | disposition home or self-care (01) ==
PROVIDERS: PCP Family Medicine; Referring Provider Family Medicine; Visit Provider Family Medicine
DX: E11.8 Type 2 diabetes mellitus with unspecified complications (principal); E55.9 Vitamin D deficiency, unspecified; E03.8 Other specified hypothyroidism
CPT/HCPCS: 36415; 80053; 80061; 82306; 83036; 84439; 84443; 85025

== ENCOUNTER → 2025-01-12 | Outpatient (CLI) | payer MEDICARE, SELFPAY ==
[2025-01-12 10:25] LABS: Absolute Lymphocyte Count 1.42 X10^3/uL (0.83-4.51); Absolute Neutrophil Count 3.4 X10^3/uL (2.0-7.7); Basophil# 0.05 X10^3/uL; Basophil% 0.9 % (0-1); Eosinophil# 0.19 X10^3/uL; Eosinophils% 3.3 % (0-5); Hematocrit 39.9 % (40-54); Hemoglobin 13.7 g/dL (13.0-16.5); Lymphocyte # 1.42 X10^3/ul (0.83-4.51); Mean Corp Hgb Conc 34.3 g/dL (32-36); Mean Corpuscular Volume 87.5 fL (80-94); Mean Platelet Vol. 9.8 fl (6.2-12.0); Monocyte# 0.61 X10^3/uL; Monocyte% 10.7 % (0-10); NRBC Flagged by Analyzer 0 % (0-5); Neutrophil # 3.39 X10^3/uL (2.7-7.7); Neutrophil % 59.7 % (47-70); Platelet Count 188 K/mm3 (150-450); RBC Distribution Width CV 13.3 % (11.6-14.6); RBC Distribution Width SD 42.2 fl (35.1-43.9); Red Blood Count 4.56 M/mm3 (4.6-6.2); White Blood Count 5.7 K/mm3 (4.4-11.0)
[2025-01-12 10:51] LABS: Hemoglobin A1c 7.2 % (<=5.6)
[2025-01-12 10:55] LABS: ALB/GLOB Ratio 1.4 RATIO (0.9-2.4); AST(SGOT) 15 U/L (<=37); Alanine Aminotransfer ALT/SGPT 11 U/L (<=46); Albumin, Serum 4.2 g/dL (3.4-4.8); Alkaline Phosphatase 60 U/L (40-129); Anion Gap 10 (5-15); BUN 22 mg/dL (4-19); BUN/Creat Ratio 22.9 RATIO (10-20); Calcium,Total 9.6 mg/dL (7.6-11.0); Carbon Dioxide 25.5 mmol/L (21.0-32.0); Chloride 103 mmol/L (98-108); Creatinine, Serum 0.95 mg/dL (0.70-1.20); EST Glomerular Filtration Rate 91 (>60); Glucose 139 mg/dL (70-99); Potassium 4.4 mmol/L (3.3-5.1); Protein, Total 7.2 g/dL (5.9-8.4); Sodium Level 138 mmol/L (133-145)
== END | disposition home or self-care (01) ==
LOC: MFPLAB 09:09
PROVIDERS: PCP Family Medicine; Referring Provider Family Medicine; Visit Provider Family Medicine
DX: E11.8 Type 2 diabetes mellitus with unspecified complications (principal); Z12.5 Encounter for screening for malignant neoplasm of prostate
CPT/HCPCS: 36415; 80053; 83036; 84153; 85025; G0103

== ENCOUNTER → 2025-05-04 | Outpatient (CLI) | payer MEDICARE, SELFPAY ==
[2025-05-04 12:34] LABS: Hematocrit 40.8 % (40-54); Hemoglobin 14.1 g/dL (13.0-16.5); Immature Granulocytes Count 0.010 X10^3/uL (0.0-0.0); Mean Corp Hgb Conc 34.6 g/dL (32-36); Mean Corpuscular Volume 87.4 fL (80-94); Mean Platelet Vol. 9.6 fl (6.2-12.0); NRBC Flagged by Analyzer 0 % (0-5); Platelet Count 199 K/mm3 (150-450); RBC Distribution Width CV 13.9 % (11.6-14.6); RBC Distribution Width SD 44.0 fl (35.1-43.9); Red Blood Count 4.67 M/mm3 (4.6-6.2); White Blood Count 5.8 K/mm3 (4.4-11.0)
[2025-05-04 13:20] LABS: AST(SGOT) 15 U/L (<=37); Alanine Aminotransfer ALT/SGPT 10 U/L (<=46); Albumin, Serum 4.2 g/dL (3.4-4.8); Alkaline Phosphatase 57 U/L (40-129); Anion Gap 18 (5-15); BUN 16 mg/dL (4-19); BUN/Creat Ratio 18.0 RATIO (10-20); Calcium,Total 9.1 mg/dL (7.6-11.0); Carbon Dioxide 18.4 mmol/L (21.0-32.0); Chloride 104 mmol/L (98-108); Cholesterol 80 mg/dL (<=200); Globulin 2.9 g/dL (2.2-4.2); Glucose 51 mg/dL (70-99); Low Density Lipoprotein Calc. 45 mg/dL; Potassium 4.1 mmol/L (3.3-5.1); Triglycerides 76 mg/dL; Very Low Density Lipoprotein 15 mg/dL (5-40); Vitamin D,25 Hydroxy 32.3 ng/mL (30-100); cholesterol:hdl ratio screen 4.02
== END | disposition home or self-care (01) ==
LOC: MFPLAB 10:44
PROVIDERS: PCP Family Medicine; Referring Provider Family Medicine; Visit Provider Family Medicine
DX: E03.8 Other specified hypothyroidism (principal); E11.8 Type 2 diabetes mellitus with unspecified complications; E55.9 Vitamin D deficiency, unspecified
CPT/HCPCS: 36415; 80053; 80061; 82306; 83036; 84439; 84443; 85025

== ENCOUNTER 2025-07-10 12:39 | Emergency (ER) | payer MEDICARE, SELFPAY ==
[2025-07-10 12:41] VITALS: BP 151/83; PULSE 64; RESP 18; TEMP 36.3; O2SAT 96; BMI 34.0
[2025-07-10 13:07] LABS: Hematocrit 44.1 % (40-54); Hemoglobin 15.2 g/dL (13.0-16.5); Immature Granulocytes Count 0.030 X10^3/uL (0.0-0.0); Mean Corp Hgb Conc 34.5 g/dL (32-36); Mean Corpuscular Volume 87.2 fL (80-94); Mean Platelet Vol. 9.2 fl (6.2-12.0); NRBC Flagged by Analyzer 0 % (0-5); Platelet Count 208 K/mm3 (150-450); RBC Distribution Width CV 13.3 % (11.6-14.6); RBC Distribution Width SD 41.8 fl (35.1-43.9); Red Blood Count 5.06 M/mm3 (4.6-6.2); White Blood Count 7.4 K/mm3 (4.4-11.0)
--- NOTE | 2025-07-10 13:08 | EX.ED.DYSGE1 ---
HPI History of Present Illness Chief Complaint: Edema Narrative Narrative: Chief complaint and HPI: 64-year-old male with past medical hist history of CAD, HLD, DM, HTN who presents for evaluation of left flank pain. Patient states approximately 1 month ago he got up from bed in which he developed left flank pain. He states has continued to hurt for the past month. He thought he originally pulled a muscle. He feels that there is swelling in the area. He denies any alcohol use. Denies any fever, chills, shortness of breath, chest pain, nausea, vomiting, diarrhea, constipation, dysuria. Review of systems: See HPI Medications: As listed on the chart Allergies: As listed on the chart PFSH: Per chart Vital signs: As listed on the chart. Reviewed. Physical exam: Gen: A&O x3, NAD Head: Normocephalic, atraumatic Eyes: No sclera icterus, conjunctiva clear ENT: Moist mucous membranes Neck: Trachea midline CV: RRR, no murmurs, no peripheral edema Resp: Lungs CTA BL, no w/r/c GI: Abd soft, non-distended, tender to palpation in the left mid abdomen-no firmness/swelling/hematoma/ecchymosis, no r/r reducible umbilical hernia : No CVA tenderness Musc: Full ROM, no deformity Skin: Warm, dry Neuro: Alert, oriented, grossly intact, sensation intact Psych: Cooperative, appropriate mood and affect [facility] Medical History Arteriosclerotic cardiovascular disease (ASCVD) (10/06/23) ST elevation (STEMI) myocardial infarction (10/06/23) Neurogenic bladder DVT (deep venous thrombosis) Acute saddle pulmonary embolism Urinary catheter in place Genital warts Strain of right rotator cuff capsule Right shoulder strain Right shoulder pain Hernia Back pain Home Medications ?Medication ?Instructions ?Recorded ?Last Taken ?Type insulin glargine-yfgn 100 unit/mL 38 ea subcut QHS diabetes 02/21/22 10/05/23 History (3 mL) subcutaneous pen (Semglee (insulin glargine-yfgn) Pen) insulin lispro 100 unit/mL 9 ea subcut 3XD diabetes 02/21/22 10/06/23 History subcutaneous pen (Humalog KwikPen (U-100) Insulin) B12 50,000 units PO QWEEK vitamin 10/06/23 09/30/23 History replace metformin 500 mg tablet 500 mg PO BID Diabetes 10/06/23 10/06/23 History rivaroxaban 20 mg tablet (Xarelto) 20 mg PO Q24H blood clots 10/06/23 10/05/23 History atorvastatin 40 mg tablet 40 mg PO QHS #90 tabs 11/04/23 Unknown Rx blood pressure test kit-medium #1 ea 11/04/23 Unknown Rx clopidogrel 75 mg tablet 75 mg PO DAILY #90 tabs 02/02/25 Unknown Rx lisinopril 20 mg tablet 20 mg PO DAILY #90 tabs 02/02/25 Unknown Rx carvedilol 6.25 mg tablet 6.25 mg PO BID #180 tabs 02/06/25 Unknown Rx Allergy/AdvReac Type Severity Reaction Status Date / Time No Known Allergies Allergy Verified 07/10/25 12:43 Surgical History Stented coronary artery (11/29/23) History of fusion of thoracic spine Social History Smoking Status: Former smoker alcohol intake: never EXAM Physical Exam Const Vital Signs: 07/10/25 12:41 07/10/25 13:13 Temperature 97.4 F L Temperature Source Temporal Pulse Rate 64 Respiratory Rate 18 Respiratory Effort Normal Non-Labored Respiratory Pattern Normal Blood Pressure 151/83 H Blood Pressure Mean 105 Pulse Ox 96 Oxygen Delivery Method Room Air MDM MDM MDM Narrative Medical decision making narrative: 64-year-old male with past medical hist history of CAD, HLD, DM, HTN who presents for evaluation of left flank pain. Patient states approximately 1 month ago he got up from bed in which he developed left flank pain. He states has continued to hurt for the past month. He thought he originally pulled a muscle. He feels that there is swelling in the area. See physical exam findings. Differential diagnosis includes but is not limited to myofascial spasm, colitis, urolithiasis, pancreatitis, hematoma, mass. NS bolus, Zofran, morphine ordered. Laboratory workup ordered including CT abdomen pelvis. CBC unremarkable without leukocytosis or anemia. CMP unremarkable without SANJAY, transaminitis. Lipase not elevated. CT abdomen pelvis shows perinephric fat stranding. No hydronephrosis or nephrolithiasis. Correlate with UA. Patient not having any CVA tenderness. However urine is negative for UTI but has pyuria. Therefore we will treat for possible infection and patient will be placed on antibiotics. He confirmed understanding. He also has a focus of peritoneal fat stranding near the antimesenteric wall of the left colon suggestive of omental infarction. Self-limited condition treated with NSAIDs. No colitis or diverticulitis. At this point in time there is several findings that may be causing his pain. Recommend following up with primary care physician. Ibuprofen as needed for pain. He confirmed understand the plan. Patient one to discharge home. Impression: 1. Perinephric fat stranding with pyuria 2. Left colon epiploic appendagitis Lab Data Labs: Laboratory Results - last 24 hr 07/10/25 07/10/25 12:51 14:30 WBC 7.4 RBC 5.06 Hgb 15.2 Hct 44.1 MCV 87.2 MCH 30.0 MCHC 34.5 RDW Std Deviation 41.8 RDW Coeff of Tre 13.3 Plt Count 208 MPV 9.2 Immature Gran % (Auto) 0.400 Neut % (Auto) 73.3 H Lymph % (Auto) 13.6 L [place] % (Auto) 9.7 Eos % (Auto) 2.3 Baso % (Auto) 0.7 Absolute Neuts (auto) 5.4 Absolute Lymphs (auto) 1.00 Nucleated RBC % 0 Sodium 140 Potassium 4.4 Chloride 103 Carbon Dioxide 28.0 Anion Gap 9 BUN 17 Creatinine 0.93 Estim Creat Clear Calc 92.17 Est GFR (MDRD) Non-Af 92 BUN/Creatinine Ratio 18.3 Glucose 146 H Calcium 9.7 Total Bilirubin 0.77 AST 18 ALT 10 Alkaline Phosphatase 76 Total Protein 7.6 Albumin 4.3 Globulin 3.3 Albumin/Globulin Ratio 1.3 Lipase 6 L Urine Color Yellow Urine Clarity Clear Urine pH 7.0 Ur Specific [place] 1.005 Urine Protein 30 H Urine Glucose (UA) Normal Urine Ketones Negative Urine Occult Blood Negative Urine Nitrite Negative Urine Bilirubin Negative Urine Urobilinogen 1 H Ur Leukocyte Esterase 100 H Urine RBC 0 SEEN Urine WBC 5-10 SEEN Ur Squamous Epith Cells 0 SEEN Urine Bacteria RARE Urine Mucus 0 SEEN Radiography Diagnostic Testing: Clinical Impression(s) from Imaging Studies Abdomen/Pelvis CT 07/10/25 13:20 IMPRESSION: Perinephric fat stranding. No hydronephrosis. No nephrolithiasis. Correlation with urinalysis is recommended. A focus of peritoneal fat stranding near the antimesenteric wall of the left colon suggestive of omental infarction or epiploic appendagitis. This is self limited condition treated usually with NSAIDs. No evidence of acute colitis or acute diverticulitis. Reading Location: [facility] BEDS AT THE [facility] Discharge Plan Triage Chief Complaint: Edema ED Provider: Pepito Mason Dx/Rx/DC Orders Prescriptions: No Action atorvastatin 40 mg tablet 40 mg PO QHS Qty: 90 3RF (DME) blood pressure test kit-medium Kit See Rx Instructions .Route Qty: 1 0RF Rx Instructions: As directed insulin lispro [Humalog KwikPen Insulin] 100 unit/mL insulin pen 9 ea SUBCUT 3XD insulin glargine-yfgn [Semglee(insulin glarg-yfgn)Pen] 100 unit/mL (3 mL) insulin pen 38 ea SUBCUT QHS metformin 500 mg tablet 500 mg PO BID Patient Comments: TAKE 1 TABLET BY MOUTH TWICE A DAY WITH FOOD B12 capsule 50,000 units PO QWEEK Xarelto 20 mg tablet 20 mg PO Q24H Patient Comments: TAKE 1 (ONE) TABLET BY MOUTH ONCE A DAY WITH THE LARGEST MEAL OF THE DAY clopidogrel 75 mg tablet 75 mg PO DAILY Qty: 90 3RF lisinopril 20 mg tablet 20 mg PO DAILY Qty: 90 3RF carvedilol 6.25 mg tablet 6.25 mg PO BID Qty: 180 3RF Primary Care Provider: Bernardo Mensah Referrals: Bernardo Mensah MD [Primary Care Provider, Family Practice] Print Language: Kyrgyz
[2025-07-10] MEDS: 0.9% Normal Saline (1000mL) 1,000 ML 999 ML IV (13:11)
--- NOTE | 2025-07-10 13:20 | CT_ITS ---
PROCEDURE: ABDOMEN/PELVIS W IV CONT ONLY 07/10/2025 REASON FOR EXAM: LEFT FLANK PAIN TECHNIQUE: Procedure Code: [id number] Modality: CT Procedure: ABDOMEN/PELVIS W IV CONT ONLY Coronal and Sagittal reconstruction series were provided. CONTRAST: Isovue 370 VOLUME: 75 mL One or more dose reduction techniques were used (e.g., Automated exposure control, adjustment of the mA and/or kV according to patient size, use of iterative reconstruction technique. RADIATION DOSE SUMMARY: CTDlvol: 20.38 mGy DLP: 1161.85 mGycm COMPARISON: CT abdomen and pelvis July 17, 2022. FINDINGS: Lung bases: Mild cardiomegaly. Atherosclerotic calcifications of the coronary arteries. Liver: Unremarkable. Gallbladder: Unremarkable. No biliary dilation. Spleen: Unremarkable. Pancreas: Fatty infiltration of the pancreas. No masses. No acute process. Adrenals: Unremarkable. Kidneys: No hydronephrosis. No nephrolithiasis. Perinephric fat stranding. Bladder: Unremarkable. Reproductive Organs: Unremarkable. Bowel: No bowel wall obstruction. No bowel wall thickening. Appendix: No evidence of acute appendicitis. Lymph nodes: No lymphadenopathy. Vasculature: No aneurysm. Peritoneum / Retroperitoneum: No free air or free fluid. A focus of peritoneal fat stranding near the antimesenteric wall of the left colon suggestive of omental infarction or epiploic appendagitis. Bones: No acute bony abnormalities. A Schmorl node at the upper endplate of L1. Abdominal wall: 2 x 3 x 3.5 cm fat containing periumbilical hernia. No evidence of incarceration. CT/Abdomen/Pelvis W IV Cont ONLY IMPRESSION: Perinephric fat stranding. No hydronephrosis. No nephrolithiasis. Correlatio n with urinalysis is recommended. A focus of peritoneal fat stranding near the antimesenteric wall of the left co gisele suggestive of omental infarction or epiploic appendagitis. This is self limited condition treated usually with NSAIDs. No evidence of acute colitis or acute diverticulitis. Reading Location: [facility]
[2025-07-10 13:41] LABS: AST(SGOT) 18 U/L (<=37); Alanine Aminotransfer ALT/SGPT 10 U/L (<=46); Albumin, Serum 4.3 g/dL (3.4-4.8); Alkaline Phosphatase 76 U/L (40-129); Anion Gap 9 (5-15); BUN 17 mg/dL (4-19); BUN/Creat Ratio 18.3 RATIO (10-20); Calcium,Total 9.7 mg/dL (7.6-11.0); Carbon Dioxide 28.0 mmol/L (21.0-32.0); Chloride 103 mmol/L (98-108); Estimated Creatinine Clearance 92.17 ml/min (50-250); Globulin 3.3 g/dL (2.2-4.2); Glucose 146 mg/dL (70-99); Lipase 6 U/L (13-75); Potassium 4.4 mmol/L (3.3-5.1)
[2025-07-10 14:38] LABS: Mucous, Urine 0 SEEN /hpf (<or=2+); Red Blood Cells-Urine 0 SEEN /hpf (0-5); Squamous Epithelial Cells - UA 0 SEEN /hpf (0-5)
[2025-07-10 14:40] LABS: Color, Urine Yellow (Yellow); Glucose, Dipstick Normal (Normal); Ketone-Dipstick Negative (Negative); Leukocyte Esterase-Dipstick 100 /ul (Negative); Nitrite-Dipstick Negative (Negative); Occult Blood-Urine Negative /ul (Negative); Protein-Dipstick 30 mg/dl (Negative); Specific Gravity, Urine 1.005 (1.002-1.030); Urine Bilirubin Dipstick Negative (Negative)
[2025-07-10 15:30] VITALS: BP 145/72; PULSE 57; RESP 18; TEMP 36.4; O2SAT 97
== END 2025-07-10 15:31 | disposition home or self-care (01) ==
PROVIDERS: Emergency Provider Surgery; PCP Family Medicine; Visit Provider Surgery
DX: K63.89 Other specified diseases of intestine (principal); E11.9 Type 2 diabetes mellitus without complications; Z79.4 Long term (current) use of insulin; Q43.8 Other specified congenital malformations of intestine; R82.81 Pyuria; I10 Essential (primary) hypertension; I25.2 Old myocardial infarction; Z79.01 Long term (current) use of anticoagulants; Z79.02 Long term (current) use of antithrombotics/antiplatelets; Z79.84 Long term (current) use of oral hypoglycemic drugs; Z79.899 Other long term (current) drug therapy; Z86.711 Personal history of pulmonary embolism; Z86.718 Personal history of other venous thrombosis and embolism; Z87.891 Personal history of nicotine dependence
CPT/HCPCS: 74177; 80053; 81001; 83690; 85025; 87077; 87086; 87088; 87186; 96360; 96361; 99283; Q9967; A4216; J2405

== ENCOUNTER → 2025-07-26 | Outpatient (CLI) | payer MEDICARE, SELFPAY ==
[2025-07-26 09:43] LABS: Mucous, Urine 0 SEEN /hpf (<or=2+)
[2025-07-26 10:53] LABS: Hematocrit 42.5 % (40-54); Hemoglobin 14.3 g/dL (13.0-16.5); Immature Granulocytes Count 0.010 X10^3/uL (0.0-0.0); Mean Corp Hgb Conc 33.6 g/dL (32-36); Mean Corpuscular Volume 87.4 fL (80-94); Mean Platelet Vol. 9.1 fl (6.2-12.0); NRBC Flagged by Analyzer 0 % (0-5); Platelet Count 196 K/mm3 (150-450); RBC Distribution Width CV 13.1 % (11.6-14.6); RBC Distribution Width SD 41.7 fl (35.1-43.9); Red Blood Count 4.86 M/mm3 (4.6-6.2); White Blood Count 6.2 K/mm3 (4.4-11.0)
[2025-07-26 12:24] LABS: Color, Urine Yellow (Yellow); Glucose, Dipstick Normal (Normal); Ketone-Dipstick Negative (Negative); Leukocyte Esterase-Dipstick Negative /ul (Negative); Nitrite-Dipstick Negative (Negative); Occult Blood-Urine 10 /ul (Negative); Protein-Dipstick 15 mg/dl (Negative); Specific Gravity, Urine 1.025 (1.002-1.030); Urine Bilirubin Dipstick Negative (Negative)
[2025-07-26 12:34] LABS: Creatinine, Urine (random) 182.00 mg/dL (39.00-259.00); Microalbumin,Random Urine < 12.0 mg/L (<20 mg/L)
[2025-07-26 12:45] LABS: Red Blood Cells-Urine 0-5 SEEN /hpf (0-5); Squamous Epithelial Cells - UA 0-5 SEEN /hpf (0-5)
[2025-07-26 13:02] LABS: AST(SGOT) 14 U/L (<=37); Alanine Aminotransfer ALT/SGPT 11 U/L (<=46); Albumin, Serum 4.2 g/dL (3.4-4.8); Alkaline Phosphatase 69 U/L (40-129); Anion Gap 11 (5-15); BUN 17 mg/dL (4-19); BUN/Creat Ratio 18.8 RATIO (10-20); Calcium,Total 9.6 mg/dL (7.6-11.0); Carbon Dioxide 27.6 mmol/L (21.0-32.0); Chloride 100 mmol/L (98-108); Cholesterol 87 mg/dL (<=200); Globulin 2.9 g/dL (2.2-4.2); Glucose 174 mg/dL (70-99); Low Density Lipoprotein Calc. 30 mg/dL; Potassium 3.9 mmol/L (3.3-5.1); Triglycerides 101 mg/dL; Very Low Density Lipoprotein 20 mg/dL (5-40); Vitamin D,25 Hydroxy 33.3 ng/mL (30-100); cholesterol:hdl ratio screen 2.28
== END | disposition home or self-care (01) ==
LOC: MFPLAB 09:40
PROVIDERS: PCP Family Medicine; Visit Provider Family Medicine
DX: E11.69 Type 2 diabetes mellitus with other specified complication (principal); E03.8 Other specified hypothyroidism; E55.9 Vitamin D deficiency, unspecified
CPT/HCPCS: 36415; 80053; 80061; 81001; 82043; 82306; 82570; 83036; 84439; 84443; 85025